=== PATIENT | female | born 1965 | race Caucasian/White ===

== ENCOUNTER → 2016-08-04 | Outpatient (CLI) | payer OTHER, MEDICARE ==
[~2016-08-04] MED LIST: /CELE20CA; /CELE20CA OR; /CELE20CA PO; ACET500C; ACET500C PO; AMIT10TA2 PO; BENA25CA4 PO; CALC12502 PO; DULO30CA PO; FLEC1.3D TD; FLECTOR PATCH TD; FLECTOR1.3 TD; LIDO1DIS2 TD; LIDO5DIS TD; LODINE OR; MULTIVIT PO; NAPR500T OR; NAPR500T81 OR; NEXI20CA OR; OXYCODONE OR; PERC5TAB8 OR; PRIL40CA OR; PROV90AE IN; SOMA250T; SOMA250T OR; SOMA250T PO; SUDA30TA OR; TIZA4CAP PO; TIZA4TAB OR; TRAM50TA2; TRAM50TA2 PO; TYLENOL; TYLENOL PM PO; TYLENOL PO; VICO5TAB OR; VICODINES TAB OR; VITAMIN B COMPLE1 OR; VITAMIN B OR; microgestin PO
--- NOTE | 2016-08-12 00:30 | ECWPNPC ---
PATIENT NAME: HECTOR ZIMMERMAN : 1965 GENDER: FEMALE VISIT DATE: 08/04/2016 DISCHARGE DATE: 08/04/16 1622 VISIT LOCKED DATE TIME: PHYSICIAN: ABBY PEÑA RESOURCE: ABBY PEÑA REASON FOR APPOINTMENT 1. WC, BACK HISTORY OF PRESENT ILLNESS HISTORY OF PRESENT ILLNESS: PAIN THE PATIENT DESCRIBES THE PAIN... 51 YEAR OLD FEMALE PATIENT WITH HISTORY OF CHRONIC BACK PAIN. PATIENT DESCRIBES THE PAIN BURNING, SHARP, AND SHOOTING WITH A PAIN SCORE OF 7/10 ON TODAY'S VISIT. PATIENT WAS INJURED IN A WORK RELATED INJURY ON 05-03-1998 WORKING FOR [employer], PATIENT WAS SHOVELING SNOW OFF THE SIDEWALK WHEN SHE INJURED HER BACK. PATIENT REPORTS THAT SHE HAS TRIED PHYSICAL THERAPY IN THE PAST AND IT ONLY MADE THE PAIN WORST. PATIENT STATES THAT SHE HAD BACK SURGERY IN 1998 AND SHE HAD A DCS PUT IN 2011. PATIENT REPORTS THAT SOMETIMES SHE HAS DIFFICULTIES GOING TO SLEEP AND STAYING ASLEEP. PATIENT REPORTS THAT SHE HAS RADIATING PAIN CONSTANTLY DOWN THE RIGHT LEG AND SOMETIMES THE LEFT LEG. PATIENT STATES HER DCS IS NOT REALLY TAKING THE PAIN AWAY LIKE IT USE TOO. PATIENT DENIES UNEXPLAINABLE WEIGHT LOSS, FEVER, CHILLS, NEW CHANGES ON HER URINARY OR BOWEL CONTROL. FALL RISK SCREENING: SCREENING :NO FALLS IN THE PAST YEAR CURRENT MEDICATIONS TAKING PSEUDOEPHEDRINE HCL 30MG 1 TAB (S) ONCE A DAY TAKING MULTIVITAMINS OTC TABLET 1 TAB(S) P.O. ONCE A DAY TAKING CALCIUM 500 + D 500-400 MG-UNIT TABLET 1 TAB(S) P.O. ONCE A DAY TAKING OMEPRAZOLE 40MG 40GM CAPSULE 1 CAP(S) P.O. ONCE A DAY TAKING VITAMIN B COMPLEX OTC TABLET 1 TAB(S) P.O. ONCE A DAY TAKING LIDODERM 5 % PATCH 3 PATCHES EXTERNALLY ONCE A DAY ON BACK TAKING FLECTOR 1.3 % PATCH 1 PATCH TO SKIN EXTERNALLY TO LOW BACK ON 12 HRS OFF 12 HRS TAKING CYMBALTA 20 MG CAPSULE DELAYED RELEASE PARTICLES 1 CAPSULE ORALLY TWICE A DAY TAKING ESTRADIOL 0.1 MG/GM CREAM 1/2 GRAM VAGINAL TWICE WEEKLY, COMPOUNDED MEDICATION IS IN PATIENT'S BEST MEDICAL INTEREST, CODE F TAKING PREMARIN 0.625 MG/GM CREAM 1/2 GRAM VAGINAL TWICE WEEKLY; COMPOUNDED MEDICATION IS IN PATIENT'S BEST MEDICAL INTEREST, CODE F TAKING GABAPENTIN 100 MG CAPSULE DIRECTED ORALLY THREE TIMES DAILY NEEDED TAKING TRAMADOL HCL 50 MG TABLET 1 TABLET ORALLY EVERY 6 HRS MDD=4 NOT-TAKING CUSTOM DO NOT USE TRAMADOL 50 MG TABLET 1 TAB(S) P.O. THREE TIMES A DAY NOT-TAKING NAPROXEN 500 MG TABLET 1 TAB(S) P.O. TWICE A DAY PAST MEDICAL HISTORY BACK SURGERY X 9 HISTORY OF KIDNEY PROBLEMS CHILD...NOT SURE OF SPECIFICS PSORIASIS ALLERGIES LATEX (FOR ALLERGY USE ONLY): RASH: ALLERGY SURGICAL HISTORY BACK SURGERY X 9 DORSAL COLOMN STIMULATOR 05/2001 LUMPECTOMY, LEFT BREAST 2009 FAMILY HISTORY NO FAMILY HISTORY DOCUMENTED. SOCIAL HISTORY GENERAL: TOBACCO USE ARE YOU A:NONSMOKER LEARNING BARRIERS / SPECIAL NEEDS ORIENTED TO PLAN OF CARE: PATIENT, PAIN MANAGEMENT PATIENT, ORIENTED TO PLAN OF CARE: PATIENT, PAIN MANAGEMENT PATIENT. NEW PATIENT PAIN DIARY TODAY'S VISITNOTES FROM 0-10, WHAT LEVEL IS YOUR PAIN TODAY?0 PAIN CLINIC PFS, CLERGY, PUBLIC HEALTH REFERRALS PFS REFERRAL NEEDED?NO CLERGY REFERRAL NEEDED?NO PUBLIC HEALTH REFERRAL NEEDED?NO WAS THE PROVIDER NOTIFIED OF ANY PERTINENT INFO?NO PFS REFERRAL NEEDED?NO CLERGY REFERRAL NEEDED?NO PUBLIC HEALTH REFERRAL NEEDED?NO WAS THE PROVIDER NOTIFIED OF ANY PERTINENT INFO?NO HOSPITALIZATION/MAJOR DIAGNOSTIC PROCEDURE CHILD, DUE TO KIDNEYS REVIEW OF SYSTEMS CONSTITUTIONAL: ANY CHANGE IN YOUR MEDICAL CONDITION? NO . CHILLS NO . FEVER NO . INFECTION: DO YOU HAVE NEW INFECTIONS? NO . DO YOU HAVE HISTORY OF MRSA? NO . MUSCULOSKELETAL: ANY NEW PATTERNS OF PAIN OR NUMBNESS? NO . GASTROENTEROLOGY: ANY NEW CHANGE IN BOWEL CONTROL? NO . GENITOURINARY: ANY NEW CHANGE IN BLADDER CONTROL? NO . IS THERE A CHANCE YOU COULD BE ? NO . HEMATOLOGY/LYMPH: DO YOU TAKE ANY BLOOD THINNERS? (FOR EXAMPLE- COUMADIN, PLAVIX, AGGRENOX, PLATEL, PRADAXA, OR XARELTO) NO . WHEN WAS YOUR LAST DOSE? DATE: TIME: . NEUROLOGY: HAVE YOU FALLEN IN THE PAST 6 MONTHS? YES . ANY NEW EXTREMITY NUMBNESS OR WEAKNESS? YES . CARDIOLOGY: DO YOU HAVE A PACEMAKER OR DEFIBRILLATOR? NO . RESPIRATORY: HAVE YOU BEEN SICK IN THE PAST WEEK? NO . FEVER NO . FLU LIKE SYMPTOMS? NO . COUGH NO . INTEGUMENTARY: DO YOU HAVE ANY RASHES OR OPEN SORES? NO . ALLERGIC/IMMUNO: ARE YOU ALLERGIC TO SHELLFISH OR IV DYE? NO . ANY NEW ALLERGIES? NO . PSYCHIATRIC: DO YOU HAVE THOUGHTS OF HURTING YOURSELF OR SOMEONE ELSE? NO . ARE YOU ABUSED, NEGLECTED, OR IN AN UNSAFE ENVIRONMENT? NO . ENDOCRINOLOGY: ARE YOU DIABETIC? NO . OTHER: DO YOU NEED ANY PRESCRIPTIONS? YES . IF YES, PLEASE LIST: ____DULOXTINE . ANY NEW PROBLEMS WITH YOUR MEDICATIONS? NO . WHEN DID YOU LAST EAT? ____ . WHEN DID YOU LAST DRINK? ____ . WHAT DID YOU LAST DRINK? ____ . NAME OF PERSON DRIVING YOU HOME? ____ . DO YOU HAVE ANY OTHER QUESTIONS OR CONCERNS NO . REVIEWED BY: PROVIDER: ABBY PEÑA MD . VITAL SIGNS WT 165 LBS, HT 65 IN, BMI 27.45 INDEX, BP 119/74 MM HG, HR 88 /MIN, RR 16 /MIN, TEMP 98 F,8 F, OXYGEN SAT % 100%, NA INITIALS SC 15:47, REVIEWED BY: VD. EXAMINATION : PATIENT IS ALERT O X 3 AND COOPERATIVE. PATIENT AMBULATES WITH A LIMP ON THE RIGHT LEG. PATIENT'S RIGHT LEG IS WEAKER AT FLEXION AND EXTENSION COMPARED TO THE LEFT LEG. PATIENT IS ABLE TO FLEX HER BACK AT 45 DEGREES AND EXTEND HER BACK TO 5 DEGREES. PATIENT HAS TENDERNESS IN THE LOW BACK AREA. PATIENT IS ABLE TO ABDUCT HER UPPER EXTREMITIES. MRI OF THE LUMBAR SPINE DONE ON 09/23/2010 SHOWS POST OPERATIVES CHANGES AT L4-L5 AND A MILD BROAD-BASED ANNULAR BULGE AT L5-S1. ASSESSMENTS LUMBAR POST-LAMINECTOMY SYNDROME - M96.1 (PRIMARY) INTERVERTEBRAL DISC DISORDERS WITH RADICULOPATHY, LUMBAR REGION - M51.16 INTERVERTEBRAL DISC DISORDERS WITH RADICULOPATHY, LUMBOSACRAL REGION - M51.17 TREATMENT LUMBAR POST-LAMINECTOMY SYNDROME REFILL TRAMADOL HCL TABLET, 50 MG, 1 TABLET, ORALLY, EVERY 6 HRS MDD=4, 30 DAY(S), 110, REFILLS 0 NOTES: WE DISCUSSED SEVERAL ISSUES WITH MS. [facility]ONG PAIN MANAGEMENT CASE. AT THIS TIME THE PATIENT WILL RECEIVE A REFILL OF TRAMADOL FOR SOMATIC PAIN, GABAPENTIN FOR NEUROPATHIC PAIN, AND CYMBALTA FOR NEUROPATHIC PAIN. PATIENT DID NOT BRING HER MEDICATION BOTTLES TO TODAY'S VISIT AND WAS ADVISED TO DO SO FOR EVERY VISIT. CHUCK HANKS FROM [employer] WAS HERE FOR THE FOLLOW UP TODAY, HE DID SOME PROGRAMMING WORK WITH THE DCS. PATIENT REPORTS OF GETTING GOOD PAIN RELIEF FROM HER DCS AFTER WORKING WITH CHUCK HANKS. PATIENT WILL FOLLOW UP WITH ME IN 2 MONTHS AND WILL FOLLOW UP WITH CHUCK NEEDED. , INSTRUCTIONS WERE GIVEN, QUESTIONS WERE ANSWERED, PATIENT REPORTS UNDERSTANDING AND AGREES WITH THE PLAN. I, ROSSY NEVILLE, DOCUMENTED THE ABOVE INFORMATION ACTING A SCRIBE FOR DR. PEÑA. I HAVE REVIEWED THE ABOVE DOCUMENT, WRITTEN BY ROSSY NEVILLE SCRIBE AND I VERIFY THAT IT IS ACCURATE. OTHERS REFILL GABAPENTIN CAPSULE, 100 MG, DIRECTED, ORALLY, TWICE DAILY FOR PAIN MDD2, 30 DAY(S), 60, REFILLS 2 REFILL CYMBALTA CAPSULE DELAYED RELEASE PARTICLES, 20 MG, 1 CAPSULE, ORALLY, TWICE A DAY, 30 DAYS, 60 CAPSULE, REFILLS 2 PROCEDURES PN WORKMANS' COMP OPINION IN YOUR OPINION, WAS THE INCIDENT THAT THE PATIENT DESCRIBED THE COMPETENT MEDICAL CAUSE OF THIS INJURY/ILLNESS? YES ARE THE PATIENT'S COMPLAINTS CONSISTENT WITH HIS/HER HISTORY OF THE INJURY/ILLNESS? YES IS THE PATIENT'S HISTORY OF THE INJURY/ILLNESS CONSISTENT WITH YOUR OBJECTIVE FINDING? YES WHAT IS THE PERCENTAGE OF TEMPORARY IMPAIRMENT? TOTAL = 100% IS THE PATIENT WORKING? NO DOCTOR ON SITE: ABBY BELTRAN MD PROCEDURE CODES FA211 ESTABILISHED PATIENT [facility] FACILITY CHARGE G8730 PAIN ASSESS POS TOOL F/U PLAN DOC G8427 DOC MEDS VERIFIED W/PT OR RE DISPOSITION & COMMUNICATION FOLLOW UP 2 MONTHS ELECTRONICALLY SIGNED BY ABBY PEÑA MD ON 08/11/2016 AT 08:54 AM EDT DISCLAIMER : THIS IS A VISIT SUMMARY EXTRACTED FROM THE [employer] CHART. IT IS NOT A COPY OF THE [employer] PROGRESS NOTE. JANE
== END ==
LOC: M PAIN 15:40
PROVIDERS: ATTEND Anesthesiology
DX: Z09 Encounter for follow-up examination after completed treatment for conditions other than malignant neoplasm (principal); G89.29 Other chronic pain; M96.1 Postlaminectomy syndrome, not elsewhere classified; M51.16 Intervertebral disc disorders with radiculopathy, lumbar region; M51.17 Intervertebral disc disorders with radiculopathy, lumbosacral region; L40.9 Psoriasis, unspecified; Z91.040 Latex allergy status; Z79.891 Long term (current) use of opiate analgesic; Z79.899 Other long term (current) drug therapy

== ENCOUNTER → 2016-10-05 | Outpatient (CLI) | payer OTHER, MEDICARE ==
--- NOTE | 2016-10-19 02:18 | ECWPNPC ---
PATIENT NAME: HECTOR ZIMMERMAN : 1965 GENDER: FEMALE VISIT DATE: 10/05/2016 DISCHARGE DATE: 10/05/16 1609 VISIT LOCKED DATE TIME: PHYSICIAN: ABBY PEÑA RESOURCE: ABBY PEÑA REASON FOR APPOINTMENT 1. W/C BACK NECK HISTORY OF PRESENT ILLNESS FALL RISK SCREENING: SCREENING :NO FALLS IN THE PAST YEAR HISTORY OF PRESENT ILLNESS: 51 YEAR OLD FEMALE PATIENT WITH HISTORY OF CHRONIC BACK PAIN. PATIENT DESCRIBES THE PAIN BURNING, SHARP, AND SHOOTING WITH A PAIN SCORE OF 8/10 ON TODAY'S VISIT. PATIENT WAS INJURED IN A WORK RELATED INJURY ON 05/03/1998 WORKING FOR [employer], PATIENT WAS SHOVELING SNOW OFF THE SIDEWALK WHEN SHE INJURED HER BACK. PATIENT REPORTS THAT SHE HAS TRIED PHYSICAL THERAPY IN THE PAST AND IT ONLY MADE THE PAIN WORST. PATIENT STATES THAT SHE HAD BACK SURGERY IN 1998 AND SHE HAD A DCS PUT IN 2011. CURRENTLY THE PATIENT IS USING TRAMADOL, FLECTOR PATCH GABAPENTIN, CYMBALTA, AND LIDODERM TO AID IN PAIN RELIEF. MRS. ZIMMERMAN STATES THAT THE MEDICATION KEEPS HER MOBILE AND FUNCTIONAL. PATIENT REPORTS THAT SHE HAS RADIATING PAIN CONSTANTLY DOWN THE RIGHT LEG AND SOMETIMES THE LEFT LEG. PATIENT STATES HER DCS IS NOT REALLY TAKING THE PAIN AWAY LIKE IT USE TOO. PATIENT DENIES UNEXPLAINABLE WEIGHT LOSS, FEVER, CHILLS, NEW CHANGES ON HER URINARY OR BOWEL CONTROL. CURRENT MEDICATIONS TAKING TRAMADOL HCL 50 MG TABLET 1 TABLET ORALLY EVERY 6 HRS MDD=4 TAKING GABAPENTIN 100 MG CAPSULE DIRECTED ORALLY TWICE DAILY FOR PAIN MDD2 TAKING CYMBALTA 20 MG CAPSULE DELAYED RELEASE PARTICLES 1 CAPSULE ORALLY TWICE A DAY TAKING PSEUDOEPHEDRINE HCL 30MG 1 TAB (S) ONCE A DAY TAKING MULTIVITAMINS OTC TABLET 1 TAB(S) P.O. ONCE A DAY TAKING CALCIUM 500 + D 500-400 MG-UNIT TABLET 1 TAB(S) P.O. ONCE A DAY TAKING OMEPRAZOLE 40MG 40GM CAPSULE 1 CAP(S) P.O. ONCE A DAY TAKING VITAMIN B COMPLEX OTC TABLET 1 TAB(S) P.O. ONCE A DAY TAKING LIDODERM 5 % PATCH 3 PATCHES EXTERNALLY ONCE A DAY ON BACK TAKING FLECTOR 1.3 % PATCH 1 PATCH TO SKIN EXTERNALLY TO LOW BACK ON 12 HRS OFF 12 HRS TAKING ESTRADIOL 0.1 MG/GM CREAM 1/2 GRAM VAGINAL TWICE WEEKLY, COMPOUNDED MEDICATION IS IN PATIENT'S BEST MEDICAL INTEREST, CODE F TAKING PREMARIN 0.625 MG/GM CREAM 1/2 GRAM VAGINAL TWICE WEEKLY; COMPOUNDED MEDICATION IS IN PATIENT'S BEST MEDICAL INTEREST, CODE F NOT-TAKING CUSTOM DO NOT USE TRAMADOL 50 MG TABLET 1 TAB(S) P.O. THREE TIMES A DAY NOT-TAKING NAPROXEN 500 MG TABLET 1 TAB(S) P.O. TWICE A DAY MEDICATION LIST REVIEWED AND RECONCILED WITH THE PATIENT PAST MEDICAL HISTORY BACK SURGERY X 9 HISTORY OF KIDNEY PROBLEMS CHILD...NOT SURE OF SPECIFICS PSORIASIS ALLERGIES LATEX (FOR ALLERGY USE ONLY): RASH: ALLERGY SURGICAL HISTORY BACK SURGERY X 9 DORSAL COLOMN STIMULATOR 05/2001 LUMPECTOMY, LEFT BREAST 2009 FAMILY HISTORY NO FAMILY HISTORY DOCUMENTED. SOCIAL HISTORY GENERAL: TOBACCO USE ARE YOU A:NONSMOKER LEARNING BARRIERS / SPECIAL NEEDS ORIENTED TO PLAN OF CARE: PATIENT, PAIN MANAGEMENT PATIENT, ORIENTED TO PLAN OF CARE: PATIENT, PAIN MANAGEMENT PATIENT. NEW PATIENT PAIN DIARY TODAY'S VISITNOTES FROM 0-10, WHAT LEVEL IS YOUR PAIN TODAY?0 PAIN CLINIC PFS, CLERGY, PUBLIC HEALTH REFERRALS PFS REFERRAL NEEDED?NO CLERGY REFERRAL NEEDED?NO PUBLIC HEALTH REFERRAL NEEDED?NO WAS THE PROVIDER NOTIFIED OF ANY PERTINENT INFO?NO PFS REFERRAL NEEDED?NO CLERGY REFERRAL NEEDED?NO PUBLIC HEALTH REFERRAL NEEDED?NO WAS THE PROVIDER NOTIFIED OF ANY PERTINENT INFO?NO HOSPITALIZATION/MAJOR DIAGNOSTIC PROCEDURE CHILD, DUE TO KIDNEYS REVIEW OF SYSTEMS CONSTITUTIONAL: ANY CHANGE IN YOUR MEDICAL CONDITION? YES . CHILLS NO . FEVER NO . INFECTION: DO YOU HAVE NEW INFECTIONS? NO . DO YOU HAVE HISTORY OF MRSA? NO . MUSCULOSKELETAL: ANY NEW PATTERNS OF PAIN OR NUMBNESS? NO . GASTROENTEROLOGY: ANY NEW CHANGE IN BOWEL CONTROL? NO . GENITOURINARY: ANY NEW CHANGE IN BLADDER CONTROL? NO . IS THERE A CHANCE YOU COULD BE ? NO . HEMATOLOGY/LYMPH: DO YOU TAKE ANY BLOOD THINNERS? (FOR EXAMPLE- COUMADIN, PLAVIX, AGGRENOX, PLATEL, PRADAXA, OR XARELTO) NO . WHEN WAS YOUR LAST DOSE? DATE: TIME: . NEUROLOGY: HAVE YOU FALLEN IN THE PAST 6 MONTHS? NO . ANY NEW EXTREMITY NUMBNESS OR WEAKNESS? NO . CARDIOLOGY: DO YOU HAVE A PACEMAKER OR DEFIBRILLATOR? NO . RESPIRATORY: HAVE YOU BEEN SICK IN THE PAST WEEK? NO . FEVER NO . FLU LIKE SYMPTOMS? NO . COUGH NO . INTEGUMENTARY: DO YOU HAVE ANY RASHES OR OPEN SORES? NO . ALLERGIC/IMMUNO: ARE YOU ALLERGIC TO SHELLFISH OR IV DYE? NO . ANY NEW ALLERGIES? NO . PSYCHIATRIC: DO YOU HAVE THOUGHTS OF HURTING YOURSELF OR SOMEONE ELSE? NO . ARE YOU ABUSED, NEGLECTED, OR IN AN UNSAFE ENVIRONMENT? NO . ENDOCRINOLOGY: ARE YOU DIABETIC? NO . OTHER: DO YOU NEED ANY PRESCRIPTIONS? YES . IF YES, PLEASE LIST: ____FLECTOR PATCHES . ANY NEW PROBLEMS WITH YOUR MEDICATIONS? NO . WHEN DID YOU LAST EAT? ____ . WHEN DID YOU LAST DRINK? ____ . WHAT DID YOU LAST DRINK? ____ . NAME OF PERSON DRIVING YOU HOME? ____ . DO YOU HAVE ANY OTHER QUESTIONS OR CONCERNS NO . REVIEWED BY: PROVIDER: ABBY PEÑA MD . VITAL SIGNS WT 169.4 LBS, HT 65 IN, BMI 28.19 INDEX, BP 150/72 MM HG, HR 83 /MIN, RR 16 /MIN, TEMP 98.8 F, OXYGEN SAT % 100%, NA INITIALS SC 15:36, REVIEWED BY: CL. EXAMINATION : PATIENT IS ALERT O X 3 AND COOPERATIVE. PATIENT AMBULATES WITH A LIMP ON THE RIGHT LEG. PATIENT'S RIGHT LEG IS WEAKER AT FLEXION AND EXTENSION COMPARED TO THE LEFT LEG. UNABLE TO STRAIGHT LEG WHILE IN THE SUPINE POSITION. PATIENT IS ABLE TO FLEX HER BACK AT 45 DEGREES AND UNABLE TO EXTEND THE BACK DUE TO PAIN. PATIENT HAS TENDERNESS IN THE LOW BACK AREA. PATIENT IS ABLE TO ABDUCT HER UPPER EXTREMITIES. MRI OF THE LUMBAR SPINE DONE ON 09/23/2010 SHOWS POST OPERATIVES CHANGES AT L4-L5 AND A MILD BROAD-BASED ANNULAR BULGE AT L5-S1. ASSESSMENTS INTERVERTEBRAL DISC DISORDERS WITH RADICULOPATHY, LUMBOSACRAL REGION - M51.17 (PRIMARY) SPONDYLOSIS WITHOUT MYELOPATHY OR RADICULOPATHY, LUMBAR REGION - M47.816 TREATMENT INTERVERTEBRAL DISC DISORDERS WITH RADICULOPATHY, LUMBOSACRAL REGION NOTES: WE DISCUSSED SEVERAL ISSUES WITH MRS. ZIMMERMAN'S PAIN MANAGEMENT CASE. AT THIS TIME THE PATIENT WILL CONTINUE WITH THE SAME MEDICATION REGIME BEFORE. PATIENT IS USING THE FLECTOR PATCH AND LIDODERM FOR SOMATIC AND NEUROPATHIC PAIN, GABAPENTIN AND CYMBALTA FOR THE NEUROPATHIC PAIN, AND TRAMADOL FOR THE SOMATIC PAIN. PATIENT DENIES ABUSE OF ANY MEDICATION, DENIES USE OF ILLEGAL SUBSTANCES AND STATES SHE IS ONLY USING THE MEDICATION FOR PAIN MANAGEMENT. URINE TOXICOLOGY REPORT DONE ON 06/06/13 SHOWS CONSISTENT RESULTS WITH THE PATIENT'S MEDICATION LIST. AFTER VIEWING THE PATIENT'S MRI AND VIEWING WHERE THE PAIN IS LOCATED I WOULD LIKE TO MOVE FORWARD WITH A LUMBAR EPIDURAL. WE DISCUSSED THE RISKS, BENENFITS, AND ALTNERATIVES OF THE INJECTION AND THE PATIENT WOULD LIKE TO PROCEED AT THIS TIME. I WOULD ALSO LIKE TO SEND THE PATIENT TO A NEUROSURGEON DUE TO THE PAIN THE PATIENT IS HAVING. INSTRUCTIONS WERE GIVEN, QUESTIONS WERE ANSWERED, PATIENT REPORTS UNDERSTANDING AND AGREES WITH THE PLAN. I, CHAN BERRY, DOCUMENTED THE ABOVE INFORMATION ACTING A SCRIBE FOR DR. PEÑA. I HAVE REVIEWED THE ABOVE DOCUMENT, WRITTEN BY CHAN HUMMEL AND I VERIFY THAT IT IS ACCURATE. OTHERS REFILL FLECTOR PATCH, 1.3 %, 1 PATCH TO SKIN, EXTERNALLY, TO LOW BACK ON 12 HRS OFF 12 HRS, 30 DAY(S), 60, REFILLS 5 PROCEDURES PN WORKMANS' COMP OPINION IN YOUR OPINION, WAS THE INCIDENT THAT THE PATIENT DESCRIBED THE COMPETENT MEDICAL CAUSE OF THIS INJURY/ILLNESS? YES ARE THE PATIENT'S COMPLAINTS CONSISTENT WITH HIS/HER HISTORY OF THE INJURY/ILLNESS? YES IS THE PATIENT'S HISTORY OF THE INJURY/ILLNESS CONSISTENT WITH YOUR OBJECTIVE FINDING? YES WHAT IS THE PERCENTAGE OF TEMPORARY IMPAIRMENT? TOTAL = 100% IS THE PATIENT WORKING? NO DOCTOR ON SITE: ABBY BELTRAN MD PROCEDURE CODES FA211 ESTABILISHED PATIENT [facility] FACILITY CHARGE G8427 DOC MEDS VERIFIED W/PT OR RE G8730 PAIN ASSESS POS TOOL F/U PLAN DOC DISPOSITION & COMMUNICATION FOLLOW UP LESI AFTER APPROVAL ELECTRONICALLY SIGNED BY ABBY PEÑA MD ON 10/18/2016 AT 09:19 PM EDT DISCLAIMER : THIS IS A VISIT SUMMARY EXTRACTED FROM THE [employer] CHART. IT IS NOT A COPY OF THE [employer] PROGRESS NOTE. JANE
== END ==
LOC: M PAIN 15:40
PROVIDERS: ATTEND Anesthesiology
DX: G89.29 Other chronic pain (principal); M51.17 Intervertebral disc disorders with radiculopathy, lumbosacral region; M47.816 Spondylosis without myelopathy or radiculopathy, lumbar region; L40.9 Psoriasis, unspecified; Z91.040 Latex allergy status; Z79.891 Long term (current) use of opiate analgesic; Z79.899 Other long term (current) drug therapy

== ENCOUNTER → 2016-10-28 | Outpatient (CLI) | payer OTHER, MEDICARE ==
--- NOTE | 2016-11-06 00:20 | ECWPNPC ---
PATIENT NAME: HECTOR ZIMMERMAN : 1965 GENDER: FEMALE VISIT DATE: 10/28/2016 DISCHARGE DATE: 10/28/16 1556 VISIT LOCKED DATE TIME: PHYSICIAN: ABBY PEÑA RESOURCE: ABBY PEÑA REASON FOR APPOINTMENT 1. W/C LOW BACK PAIN HISTORY OF PRESENT ILLNESS HISTORY OF PRESENT ILLNESS: PAIN THE PATIENT DESCRIBES THE PAIN... 51 YEAR OLD FEMALE PATIENT WITH HISTORY OF CHRONIC BACK PAIN. PATIENT DESCRIBES THE PAIN BURNING, SHARP, AND SHOOTING WITH A PAIN SCORE OF 7/10 ON TODAY'S VISIT. PATIENT WAS INJURED IN A WORK RELATED INJURY ON 05/03/1998 WORKING FOR [employer], PATIENT WAS SHOVELING SNOW OFF THE SIDEWALK WHEN SHE INJURED HER BACK. PATIENT REPORTS THAT SHE HAS TRIED PHYSICAL THERAPY IN THE PAST AND IT ONLY MADE THE PAIN WORST. PATIENT STATES THAT SHE HAD BACK SURGERY IN 1998 AND SHE HAD A DCS PUT IN 2011. CURRENTLY THE PATIENT IS USING TRAMADOL, FLECTOR PATCH GABAPENTIN, CYMBALTA, AND LIDODERM TO AID IN PAIN RELIEF. MRS. ZIMMERMAN STATES THAT THE MEDICATION KEEPS HER MOBILE AND FUNCTIONAL. PATIENT REPORTS THAT SHE HAS RADIATING PAIN CONSTANTLY DOWN THE RIGHT LEG AND SOMETIMES THE LEFT LEG. MRS. ZIMMERMAN STATES SHE HAS AN APPOINTMENT WITH A NEUROSURGEON IN THE NEXT WEEK. PATIENT DENIES UNEXPLAINABLE WEIGHT LOSS, FEVER, CHILLS, NEW CHANGES ON HER URINARY OR BOWEL CONTROL. FALL RISK SCREENING: SCREENING :NO FALLS IN THE PAST YEAR CURRENT MEDICATIONS TAKING FLECTOR 1.3 % PATCH 1 PATCH TO SKIN EXTERNALLY TO LOW BACK ON 12 HRS OFF 12 HRS TAKING TRAMADOL HCL 50 MG TABLET 1 TABLET ORALLY EVERY 6 HRS MDD=4 TAKING GABAPENTIN 100 MG CAPSULE DIRECTED ORALLY TWICE DAILY FOR PAIN MDD2 TAKING CYMBALTA 20 MG CAPSULE DELAYED RELEASE PARTICLES 1 CAPSULE ORALLY TWICE A DAY TAKING PSEUDOEPHEDRINE HCL 30MG 1 TAB (S) ONCE A DAY TAKING MULTIVITAMINS OTC TABLET 1 TAB(S) P.O. ONCE A DAY TAKING CALCIUM 500 + D 500-400 MG-UNIT TABLET 1 TAB(S) P.O. ONCE A DAY TAKING OMEPRAZOLE 40MG 40GM CAPSULE 1 CAP(S) P.O. ONCE A DAY TAKING VITAMIN B COMPLEX OTC TABLET 1 TAB(S) P.O. ONCE A DAY TAKING LIDODERM 5 % PATCH 3 PATCHES EXTERNALLY ONCE A DAY ON BACK TAKING ESTRADIOL 0.1 MG/GM CREAM 1/2 GRAM VAGINAL TWICE WEEKLY, COMPOUNDED MEDICATION IS IN PATIENT'S BEST MEDICAL INTEREST, CODE F TAKING PREMARIN 0.625 MG/GM CREAM 1/2 GRAM VAGINAL TWICE WEEKLY; COMPOUNDED MEDICATION IS IN PATIENT'S BEST MEDICAL INTEREST, CODE F NOT-TAKING CUSTOM DO NOT USE TRAMADOL 50 MG TABLET 1 TAB(S) P.O. THREE TIMES A DAY NOT-TAKING NAPROXEN 500 MG TABLET 1 TAB(S) P.O. TWICE A DAY MEDICATION LIST REVIEWED AND RECONCILED WITH THE PATIENT PAST MEDICAL HISTORY BACK SURGERY X 9 HISTORY OF KIDNEY PROBLEMS CHILD...NOT SURE OF SPECIFICS PSORIASIS ALLERGIES LATEX (FOR ALLERGY USE ONLY): RASH: ALLERGY REVIEW OF SYSTEMS REVIEWED BY: PROVIDER: . CONSTITUTIONAL: ANY CHANGE IN YOUR MEDICAL CONDITION? NO . CHILLS NO . FEVER NO . INFECTION: DO YOU HAVE NEW INFECTIONS? NO . DO YOU HAVE HISTORY OF MRSA? NO . MUSCULOSKELETAL: ANY NEW PATTERNS OF PAIN OR NUMBNESS? NO . GASTROENTEROLOGY: ANY NEW CHANGE IN BOWEL CONTROL? NO . GENITOURINARY: ANY NEW CHANGE IN BLADDER CONTROL? NO . IS THERE A CHANCE YOU COULD BE ? NO . HEMATOLOGY/LYMPH: DO YOU TAKE ANY BLOOD THINNERS? (FOR EXAMPLE- COUMADIN, PLAVIX, AGGRENOX, PLATEL, PRADAXA, OR XARELTO) NO . WHEN WAS YOUR LAST DOSE? DATE: TIME: . NEUROLOGY: HAVE YOU FALLEN IN THE PAST 6 MONTHS? NO . ANY NEW EXTREMITY NUMBNESS OR WEAKNESS? NO . CARDIOLOGY: DO YOU HAVE A PACEMAKER OR DEFIBRILLATOR? NO . RESPIRATORY: HAVE YOU BEEN SICK IN THE PAST WEEK? NO . FEVER NO . FLU LIKE SYMPTOMS? NO . COUGH NO . INTEGUMENTARY: DO YOU HAVE ANY RASHES OR OPEN SORES? NO . ALLERGIC/IMMUNO: ARE YOU ALLERGIC TO SHELLFISH OR IV DYE? NO . ANY NEW ALLERGIES? NO . PSYCHIATRIC: DO YOU HAVE THOUGHTS OF HURTING YOURSELF OR SOMEONE ELSE? NO . ARE YOU ABUSED, NEGLECTED, OR IN AN UNSAFE ENVIRONMENT? NO . ENDOCRINOLOGY: ARE YOU DIABETIC? NO . OTHER: DO YOU NEED ANY PRESCRIPTIONS? YES, TRAMADOL, LIDODERM PATCHES. FLECTOR PATCHES . IF YES, PLEASE LIST: ____ . ANY NEW PROBLEMS WITH YOUR MEDICATIONS? NO . WHEN DID YOU LAST EAT? ____ . WHEN DID YOU LAST DRINK? ____ . WHAT DID YOU LAST DRINK? ____ . NAME OF PERSON DRIVING YOU HOME? ____ . DO YOU HAVE ANY OTHER QUESTIONS OR CONCERNS YES, CAN NOT GET FLECTOR PATCHES, HASN'T HEARD FROM AUTHORIZATION FOR INJECTIONS OR REFERRAL.&NBSP;. VITAL SIGNS WT 163.0 LBS, HT 65 IN, BMI 27.12 INDEX, BP 137/78 MM HG, HR 83 /MIN, RR 16 /MIN, TEMP 98.3 F, OXYGEN SAT % 98%, NA INITIALS TL 1420, REVIEWED BY: JAMEEL. EXAMINATION : PATIENT IS ALERT O X 3 AND COOPERATIVE. PATIENT AMBULATES WITH A LIMP ON THE RIGHT LEG. PATIENT'S RIGHT LEG IS WEAKER AT FLEXION AND EXTENSION COMPARED TO THE LEFT LEG. UNABLE TO STRAIGHT LEG WHILE IN THE SUPINE POSITION. PATIENT IS ABLE TO FLEX HER BACK AT 45 DEGREES AND UNABLE TO EXTEND THE BACK DUE TO PAIN. PATIENT HAS TENDERNESS IN THE LOW BACK AREA. PATIENT IS ABLE TO ABDUCT HER UPPER EXTREMITIES. MRI OF THE LUMBAR SPINE DONE ON 09/23/2010 SHOWS POST OPERATIVES CHANGES AT L4-L5 AND A MILD BROAD-BASED ANNULAR BULGE AT L5-S1. ASSESSMENTS LUMBAR POST-LAMINECTOMY SYNDROME - M96.1 (PRIMARY) INTERVERTEBRAL DISC DISORDERS WITH RADICULOPATHY, LUMBAR REGION - M51.16 INTERVERTEBRAL DISC DISORDERS WITH RADICULOPATHY, LUMBOSACRAL REGION - M51.17 TREATMENT LUMBAR POST-LAMINECTOMY SYNDROME REFILL TRAMADOL HCL TABLET, 50 MG, 1 TABLET, ORALLY, EVERY 6 HRS MDD=4, 30 DAY(S), 110, REFILLS 0 NOTES: WE DISCUSSED SEVERAL ISSUES WITH MRS. ZIMMERMAN'S PAIN MANAGEMENT CASE. AT THIS TIME THE PATIENT WILL CONTINUE WITH THE SAME MEDICATION REGIME BEFORE. I WOULD LIKE THE PATIENT TO INCREASES THE GABAPENTIN DUE TO IS AIDING IN PAIN RELIEF. PATIENT IS USING THE FLECTOR PATCH AND LIDODERM FOR SOMATIC AND NEUROPATHIC PAIN, GABAPENTIN AND CYMBALTA FOR THE NEUROPATHIC PAIN, AND TRAMADOL FOR THE SOMATIC PAIN. PATIENT DENIES ABUSE OF ANY MEDICATION, DENIES USE OF ILLEGAL SUBSTANCES AND STATES SHE IS ONLY USING THE MEDICATION FOR PAIN MANAGEMENT. URINE TOXICOLOGY REPORT DONE ON 06/06/13 SHOWS CONSISTENT RESULTS WITH THE PATIENT'S MEDICATION LIST. PATIENT WILL PERFORM A URINE TOXICOLOGY TODAY. AT THIS TIME THE PATIENT STATES SHE IS ABLE TO MANAGE HER PAIN AND DOES NOT WANT TO MOVE FORWARD WITH INTERVENTIONS AT THIS TIME. PATIENT WILL RETURN TO THE CLINIC IN 7 WEEKS. INSTRUCTIONS WERE GIVEN, QUESTIONS WERE ANSWERED, PATIENT REPORTS UNDERSTANDING AND AGREES WITH THE PLAN. I, CHAN BERRY, DOCUMENTED THE ABOVE INFORMATION ACTING A SCRIBE FOR DR. PEÑA. I HAVE REVIEWED THE ABOVE DOCUMENT, WRITTEN BY CHAN HUMMEL AND I VERIFY THAT IT IS ACCURATE. OTHERS REFILL FLECTOR PATCH, 1.3 %, 1 PATCH TO SKIN, EXTERNALLY, TO LOW BACK ON 12 HRS OFF 12 HRS, 30 DAY(S), 30, REFILLS 2 REFILL GABAPENTIN CAPSULE, 100 MG, DIRECTED, ORALLY, THREE TIMES DAILY, 30 DAY(S), 90, REFILLS 2 REFILL CYMBALTA CAPSULE DELAYED RELEASE PARTICLES, 20 MG, 1 CAPSULE, ORALLY, ONCE A DAY, 30 DAYS, 30 CAPSULE, REFILLS 2 REFILL LIDODERM PATCH, 5 %, 3 PATCHES, EXTERNALLY, ONCE A DAY ON BACK, 30 DAY(S), 90, REFILLS 2 PROCEDURE CODES FA211 ESTABILISHED PATIENT [facility] FACILITY CHARGE [id number] DOC MEDS VERIFIED W/PT OR RE G1630 PAIN ASSESS POS TOOL F/U PLAN DOC DISPOSITION & COMMUNICATION FOLLOW UP 7 WEEKS ELECTRONICALLY SIGNED BY ABBY PEÑA MD ON 11/05/2016 AT 08:20 AM EDT DISCLAIMER : THIS IS A VISIT SUMMARY EXTRACTED FROM THE [employer]TM) by [employer] CHART. IT IS NOT A COPY OF THE [employer] PROGRESS NOTE. JANE
== END ==
LOC: M PAIN 14:00
PROVIDERS: ATTEND Anesthesiology
DX: M96.1 Postlaminectomy syndrome, not elsewhere classified (principal); M51.16 Intervertebral disc disorders with radiculopathy, lumbar region; M51.17 Intervertebral disc disorders with radiculopathy, lumbosacral region; L40.9 Psoriasis, unspecified; Z91.040 Latex allergy status; Z79.891 Long term (current) use of opiate analgesic; Z79.899 Other long term (current) drug therapy

== ENCOUNTER → 2016-12-17 | Outpatient (CLI) | payer OTHER, MEDICARE ==
--- NOTE | 2017-01-03 00:44 | ECWPNPC ---
PATIENT NAME: HECTOR ZIMMERMAN : 1965 GENDER: FEMALE VISIT DATE: 12/17/2016 DISCHARGE DATE: 12/17/16 1422 VISIT LOCKED DATE TIME: PHYSICIAN: ABBY PEÑA RESOURCE: ABBY PEÑA REASON FOR APPOINTMENT 1. W/C LOW BACK HISTORY OF PRESENT ILLNESS HISTORY OF PRESENT ILLNESS: PAIN THE PATIENT DESCRIBES THE PAIN... 51 YEAR OLD FEMALE PATIENT WITH HISTORY OF CHRONIC LOW BACK PAIN. PATIENT DESCRIBES THE PAIN ACHING, SHARP, TENDER, THROBBING, SHOOTING WITH THE PAIN COMING AND GOING AND A PAIN SCORE OF 8/10. 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 PATIENT REPORTS THAT SHE HAS TRIED PHYSICAL THERAPY IN THE PAST AND IT ONLY MADE THE PAIN WORST. PATIENT STATES THAT SHE HAD BACK SURGERY IN 1998 AND SHE HAD A DCS PUT IN 2011. CURRENTLY THE PATIENT IS USING TRAMADOL, FLECTOR PATCH GABAPENTIN, CYMBALTA, AND LIDODERM TO AID IN PAIN RELIEF. MRS. ZIMMERMAN STATES THAT THE MEDICATION KEEPS HER MOBILE AND FUNCTIONAL. PATIENT REPORTS THAT SHE HAS RADIATING PAIN CONSTANTLY DOWN THE RIGHT LEG AND SOMETIMES THE LEFT LEG. MRS. ZIMMERMAN STATES SHE HAS AN APPOINTMENT WITH A NEUROSURGEON IN THE NEXT WEEK. PATIENT DENIES UNEXPLAINABLE WEIGHT LOSS, FEVER, CHILLS, NEW CHANGES ON HER URINARY OR BOWEL CONTROL. FALL RISK SCREENING: SCREENING :NO FALLS IN THE PAST YEAR CURRENT MEDICATIONS TAKING PSEUDOEPHEDRINE HCL 30MG 1 TAB (S) ONCE A DAY TAKING MULTIVITAMINS OTC TABLET 1 TAB(S) P.O. ONCE A DAY TAKING CALCIUM 500 + D 500-400 MG-UNIT TABLET 1 TAB(S) P.O. ONCE A DAY TAKING OMEPRAZOLE 40MG 40GM CAPSULE 1 CAP(S) P.O. ONCE A DAY TAKING VITAMIN B COMPLEX OTC TABLET 1 TAB(S) P.O. ONCE A DAY TAKING ESTRADIOL 0.1 MG/GM CREAM 1/2 GRAM VAGINAL TWICE WEEKLY, COMPOUNDED MEDICATION IS IN PATIENT'S BEST MEDICAL INTEREST, CODE F TAKING PREMARIN 0.625 MG/GM CREAM 1/2 GRAM VAGINAL TWICE WEEKLY; COMPOUNDED MEDICATION IS IN PATIENT'S BEST MEDICAL INTEREST, CODE F TAKING TRAMADOL HCL 50 MG TABLET 1 TABLET ORALLY EVERY 6 HRS MDD=4 TAKING FLECTOR 1.3 % PATCH 1 PATCH TO SKIN EXTERNALLY TO LOW BACK ON 12 HRS OFF 12 HRS TAKING GABAPENTIN 100 MG CAPSULE DIRECTED ORALLY THREE TIMES DAILY TAKING CYMBALTA 20 MG CAPSULE DELAYED RELEASE PARTICLES 1 CAPSULE ORALLY ONCE A DAY TAKING LIDODERM 5 % PATCH 3 PATCHES EXTERNALLY ONCE A DAY ON BACK NOT-TAKING CUSTOM DO NOT USE TRAMADOL 50 MG TABLET 1 TAB(S) P.O. THREE TIMES A DAY NOT-TAKING NAPROXEN 500 MG TABLET 1 TAB(S) P.O. TWICE A DAY MEDICATION LIST REVIEWED AND RECONCILED WITH THE PATIENT PAST MEDICAL HISTORY BACK SURGERY X 9 HISTORY OF KIDNEY PROBLEMS CHILD...NOT SURE OF SPECIFICS PSORIASIS ALLERGIES LATEX (FOR ALLERGY USE ONLY): RASH: ALLERGY REVIEW OF SYSTEMS REVIEWED BY: PROVIDER: ABBY PEÑA MD . CONSTITUTIONAL: ANY CHANGE IN YOUR MEDICAL CONDITION? NO . CHILLS NO . FEVER NO . INFECTION: DO YOU HAVE NEW INFECTIONS? NO . DO YOU HAVE HISTORY OF MRSA? NO . MUSCULOSKELETAL: ANY NEW PATTERNS OF PAIN OR NUMBNESS? NO . GASTROENTEROLOGY: ANY NEW CHANGE IN BOWEL CONTROL? NO . GENITOURINARY: ANY NEW CHANGE IN BLADDER CONTROL? NO . IS THERE A CHANCE YOU COULD BE ? NO . HEMATOLOGY/LYMPH: DO YOU TAKE ANY BLOOD THINNERS? (FOR EXAMPLE- COUMADIN, PLAVIX, AGGRENOX, PLATEL, PRADAXA, OR XARELTO) NO . WHEN WAS YOUR LAST DOSE? DATE: TIME: . NEUROLOGY: HAVE YOU FALLEN IN THE PAST 6 MONTHS? NO . ANY NEW EXTREMITY NUMBNESS OR WEAKNESS? NO . CARDIOLOGY: DO YOU HAVE A PACEMAKER OR DEFIBRILLATOR? NO . RESPIRATORY: HAVE YOU BEEN SICK IN THE PAST WEEK? NO . FEVER NO . FLU LIKE SYMPTOMS? NO . COUGH NO . INTEGUMENTARY: DO YOU HAVE ANY RASHES OR OPEN SORES? NO . ALLERGIC/IMMUNO: ARE YOU ALLERGIC TO SHELLFISH OR IV DYE? NO . ANY NEW ALLERGIES? NO . PSYCHIATRIC: DO YOU HAVE THOUGHTS OF HURTING YOURSELF OR SOMEONE ELSE? NO . ARE YOU ABUSED, NEGLECTED, OR IN AN UNSAFE ENVIRONMENT? NO . ENDOCRINOLOGY: ARE YOU DIABETIC? NO . OTHER: DO YOU NEED ANY PRESCRIPTIONS? YES . IF YES, PLEASE LIST: ____TRAMADOL . ANY NEW PROBLEMS WITH YOUR MEDICATIONS? NO . WHEN DID YOU LAST EAT? ____ . WHEN DID YOU LAST DRINK? ____ . WHAT DID YOU LAST DRINK? ____ . NAME OF PERSON DRIVING YOU HOME? ____ . DO YOU HAVE ANY OTHER QUESTIONS OR CONCERNS NO . VITAL SIGNS WT 170 LBS, HT 65 IN, BMI 28.29 INDEX, BP 110/71 MM HG, HR 82 /MIN, RR 18 /MIN, TEMP 97.9 F, OXYGEN SAT % 97%, NA INITIALS SC 13:54. EXAMINATION : PATIENT IS ALERT O X 3 AND COOPERATIVE. PATIENT AMBULATES WITH A LIMP ON THE RIGHT LEG. PATIENT'S RIGHT LEG IS WEAKER AT FLEXION AND EXTENSION COMPARED TO THE LEFT LEG. UNABLE TO STRAIGHT LEG WHILE IN THE SUPINE POSITION. PATIENT IS ABLE TO FLEX HER BACK AT 45 DEGREES AND UNABLE TO EXTEND THE BACK DUE TO PAIN. PATIENT HAS TENDERNESS IN THE LOW BACK AREA. PATIENT IS ABLE TO ABDUCT HER UPPER EXTREMITIES. MRI OF THE LUMBAR SPINE DONE ON 09/23/2010 SHOWS POST OPERATIVES CHANGES AT L4-L5 AND A MILD BROAD-BASED ANNULAR BULGE AT L5-S1. ASSESSMENTS LUMBAR POST-LAMINECTOMY SYNDROME - M96.1 (PRIMARY) INTERVERTEBRAL DISC DISORDERS WITH RADICULOPATHY, LUMBAR REGION - M51.16 INTERVERTEBRAL DISC DISORDERS WITH RADICULOPATHY, LUMBOSACRAL REGION - M51.17 TREATMENT LUMBAR POST-LAMINECTOMY SYNDROME REFILL TRAMADOL HCL TABLET, 50 MG, 1 TABLET, ORALLY, EVERY 6 HRS MDD=4, 30 DAY(S), 110, REFILLS 0 NOTES: WE DISCUSSED SEVERAL ISSUES WITH MRS. ZIMMERMAN'S PAIN MANAGEMENT CASE. AT THIS TIME THE PATIENT WILL CONTINUE WITH THE SAME MEDICATION REGIME BEFORE. I WOULD LIKE THE PATIENT TO INCREASES THE GABAPENTIN DUE TO IS AIDING IN PAIN RELIEF. PATIENT IS USING THE FLECTOR PATCH AND LIDODERM FOR SOMATIC AND NEUROPATHIC PAIN, GABAPENTIN AND CYMBALTA FOR THE NEUROPATHIC PAIN, AND TRAMADOL FOR THE SOMATIC PAIN. PATIENT DENIES ABUSE OF ANY MEDICATION, DENIES USE OF ILLEGAL SUBSTANCES AND STATES SHE IS ONLY USING THE MEDICATION FOR PAIN MANAGEMENT. URINE TOXICOLOGY REPORT DONE ON 06/06/13 SHOWS CONSISTENT RESULTS WITH THE PATIENT'S MEDICATION LIST. PATIENT WILL PERFORM A URINE TOXICOLOGY REPORT TODAY. AFTER VIEWING THE MRI AND THE PATIENT'S RADICULAR PAIN I WOULD LIKE TO MOVE FORWARD WITH A LUMBAR EPIDURAL. WE DISCUSSED THE RISKS, BENENFITS, AND ALTNERATIVES OF THE PROCEDURE AND THE PATIENT WOULD LIKE TO PROCEED. INSTRUCTIONS WERE GIVEN, QUESTIONS WERE ANSWERED, PATIENT REPORTS UNDERSTANDING AND AGREES WITH THE PLAN. I, CHAN BERRY, DOCUMENTED THE ABOVE INFORMATION ACTING A SCRIBE FOR DR. PEÑA. I HAVE REVIEWED THE ABOVE DOCUMENT, WRITTEN BY CHAN HUMMEL AND I VERIFY THAT IT IS ACCURATE. OTHERS REFILL FLECTOR PATCH, 1.3 %, 1 PATCH TO SKIN, EXTERNALLY, TO LOW BACK ON 12 HRS OFF 12 HRS, 30 DAY(S), 30, REFILLS 2 REFILL GABAPENTIN CAPSULE, 100 MG, DIRECTED, ORALLY, THREE TIMES DAILY, 30 DAY(S), 90, REFILLS 2 REFILL CYMBALTA CAPSULE DELAYED RELEASE PARTICLES, 20 MG, 1 CAPSULE, ORALLY, ONCE A DAY, 30 DAYS, 30 CAPSULE, REFILLS 2 REFILL LIDODERM PATCH, 5 %, 3 PATCHES, EXTERNALLY, ONCE A DAY ON BACK, 30 DAY(S), 90, REFILLS 2 START ZANAFLEX CAPSULE, 2 MG, 1 CAPSULE NEEDED, ORALLY FOR SPASMS AND PAIN, BEFORE BEDTIME, 30 DAY(S), 20, REFILLS 1 PROCEDURES PN WORKMANS' COMP OPINION IN YOUR OPINION, WAS THE INCIDENT THAT THE PATIENT DESCRIBED THE COMPETENT MEDICAL CAUSE OF THIS INJURY/ILLNESS? YES ARE THE PATIENT'S COMPLAINTS CONSISTENT WITH HIS/HER HISTORY OF THE INJURY/ILLNESS? YES IS THE PATIENT'S HISTORY OF THE INJURY/ILLNESS CONSISTENT WITH YOUR OBJECTIVE FINDING? YES WHAT IS THE PERCENTAGE OF TEMPORARY IMPAIRMENT? TOTAL = 100% IS THE PATIENT WORKING? NO DOCTOR ON SITE: ABBY BELTRAN MD PREVENTIVE MEDICINE DISCUSSED PRE PROCEDURE CARE WITH PT UNDERSTANDING EXPRESSED. PROCEDURE CODES FA211 ESTABILISHED PATIENT [facility] FACILITY CHARGE G8427 DOC MEDS VERIFIED W/PT OR RE G8730 PAIN ASSESS POS TOOL F/U PLAN DOC DISPOSITION & COMMUNICATION FOLLOW UP LESI AFTER APPROVAL ELECTRONICALLY SIGNED BY ABBY PEÑA MD ON 01/02/2017 AT 12:45 PM EDT DISCLAIMER : THIS IS A VISIT SUMMARY EXTRACTED FROM THE [employer] CHART. IT IS NOT A COPY OF THE [employer] PROGRESS NOTE. MTDD
== END ==
LOC: M PAIN 13:20
PROVIDERS: ATTEND Anesthesiology
DX: M96.1 Postlaminectomy syndrome, not elsewhere classified (principal); M51.16 Intervertebral disc disorders with radiculopathy, lumbar region; M51.17 Intervertebral disc disorders with radiculopathy, lumbosacral region; L40.9 Psoriasis, unspecified; Z91.040 Latex allergy status; Z79.891 Long term (current) use of opiate analgesic; Z79.899 Other long term (current) drug therapy

== ENCOUNTER → 2017-01-25 | Outpatient (CLI) | payer OTHER, MEDICARE ==
--- NOTE | 2017-02-09 01:33 | ECWPNPC ---
PATIENT NAME: HECTOR ZIMMERMAN : 1965 GENDER: FEMALE VISIT DATE: 01/25/2017 DISCHARGE DATE: 01/25/17 1215 VISIT LOCKED DATE TIME: PHYSICIAN: SUSAN ESPINOSA RESOURCE: SUSAN ESPINOSA REASON FOR APPOINTMENT 1. POST PROCEDURE W/C HISTORY OF PRESENT ILLNESS HISTORY OF PRESENT ILLNESS: PAIN THE PATIENT DESCRIBES THE PAIN... FALL RISK SCREENING: SCREENING :NO FALLS IN THE PAST YEAR TODAY'S VISIT: NOTES: WC FOLLOWUP FOR LOW BACK PAIN. HAS BEEN HAVING MARKED INCREASE IN LOW BACK PAIN WITH SHARP SHOOTING RADIATING PAIN INTO POSTERIOR RIGHGT BUTTUCK TO LEVEL OF KNEE. DID NOT TOLERATE INCREASE IN GABAPENTIN. PAIN INCREASES WHEN WALKING ON HARD SURFACES. PAIN IS INTENSE WHEN ATTEMPTING TO SIT OR MOVING TO STAND. DCS HAS BEEN WORKING WELL AND WAS ABLE TO GET BETTER COVERAGE OVER THE RIGHT LEG. . CURRENT MEDICATIONS TAKING PSEUDOEPHEDRINE HCL 30MG 1 TAB (S) ONCE A DAY TAKING MULTIVITAMINS OTC TABLET 1 TAB(S) P.O. ONCE A DAY TAKING CALCIUM 500 + D 500-400 MG-UNIT TABLET 1 TAB(S) P.O. ONCE A DAY TAKING VITAMIN B COMPLEX OTC TABLET 1 TAB(S) P.O. ONCE A DAY TAKING TRAMADOL HCL 50 MG TABLET 1 TABLET ORALLY EVERY 6 HRS MDD=4 TAKING FLECTOR 1.3 % PATCH 1 PATCH TO SKIN EXTERNALLY TO LOW BACK ON 12 HRS OFF 12 HRS TAKING GABAPENTIN 100 MG CAPSULE DIRECTED ORALLY THREE TIMES DAILY TAKING CYMBALTA 20 MG CAPSULE DELAYED RELEASE PARTICLES 1 CAPSULE ORALLY ONCE A DAY TAKING LIDODERM 5 % PATCH 3 PATCHES EXTERNALLY ONCE A DAY ON BACK TAKING ZANAFLEX 2 MG CAPSULE 1 CAPSULE NEEDED ORALLY FOR SPASMS AND PAIN BEFORE BEDTIME NOT-TAKING OMEPRAZOLE 40MG 40GM CAPSULE 1 CAP(S) P.O. ONCE A DAY NOT-TAKING ESTRADIOL 0.1 MG/GM CREAM 1/2 GRAM VAGINAL TWICE WEEKLY, COMPOUNDED MEDICATION IS IN PATIENT'S BEST MEDICAL INTEREST, CODE F NOT-TAKING PREMARIN 0.625 MG/GM CREAM 1/2 GRAM VAGINAL TWICE WEEKLY; COMPOUNDED MEDICATION IS IN PATIENT'S BEST MEDICAL INTEREST, CODE F NOT-TAKING CUSTOM DO NOT USE TRAMADOL 50 MG TABLET 1 TAB(S) P.O. THREE TIMES A DAY NOT-TAKING NAPROXEN 500 MG TABLET 1 TAB(S) P.O. TWICE A DAY MEDICATION LIST REVIEWED AND RECONCILED WITH THE PATIENT PAST MEDICAL HISTORY BACK SURGERY X 9 HISTORY OF KIDNEY PROBLEMS CHILD...NOT SURE OF SPECIFICS PSORIASIS ALLERGIES LATEX (FOR ALLERGY USE ONLY): RASH: ALLERGY SOCIAL HISTORY GENERAL: TOBACCO USE ARE YOU A:NONSMOKER MU-ISM [id number] NONE LANGUAGE LANGUAGES SPOKEN:TELUGU LEARNING BARRIERS / SPECIAL NEEDS BARRIERS TO LEARNING?NO HEARING IMPAIRED?NO VISION IMPAIRED?YES GLASSES FOR READING COGNITIVELY IMPAIRED?NO READINESS TO LEARN?YES LEARNING PREFERENCES?NO LEARNING CAPABILITIES PRESENT?YES EMOTIONAL BARRIERS?NO SPECIAL DEVICES?NO ASSIGNMENT EDITOR NEEDED?NO NEW PATIENT PAIN DIARY TODAY'S VISITNOTES FROM 0-10, WHAT LEVEL IS YOUR PAIN TODAY?0 PAIN CLINIC PFS, CLERGY, PUBLIC HEALTH REFERRALS PFS REFERRAL NEEDED?NO CLERGY REFERRAL NEEDED?NO PUBLIC HEALTH REFERRAL NEEDED?NO WAS THE PROVIDER NOTIFIED OF ANY PERTINENT INFO?NO HAS THE PATIENT BEEN EDUCATED REGARDING HIS/HER PLAN OF CARE?YES HAS THE PATIENT BEEN EDUCATED REGARDING PAIN, THE RISK FOR PAIN, THE IMPORTANCE OF EFFECTIVE PAIN MANAGEMENT, AND THE PAIN ASSESSMENT PROCESS?YES REVIEW OF SYSTEMS REVIEWED BY: PROVIDER: SUSAN VANN . CONSTITUTIONAL: ANY CHANGE IN YOUR MEDICAL CONDITION? NO . CHILLS NO . FEVER NO . INFECTION: DO YOU HAVE NEW INFECTIONS? NO . DO YOU HAVE HISTORY OF MRSA? NO . MUSCULOSKELETAL: ANY NEW PATTERNS OF PAIN OR NUMBNESS? NO . GASTROENTEROLOGY: ANY NEW CHANGE IN BOWEL CONTROL? NO . GENITOURINARY: ANY NEW CHANGE IN BLADDER CONTROL? NO . IS THERE A CHANCE YOU COULD BE ? NO . HEMATOLOGY/LYMPH: DO YOU TAKE ANY BLOOD THINNERS? (FOR EXAMPLE- COUMADIN, PLAVIX, AGGRENOX, PLATEL, PRADAXA, OR XARELTO) NO . WHEN WAS YOUR LAST DOSE? DATE: TIME: . NEUROLOGY: HAVE YOU FALLEN IN THE PAST 6 MONTHS? YES . ANY NEW EXTREMITY NUMBNESS OR WEAKNESS? NO . CARDIOLOGY: DO YOU HAVE A PACEMAKER OR DEFIBRILLATOR? NO . RESPIRATORY: HAVE YOU BEEN SICK IN THE PAST WEEK? NO . FEVER NO . FLU LIKE SYMPTOMS? NO . COUGH NO . INTEGUMENTARY: DO YOU HAVE ANY RASHES OR OPEN SORES? NO . ALLERGIC/IMMUNO: ARE YOU ALLERGIC TO SHELLFISH OR IV DYE? NO . ANY NEW ALLERGIES? NO . PSYCHIATRIC: DO YOU HAVE THOUGHTS OF HURTING YOURSELF OR SOMEONE ELSE? NO . ARE YOU ABUSED, NEGLECTED, OR IN AN UNSAFE ENVIRONMENT? NO . ENDOCRINOLOGY: ARE YOU DIABETIC? NO . OTHER: DO YOU NEED ANY PRESCRIPTIONS? NO . IF YES, PLEASE LIST: ____ . ANY NEW PROBLEMS WITH YOUR MEDICATIONS? NO . WHEN DID YOU LAST EAT? ____ . WHEN DID YOU LAST DRINK? ____ . WHAT DID YOU LAST DRINK? ____ . NAME OF PERSON DRIVING YOU HOME? ____ . DO YOU HAVE ANY OTHER QUESTIONS OR CONCERNS NO . VITAL SIGNS WT 157 LBS, HT 65 IN, BMI 26.12 INDEX, BP 116/64 MM HG, HR 80 /MIN, RR 18 /MIN, TEMP 98.5 F, OXYGEN SAT % 100%, NA INITIALS AW 1138, REVIEWED BY: CS. EXAMINATION GENERAL EXAMINATION: PSYCHALERT , ORIENTED X 3 , APPROPRIATE MOOD AND AFFECT , TALKATIVE, FOCUSED. LUNGS:CLEAR TO AUSCULTATION BILATERALLY. HEART:HEART RATE REGULAR. MUSCULOSKELETAL:EXQUISITE TENDERNESS OVER RIGHT SIJ WITH PALPATION. LAWRENCE SIGN POSITIVE ON RIGHT. SLOW TO RISE TO STANDING POSITION. POSTURE STIFF, GAIT ANTALGIC.. ASSESSMENTS LUMBAR POST-LAMINECTOMY SYNDROME - M96.1 (PRIMARY) INTERVERTEBRAL DISC DISORDERS WITH RADICULOPATHY, LUMBAR REGION - M51.16 INTERVERTEBRAL DISC DISORDERS WITH RADICULOPATHY, LUMBOSACRAL REGION - M51.17 SACROILIITIS - M46.1 TREATMENT LUMBAR POST-LAMINECTOMY SYNDROME NOTES: WILL CHECK AUTH FOR SIJ INJECTIONCONTINUE CURRENT MEDICATIONS. IS VERY HESITANT TO TRY ANY NEW MWDS SHE DOES NOT TOLERATE THEM. DOES NOT WANT TO TAKE PILLS. NCOURAGED, WALKING AND DOING STRETCHES. PROCEDURES PN WORKMANS' COMP OPINION IN YOUR OPINION, WAS THE INCIDENT THAT THE PATIENT DESCRIBED THE COMPETENT MEDICAL CAUSE OF THIS INJURY/ILLNESS? YES ARE THE PATIENT'S COMPLAINTS CONSISTENT WITH HIS/HER HISTORY OF THE INJURY/ILLNESS? YES IS THE PATIENT'S HISTORY OF THE INJURY/ILLNESS CONSISTENT WITH YOUR OBJECTIVE FINDING? YES WHAT IS THE PERCENTAGE OF TEMPORARY IMPAIRMENT? TOTAL = 100% IS THE PATIENT WORKING? NO DOCTOR ON SITE: ABBY BELTRAN MD PROCEDURE CODES FA211 ESTABILISHED PATIENT [facility] FACILITY CHARGE DISPOSITION & COMMUNICATION FOLLOW UP 4 WEEKS (REASON: WC) ELECTRONICALLY SIGNED BY KAROLYN SHEA ON 02/08/2017 AT 07:54 PM EDT DISCLAIMER : THIS IS A VISIT SUMMARY EXTRACTED FROM THE [employer] CHART. IT IS NOT A COPY OF THE [employer] PROGRESS NOTE. JANE
== END ==
LOC: M PAIN 11:20
PROVIDERS: ATTEND Nurse Practitioner Family
DX: M96.1 Postlaminectomy syndrome, not elsewhere classified (principal); M51.16 Intervertebral disc disorders with radiculopathy, lumbar region; M51.17 Intervertebral disc disorders with radiculopathy, lumbosacral region; M46.1 Sacroiliitis, not elsewhere classified; L40.9 Psoriasis, unspecified; Z91.040 Latex allergy status; Z79.891 Long term (current) use of opiate analgesic; Z79.899 Other long term (current) drug therapy

== ENCOUNTER → 2017-04-06 | Outpatient (CLI) | payer OTHER ==
--- NOTE | 2017-04-18 00:50 | ECWPNPC ---
PATIENT NAME: HECTOR ZIMMERMAN : 1965 GENDER: FEMALE VISIT DATE: 04/06/2017 DISCHARGE DATE: 04/06/17 0958 VISIT LOCKED DATE TIME: PHYSICIAN: SUSAN ESPINOSA RESOURCE: SUSAN ESPINOSA REASON FOR APPOINTMENT 1. POST PROCEDURE HISTORY OF PRESENT ILLNESS HISTORY OF PRESENT ILLNESS: PAIN THE PATIENT DESCRIBES THE PAIN... FALL RISK SCREENING: SCREENING :NO FALLS IN THE PAST YEAR TODAY'S VISIT: NOTES: WC FOLLOW UP FOR LOW BACK PAIN. IS S/P RIGHT SIJ INJECTION 03/16/17. PAIN LEVEL WAS 6-7/10 PRIOR TO INJECTION AND MARKED REDUCTION IN LEG PAIN WITH 0-1/10 AFTER 3 DAYS. BACK PAIN REMAINS AT USUAL 5/10 AND SHE IS ABLE TO FUNCTION WITH THIS, DCS IS WORKING WELL. STILL FEELS A HEAVINESS IN RIGHT FOOT.. CURRENT MEDICATIONS TAKING PSEUDOEPHEDRINE HCL 30MG 1 TAB (S) ONCE A DAY TAKING MULTIVITAMINS OTC TABLET 1 TAB(S) P.O. ONCE A DAY TAKING VITAMIN B COMPLEX OTC TABLET 1 TAB(S) P.O. ONCE A DAY TAKING FLECTOR 1.3 % PATCH 1 PATCH TO SKIN EXTERNALLY TO LOW BACK ON 12 HRS OFF 12 HRS TAKING GABAPENTIN 100 MG CAPSULE DIRECTED ORALLY ONCE DAILY, NOTES: MAY HAVE UP TO 3 TAKING CYMBALTA 20 MG CAPSULE DELAYED RELEASE PARTICLES 1 CAPSULE ORALLY ONCE A DAY TAKING LIDODERM 5 % PATCH 3 PATCHES EXTERNALLY ONCE A DAY ON BACK TAKING TRAMADOL HCL 50 MG TABLET 1 TABLET ORALLY EVERY 6 HRS MDD=4 TAKING OMEPRAZOLE 40MG 40GM CAPSULE 1 CAP(S) P.O. ONCE A DAY TAKING ESTRADIOL 0.1 MG/GM CREAM 1/2 GRAM VAGINAL TWICE WEEKLY, COMPOUNDED MEDICATION IS IN PATIENT'S BEST MEDICAL INTEREST, CODE F UNKNOWN CALCIUM 500 + D 500-400 MG-UNIT TABLET 1 TAB(S) P.O. ONCE A DAY UNKNOWN ZANAFLEX 2 MG CAPSULE 1 CAPSULE NEEDED ORALLY FOR SPASMS AND PAIN BEFORE BEDTIME UNKNOWN PREMARIN 0.625 MG/GM CREAM 1/2 GRAM VAGINAL TWICE WEEKLY; COMPOUNDED MEDICATION IS IN PATIENT'S BEST MEDICAL INTEREST, CODE F UNKNOWN CUSTOM DO NOT USE TRAMADOL 50 MG TABLET 1 TAB(S) P.O. THREE TIMES A DAY UNKNOWN NAPROXEN 500 MG TABLET 1 TAB(S) P.O. TWICE A DAY MEDICATION LIST REVIEWED AND RECONCILED WITH THE PATIENT PAST MEDICAL HISTORY BACK SURGERY X 9 HISTORY OF KIDNEY PROBLEMS CHILD...NOT SURE OF SPECIFICS PSORIASIS ALLERGIES LATEX (FOR ALLERGY USE ONLY): RASH: ALLERGY SOCIAL HISTORY GENERAL: TOBACCO USE ARE YOU A:NONSMOKER FAITH [id number] NONE LANGUAGE LANGUAGES SPOKEN:FILIPINO LEARNING BARRIERS / SPECIAL NEEDS BARRIERS TO LEARNING?NO HEARING IMPAIRED?NO VISION IMPAIRED?YES GLASSES FOR READING COGNITIVELY IMPAIRED?NO READINESS TO LEARN?YES LEARNING PREFERENCES?NO LEARNING CAPABILITIES PRESENT?YES EMOTIONAL BARRIERS?NO SPECIAL DEVICES?NO INDUSTRIAL SERVICE TECHNICIAN NEEDED?NO NEW PATIENT PAIN DIARY TODAY'S VISIT NOTES, FROM 0-10, WHAT LEVEL IS YOUR PAIN TODAY? 0. PAIN CLINIC PFS, CLERGY, PUBLIC HEALTH REFERRALS PFS REFERRAL NEEDED?NO CLERGY REFERRAL NEEDED?NO PUBLIC HEALTH REFERRAL NEEDED?NO WAS THE PROVIDER NOTIFIED OF ANY PERTINENT INFO?NO HAS THE PATIENT BEEN EDUCATED REGARDING HIS/HER PLAN OF CARE?YES HAS THE PATIENT BEEN EDUCATED REGARDING PAIN, THE RISK FOR PAIN, THE IMPORTANCE OF EFFECTIVE PAIN MANAGEMENT, AND THE PAIN ASSESSMENT PROCESS?YES ADVANCE DIRECTIVES HEALTH CARE PROXY?YES NAME OF HCP [facility] DO YOU HAVE A COPY WITH YOU?NO REVIEW OF SYSTEMS REVIEWED BY: PROVIDER: . CONSTITUTIONAL: ANY CHANGE IN YOUR MEDICAL CONDITION? SIJ WORKED / NO PAIN TO RIGHT LEG SINCE INJECTION . CHILLS NO . FEVER NO . INFECTION: DO YOU HAVE NEW INFECTIONS? NO . DO YOU HAVE HISTORY OF MRSA? NO . MUSCULOSKELETAL: ANY NEW PATTERNS OF PAIN OR NUMBNESS? NO . GASTROENTEROLOGY: ANY NEW CHANGE IN BOWEL CONTROL? NO . GENITOURINARY: ANY NEW CHANGE IN BLADDER CONTROL? NO . IS THERE A CHANCE YOU COULD BE ? NO . HEMATOLOGY/LYMPH: DO YOU TAKE ANY BLOOD THINNERS? (FOR EXAMPLE- COUMADIN, PLAVIX, AGGRENOX, PLATEL, PRADAXA, OR XARELTO) NO . WHEN WAS YOUR LAST DOSE? DATE: TIME: . NEUROLOGY: HAVE YOU FALLEN IN THE PAST 6 MONTHS? YES, NOT LATELY . ANY NEW EXTREMITY NUMBNESS OR WEAKNESS? NO . CARDIOLOGY: DO YOU HAVE A PACEMAKER OR DEFIBRILLATOR? NO . RESPIRATORY: HAVE YOU BEEN SICK IN THE PAST WEEK? YES, GETTING OVER A COLD . FEVER NO . FLU LIKE SYMPTOMS? NO . COUGH NO . INTEGUMENTARY: DO YOU HAVE ANY RASHES OR OPEN SORES? NO . ALLERGIC/IMMUNO: ARE YOU ALLERGIC TO SHELLFISH OR IV DYE? NO . ANY NEW ALLERGIES? NO . PSYCHIATRIC: DO YOU HAVE THOUGHTS OF HURTING YOURSELF OR SOMEONE ELSE? NO . ARE YOU ABUSED, NEGLECTED, OR IN AN UNSAFE ENVIRONMENT? NO . ENDOCRINOLOGY: ARE YOU DIABETIC? NO . OTHER: DO YOU NEED ANY PRESCRIPTIONS? YES . IF YES, PLEASE LIST: TRAMADOL . ANY NEW PROBLEMS WITH YOUR MEDICATIONS? NO . WHEN DID YOU LAST EAT? ____ . WHEN DID YOU LAST DRINK? ____ . WHAT DID YOU LAST DRINK? ____ . NAME OF PERSON DRIVING YOU HOME? ____ . DO YOU HAVE ANY OTHER QUESTIONS OR CONCERNS NO . PSYCHOLOGY: SLEEP DISTURBANCES SOMEWHAT IMPROVED WITH INJECTION BUT STILL DISTRUPTED DURING PAIN . VITAL SIGNS WT 169 LBS, HT 65 IN, BMI 28.12 INDEX, BP 143/74 MM HG, HR 89 /MIN, RR 16 /MIN, TEMP 98.3 F, OXYGEN SAT % 97%, NA INITIALS AW 0919, REVIEWED BY: NL. EXAMINATION GENERAL EXAMINATION: PSYCHALERT , ORIENTED X 3 , APPROPRIATE MOOD AND AFFECT , TALKATIVE, FOCUSED. LUNGS:CLEAR TO AUSCULTATION BILATERALLY. HEART:HEART RATE REGULAR. MUSCULOSKELETAL:MILD TENDERNESS OVER RIGHT SIJ WITH PALPATION. SLOW TO RISE TO STANDING POSITION. POSTURE UPRIGHT , GAIT ANTALGIC.. ASSESSMENTS SACROILIITIS, NOT ELSEWHERE CLASSIFIED - M46.1 (PRIMARY) LUMBAR POST-LAMINECTOMY SYNDROME - M96.1 TREATMENT SACROILIITIS, NOT ELSEWHERE CLASSIFIED REFILL TRAMADOL HCL TABLET, 50 MG, 1 TABLET, ORALLY, EVERY 6 HRS MDD=4, 30 DAY(S), 110, REFILLS 0 NOTES: CONTINUE WALKING, EXERCISES AND STRETCHES. CONTINUE CURRENT MEDS. PROCEDURES PN WORKMANS' COMP OPINION IN YOUR OPINION, WAS THE INCIDENT THAT THE PATIENT DESCRIBED THE COMPETENT MEDICAL CAUSE OF THIS INJURY/ILLNESS? YES ARE THE PATIENT'S COMPLAINTS CONSISTENT WITH HIS/HER HISTORY OF THE INJURY/ILLNESS? YES IS THE PATIENT'S HISTORY OF THE INJURY/ILLNESS CONSISTENT WITH YOUR OBJECTIVE FINDING? YES WHAT IS THE PERCENTAGE OF TEMPORARY IMPAIRMENT? TOTAL = 100% IS THE PATIENT WORKING? NO DOCTOR ON SITE: ABBY BELTRAN MD PROCEDURE CODES FA211 ESTABILISHED PATIENT [facility] FACILITY CHARGE DISPOSITION & COMMUNICATION FOLLOW UP 3 MONTHS (REASON: WC BACK) ELECTRONICALLY SIGNED BY KAROLYN SHEA ON 04/16/2017 AT 01:17 PM EST DISCLAIMER : THIS IS A VISIT SUMMARY EXTRACTED FROM THE [employer] CHART. IT IS NOT A COPY OF THE [employer] PROGRESS NOTE. JANE
== END ==
LOC: M PAIN 09:15
PROVIDERS: ATTEND Nurse Practitioner Family
DX: M96.1 Postlaminectomy syndrome, not elsewhere classified (principal); M46.1 Sacroiliitis, not elsewhere classified; Z91.040 Latex allergy status; Z79.891 Long term (current) use of opiate analgesic; Z79.899 Other long term (current) drug therapy

== ENCOUNTER → 2017-06-24 | Outpatient (CLI) | payer OTHER | LOC: M PAIN 09:45 | DX: M46.1 Sacroiliitis, not elsewhere classified (principal); M96.1 Postlaminectomy syndrome, not elsewhere classified; L40.9 Psoriasis, unspecified; Z79.891 Long term (current) use of opiate analgesic; Z79.899 Other long term (current) drug therapy; Z91.040 Latex allergy status | CPT/HCPCS: G0463 ==

== ENCOUNTER → 2017-08-03 | Outpatient (CLI) | payer OTHER ==
[~2017-08-03] MED LIST changes: -/CELE20CA; -/CELE20CA OR; -/CELE20CA PO; -ACET500C; -ACET500C PO; -AMIT10TA2 PO; -BENA25CA4 PO; +BUPIVACAINE HCL 0.25% 30 ML VIAL As Ordered; -CALC12502 PO; -DULO30CA PO; -FLEC1.3D TD; -FLECTOR PATCH TD; -FLECTOR1.3 TD; +ISOVUE-M 300 61% 15ML VIAL (Q9967) As Ordered; -LIDO1DIS2 TD; -LIDO5DIS TD; +LIDOCAINE 1% SDV INJ 30 ML VIAL As Ordered; -LODINE OR; -MULTIVIT PO; -NAPR500T OR; -NAPR500T81 OR; -NEXI20CA OR; -OXYCODONE OR; -PERC5TAB8 OR; -PRIL40CA OR; -PROV90AE IN; -SOMA250T; -SOMA250T OR; -SOMA250T PO; -SUDA30TA OR; -TIZA4CAP PO; -TIZA4TAB OR; -TRAM50TA2; -TRAM50TA2 PO; +TRIAMCINOLONE ACETONIDE SUSP 40 MG/ML VIAL (J3301) As Ordered; -TYLENOL; -TYLENOL PM PO; -TYLENOL PO; -VICO5TAB OR; -VICODINES TAB OR; -VITAMIN B COMPLE1 OR; -VITAMIN B OR; +diazePAM 5 MG TAB As Ordered; -microgestin PO; +oxyCODONE 5MG TAB As Ordered
== END ==
LOC: M PAIN 08:30
DX: G89.29 Other chronic pain (principal); M46.1 Sacroiliitis, not elsewhere classified; Z79.891 Long term (current) use of opiate analgesic; Z79.899 Other long term (current) drug therapy; Z91.040 Latex allergy status; Z96.9 Presence of functional implant, unspecified
CPT/HCPCS: J3301

== ENCOUNTER → 2017-09-13 | Outpatient (CLI) | payer OTHER | LOC: M PAIN 09:15 | DX: G89.29 Other chronic pain (principal); M46.1 Sacroiliitis, not elsewhere classified; M96.1 Postlaminectomy syndrome, not elsewhere classified; L40.9 Psoriasis, unspecified; Z79.891 Long term (current) use of opiate analgesic; Z79.899 Other long term (current) drug therapy; Z91.040 Latex allergy status | CPT/HCPCS: G0463 ==

== ENCOUNTER → 2017-12-14 | Outpatient (CLI) | payer OTHER | LOC: M PAIN 08:30 | DX: M46.1 Sacroiliitis, not elsewhere classified (principal); M96.1 Postlaminectomy syndrome, not elsewhere classified; L40.9 Psoriasis, unspecified; Z79.891 Long term (current) use of opiate analgesic; Z79.899 Other long term (current) drug therapy; Z91.040 Latex allergy status | CPT/HCPCS: G0463 ==

== ENCOUNTER → 2018-01-18 | Outpatient (CLI) | payer MEDICARE, OTHER ==
[2018-01-18 07:23] LABS: BASO % 0.7 % (0.0-1.0); EOS # 0.1 10^3/uL (0.0-0.50); EOS % 2.3 % (0.0-3.0); HEMATOCRIT 41.5 % (36.0-47.0); IMMATURE GRANULOCYTE % 0.5 % (0-3.0); LYMPH # 1.8 10^3/uL (1.5-4.5); LYMPH % 42.4 % (24.0-44.0); MEAN CORPUSCULAR HEMOGLOBIN 31.1 pg (27.0-33.0); MEAN CORPUSCULAR HGB CONC 33.7 g/dl (32.0-36.5); MEAN CORPUSCULAR VOLUME 92.2 fl (80.0-96.0); MONO # 0.4 10^3/uL (0.0-0.8); MONO % 9.8 % (0.0-5.0); NEUTROPHILS # 1.9 10^3/uL (1.8-7.7); NEUTROPHILS % 44.3 % (36.0-66.0); PLATELET COUNT, AUTOMATED 159 10^3/uL (150-450); RED CELL DISTRIBUTION WIDTH 13.2 % (11.5-14.5); WHITE BLOOD COUNT 4.3 10^3/uL (4.0-10.0)
[2018-01-18 07:55] LABS: ALBUMIN/GLOBULIN RATIO 1.38 (1.00-1.93); ALKALINE PHOSPHATASE 50 U/L (45-117); ALT/SGPT 23 U/L (12-78); ANION GAP 9 MEQ/L (8-16); AST/SGOT 14 U/L (7-37); BILIRUBIN,TOTAL 0.4 MG/DL (0.2-1.0); BLOOD UREA NITROGEN 9 MG/DL (7-18); CARBON DIOXIDE LEVEL 28 MEQ/L (21-32); CHLORIDE LEVEL 105 MEQ/L (98-107); CHOLESTEROL LEVEL 178 MG/DL (<200); CHOLESTEROL RISK RATIO 2.197 (<5); CREATININE FOR GFR 0.81 MG/DL (0.55-1.30); GLOMERULAR FILTRATION RATE > 60.0 (>51); GLUCOSE, FASTING 86 MG/DL (70-100); HDL CHOLESTEROL 81 MG/DL (>40); LDL CHOLESTEROL 80.2 MG/DL (<100); NON-HDL-C 97 MG/DL; POTASSIUM SERUM 3.8 MEQ/L (3.5-5.1); SODIUM LEVEL 142 MEQ/L (136-145); THYROID STIMULATING HORMONE 0.713 uIU/ML (0.358-3.740); TOTAL PROTEIN 6.9 GM/DL (6.4-8.2); TRIGLYCERIDES LEVEL 84 MG/DL (<150)
== END ==
LOC: M LAB 06:40
DX: Z00.00 Encounter for general adult medical examination without abnormal findings (principal); Z79.899 Other long term (current) drug therapy
CPT/HCPCS: 84443

== ENCOUNTER → 2018-03-16 | Outpatient (CLI) | payer OTHER | LOC: M PAIN 08:30 | DX: M46.1 Sacroiliitis, not elsewhere classified (principal); M51.16 Intervertebral disc disorders with radiculopathy, lumbar region; M51.17 Intervertebral disc disorders with radiculopathy, lumbosacral region; M47.816 Spondylosis without myelopathy or radiculopathy, lumbar region; M96.1 Postlaminectomy syndrome, not elsewhere classified; L40.9 Psoriasis, unspecified; Z79.899 Other long term (current) drug therapy; Z91.040 Latex allergy status | CPT/HCPCS: G0463 ==

== ENCOUNTER → 2018-07-31 | Outpatient (CLI) | payer OTHER ==
[~2018-07-31] MED LIST changes: +/CELE20CA; +/CELE20CA OR; +/CELE20CA PO; +ACET500C; +ACET500C PO; +AMIT10TA2 PO; +BENA25CA4 PO; -BUPIVACAINE HCL 0.25% 30 ML VIAL As Ordered; +CALC12502 PO; +DULO30CA PO; +FLEC1.3D TD; +FLECTOR PATCH TD; +FLECTOR1.3 TD; -ISOVUE-M 300 61% 15ML VIAL (Q9967) As Ordered; +LIDO1DIS2 TD; +LIDO5DIS TD; -LIDOCAINE 1% SDV INJ 30 ML VIAL As Ordered; +LODINE OR; +MULTIVIT PO; +NAPR500T OR; +NAPR500T81 OR; +NEXI20CA OR; +OXYCODONE OR; +PERC5TAB8 OR; +PRIL40CA OR; +PROV90AE IN; +SOMA250T; +SOMA250T OR; +SOMA250T PO; +SUDA30TA OR; +TIZA4CAP PO; +TIZA4TAB OR; +TRAM50TA2; +TRAM50TA2 PO; -TRIAMCINOLONE ACETONIDE SUSP 40 MG/ML VIAL (J3301) As Ordered; +TYLENOL; +TYLENOL PM PO; +TYLENOL PO; +VICO5TAB OR; +VICODINES TAB OR; +VITAMIN B COMPLE1 OR; +VITAMIN B OR; -diazePAM 5 MG TAB As Ordered; +microgestin PO; -oxyCODONE 5MG TAB As Ordered
--- NOTE | 2018-08-14 00:46 | ECWPNPC ---
PATIENT NAME: HECTOR ZIMMERMAN : 1965 GENDER: FEMALE VISIT DATE: 07/31/2018 DISCHARGE DATE: 07/31/18 1003 VISIT LOCKED DATE TIME: PHYSICIAN: ABBY PEÑA MD RESOURCE: ABBY PEÑA MD REASON FOR APPOINTMENT 1. W/C BACK HISTORY OF PRESENT ILLNESS HISTORY OF PRESENT ILLNESS: PAIN THE PATIENT DESCRIBES THE PAIN... 53 YEAR OLD FEMALE PATIENT WITH A HISTORY OF CHRONIC LOW BACK PAIN. THE PATIENT DESCRIBES THE PAIN ACHING, BURNING, SHOOTING, AND CONTINUOUS WITH A PAIN SCORE OF 6-8/10 DEPENDING ON PHYSICAL ACTIVITY. 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 THE PATIENT SAYS THAT HER PAIN IS LOCATED MAINLY ON THE RIGHT SIDE OF HER LOW BACK. THE PATIENT SAYS THAT HER PAIN HAS INCREASED OVER THE LAST FEW MONTHS AND SHE HAS HAD SOME DIFFICULTY WALKING. THE PATIENT HAS HAD SACROILIAC JOINT INJECTIONS IN THE PAST AND SAYS THEY HAVE HELPED. THE PATIENT HAS TRIED PHYSICAL THERAPY IN THE PAST, BUT SAYS IT HAS NOT HELPED. THE PATIENT RECEIVED A DCS IMPLANT IN 2011 AND SAYS THAT IT HELPS CONTROL SOME OF HER PAIN. THE PATIENT IS CURRENTLY USING TRAMADOL, FLECTOR PATCH, GABAPENTIN, CYMBALTA, AND LIDODERM PATCH TO AID IN PAIN RELIEF. PATIENT DENIES UNEXPLAINABLE WEIGHT LOSS, FEVER, CHILLS, NEW CHANGES ON HER URINARY OR BOWEL CONTROL. FALL RISK SCREENING: SCREENING : NO FALLS IN THE PAST YEAR. CURRENT MEDICATIONS TAKING MULTIVITAMINS OTC TABLET 1 TAB(S) P.O. ONCE A DAY TAKING VITAMIN B COMPLEX OTC TABLET 1 TAB(S) P.O. ONCE A DAY TAKING LIDODERM 5 % PATCH 3 PATCHES EXTERNALLY ONCE A DAY ON BACK TAKING BENADRYL 25 MG CAPSULE 1 CAPSULE NEEDED ORALLY EVERY 8 HRS TAKING TRAMADOL HCL 50 MG TABLET 1 TABLET ORALLY EVERY 6 HRS MDD=4 TAKING GABAPENTIN 100 MG CAPSULE DIRECTED ORALLY TWICE DAILY TAKING FLECTOR 1.3 % PATCH 1 PATCH TO SKIN EXTERNALLY TO LOW BACK ON 12 HRS OFF 12 HRS TAKING CYMBALTA 20 MG CAPSULE DELAYED RELEASE PARTICLES 1 CAPSULE ORALLY ONCE A DAY MEDICATION LIST REVIEWED AND RECONCILED WITH THE PATIENT PAST MEDICAL HISTORY BACK SURGERY X 9 HISTORY OF KIDNEY PROBLEMS CHILD...NOT SURE OF SPECIFICS PSORIASIS ALLERGIES LATEX (FOR ALLERGY USE ONLY): RASH - ALLERGY SURGICAL HISTORY BACK SURGERY X 9 DORSAL COLOMN STIMULATOR 05/2001 LUMPECTOMY, LEFT BREAST 2009 FAMILY HISTORY FATHER: ALIVE, DIAGNOSED WITH HYPERTENSION, HEART DISEASE MOTHER: 71 YRS, CANCER 1 BROTHER(S) , 3 SISTER(S) - HEALTHY. 3 SON(S) , 1 DAUGHTER(S) - HEALTHY. MOM-LUNG CABROTHER-CHRON'S DISEASE AND ANKLYOSIS SPONDOLITIS. SOCIAL HISTORY GENERAL: TOBACCO USE ARE YOU A:NONSMOKER MANDAEN [id number] NONE LANGUAGE LANGUAGES SPOKEN:CAMEROONIAN LEARNING BARRIERS / SPECIAL NEEDS BARRIERS TO LEARNING?NO HEARING IMPAIRED?NO VISION IMPAIRED?YES GLASSES FOR READING COGNITIVELY IMPAIRED?NO READINESS TO LEARN?YES LEARNING PREFERENCES?NO LEARNING CAPABILITIES PRESENT?YES EMOTIONAL BARRIERS?NO SPECIAL DEVICES?NO MILLINERY BLOCKER NEEDED?NO NEW PATIENT PAIN DIARY TODAY'S VISIT NOTES, FROM 0-10, WHAT LEVEL IS YOUR PAIN TODAY? 0. PAIN CLINIC PFS, CLERGY, PUBLIC HEALTH REFERRALS PFS REFERRAL NEEDED?NO CLERGY REFERRAL NEEDED?NO PUBLIC HEALTH REFERRAL NEEDED?NO WAS THE PROVIDER NOTIFIED OF ANY PERTINENT INFO?NO HAS THE PATIENT BEEN EDUCATED REGARDING HIS/HER PLAN OF CARE?YES HAS THE PATIENT BEEN EDUCATED REGARDING PAIN, THE RISK FOR PAIN, THE IMPORTANCE OF EFFECTIVE PAIN MANAGEMENT, AND THE PAIN ASSESSMENT PROCESS?YES ADVANCE DIRECTIVE ADVANCE DIRECTIVE DISCUSSED WITH PATIENT:YES DECLINED HOSPITALIZATION/MAJOR DIAGNOSTIC PROCEDURE CHILD, DUE TO KIDNEYS REVIEW OF SYSTEMS REVIEWED BY: PROVIDER: ABBY PEÑA MD . CONSTITUTIONAL: ANY CHANGE IN YOUR MEDICAL CONDITION? NO . CHILLS NO . FEVER NO . INFECTION: DO YOU HAVE NEW INFECTIONS? NO . DO YOU HAVE HISTORY OF MRSA? NO . MUSCULOSKELETAL: ANY NEW PATTERNS OF PAIN OR NUMBNESS? NO . GASTROENTEROLOGY: ANY NEW CHANGE IN BOWEL CONTROL? NO . GENITOURINARY: ANY NEW CHANGE IN BLADDER CONTROL? NO . IS THERE A CHANCE YOU COULD BE ? NO . HEMATOLOGY/LYMPH: DO YOU TAKE ANY BLOOD THINNERS? (FOR EXAMPLE- COUMADIN, PLAVIX, AGGRENOX, PLATEL, PRADAXA, OR XARELTO) NO . WHEN WAS YOUR LAST DOSE? DATE: TIME: . NEUROLOGY: HAVE YOU FALLEN IN THE PAST 12 MONTHS? YES, SLIPPED ON THE ICE, PT DENIES INJURIES . ANY NEW EXTREMITY NUMBNESS OR WEAKNESS? NO . CARDIOLOGY: DO YOU HAVE A PACEMAKER OR DEFIBRILLATOR? NO . RESPIRATORY: HAVE YOU BEEN SICK IN THE PAST WEEK? NO . FEVER NO . FLU LIKE SYMPTOMS? NO . COUGH NO . INTEGUMENTARY: DO YOU HAVE ANY RASHES OR OPEN SORES? NO . ALLERGIC/IMMUNO: ARE YOU ALLERGIC TO IV DYE? NO . ANY NEW ALLERGIES? NO . PSYCHIATRIC: DO YOU HAVE THOUGHTS OF HURTING YOURSELF OR SOMEONE ELSE? NO . ARE YOU ABUSED, NEGLECTED, OR IN AN UNSAFE ENVIRONMENT? NO . ENDOCRINOLOGY: ARE YOU DIABETIC? NO . OTHER: DO YOU NEED ANY PRESCRIPTIONS? NO . IF YES, PLEASE LIST: ____ . ANY NEW PROBLEMS WITH YOUR MEDICATIONS? NO . WHEN DID YOU LAST EAT? ____ . WHEN DID YOU LAST DRINK? ____ . WHAT DID YOU LAST DRINK? ____ . NAME OF PERSON DRIVING YOU HOME? ____ . DO YOU HAVE ANY OTHER QUESTIONS OR CONCERNS NO . VITAL SIGNS WT 172 LBS, HT 65 IN, BMI 28.62 INDEX, BP 130/74 MM HG, HR 94 /MIN, RR 16 /MIN, TEMP 96.1 F, OXYGEN SAT % 98%, NA INITIALS SC 09:19, REVIEWED BY: EM. EXAMINATION GENERAL EXAMINATION: PATIENT IS ALERT O X 3 AND COOPERATIVE. TENDERNESS OVER THE RIGHT SACROILIAC JOINT. FABERE TEST IS POSITIVE FOR RIGHT SACROILIAC JOINT DYSFUNCTION. ASSESSMENTS SACROILIITIS, NOT ELSEWHERE CLASSIFIED - M46.1 (PRIMARY) TREATMENT SACROILIITIS, NOT ELSEWHERE CLASSIFIED CLINICAL NOTES: WE DISCUSSED SEVERAL ISSUES WITH MRS. ZIMMERMAN'S PAIN MANAGEMENT CASE. DUE TO THE SACROILIITIS, I WOULD LIKE TO MOVE FORWARD WITH A RIGHT SACROILIAC JOINT BLOCK AT THIS TIME. WE DISCUSSED THE BENEFITS, RISKS, AND ALTERNATIVES OF THE INJECTION AND THE PATIENT WOULD LIKE TO PROCEED. URINE TOXICOLOGY DONE ON 12/17/2016 SHOWS CONCURRENT RESULTS AND I WILL REPEAT THE URINE TOXICOLOGY TODAY. THE PATIENT WILL FOLLOW UP IN 2 MONTHS. INSTRUCTIONS WERE GIVEN, QUESTIONS WERE ANSWERED, PATIENT REPORTS UNDERSTANDING AND AGREES WITH THE PLAN. I, VAE ADAME, DOCUMENTED THE ABOVE INFORMATION ACTING A SCRIBE FOR DR. PEÑA. I HAVE REVIEWED THE ABOVE DOCUMENT, WRITTEN BY AVE HUMMEL AND I VERIFY THAT IT IS ACCURATE. . PROCEDURES PN WORKMANS' COMP OPINION IN YOUR OPINION, WAS THE INCIDENT THAT THE PATIENT DESCRIBED THE COMPETENT MEDICAL CAUSE OF THIS INJURY/ILLNESS? YES ARE THE PATIENT'S COMPLAINTS CONSISTENT WITH HIS/HER HISTORY OF THE INJURY/ILLNESS? YES IS THE PATIENT'S HISTORY OF THE INJURY/ILLNESS CONSISTENT WITH YOUR OBJECTIVE FINDING? YES WHAT IS THE PERCENTAGE OF TEMPORARY IMPAIRMENT? MODERATE TO MARKED = 66.7% IS THE PATIENT WORKING? NO DOCTOR ON SITE: ABBY BELTRAN MD PROCEDURE CODES FA211 ESTABILISHED PATIENT THE [facility] FACILITY CHARGE G8427 CURRENT MEDS W/DOSAGES DOCUMENTED G8730 PAIN ASSESS POS TOOL F/U PLAN DOC DISPOSITION & COMMUNICATION FOLLOW UP 2 MONTHS (REASON: W/C LOW BACK) ELECTRONICALLY SIGNED BY ABBY PEÑA MD, MD ON 08/13/2018 AT 06:50 PM EDT DISCLAIMER : THIS IS A VISIT SUMMARY EXTRACTED FROM THE [employer] CHART. IT IS NOT A COPY OF THE [employer] PROGRESS NOTE. JANE
== END ==
LOC: M PAIN 09:45
PROVIDERS: ATTEND Anesthesiology
DX: M46.1 Sacroiliitis, not elsewhere classified (principal); G89.29 Other chronic pain; L40.9 Psoriasis, unspecified; Z79.899 Other long term (current) drug therapy; Z91.040 Latex allergy status

== ENCOUNTER → 2018-09-14 | Outpatient (CLI) | payer OTHER ==
[~2018-09-14] MED LIST changes: -/CELE20CA; -/CELE20CA OR; -/CELE20CA PO; +BUPIVACAINE HCL 0.25% 30 ML VIAL As Ordered ONE; +CELE1CAP4; +CELE1CAP4 OR; +CELE1CAP4 PO; -DULO30CA PO; +DULO30CA9 PO; +ISOVUE-M 300 61% 15ML VIAL (Q9967) As Ordered ONE; +LIDOCAINE 1% SDV INJ 30 ML VIAL As Ordered ONE; +TRIAMCINOLONE ACETONIDE SUSP 40 MG/ML VIAL (J3301) As Ordered ONE; +diazePAM 5 MG TAB As Ordered ONE; +oxyCODONE 5MG TAB As Ordered ONE
--- NOTE | 2018-09-15 18:48 | REP ---
C-ARM VIEWS RIGHT SACROILIAC JOINT: CLINICAL HISTORY: Pain. Three C-ARM views right sacroiliac joint region were performed during injection by Dr. Dorado. Needle was seen at the right SI joint inferiorly. 26 seconds of fluoroscopy time was utilized. Electronically Signed by Matt Traore MD 09/16/2018 03:06 P
--- NOTE | 2018-10-02 00:11 | ECWPNPC ---
PATIENT NAME: HECTOR ZIMMERMAN : 1965 GENDER: FEMALE VISIT DATE: 09/14/2018 DISCHARGE DATE: 09/14/18 1011 VISIT LOCKED DATE TIME: PHYSICIAN: ABBY PEÑA MD RESOURCE: ABBY PEÑA MD REASON FOR APPOINTMENT 1. RIGHT SIJ-WC HISTORY OF PRESENT ILLNESS HISTORY OF PRESENT ILLNESS: PAIN THE PATIENT DESCRIBES THE PAIN... FALL RISK SCREENING: SCREENING :NO FALLS REPORTED IN THE LAST YEAR CURRENT MEDICATIONS TAKING MULTIVITAMINS OTC TABLET 1 TAB(S) P.O. ONCE A DAY, NOTES: 09/13 2099 TAKING VITAMIN B COMPLEX OTC TABLET 1 TAB(S) P.O. ONCE A DAY, NOTES: 09/14 1599 TAKING LIDODERM 5 % PATCH 3 PATCHES EXTERNALLY ONCE A DAY ON BACK, NOTES: 09/13 0600 TAKING BENADRYL 25 MG CAPSULE 1 CAPSULE NEEDED ORALLY BEFORE BEDTIME, NOTES: 09/13 2099 TAKING TRAMADOL HCL 50 MG TABLET 1 TABLET ORALLY EVERY 6 HRS MDD=4, NOTES: TAKES 2 TABS BID 09/13 2099 TAKING GABAPENTIN 100 MG CAPSULE DIRECTED ORALLY TWICE DAILY, NOTES: TAKES 2 AT HS 1 2099 TAKING FLECTOR 1.3 % PATCH 1 PATCH TO SKIN EXTERNALLY TO LOW BACK ON 12 HRS OFF 12 HRS, NOTES: 09/13 1800 TAKING CYMBALTA 20 MG CAPSULE DELAYED RELEASE PARTICLES 1 CAPSULE ORALLY ONCE A DAY, NOTES: 09/13 2099 MEDICATION LIST REVIEWED AND RECONCILED WITH THE PATIENT PAST MEDICAL HISTORY BACK SURGERY X 9 HISTORY OF KIDNEY PROBLEMS CHILD...NOT SURE OF SPECIFICS PSORIASIS BACK PAIN ALLERGIES LATEX (FOR ALLERGY USE ONLY): RASH - ALLERGY SEASONAL: ITCHY EYES, RUNNY NOSE - ALLERGY ORANGES: RASH. LIPS SWELL - ALLERGY SURGICAL HISTORY BACK SURGERY X 9 DORSAL COLOMN STIMULATOR 05/2001 LUMPECTOMY, LEFT BREAST 2008 FAMILY HISTORY FATHER: ALIVE, DIAGNOSED WITH HYPERTENSION, HEART DISEASE MOTHER: 71 YRS, CANCER 1 BROTHER(S) , 3 SISTER(S) - HEALTHY. 3 SON(S) , 1 DAUGHTER(S) - HEALTHY. MOM-LUNG CA\NBROTHER-CHRON\'S DISEASE AND ANKLYOSIS SPONDOLITIS. SOCIAL HISTORY GENERAL: TOBACCO USE ARE YOU A:NONSMOKER PAIN CLINIC PFS, CLERGY, PUBLIC HEALTH REFERRALS PFS REFERRAL NEEDED?NO CLERGY REFERRAL NEEDED?NO PUBLIC HEALTH REFERRAL NEEDED?NO WAS THE PROVIDER NOTIFIED OF ANY PERTINENT INFO? N/A HAS THE PATIENT BEEN EDUCATED REGARDING HIS/HER PLAN OF CARE?YES HAS THE PATIENT BEEN EDUCATED REGARDING PAIN, THE RISK FOR PAIN, THE IMPORTANCE OF EFFECTIVE PAIN MANAGEMENT, AND THE PAIN ASSESSMENT PROCESS?YES LATEX QUESTIONNAIRE LATEX ALLERGY : HAVE YOU EVER DEVELOPED ANY TYPE OF REACTION AFTER HANDLING LATEX PRODUCTS SUCH RUBBER GLOVES, CONDOMS, DIAPHRAGMS, BALLOONS, SOCKS, OR UNDERWEAR?YES - PLEASE INDICATE :RUBBER GLOVES, OTHER (DOCUMENT IN NOTES) BANDAIDS LATEX ALLERGY : HAVE YOU EVER DEVELOPED ANY TYPE OF REACTION DURING OR AFTER DENTAL APPOINTMENT, VAGINAL/RECTAL EXAMINATION, SURGICAL PROCEDURE, OR ANY OTHER EXPOSURE?NO LATEX RISK : HAVE YOU EVER HAD ANY DIFFICULTY BREATHING OR HIVES AFTER EATING OR HANDLING ANY FRUITS, OR VEGETABLES; SUCH KIWI, BANANAS, STONE FRUITS, OR CHESTNUTSNO LATEX RISK : DO YOU HAVE A PREVIOUS PERSONAL HISTORY OF MORE THAN NINE SURGERIES, SPINA BIFIDA, OR REPEATED CATHERTIZATIONS? 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 [employer] [id number] NONE LANGUAGE LANGUAGES SPOKEN:[place] NEW PATIENT PAIN DIARY FROM 0-10, WHAT LEVEL IS YOUR PAIN TODAY?6 ALCOHOL SCREENING DID YOU HAVE A DRINK CONTAINING ALCOHOL IN THE PAST YEAR?NO POINTS0 INTERPRETATIONNEGATIVE RECREATIONAL DRUG USE DRUG USE?NO LEARNING BARRIERS / SPECIAL NEEDS BARRIERS TO LEARNING?NO HEARING IMPAIRED?NO VISION IMPAIRED?YES GLASSES FOR READING :CORRECTIVE LENSES COGNITIVELY IMPAIRED?NO READINESS TO LEARN?YES LEARNING PREFERENCES?NO LEARNING CAPABILITIES PRESENT?YES EMOTIONAL BARRIERS?NO SPECIAL DEVICES?NO ASPHALT DISTRIBUTOR TENDER NEEDED?NO HOSPITALIZATION/MAJOR DIAGNOSTIC PROCEDURE CHILD, DUE TO KIDNEYS SURGERIES REVIEW OF SYSTEMS REVIEWED BY: PROVIDER: . CONSTITUTIONAL: ANY CHANGE IN YOUR MEDICAL CONDITION? NO . CHILLS NO . FEVER NO . INFECTION: DO YOU HAVE NEW INFECTIONS? NO . DO YOU HAVE HISTORY OF MRSA? NO . MUSCULOSKELETAL: ANY NEW PATTERNS OF PAIN OR NUMBNESS? NO . GASTROENTEROLOGY: ANY NEW CHANGE IN BOWEL CONTROL? NO . GENITOURINARY: ANY NEW CHANGE IN BLADDER CONTROL? NO . IS THERE A CHANCE YOU COULD BE ? NO . HEMATOLOGY/LYMPH: DO YOU TAKE ANY BLOOD THINNERS? (FOR EXAMPLE- COUMADIN, PLAVIX, AGGRENOX, PLATEL, PRADAXA, OR XARELTO) NO . WHEN WAS YOUR LAST DOSE? DATE: TIME: . NEUROLOGY: HAVE YOU FALLEN IN THE PAST 12 MONTHS? YES, ONCE, LEFT LEG GAVE OUT, NO INJURY BUT INCREASE IN BACK PAIN AFTER. NOT EVALUATED AFTER. . ANY NEW EXTREMITY NUMBNESS OR WEAKNESS? NO . CARDIOLOGY: DO YOU HAVE A PACEMAKER OR DEFIBRILLATOR? NO . RESPIRATORY: HAVE YOU BEEN SICK IN THE PAST WEEK? NO . FEVER NO . FLU LIKE SYMPTOMS? NO . COUGH NO . INTEGUMENTARY: DO YOU HAVE ANY RASHES OR OPEN SORES? NO . ALLERGIC/IMMUNO: ARE YOU ALLERGIC TO IV DYE? NO . ANY NEW ALLERGIES? NO . PSYCHIATRIC: DO YOU HAVE THOUGHTS OF HURTING YOURSELF OR SOMEONE ELSE? NO . ARE YOU ABUSED, NEGLECTED, OR IN AN UNSAFE ENVIRONMENT? NO . ENDOCRINOLOGY: ARE YOU DIABETIC? NO . OTHER: DO YOU NEED ANY PRESCRIPTIONS? NO . IF YES, PLEASE LIST: ____ . ANY NEW PROBLEMS WITH YOUR MEDICATIONS? NO . WHEN DID YOU LAST EAT? 09/14 1999 . WHEN DID YOU LAST DRINK? 09/14 729 . WHAT DID YOU LAST DRINK? WATER . NAME OF PERSON DRIVING YOU HOME? ZANA- . DO YOU HAVE ANY OTHER QUESTIONS OR CONCERNS NO PT HAS NOT HAD ANY VACCINES IN THE PAST 30 DAYS . VITAL SIGNS WT 172.8 LBS, HT 65 IN, BMI 28.75 INDEX, BP 143/77 MM HG, HR 84 /MIN, RR 18 /MIN, TEMP 97.6 F, OXYGEN SAT % 100%, SAFE IN ENV? (Y/N) Y, NA INITIALS NV 09:08, REVIEWED BY: AD. ASSESSMENTS SACROILIITIS, NOT ELSEWHERE CLASSIFIED - M46.1 (PRIMARY) TREATMENT SACROILIITIS, NOT ELSEWHERE CLASSIFIED [facility] FLUORO GUIDANCE (PAIN)[id number] PROCEDURES PN WORKMANS' COMP OPINION IN YOUR OPINION, WAS THE INCIDENT THAT THE PATIENT DESCRIBED THE COMPETENT MEDICAL CAUSE OF THIS INJURY/ILLNESS? YES ARE THE PATIENT'S COMPLAINTS CONSISTENT WITH HIS/HER HISTORY OF THE INJURY/ILLNESS? YES IS THE PATIENT'S HISTORY OF THE INJURY/ILLNESS CONSISTENT WITH YOUR OBJECTIVE FINDING? YES WHAT IS THE PERCENTAGE OF TEMPORARY IMPAIRMENT? MODERATE TO MARKED = 66.7% IS THE PATIENT WORKING? NO DOCTOR ON SITE: ABBY BELTRAN MD PN SI PRE PROCEDURE DIAGNOSIS SACROILIITIS, SACROILIAC JOINT DYSFUNCTION POST PROCEDURE DIAGNOSIS SACROILIITIS, SACROILIAC JOINT DYSFUNCTION PROCEDURE RIGHT SACROILIAC JOINT BLOCK SURGEON DR. ABBY PEÑA SUPERVISOR SANDBLASTER NONE ANESTHESIA LOCAL PRE PROCEDURE NOTE PATIENT WITH HISTORY OF CHRONIC LOW BACK PAIN. I EVALUATED THE PATIENT AND REVIEWED THE CHART. I WENT OVER THE RISKS, ALTERNATIVES, AND BENEFITS ASSOCIATED WITH THIS PROCEDURE. THE PATIENT WOULD LIKE TO PROCEED AND GAVE CONSENT TO PERFORM THE PROCEDURE. THE PATIENT DENIES UNEXPLAINABLE WEIGHT LOSS, FEVER, CHILLS, OR NEW CHANGES IN URINARY OR BOWEL CONTROL DESCRIPTION OF PROCEDURE THE PATIENT WAS BROUGHT TO THE PROCEDURE ROOM AND PLACED IN THE PRONE POSITION. THE LUMBOSACRAL AREA WAS CLEANED WITH CHLORAPREP SOLUTION AND DRAPED ASEPTICALLY. THE PROCEDURE WAS DONE UNDER STERILE CONDITIONS. I CHECKED LATERALITY AND THE LEVEL WHERE THE PROCEDURE WAS GOING TO BE PERFORMED WITH THE PATIENT AND THE SUPPORTING STAFF AT THE MOMENT OF THE TIME OUT IN THE PROCEDURE ROOM. UNDER FLUOROSCOPIC GUIDANCE, TARGET POINT WAS SELECTED AT THE LOWER BORDER OF THE RIGHT SACROILIAC JOINT. TARGET POINT WAS SELECTED AFTER MEDIAL ROTATION AND TILT OF THE MAGNIFIER OF THE C-ARM. LIDOCAINE WAS USED TO NUMB THE SKIN AND SUBCUTANEOUS TISSUE BELOW IT. A SPINAL NEEDLE, 22-GAUGE, WAS ADVANCED UNDER FLUOROSCOPIC GUIDANCE AND FOLLOWING PATIENT FEEDBACK UNTIL THE TARGET AREA WAS TOUCHED. THE POSITION OF THE NEEDLE WAS VERIFIED WITH AP AND LATERAL VIEWS. AFTER PROPER POSITION OF THE NEEDLE WAS ACHIEVED, ISOVUE M DYE 30%, 0.25 ML, WAS INJECTED SHOWING SPREAD OF THE DYE. THEN, A SOLUTION OF 20 MG OF KENALOG WAS INJECTED IN RIGHT JOINT WITH 3 ML OF BUPIVACAINE 0.125%. THERE WAS NO EVIDENCE OF BLOOD, PARESTHESIA OR CEREBROSPINAL FLUID DURING THE PROCEDURE. THE PATIENT WAS SENT TO THE RECOVERY ROOM. THE PATIENT WAS MOVING THE EXTREMITIES AND DOING WELL. THERE WAS NO COMPLICATION DURING THE PROCEDURE. FLUOROSCOPY TIME WAS 26 SECONDS POST PROCEDURE NOTE THE PATIENT WILL BE SEEN IN A FOLLOW UP IN THE NEXT FEW WEEKS. INSTRUCTIONS WERE GIVEN, QUESTIONS WERE ANSWERED, AND THE PATIENT EXPRESSED UNDERSTANDING AND AGREED WITH THE PLAN. I, GALEN WILLOUGHBY, DOCUMENTED THE ABOVE INFORMATION ACTING A SCRIBE FOR DR. PEÑA. I HAVE REVIEWED THE ABOVE DOCUMENT, WRITTEN BY GALEN HEMRIC SCRIBE AND I VERIFY THAT IT IS ACCURATE. PROCEDURE CODES 94886 INJECT SACROILIAC JOINT, MODIFIERS: RT [id number] RADXPS IN END [id number] PXD DISPOSITION & COMMUNICATION FOLLOW UP 3 WEEKS ELECTRONICALLY SIGNED BY ABBY PEÑA MD, MD ON 10/01/2018 AT 07:47 PM EDT DISCLAIMER : THIS IS A VISIT SUMMARY EXTRACTED FROM THE [employer] CHART. IT IS NOT A COPY OF THE [employer] PROGRESS NOTE. MTDD
== END ==
LOC: M PAIN 08:30
PROVIDERS: ATTEND Anesthesiology
DX: G89.29 Other chronic pain (principal); M46.1 Sacroiliitis, not elsewhere classified; M53.88 Other specified dorsopathies, sacral and sacrococcygeal region; L40.9 Psoriasis, unspecified; Z79.899 Other long term (current) drug therapy; Z91.018 Allergy to other foods; Z91.040 Latex allergy status; Z87.448 Personal history of other diseases of urinary system
CPT/HCPCS: G0260; J3301; Q9967

== ENCOUNTER → 2018-10-10 | Outpatient (CLI) | payer OTHER ==
[~2018-10-10] MED LIST changes: -BUPIVACAINE HCL 0.25% 30 ML VIAL As Ordered ONE; -ISOVUE-M 300 61% 15ML VIAL (Q9967) As Ordered ONE; -LIDOCAINE 1% SDV INJ 30 ML VIAL As Ordered ONE; -TRIAMCINOLONE ACETONIDE SUSP 40 MG/ML VIAL (J3301) As Ordered ONE; -diazePAM 5 MG TAB As Ordered ONE; -oxyCODONE 5MG TAB As Ordered ONE
--- NOTE | 2018-10-21 23:30 | ECWPNPC ---
PATIENT NAME: HECTOR ZIMMERMAN : 1965 GENDER: FEMALE VISIT DATE: 10/10/2018 DISCHARGE DATE: 10/10/18 1044 VISIT LOCKED DATE TIME: PHYSICIAN: ABBY PEÑA MD RESOURCE: ABBY PEÑA MD REASON FOR APPOINTMENT 1. W/C BACK HISTORY OF PRESENT ILLNESS HISTORY OF PRESENT ILLNESS: PAIN THE PATIENT DESCRIBES THE PAIN... 53 YEAR OLD FEMALE PATIENT WITH A HISTORY OF CHRONIC LOW BACK PAIN. THE PATIENT DESCRIBES THE PAIN ACHING, BURNING, AND CONTINUOUS WITH A PAIN SCORE OF 5-8/10 DEPENDING ON PHYSICAL ACTIVITY. 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 THE PATIENT WAS HERE FOR A SACROILIAC JOINT BLOCK ON 09/14/2018 AND REPORTS HAVING SIGNIFICANT PAIN RELIEF WITH INCREASED MOBILITY AND FUNCTIONALITY. THE PATIENT SAYS THAT SHE HAS BEEN ABLE TO BE MORE ACTIVE AND PERFORM DAILY ACTIVITIES EASIER SINCE THE INJECTION. THE PATIENT ALSO HAS A DCS IMPLANT AND SAYS THAT IT IS HELPING A LOT AND SHE IS VERY HAPPY WITH IT. THE PATIENT IS CURRENTLY USING GABAPENTIN, TRAMADOL, AND CYMBALTA TO AID IN PAIN RELIEF. PATIENT DENIES UNEXPLAINABLE WEIGHT LOSS, FEVER, CHILLS, NEW CHANGES ON HER URINARY OR BOWEL CONTROL. FALL RISK SCREENING: SCREENING :NO FALLS REPORTED IN THE LAST YEAR CURRENT MEDICATIONS TAKING MULTIVITAMINS OTC TABLET 1 TAB(S) P.O. ONCE A DAY TAKING VITAMIN B COMPLEX OTC TABLET 1 TAB(S) P.O. ONCE A DAY TAKING LIDODERM 5 % PATCH 3 PATCHES EXTERNALLY ONCE A DAY ON BACK TAKING BENADRYL 25 MG CAPSULE 1 CAPSULE NEEDED ORALLY BEFORE BEDTIME TAKING TRAMADOL HCL 50 MG TABLET 1 TABLET ORALLY EVERY 6 HRS MDD=4 TAKING GABAPENTIN 100 MG CAPSULE DIRECTED ORALLY TWICE DAILY TAKING FLECTOR 1.3 % PATCH 1 PATCH TO SKIN EXTERNALLY TO LOW BACK ON 12 HRS OFF 12 HRS TAKING CYMBALTA 20 MG CAPSULE DELAYED RELEASE PARTICLES 1 CAPSULE ORALLY ONCE A DAY, NOTES: 09/13 2099 MEDICATION LIST REVIEWED AND RECONCILED WITH THE PATIENT PAST MEDICAL HISTORY BACK SURGERY X 9 HISTORY OF KIDNEY PROBLEMS CHILD...NOT SURE OF SPECIFICS PSORIASIS BACK PAIN ALLERGIES LATEX (FOR ALLERGY USE ONLY): RASH - ALLERGY SEASONAL: ITCHY EYES, RUNNY NOSE - ALLERGY ORANGES: RASH. LIPS SWELL - ALLERGY SURGICAL HISTORY BACK SURGERY X 9 DORSAL COLOMN STIMULATOR 05/2001 LUMPECTOMY, LEFT BREAST 2009 FAMILY HISTORY FATHER: ALIVE, DIAGNOSED WITH HYPERTENSION, HEART DISEASE MOTHER: 71 YRS, CANCER 1 BROTHER(S) , 3 SISTER(S) - HEALTHY. 3 SON(S) , 1 DAUGHTER(S) - HEALTHY. MOM-LUNG CA\NBROTHER-CHRON\'S DISEASE AND ANKLYOSIS SPONDOLITIS. SOCIAL HISTORY GENERAL: TOBACCO USE ARE YOU A:NONSMOKER PAIN CLINIC PFS, CLERGY, PUBLIC HEALTH REFERRALS PFS REFERRAL NEEDED?NO CLERGY REFERRAL NEEDED?NO PUBLIC HEALTH REFERRAL NEEDED?NO WAS THE PROVIDER NOTIFIED OF ANY PERTINENT INFO? N/A HAS THE PATIENT BEEN EDUCATED REGARDING HIS/HER PLAN OF CARE?YES HAS THE PATIENT BEEN EDUCATED REGARDING PAIN, THE RISK FOR PAIN, THE IMPORTANCE OF EFFECTIVE PAIN MANAGEMENT, AND THE PAIN ASSESSMENT PROCESS?YES LATEX QUESTIONNAIRE LATEX ALLERGY : HAVE YOU EVER DEVELOPED ANY TYPE OF REACTION AFTER HANDLING LATEX PRODUCTS SUCH RUBBER GLOVES, CONDOMS, DIAPHRAGMS, BALLOONS, SOCKS, OR UNDERWEAR?YES - PLEASE INDICATE :RUBBER GLOVES, OTHER (DOCUMENT IN NOTES) BANDAIDS LATEX ALLERGY : HAVE YOU EVER DEVELOPED ANY TYPE OF REACTION DURING OR AFTER DENTAL APPOINTMENT, VAGINAL/RECTAL EXAMINATION, SURGICAL PROCEDURE, OR ANY OTHER EXPOSURE?NO LATEX RISK : HAVE YOU EVER HAD ANY DIFFICULTY BREATHING OR HIVES AFTER EATING OR HANDLING ANY FRUITS, OR VEGETABLES; SUCH KIWI, BANANAS, STONE FRUITS, OR CHESTNUTSNO LATEX RISK : DO YOU HAVE A PREVIOUS PERSONAL HISTORY OF MORE THAN NINE SURGERIES, SPINA BIFIDA, OR REPEATED CATHERTIZATIONS? YES - PLEASE INDICATE : > 9 SURGERIES LATEX RISK : ARE YOU FREQUENTLY EXPOSED TO LATEX PRODUCTS IN YOUR OCCUPATION?NO DATE ASKED : 09/14/2018 ADVANCE DIRECTIVE ADVANCE DIRECTIVE DISCUSSED WITH PATIENT:YES 09/14/18 HCP- ZANA ZIMMERMAN [phone] EDUCATION LEVEL OF EDUCATION:FINISHED HIGH SCHO[id number] NONE LANGUAGE LANGUAGES SPOKEN:E[place] NEW PATIENT PAIN DIARY FROM 0-10, WHAT LEVEL IS YOUR PAIN TODAY?6 ALCOHOL SCREENING DID YOU HAVE A DRINK CONTAINING ALCOHOL IN THE PAST YEAR?NO POINTS0 INTERPRETATIONNEGATIVE RECREATIONAL DRUG USE DRUG USE?NO LEARNING BARRIERS / SPECIAL NEEDS BARRIERS TO LEARNING?NO HEARING IMPAIRED?NO VISION IMPAIRED?YES GLASSES FOR READING :CORRECTIVE LENSES COGNITIVELY IMPAIRED?NO READINESS TO LEARN?YES LEARNING PREFERENCES?NO LEARNING CAPABILITIES PRESENT?YES EMOTIONAL BARRIERS?NO SPECIAL DEVICES?NO INVISIBLE BRACES ORTHODONTIST NEEDED?NO HOSPITALIZATION/MAJOR DIAGNOSTIC PROCEDURE CHILD, DUE TO KIDNEYS SURGERIES REVIEW OF SYSTEMS REVIEWED BY: PROVIDER: ABBY PEÑA MD . CONSTITUTIONAL: ANY CHANGE IN YOUR MEDICAL CONDITION? NO . CHILLS NO . FEVER NO . INFECTION: DO YOU HAVE NEW INFECTIONS? NO . DO YOU HAVE HISTORY OF MRSA? NO . MUSCULOSKELETAL: ANY NEW PATTERNS OF PAIN OR NUMBNESS? YES THE CHANGE IS FOR BETTER SINCE INJECTION . GASTROENTEROLOGY: ANY NEW CHANGE IN BOWEL CONTROL? NO . GENITOURINARY: ANY NEW CHANGE IN BLADDER CONTROL? NO . IS THERE A CHANCE YOU COULD BE ? NO . HEMATOLOGY/LYMPH: DO YOU TAKE ANY BLOOD THINNERS? (FOR EXAMPLE- COUMADIN, PLAVIX, AGGRENOX, PLATEL, PRADAXA, OR XARELTO) NO . WHEN WAS YOUR LAST DOSE? DATE: TIME: . NEUROLOGY: HAVE YOU FALLEN IN THE PAST 12 MONTHS? NO . ANY NEW EXTREMITY NUMBNESS OR WEAKNESS? NO . CARDIOLOGY: DO YOU HAVE A PACEMAKER OR DEFIBRILLATOR? NO PT DOES HAVE A DORSAL COLUMN STIMULATOR . RESPIRATORY: HAVE YOU BEEN SICK IN THE PAST WEEK? NO . FEVER NO . FLU LIKE SYMPTOMS? NO . COUGH NO . INTEGUMENTARY: DO YOU HAVE ANY RASHES OR OPEN SORES? NO . ALLERGIC/IMMUNO: ARE YOU ALLERGIC TO IV DYE? NO . ANY NEW ALLERGIES? NO . PSYCHIATRIC: DO YOU HAVE THOUGHTS OF HURTING YOURSELF OR SOMEONE ELSE? NO . ARE YOU ABUSED, NEGLECTED, OR IN AN UNSAFE ENVIRONMENT? NO . ENDOCRINOLOGY: ARE YOU DIABETIC? NO . OTHER: DO YOU NEED ANY PRESCRIPTIONS? NO . IF YES, PLEASE LIST: ____ . ANY NEW PROBLEMS WITH YOUR MEDICATIONS? NO . WHEN DID YOU LAST EAT? ____ . WHEN DID YOU LAST DRINK? ____ . WHAT DID YOU LAST DRINK? ____ . NAME OF PERSON DRIVING YOU HOME? ____ . DO YOU HAVE ANY OTHER QUESTIONS OR CONCERNS NO . VITAL SIGNS WT 174.8 LBS, HT 65 IN, BMI 29.09 INDEX, BP 149/82 MM HG, HR 78 /MIN, RR 18 /MIN, TEMP 96.9 F, OXYGEN SAT % 99, SAFE IN ENV? (Y/N) YES, NA INITIALS MP [id number], REVIEWED BY: KG. EXAMINATION GENERAL EXAMINATION: PATIENT IS ALERT O X 3 AND COOPERATIVE. ASSESSMENTS INTERVERTEBRAL DISC DISORDER WITH RADICULOPATHY OF LUMBAR REGION - M51.16 (PRIMARY) SACROILIITIS, NOT ELSEWHERE CLASSIFIED - M46.1 TREATMENT INTERVERTEBRAL DISC DISORDER WITH RADICULOPATHY OF LUMBAR REGION CLINICAL NOTES: WE DISCUSSED SEVERAL ISSUES WITH MRS. ZIMMERMAN'S PAIN MANAGEMENT CASE. THE PATIENT WILL CONTINUE USING THE TRAMADOL FOR SOMATIC PAIN, CYMBALTA FOR MUSCULOSKELETAL PAIN, AND GABAPENTIN FOR NEUROPATHIC PAIN. THE PATIENT SAYS SHE IS TRYING TO REDUCE THE USE OF HER TRAMADOL SO I WILL INCREASE HER CYMBALTA TO 30MG AND THE GABAPENTIN TO 300MG AT NIGHT. ISTOP _#[id number] WAS REVIEWED. I WILL PERFORM A PILL COUNTING TODAY. THE URINE TOXICOLOGY FROM THE PREVIOUS VISIT WAS NOT PROCESSED, SO I WILL REPEAT IT TODAY. THE PATIENT WILL FOLLOW UP IN 3 MONTHS. INSTRUCTIONS WERE GIVEN, QUESTIONS WERE ANSWERED, PATIENT REPORTS UNDERSTANDING AND AGREES WITH THE PLAN. I, AVE ADAME, DOCUMENTED THE ABOVE INFORMATION ACTING A SCRIBE FOR DR. PEÑA. I HAVE REVIEWED THE ABOVE DOCUMENT, WRITTEN BY AVE HUMMEL AND I VERIFY THAT IT IS ACCURATE. . SACROILIITIS, NOT ELSEWHERE CLASSIFIED REFILL GABAPENTIN CAPSULE, 100 MG, 1 CAP, ORALLY FOR PAIN, THREE TIMES DAILY, 30 DAYS, 90, REFILLS 1 REFILL CYMBALTA CAPSULE DELAYED RELEASE PARTICLES, 30 MG, 1 CAPSULE, ORALLY FOR PAIN, ONCE A DAY, 30 DAYS, 30 CAPSULE, REFILLS 2, NOTES: 09/13 2100 PROCEDURES PN WORKMANS' COMP OPINION IN YOUR OPINION, WAS THE INCIDENT THAT THE PATIENT DESCRIBED THE COMPETENT MEDICAL CAUSE OF THIS INJURY/ILLNESS? YES ARE THE PATIENT'S COMPLAINTS CONSISTENT WITH HIS/HER HISTORY OF THE INJURY/ILLNESS? YES IS THE PATIENT'S HISTORY OF THE INJURY/ILLNESS CONSISTENT WITH YOUR OBJECTIVE FINDING? YES WHAT IS THE PERCENTAGE OF TEMPORARY IMPAIRMENT? MODERATE TO MARKED = 66.7% IS THE PATIENT WORKING? NO DOCTOR ON SITE: ABBY BELTRAN MD PROCEDURE CODES FA211 ESTABILISHED PATIENT [facility] FACILITY CHARGE G8427 CURRENT MEDS W/DOSAGES DOCUMENTED G8730 PAIN ASSESS POS TOOL F/U PLAN DOC DISPOSITION & COMMUNICATION FOLLOW UP 3 MONTHS (REASON: W/C LOW BACK) ELECTRONICALLY SIGNED BY ABBY PEÑA MD, MD ON 10/21/2018 AT 05:51 PM EDT DISCLAIMER : THIS IS A VISIT SUMMARY EXTRACTED FROM THE [employer] CHART. IT IS NOT A COPY OF THE [employer] PROGRESS NOTE. JANE
== END ==
LOC: M PAIN 09:00
PROVIDERS: ATTEND Anesthesiology
DX: M51.16 Intervertebral disc disorders with radiculopathy, lumbar region (principal); M46.1 Sacroiliitis, not elsewhere classified; G89.29 Other chronic pain; Z96.9 Presence of functional implant, unspecified; Z91.018 Allergy to other foods; Z91.040 Latex allergy status; Z79.891 Long term (current) use of opiate analgesic; Z79.899 Other long term (current) drug therapy

== ENCOUNTER → 2019-01-12 | Outpatient (CLI) | payer OTHER | LOC: M PAIN 08:30 | PROVIDERS: ATTEND Anesthesiology | DX: M46.1 Sacroiliitis, not elsewhere classified (principal); M54.40 Lumbago with sciatica, unspecified side; G89.29 Other chronic pain; M53.3 Sacrococcygeal disorders, not elsewhere classified; Z91.018 Allergy to other foods; Z91.040 Latex allergy status; Z79.899 Other long term (current) drug therapy ==

== ENCOUNTER → 2019-02-14 | Outpatient (CLI) | payer OTHER ==
--- NOTE | 2019-02-16 00:25 | ECWPNPC ---
PATIENT NAME: HECTRO ZIMMERMAN : 1965 GENDER: FEMALE VISIT DATE: 02/14/2019 DISCHARGE DATE: 02/14/19 1007 VISIT LOCKED DATE TIME: PHYSICIAN: TEMI GLORIA RESOURCE: TEMI GLORIA REASON FOR APPOINTMENT 1. W/C BACK HISTORY OF PRESENT ILLNESS HISTORY OF PRESENT ILLNESS: PAIN THE PATIENT DESCRIBES THE PAIN... 53-YEAR-OLD FEMALE IN FOR CHRONIC PAIN FOLLOW-UP. AT LAST CLINIC VISIT HER GABAPENTIN WAS INCREASED AND HER CYMBALTA WAS INCREASED WELL. SHE STATES SHE WAS UNABLE TO TOLERATE THE HIGHER DOSAGE OF THE GABAPENTIN IT MADE HER FATIGUED. SHE FURTHER STATES THAT SHE JUST STARTED THE INCREASED DOSE OF CYMBALTA YESTERDAY. SHE RATES HER PAIN CURRENTLY AT A 6 OUT OF 10 AND DESCRIBES IT ACHING, BURNING, SHOOTING, AND TENDER. SHE FEELS THE DECREASED DOSE OF GABAPENTIN IS WORKING ESPECIALLY AT NIGHT. SHE FURTHER DENIES MED SIDE EFFECTS THIS TIME. FALL RISK SCREENING: SCREENING :NO FALLS REPORTED IN THE LAST YEAR CURRENT MEDICATIONS TAKING IBUPROFEN 800 MG TABLET 1 TABLET WITH FOOD OR MILK NEEDED ORALLY NEEDED EVERY 8 HOURS NEEDED MDD3 TAKING CYMBALTA 60 MG CAPSULE DELAYED RELEASE PARTICLES 1 CAPSULE ORALLY ONCE A DAY TAKING GABAPENTIN 300 MG CAPSULE 1 CAP ORALLY BEFORE BEDTIME TAKING LIDODERM 5 % PATCH 3 PATCHES EXTERNALLY ONCE A DAY ON BACK TAKING MULTIVITAMINS OTC TABLET 1 TAB(S) P.O. ONCE A DAY TAKING BENADRYL 25 MG CAPSULE 1 CAPSULE NEEDED ORALLY BEFORE BEDTIME TAKING FLECTOR 1.3 % PATCH 1 PATCH TO SKIN EXTERNALLY TO LOW BACK ON 12 HRS OFF 12 HRS NOT-TAKING VITAMIN B COMPLEX OTC TABLET 1 TAB(S) P.O. ONCE A DAY MEDICATION LIST REVIEWED AND RECONCILED WITH THE PATIENT PAST MEDICAL HISTORY BACK SURGERY X 9 HISTORY OF KIDNEY PROBLEMS CHILD...NOT SURE OF SPECIFICS PSORIASIS BACK PAIN ALLERGIES LATEX (FOR ALLERGY USE ONLY): RASH - ALLERGY SEASONAL: ITCHY EYES, RUNNY NOSE - ALLERGY ORANGES: RASH. LIPS SWELL - ALLERGY SURGICAL HISTORY BACK SURGERY X 9 DORSAL COLOMN STIMULATOR 05/2001 LUMPECTOMY, LEFT BREAST 2008 FAMILY HISTORY FATHER: ALIVE, DIAGNOSED WITH HYPERTENSION, UNSPECIFIED HEART DISEASE MOTHER: 71 YRS, OTHER MALIGNANT NEOPLASM OF UNSPECIFIED SITE 1 BROTHER(S) , 3 SISTER(S) - HEALTHY. 3 SON(S) , 1 DAUGHTER(S) - HEALTHY. MOM-LUNG CA\NBROTHER-CHRON\'S DISEASE AND ANKLYOSIS SPONDOLITIS. SOCIAL HISTORY GENERAL: TOBACCO USE ARE YOU A:NONSMOKER PAIN CLINIC PFS, CLERGY, PUBLIC HEALTH REFERRALS PFS REFERRAL NEEDED?NO CLERGY REFERRAL NEEDED?NO PUBLIC HEALTH REFERRAL NEEDED?NO WAS THE PROVIDER NOTIFIED OF ANY PERTINENT INFO? N/A HAS THE PATIENT BEEN EDUCATED REGARDING HIS/HER PLAN OF CARE?YES HAS THE PATIENT BEEN EDUCATED REGARDING PAIN, THE RISK FOR PAIN, THE IMPORTANCE OF EFFECTIVE PAIN MANAGEMENT, AND THE PAIN ASSESSMENT PROCESS?YES LATEX QUESTIONNAIRE LATEX ALLERGY : HAVE YOU EVER DEVELOPED ANY TYPE OF REACTION AFTER HANDLING LATEX PRODUCTS SUCH RUBBER GLOVES, CONDOMS, DIAPHRAGMS, BALLOONS, SOCKS, OR UNDERWEAR?YES - PLEASE INDICATE :RUBBER GLOVES, OTHER (DOCUMENT IN NOTES) BANDAIDS LATEX ALLERGY : HAVE YOU EVER DEVELOPED ANY TYPE OF REACTION DURING OR AFTER DENTAL APPOINTMENT, VAGINAL/RECTAL EXAMINATION, SURGICAL PROCEDURE, OR ANY OTHER EXPOSURE?NO LATEX RISK : HAVE YOU EVER HAD ANY DIFFICULTY BREATHING OR HIVES AFTER EATING OR HANDLING ANY FRUITS, OR VEGETABLES; SUCH KIWI, BANANAS, STONE FRUITS, OR CHESTNUTSNO LATEX RISK : DO YOU HAVE A PREVIOUS PERSONAL HISTORY OF MORE THAN NINE SURGERIES, SPINA BIFIDA, OR REPEATED CATHERIZATIONS? YES - PLEASE INDICATE : > 9 SURGERIES LATEX RISK : ARE YOU FREQUENTLY EXPOSED TO LATEX PRODUCTS IN YOUR OCCUPATION?NO DATE ASKED : 02/14/2019 ADVANCE DIRECTIVE ADVANCE DIRECTIVE DISCUSSED WITH PATIENT:YES HCP- ZANA ZIMMERMAN [phone] EDUCATION LEVEL OF EDUCATION:FINISHED HIGH SCHOOL [employer]OMINATIONAL [id number] NONE LANGUAGE LANGUAGES SPOKEN:KHMER DOMESTIC VIOLENCE DO YOU FEEL SAFE IN YOUR ENVIRONMENT?YES ALCOHOL SCREENING DID YOU HAVE A DRINK CONTAINING ALCOHOL IN THE PAST YEAR?NO POINTS0 INTERPRETATIONNEGATIVE RECREATIONAL DRUG USE DRUG USE?NO LEARNING BARRIERS / SPECIAL NEEDS BARRIERS TO LEARNING?NO HEARING IMPAIRED?NO VISION IMPAIRED?YES GLASSES FOR READING COGNITIVELY IMPAIRED?NO :CORRECTIVE LENSES READINESS TO LEARN?YES LEARNING PREFERENCES?NO LEARNING CAPABILITIES PRESENT?YES EMOTIONAL BARRIERS?NO SPECIAL DEVICES?NO ACTIVITIES DIRECTOR SCOUTING NEEDED?NO 02/14/19 0943 REVIEWED WITH PT. AD. HOSPITALIZATION/MAJOR DIAGNOSTIC PROCEDURE CHILD, DUE TO KIDNEYS SURGERIES REVIEW OF SYSTEMS REVIEWED BY: PROVIDER: TIMBO PARR . CONSTITUTIONAL: ANY CHANGE IN YOUR MEDICAL CONDITION? NO . CHILLS NO . FEVER NO . INFECTION: DO YOU HAVE NEW INFECTIONS? NO . DO YOU HAVE HISTORY OF MRSA? NO . MUSCULOSKELETAL: ANY NEW PATTERNS OF PAIN OR NUMBNESS? NO . GASTROENTEROLOGY: ANY NEW CHANGE IN BOWEL CONTROL? NO . GENITOURINARY: ANY NEW CHANGE IN BLADDER CONTROL? NO . IS THERE A CHANCE YOU COULD BE ? NO . HEMATOLOGY/LYMPH: DO YOU TAKE ANY BLOOD THINNERS? (FOR EXAMPLE- COUMADIN, PLAVIX, AGGRENOX, PLATEL, PRADAXA, OR XARELTO) NO . WHEN WAS YOUR LAST DOSE? DATE: TIME: . NEUROLOGY: HAVE YOU FALLEN IN THE PAST 12 MONTHS? YES, X 1 RIGHT LEG GAVE OUT ON HER, TWISTED HER BACK . ANY NEW EXTREMITY NUMBNESS OR WEAKNESS? NO . CARDIOLOGY: DO YOU HAVE A PACEMAKER OR DEFIBRILLATOR? NO, DCS . RESPIRATORY: HAVE YOU BEEN SICK IN THE PAST WEEK? NO . FEVER NO . FLU LIKE SYMPTOMS? NO . COUGH NO . INTEGUMENTARY: DO YOU HAVE ANY RASHES OR OPEN SORES? NO . ALLERGIC/IMMUNO: ARE YOU ALLERGIC TO IV DYE? NO . ANY NEW ALLERGIES? NO . PSYCHIATRIC: DO YOU HAVE THOUGHTS OF HURTING YOURSELF OR SOMEONE ELSE? NO . ARE YOU ABUSED, NEGLECTED, OR IN AN UNSAFE ENVIRONMENT? NO . ENDOCRINOLOGY: ARE YOU DIABETIC? NO . OTHER: DO YOU NEED ANY PRESCRIPTIONS? NO . IF YES, PLEASE LIST: ____ . ANY NEW PROBLEMS WITH YOUR MEDICATIONS? NO . WHEN DID YOU LAST EAT? ____ . WHEN DID YOU LAST DRINK? ____ . WHAT DID YOU LAST DRINK? ____ . NAME OF PERSON DRIVING YOU HOME? ____ . DO YOU HAVE ANY OTHER QUESTIONS OR CONCERNS NO GABAPENTIN 400MGS WAS TOO MUCH- IT HER FEEL EXHAUSTED. SHE IS TAKING 300 MGS Q HS. JUST STARTED TAKING THE HIGHER DOSE OF CYMBALTA MON SO NOT SURE HOW EFFECTIVE THE INCREASE IS YET. . VITAL SIGNS WT 173 LBS, HT 65 IN, BMI 28.79 INDEX, BP 126/66 MM HG, HR 88 /MIN, RR 18 /MIN, TEMP 98.7 F, OXYGEN SAT % 99, SAFE IN ENV? (Y/N) Y, REVIEWED BY: ANDRE [id number]. EXAMINATION GENERAL EXAMINATION: GENERALNO ACUTE DISTRESS, WELL NOURISHED AND HYDRATED. PSYCHAPPROPRIATE MOOD AND AFFECT . LUNGS:CLEAR TO AUSCULTATION BILATERALLY, NO WHEEZES, RHONCHI, RALES. HEART:NO MURMURS, REGULAR RATE AND RHYTHM. ASSESSMENTS LUMBAR POST-LAMINECTOMY SYNDROME - M96.1 (PRIMARY) INTERVERTEBRAL DISC DISORDERS WITH RADICULOPATHY, LUMBAR REGION - M51.16 TREATMENT LUMBAR POST-LAMINECTOMY SYNDROME CLINICAL NOTES: 53-YEAR-OLD FEMALE IN FOR CHRONIC PAIN FOLLOW-UP. GIVEN PRESENTING SYMPTOMS AND RESULTS PHYSICAL EXAMINATION RECOMMENDED CONTINUATION OF CURRENT MEDICATION REGIMEN WITH FOLLOW-UP IN 1 MONTH TO DETERMINE EFFICACY OF TREATMENT. PATIENT HAS EXPRESSED UNDERSTANDING OF AND WAS IN AGREEMENT WITH TREATMENT PLAN. GIVEN TIME TO ASK QUESTIONS AND EXPRESS CONCERNS. PROCEDURES PN WORKMANS' COMP OPINION IN YOUR OPINION, WAS THE INCIDENT THAT THE PATIENT DESCRIBED THE COMPETENT MEDICAL CAUSE OF THIS INJURY/ILLNESS? YES ARE THE PATIENT'S COMPLAINTS CONSISTENT WITH HIS/HER HISTORY OF THE INJURY/ILLNESS? YES IS THE PATIENT'S HISTORY OF THE INJURY/ILLNESS CONSISTENT WITH YOUR OBJECTIVE FINDING? YES WHAT IS THE PERCENTAGE OF TEMPORARY IMPAIRMENT? MODERATE TO MARKED = 66.7% IS THE PATIENT WORKING? NO DOCTOR ON SITE: ABBY BELTRAN MD PROCEDURE CODES FA211 ESTABILISHED PATIENT [facility] CHARGE DISPOSITION & COMMUNICATION FOLLOW UP 4 WEEKS (REASON: MEDICATION ) ELECTRONICALLY SIGNED BY EDWAR PITTMAN ON 02/15/2019 AT 08:59 AM EDT DISCLAIMER : THIS IS A VISIT SUMMARY EXTRACTED FROM THE [employer] CHART. IT IS NOT A COPY OF THE [employer] PROGRESS NOTE. [id number]
== END ==
LOC: M PAIN 09:15
PROVIDERS: ATTEND Family Medicine
DX: M96.1 Postlaminectomy syndrome, not elsewhere classified (principal); M51.16 Intervertebral disc disorders with radiculopathy, lumbar region; Z91.018 Allergy to other foods; Z91.040 Latex allergy status; Z79.899 Other long term (current) drug therapy

== ENCOUNTER → 2019-03-09 | Outpatient (CLI) | payer OTHER ==
--- NOTE | 2019-03-13 01:46 | ECWPNPC ---
PATIENT NAME: HECTOR ZIMMERMAN : 1965 GENDER: FEMALE VISIT DATE: 03/09/2019 DISCHARGE DATE: 03/09/19 1008 VISIT LOCKED DATE TIME: PHYSICIAN: TEMI GLORIA RESOURCE: TEMI GLORIA REASON FOR APPOINTMENT 1. W/C BACK HISTORY OF PRESENT ILLNESS HISTORY OF PRESENT ILLNESS: PAIN THE PATIENT DESCRIBES THE PAIN... THE PATIENT DESCRIBES THE PAIN... THE PATIENT DESCRIBES THE PAIN... 53-YEAR-OLD FEMALE IN FOR CHRONIC PAIN FOLLOW-UP. SHE RATES HER PAIN CURRENTLY AT A 7 OUT OF 10 AND DESCRIBES IT ACHING, BURNING, SHARP, AND TENDER. TODAY IN CLINIC SHE ADMITS THE INCREASED DOSE OF CYMBALTA LEAVES HER FEELING GROGGY IN THE MORNING SHE FURTHER STATES THE GABAPENTIN HAS CAUSED WEIGHT GAIN. SHE HAS A HISTORY OF CHRONIC LOW BACK PAIN. 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 THE PATIENT STATES HER PAIN BEGINS IN HER LOW BACK AND RADIATES DOWN MAINLY HER RIGHT LEG. THE PATIENT SAYS THE PAIN INCREASES WITH ACTIVITIES. FALL RISK SCREENING: SCREENING :NO FALLS REPORTED IN THE LAST YEAR CURRENT MEDICATIONS TAKING IBUPROFEN 800 MG TABLET 1 TABLET WITH FOOD OR MILK NEEDED ORALLY NEEDED EVERY 8 HOURS NEEDED MDD3 TAKING CYMBALTA 60 MG CAPSULE DELAYED RELEASE PARTICLES 1 CAPSULE ORALLY ONCE A DAY TAKING GABAPENTIN 300 MG CAPSULE 1 CAP ORALLY BEFORE BEDTIME TAKING LIDODERM 5 % PATCH 3 PATCHES EXTERNALLY ONCE A DAY ON BACK TAKING MULTIVITAMINS OTC TABLET 1 TAB(S) P.O. ONCE A DAY TAKING BENADRYL 25 MG CAPSULE 1 CAPSULE NEEDED ORALLY BEFORE BEDTIME TAKING FLECTOR 1.3 % PATCH 1 PATCH TO SKIN EXTERNALLY TO LOW BACK ON 12 HRS OFF 12 HRS NOT-TAKING VITAMIN B COMPLEX OTC TABLET 1 TAB(S) P.O. ONCE A DAY MEDICATION LIST REVIEWED AND RECONCILED WITH THE PATIENT PAST MEDICAL HISTORY BACK SURGERY X 9 HISTORY OF KIDNEY PROBLEMS CHILD...NOT SURE OF SPECIFICS PSORIASIS BACK PAIN ALLERGIES LATEX (FOR ALLERGY USE ONLY): RASH - ALLERGY SEASONAL: ITCHY EYES, RUNNY NOSE - ALLERGY ORANGES: RASH. LIPS SWELL - ALLERGY SURGICAL HISTORY BACK SURGERY X 9 DORSAL COLOMN STIMULATOR 05/2001 LUMPECTOMY, LEFT BREAST 2009 FAMILY HISTORY FATHER: ALIVE, DIAGNOSED WITH HYPERTENSION, UNSPECIFIED HEART DISEASE MOTHER: 71 YRS, OTHER MALIGNANT NEOPLASM OF UNSPECIFIED SITE 1 BROTHER(S) , 3 SISTER(S) - HEALTHY. 3 SON(S) , 1 DAUGHTER(S) - HEALTHY. MOM-LUNG CA\NBROTHER-CHRON\'S DISEASE AND ANKLYOSIS SPONDOLITIS. SOCIAL HISTORY GENERAL: TOBACCO USE ARE YOU A:NONSMOKER PAIN CLINIC PFS, CLERGY, PUBLIC HEALTH REFERRALS PFS REFERRAL NEEDED?NO CLERGY REFERRAL NEEDED?NO PUBLIC HEALTH REFERRAL NEEDED?NO WAS THE PROVIDER NOTIFIED OF ANY PERTINENT INFO? N/A HAS THE PATIENT BEEN EDUCATED REGARDING HIS/HER PLAN OF CARE?YES HAS THE PATIENT BEEN EDUCATED REGARDING PAIN, THE RISK FOR PAIN, THE IMPORTANCE OF EFFECTIVE PAIN MANAGEMENT, AND THE PAIN ASSESSMENT PROCESS?YES LATEX QUESTIONNAIRE LATEX ALLERGY : HAVE YOU EVER DEVELOPED ANY TYPE OF REACTION AFTER HANDLING LATEX PRODUCTS SUCH RUBBER GLOVES, CONDOMS, DIAPHRAGMS, BALLOONS, SOCKS, OR UNDERWEAR?YES LATEX ALLERGY : HAVE YOU EVER DEVELOPED ANY TYPE OF REACTION DURING OR AFTER DENTAL APPOINTMENT, VAGINAL/RECTAL EXAMINATION, SURGICAL PROCEDURE, OR ANY OTHER EXPOSURE?NO - PLEASE INDICATE :RUBBER GLOVES, OTHER (DOCUMENT IN NOTES) BANDAIDS DATE ASKED : 02/14/2019 LATEX RISK : HAVE YOU EVER HAD ANY DIFFICULTY BREATHING OR HIVES AFTER EATING OR HANDLING ANY FRUITS, OR VEGETABLES; SUCH KIWI, BANANAS, STONE FRUITS, OR CHESTNUTSNO LATEX RISK : DO YOU HAVE A PREVIOUS PERSONAL HISTORY OF MORE THAN NINE SURGERIES, SPINA BIFIDA, OR REPEATED CATHERIZATIONS? YES - PLEASE INDICATE : > 9 SURGERIES LATEX RISK : ARE YOU FREQUENTLY EXPOSED TO LATEX PRODUCTS IN YOUR OCCUPATION?NO ADVANCE DIRECTIVE ADVANCE DIRECTIVE DISCUSSED WITH PATIENT:YES HCP- ZANA ZIMMERMAN [phone] EDUCATION LEVEL OF EDUCATION:FINISHED HIGH SCHOOL [employer] [id number] NONE LANGUAGE LANGUAGES SPOKEN:CITIZEN OF THE [place] DOMESTIC VIOLENCE DO YOU FEEL SAFE IN YOUR ENVIRONMENT?YES ALCOHOL SCREENING DID YOU HAVE A DRINK CONTAINING ALCOHOL IN THE PAST YEAR?NO POINTS0 INTERPRETATIONNEGATIVE RECREATIONAL DRUG USE DRUG USE?NO LEARNING BARRIERS / SPECIAL NEEDS BARRIERS TO LEARNING?NO HEARING IMPAIRED?NO VISION IMPAIRED?YES GLASSES FOR READING COGNITIVELY IMPAIRED?NO :CORRECTIVE LENSES READINESS TO LEARN?YES LEARNING PREFERENCES?NO LEARNING CAPABILITIES PRESENT?YES EMOTIONAL BARRIERS?NO SPECIAL DEVICES?NO TREASURY AGENT NEEDED?NO 02/14/19 0937 REVIEWED WITH PT. AD. HOSPITALIZATION/MAJOR DIAGNOSTIC PROCEDURE CHILD, DUE TO KIDNEYS SURGERIES REVIEW OF SYSTEMS REVIEWED BY: PROVIDER: TIMBO PARR . CONSTITUTIONAL: ANY CHANGE IN YOUR MEDICAL CONDITION? NO . CHILLS NO . FEVER NO . INFECTION: DO YOU HAVE NEW INFECTIONS? NO . DO YOU HAVE HISTORY OF MRSA? NO . MUSCULOSKELETAL: ANY NEW PATTERNS OF PAIN OR NUMBNESS? NO . GASTROENTEROLOGY: ANY NEW CHANGE IN BOWEL CONTROL? NO . GENITOURINARY: ANY NEW CHANGE IN BLADDER CONTROL? NO . IS THERE A CHANCE YOU COULD BE ? NO . HEMATOLOGY/LYMPH: DO YOU TAKE ANY BLOOD THINNERS? (FOR EXAMPLE- COUMADIN, PLAVIX, AGGRENOX, PLATEL, PRADAXA, OR XARELTO) NO . WHEN WAS YOUR LAST DOSE? DATE: TIME: . NEUROLOGY: HAVE YOU FALLEN IN THE PAST 12 MONTHS? YES, PRIOR TO LAST VISIT . ANY NEW EXTREMITY NUMBNESS OR WEAKNESS? NO . CARDIOLOGY: DO YOU HAVE A PACEMAKER OR DEFIBRILLATOR? YES . RESPIRATORY: HAVE YOU BEEN SICK IN THE PAST WEEK? NO . FEVER NO . FLU LIKE SYMPTOMS? NO . COUGH NO . INTEGUMENTARY: DO YOU HAVE ANY RASHES OR OPEN SORES? NO . ALLERGIC/IMMUNO: ARE YOU ALLERGIC TO IV DYE? NO . ANY NEW ALLERGIES? NO . PSYCHIATRIC: DO YOU HAVE THOUGHTS OF HURTING YOURSELF OR SOMEONE ELSE? NO . ARE YOU ABUSED, NEGLECTED, OR IN AN UNSAFE ENVIRONMENT? NO . ENDOCRINOLOGY: ARE YOU DIABETIC? NO . OTHER: DO YOU NEED ANY PRESCRIPTIONS? NO . IF YES, PLEASE LIST: ____ . ANY NEW PROBLEMS WITH YOUR MEDICATIONS? NO . WHEN DID YOU LAST EAT? ____ . WHEN DID YOU LAST DRINK? ____ . WHAT DID YOU LAST DRINK? ____ . NAME OF PERSON DRIVING YOU HOME? ____ . DO YOU HAVE ANY OTHER QUESTIONS OR CONCERNS NO . VITAL SIGNS WT 179.6 LBS, HT 65 IN, BMI 29.88 INDEX, BP 123/84 MM HG, HR 92 /MIN, RR 18 /MIN, TEMP 97.9 F, OXYGEN SAT % 100%, NA INITIALS SC 09:20, REVIEWED BY: EM. EXAMINATION GENERAL EXAMINATION: GENERALNO ACUTE DISTRESS, WELL NOURISHED AND HYDRATED. PSYCHAPPROPRIATE MOOD AND AFFECT . LUNGS:CLEAR TO AUSCULTATION BILATERALLY, NO WHEEZES, RHONCHI, RALES. HEART:NO MURMURS, REGULAR RATE AND RHYTHM. ASSESSMENTS LUMBAR POST-LAMINECTOMY SYNDROME - M96.1 (PRIMARY) INTERVERTEBRAL DISC DISORDERS WITH RADICULOPATHY, LUMBOSACRAL REGION - M51.17 TREATMENT LUMBAR POST-LAMINECTOMY SYNDROME DECREASE CYMBALTA CAPSULE DELAYED RELEASE PARTICLES, 30 MG, 1 CAPSULE, ORALLY, ONCE A DAY, 30 DAYS, 30 CAPSULE STOP GABAPENTIN CAPSULE, 300 MG, 1 CAP, ORALLY, BEFORE BEDTIME START LYRICA CAPSULE, 50 MG, 1 CAPSULE, ORALLY, AT BEDTIME, 30 DAYS, 30 CLINICAL NOTES: 53-YEAR-OLD FEMALE IN FOR WORKER'S COMP. CHRONIC PAIN FOLLOW-UP. SHE ADMITS TO INCREASED WEIGHT SINCE STARTING THE GABAPENTIN. SHE FURTHER STATES THE GABAPENTIN CAUSES HEARTBURN. GIVEN PRESENTING SYMPTOMS AND RESULTS OF PHYSICAL EXAMINATION RECOMMENDED STOPPING GABAPENTIN AND STARTING LYRICA 50 MG AT NIGHT FOR BED. FURTHER RECOMMENDED DECREASING CYMBALTA TO 30 MG DAILY. WE WILL FOLLOW-UP IN ONE MONTH TO DETERMINE EFFICACY OF TREATMENT. PATIENT HAS EXPRESSED UNDERSTANDING OF AND WAS IN AGREEMENT WITH TREATMENT PLAN. GIVEN TIME TO ASK QUESTIONS AND EXPRESS CONCERNS., ISTOP REGISTRY REVIEWED AND DEMONSTRATES COMPLLIANCE. (REF # [id number] ) BRINGS IN MEDICATIONS WHICH IS APPROPRIATE FOR WHAT WAS DISPENSED. RECENT URINE TOXICOLOGY REVIEWED. NO UNAUTHORIZED MEDICATIONS. NO ILLICIT SUBSTANCES AND PRESCRIBED MEDICATIONS WERE PRESENT. OTHERS NOTES: GABAPENTIN MATERIAL WAS PRINTED,DULOXETINE MATERIAL WAS PRINTED,PREGABALIN MATERIAL WAS PRINTED. PROCEDURES PN WORKMANS' COMP OPINION IN YOUR OPINION, WAS THE INCIDENT THAT THE PATIENT DESCRIBED THE COMPETENT MEDICAL CAUSE OF THIS INJURY/ILLNESS? YES ARE THE PATIENT'S COMPLAINTS CONSISTENT WITH HIS/HER HISTORY OF THE INJURY/ILLNESS? YES IS THE PATIENT'S HISTORY OF THE INJURY/ILLNESS CONSISTENT WITH YOUR OBJECTIVE FINDING? YES WHAT IS THE PERCENTAGE OF TEMPORARY IMPAIRMENT? MODERATE TO MARKED = 66.7% IS THE PATIENT WORKING? NO DOCTOR ON SITE: ABBY BELTRAN MD PROCEDURE CODES FA211 ESTABILISHED PATIENT [facility] FACILITY CHARGE DISPOSITION & COMMUNICATION FOLLOW UP 4 WEEKS (REASON: CHRONIC PAIN WORKMANS COMP) ELECTRONICALLY SIGNED BY EDWAR PITTMAN ON 03/12/2019 AT 08:34 AM EDT DISCLAIMER : THIS IS A VISIT SUMMARY EXTRACTED FROM THE [employer] CHART. IT IS NOT A COPY OF THE [facility]ESS [facility]. MTDD
== END ==
LOC: M PAIN 09:15
PROVIDERS: ATTEND Family Medicine
DX: M96.1 Postlaminectomy syndrome, not elsewhere classified (principal); M51.17 Intervertebral disc disorders with radiculopathy, lumbosacral region; Z91.018 Allergy to other foods; Z91.040 Latex allergy status; Z96.89 Presence of other specified functional implants; Z79.899 Other long term (current) drug therapy

== ENCOUNTER → 2019-05-24 | Outpatient (CLI) | payer OTHER ==
--- NOTE | 2019-05-26 04:02 | ECWPNPC ---
PATIENT NAME: HECTOR ZIMMERMAN : 1965 GENDER: FEMALE VISIT DATE: 05/24/2019 DISCHARGE DATE: 05/24/19 0956 VISIT LOCKED DATE TIME: PHYSICIAN: TEMI GLORIA RESOURCE: TEMI GLORIA REASON FOR APPOINTMENT 1. W/C BACK HISTORY OF PRESENT ILLNESS HISTORY OF PRESENT ILLNESS: PAIN THE PATIENT DESCRIBES THE PAIN... 54-YEAR-OLD FEMALE WITH A HISTORY OF CHRONIC LOW BACK PAIN. 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 THE PATIENT STATES HER PAIN BEGINS IN HER LOW BACK AND RADIATES DOWN MAINLY HER RIGHT LEG. THE PATIENT SAYS THE PAIN INCREASES WITH ACTIVITIES. PATIENT WAS STARTED ON LYRICA AT LAST CLINIC VISIT AND ADMITS TODAY THAT THE LYRICA HAS BEEN HELPFUL IN MANAGING HER PAIN SYMPTOMS. SHE DOES ADMIT THAT RECENTLY SHE RAN OUT OF HER MEDICATION AND ATTRIBUTES THAT TO HER ELEVATED PAIN LEVEL TODAY. SHE RATES HER PAIN CURRENTLY AT AN 8 OUT OF 10 AND DESCRIBES IT ACHING, BURNING, SHOOTING, AND TENDER. FALL RISK SCREENING: SCREENING :NO FALLS REPORTED IN THE LAST YEAR CURRENT MEDICATIONS TAKING IBUPROFEN 800 MG TABLET 1 TABLET WITH FOOD OR MILK NEEDED ORALLY NEEDED EVERY 8 HOURS NEEDED MDD3 TAKING LIDODERM 5 % PATCH 3 PATCHES EXTERNALLY ONCE A DAY ON BACK TAKING MULTIVITAMINS OTC TABLET 1 TAB(S) P.O. ONCE A DAY TAKING BENADRYL 25 MG CAPSULE 1 CAPSULE NEEDED ORALLY BEFORE BEDTIME TAKING FLECTOR 1.3 % PATCH 1 PATCH TO SKIN EXTERNALLY TO LOW BACK ON 12 HRS OFF 12 HRS TAKING LYRICA 50 MG CAPSULE 1 CAPSULE ORALLY AT BEDTIME TAKING CYMBALTA 30 MG CAPSULE DELAYED RELEASE PARTICLES 1 CAPSULE ORALLY ONCE A DAY TAKING CLARITIN 10 MG TABLET 1 TABLET ORALLY ONCE A DAY NOT-TAKING VITAMIN B COMPLEX OTC TABLET 1 TAB(S) P.O. ONCE A DAY MEDICATION LIST REVIEWED AND RECONCILED WITH THE PATIENT PAST MEDICAL HISTORY BACK SURGERY X 9 HISTORY OF KIDNEY PROBLEMS CHILD...NOT SURE OF SPECIFICS PSORIASIS BACK PAIN ALLERGIES LATEX (FOR ALLERGY USE ONLY): RASH - ALLERGY SEASONAL: ITCHY EYES, RUNNY NOSE - ALLERGY ORANGES: RASH. LIPS SWELL - ALLERGY SURGICAL HISTORY BACK SURGERY X 9 DORSAL COLOMN STIMULATOR 05/2001 LUMPECTOMY, LEFT BREAST 2009 FAMILY HISTORY FATHER: ALIVE, DIAGNOSED WITH UNSPECIFIED HEART DISEASE, HYPERTENSION MOTHER: 71 YRS, OTHER MALIGNANT NEOPLASM OF UNSPECIFIED SITE 1 BROTHER(S) , 3 SISTER(S) - HEALTHY. 3 SON(S) , 1 DAUGHTER(S) - HEALTHY. MOM-LUNG CA\NBROTHER-CHRON\'S DISEASE AND ANKLYOSIS SPONDOLITIS. SOCIAL HISTORY GENERAL: TOBACCO USE ARE YOU A:NONSMOKER PAIN CLINIC PFS, CLERGY, PUBLIC HEALTH REFERRALS PFS REFERRAL NEEDED?NO CLERGY REFERRAL NEEDED?NO PUBLIC HEALTH REFERRAL NEEDED?NO WAS THE PROVIDER NOTIFIED OF ANY PERTINENT INFO? N/A HAS THE PATIENT BEEN EDUCATED REGARDING HIS/HER PLAN OF CARE?YES HAS THE PATIENT BEEN EDUCATED REGARDING PAIN, THE RISK FOR PAIN, THE IMPORTANCE OF EFFECTIVE PAIN MANAGEMENT, AND THE PAIN ASSESSMENT PROCESS?YES LATEX QUESTIONNAIRE LATEX ALLERGY : HAVE YOU EVER DEVELOPED ANY TYPE OF REACTION AFTER HANDLING LATEX PRODUCTS SUCH RUBBER GLOVES, CONDOMS, DIAPHRAGMS, BALLOONS, SOCKS, OR UNDERWEAR?YES LATEX ALLERGY : HAVE YOU EVER DEVELOPED ANY TYPE OF REACTION DURING OR AFTER DENTAL APPOINTMENT, VAGINAL/RECTAL EXAMINATION, SURGICAL PROCEDURE, OR ANY OTHER EXPOSURE?NO - PLEASE INDICATE :RUBBER GLOVES, OTHER (DOCUMENT IN NOTES) BANDAIDS DATE ASKED : 02/14/2019 LATEX RISK : HAVE YOU EVER HAD ANY DIFFICULTY BREATHING OR HIVES AFTER EATING OR HANDLING ANY FRUITS, OR VEGETABLES; SUCH KIWI, BANANAS, STONE FRUITS, OR CHESTNUTSNO LATEX RISK : DO YOU HAVE A PREVIOUS PERSONAL HISTORY OF MORE THAN NINE SURGERIES, SPINA BIFIDA, OR REPEATED CATHERIZATIONS? YES - PLEASE INDICATE : > 9 SURGERIES LATEX RISK : ARE YOU FREQUENTLY EXPOSED TO LATEX PRODUCTS IN YOUR OCCUPATION?NO ADVANCE DIRECTIVE ADVANCE DIRECTIVE DISCUSSED WITH PATIENT:YES HCP- ZANA ZIMMERMAN [phone] EDUCATION LEVEL OF EDUCATION:FINISHED HIGH [id number] NONE LANGUAGE LANGUAGES SPOKEN:KITTITIAN DOMESTIC VIOLENCE DO YOU FEEL SAFE IN YOUR ENVIRONMENT?YES ALCOHOL SCREENING DID YOU HAVE A DRINK CONTAINING ALCOHOL IN THE PAST YEAR?NO POINTS0 INTERPRETATIONNEGATIVE RECREATIONAL DRUG USE DRUG USE?NO LEARNING BARRIERS / SPECIAL NEEDS BARRIERS TO LEARNING?NO HEARING IMPAIRED?NO VISION IMPAIRED?YES GLASSES FOR READING COGNITIVELY IMPAIRED?NO :CORRECTIVE LENSES READINESS TO LEARN?YES LEARNING PREFERENCES?NO LEARNING CAPABILITIES PRESENT?YES EMOTIONAL BARRIERS?NO SPECIAL DEVICES?NO MASTER COASTWISE YACHT NEEDED?NO 02/14/19 6526 REVIEWED WITH PT. AD. HOSPITALIZATION/MAJOR DIAGNOSTIC PROCEDURE CHILD, DUE TO KIDNEYS SURGERIES REVIEW OF SYSTEMS REVIEWED BY: PROVIDER: TIMBO PARR . CONSTITUTIONAL: ANY CHANGE IN YOUR MEDICAL CONDITION? NO . CHILLS NO . FEVER NO . INFECTION: DO YOU HAVE NEW INFECTIONS? NO . DO YOU HAVE HISTORY OF MRSA? NO . MUSCULOSKELETAL: ANY NEW PATTERNS OF PAIN OR NUMBNESS? NO . GASTROENTEROLOGY: ANY NEW CHANGE IN BOWEL CONTROL? NO . GENITOURINARY: ANY NEW CHANGE IN BLADDER CONTROL? NO . IS THERE A CHANCE YOU COULD BE ? NO . HEMATOLOGY/LYMPH: DO YOU TAKE ANY BLOOD THINNERS? (FOR EXAMPLE- COUMADIN, PLAVIX, AGGRENOX, PLATEL, PRADAXA, OR XARELTO) NO . WHEN WAS YOUR LAST DOSE? DATE: TIME: . NEUROLOGY: HAVE YOU FALLEN IN THE PAST 12 MONTHS? YES, PRIOR TO LAST VISIT . ANY NEW EXTREMITY NUMBNESS OR WEAKNESS? NO . CARDIOLOGY: DO YOU HAVE A PACEMAKER OR DEFIBRILLATOR? NO . RESPIRATORY: HAVE YOU BEEN SICK IN THE PAST WEEK? YES, URI RESOLVING . FEVER NO . FLU LIKE SYMPTOMS? NO . COUGH NO . INTEGUMENTARY: DO YOU HAVE ANY RASHES OR OPEN SORES? NO . ALLERGIC/IMMUNO: ARE YOU ALLERGIC TO IV DYE? NO . ANY NEW ALLERGIES? NO . PSYCHIATRIC: DO YOU HAVE THOUGHTS OF HURTING YOURSELF OR SOMEONE ELSE? NO . ARE YOU ABUSED, NEGLECTED, OR IN AN UNSAFE ENVIRONMENT? NO . ENDOCRINOLOGY: ARE YOU DIABETIC? NO . OTHER: DO YOU NEED ANY PRESCRIPTIONS? EBEN BAGLEY . IF YES, PLEASE LIST: ____ . ANY NEW PROBLEMS WITH YOUR MEDICATIONS? NO . WHEN DID YOU LAST EAT? ____ . WHEN DID YOU LAST DRINK? ____ . WHAT DID YOU LAST DRINK? ____ . NAME OF PERSON DRIVING YOU HOME? ____ . DO YOU HAVE ANY OTHER QUESTIONS OR CONCERNS NO . VITAL SIGNS WT 184.4 LBS, HT 65 IN, BMI 30.68 INDEX, BP 142/72 MM HG, HR 87 /MIN, RR 18 /MIN, TEMP 96.4 F, OXYGEN SAT % 98%, NA INITIALS AW 0920, REVIEWED BY: EM, WOUND POST TEMP . EXAMINATION GENERAL EXAMINATION: GENERALNO ACUTE DISTRESS, WELL NOURISHED AND HYDRATED. PSYCHAPPROPRIATE MOOD AND AFFECT . LUNGS:CLEAR TO AUSCULTATION BILATERALLY, NO WHEEZES, RHONCHI, RALES. HEART:NO MURMURS, REGULAR RATE AND RHYTHM. ASSESSMENTS INTERVERTEBRAL DISC DISORDERS WITH RADICULOPATHY, LUMBAR REGION - M51.16 (PRIMARY) TREATMENT INTERVERTEBRAL DISC DISORDERS WITH RADICULOPATHY, LUMBAR REGION REFILL CYMBALTA CAPSULE DELAYED RELEASE PARTICLES, 30 MG, 1 CAPSULE, ORALLY, ONCE A DAY, 90 DAYS, 90 CAPSULE CLINICAL NOTES: 54-YEAR-OLD FEMALE IN FOR WORKER'S COMP. CHRONIC PAIN FOLLOW-UP. GIVEN PRESENTING SYMPTOMS AND RESULTS OF PHYSICAL EXAMINATION RECOMMENDED CONTINUATION OF CURRENT MEDICATION REGIMEN WITH FOLLOW-UP IN 3 MONTHS. PATIENT HAS EXPRESSED UNDERSTANDING OF AND WAS IN AGREEMENT WITH TREATMENT PLAN. GIVEN TIME TO ASK QUESTIONS AND EXPRESS CONCERNS., ISTOP REGISTRY REVIEWED AND DEMONSTRATES COMPLLIANCE. (REF # [id number] ) BRINGS IN MEDICATIONS WHICH IS APPROPRIATE FOR WHAT WAS DISPENSED. RECENT URINE TOXICOLOGY REVIEWED. NO UNAUTHORIZED MEDICATIONS. NO ILLICIT SUBSTANCES AND PRESCRIBED MEDICATIONS WERE PRESENT. PROCEDURES PN WORKMANS' COMP OPINION IN YOUR OPINION, WAS THE INCIDENT THAT THE PATIENT DESCRIBED THE COMPETENT MEDICAL CAUSE OF THIS INJURY/ILLNESS? YES ARE THE PATIENT'S COMPLAINTS CONSISTENT WITH HIS/HER HISTORY OF THE INJURY/ILLNESS? YES IS THE PATIENT'S HISTORY OF THE INJURY/ILLNESS CONSISTENT WITH YOUR OBJECTIVE FINDING? YES WHAT IS THE PERCENTAGE OF TEMPORARY IMPAIRMENT? MODERATE TO MARKED = 66.7% IS THE PATIENT WORKING? NO DOCTOR ON SITE: ABBY BELTRAN MD PROCEDURE CODES FA211 ESTABILISHED PATIENT [facility] FACILITY CHARGE DISPOSITION & COMMUNICATION FOLLOW UP 3 MONTHS (REASON: WORKER'S COMP. LOW BACK PAIN) ELECTRONICALLY SIGNED BY EDWAR PITTMAN ON 05/25/2019 AT 01:54 PM EST DISCLAIMER : THIS IS A VISIT SUMMARY EXTRACTED FROM THE [employer] CHART. IT IS NOT A COPY OF THE [employer] PROGRESS NOTE. JANE
== END ==
LOC: M PAIN 09:15
PROVIDERS: ATTEND Family Medicine
DX: M51.16 Intervertebral disc disorders with radiculopathy, lumbar region (principal)

== ENCOUNTER → 2019-06-19 | Outpatient (CLI) | payer MEDICARE ==
[2019-06-19 07:48] LABS: HEMATOCRIT 41.7 % (36.0-47.0); HEMOGLOBIN 13.9 g/dl (12.0-15.5); MEAN CORPUSCULAR HEMOGLOBIN 30.5 pg (27.0-33.0); MEAN CORPUSCULAR HGB CONC 33.3 g/dl (32.0-36.5); MEAN CORPUSCULAR VOLUME 91.6 fl (80.0-96.0); PLATELET COUNT, AUTOMATED 153 10^3/uL (150-450); RED BLOOD COUNT 4.55 10^6/uL (4.00-5.40); WHITE BLOOD COUNT 4.5 10^3/uL (4.0-10.0)
[2019-06-19 08:12] LABS: ALT/SGPT 17 U/L (12-78); BILIRUBIN,TOTAL 0.6 MG/DL (0.2-1.0); BLOOD UREA NITROGEN 14 MG/DL (7-18); CALCIUM LEVEL 8.9 MG/DL (8.5-10.1); CARBON DIOXIDE LEVEL 30 MEQ/L (21-32); CHLORIDE LEVEL 107 MEQ/L (98-107); CHOLESTEROL LEVEL 187 MG/DL (<200); CHOLESTEROL RISK RATIO 2.493 (<5); CREATININE FOR GFR 0.86 MG/DL (0.55-1.30); GLOMERULAR FILTRATION RATE > 60.0 (>51); GLUCOSE, FASTING 84 MG/DL (70-100); HDL CHOLESTEROL 75 MG/DL (>40); LDL CHOLESTEROL 97 MG/DL (<100); NON-HDL-C 112 MG/DL; POTASSIUM SERUM 4.2 MEQ/L (3.5-5.1); SODIUM LEVEL 141 MEQ/L (136-145); TOTAL PROTEIN 6.9 GM/DL (6.4-8.2); TRIGLYCERIDES LEVEL 77 MG/DL (<150)
== END ==
LOC: M LAB 07:06
PROVIDERS: ATTEND Family Medicine
DX: Z00.00 Encounter for general adult medical examination without abnormal findings (principal); Z79.899 Other long term (current) drug therapy

== ENCOUNTER → 2019-09-24 | Outpatient (CLI) | payer OTHER ==
--- NOTE | 2019-09-26 03:31 | ECWPNPC ---
PATIENT NAME: HECTOR ZIMMERMAN : 1965 GENDER: FEMALE VISIT DATE: 09/24/2019 DISCHARGE DATE: 09/24/19 1028 VISIT LOCKED DATE TIME: PHYSICIAN: TEMI GLORIA RESOURCE: TEMI GLORIA REASON FOR APPOINTMENT 1. W/C BACK-PHYSICAL VISIT.- WANTS PROCEDURE ORDERED - PAT COMPLETED HISTORY OF PRESENT ILLNESS HISTORY OF PRESENT ILLNESS: PAIN THE PATIENT DESCRIBES THE PAINDURING THE LAST MONTH SEVERITY - PAIN SCORE OF8/10 LOCATIONSLOWER BACK, WITH RADIATION TO RIGHT LEG QUALITYACHING , SHARP, THROBBING, SHOOTING DURATIONCONTINUOUS, CONSTANT, ALL DAY, MAINLY DURING THE NIGHT, AWAKENS FROM SLEEEP PAIN IS DECREASED BY: IBUPROFEN AND CHANGE POSITIONS 54-YEAR-OLD FEMALE IN FOR WORKER'S COMP. CHRONIC PAIN FOLLOW-UP. PATIENT HAS BEEN ON LYRICA AND ADMITS THAT THIS IS HELPFUL HOWEVER SHE DOES ADMIT TO INCREASED PAIN SYMPTOMS AT NIGHT. SHE RATES HER PAIN CURRENTLY AT AN 8 OUT OF 10 AND DESCRIBES IT ACHING, SHARP, SHOOTING THROBBING, AND SHOOTING. THE PATIENT HAD A RIGHT SIJ PERFORMED ON 08/03/2017 WITH GREATER THAN 80% PAIN RELIEF AND SHE WOULD LIKE TO DISCUSS A REPEAT PROCEDURE TODAY. 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 THE PATIENT STATES HER PAIN BEGINS IN HER LOW BACK AND RADIATES DOWN MAINLY HER RIGHT LEG. THE PATIENT SAYS THE PAIN INCREASES WITH ACTIVITIES. FALL RISK SCREENING: SCREENING :ONE FALL WITHOUT INJURY IN THE PAST YEAR CURRENT MEDICATIONS TAKING MULTIVITAMINS OTC TABLET 1 TAB(S) P.O. ONCE A DAY TAKING BENADRYL 25 MG CAPSULE 1 CAPSULE NEEDED ORALLY BEFORE BEDTIME TAKING CLARITIN 10 MG TABLET 1 TABLET ORALLY ONCE A DAY TAKING IBUPROFEN 800 MG TABLET 1 TABLET WITH FOOD OR MILK NEEDED ORALLY NEEDED EVERY 8 HOURS NEEDED MDD3 TAKING LIDODERM 5 % PATCH 3 PATCHES EXTERNALLY ONCE A DAY ON BACK TAKING FLECTOR 1.3 % PATCH 1 PATCH TO SKIN EXTERNALLY TO LOW BACK ON 12 HRS OFF 12 HRS TAKING CYMBALTA 30 MG CAPSULE DELAYED RELEASE PARTICLES 1 CAPSULE ORALLY ONCE A DAY TAKING LYRICA 50 MG CAPSULE 1 CAPSULE ORALLY AT BEDTIME NOT-TAKING VITAMIN B COMPLEX OTC TABLET 1 TAB(S) P.O. ONCE A DAY PAST MEDICAL HISTORY BACK SURGERY X 9 HISTORY OF KIDNEY PROBLEMS CHILD...NOT SURE OF SPECIFICS PSORIASIS BACK PAIN ALLERGIES LATEX (FOR ALLERGY USE ONLY): RASH - ALLERGY SEASONAL: ITCHY EYES, RUNNY NOSE - ALLERGY ORANGES: RASH. LIPS SWELL - ALLERGY SURGICAL HISTORY BACK SURGERY X 9 DORSAL COLOMN STIMULATOR 05/2001 LUMPECTOMY, LEFT BREAST 2009 FAMILY HISTORY FATHER: ALIVE, DIAGNOSED WITH HYPERTENSION, UNSPECIFIED HEART DISEASE MOTHER: 71 YRS, OTHER MALIGNANT NEOPLASM OF UNSPECIFIED SITE 1 BROTHER(S) , 3 SISTER(S) - HEALTHY. 3 SON(S) , 1 DAUGHTER(S) - HEALTHY. MOM-LUNG CA\NBROTHER-CHRON\'S DISEASE AND ANKLYOSIS SPONDOLITIS. SOCIAL HISTORY GENERAL: TOBACCO USE ARE YOU A:NONSMOKER LATEX QUESTIONNAIRE LATEX ALLERGY : HAVE YOU EVER DEVELOPED ANY TYPE OF REACTION AFTER HANDLING LATEX PRODUCTS SUCH RUBBER GLOVES, CONDOMS, DIAPHRAGMS, BALLOONS, SOCKS, OR UNDERWEAR?YES LATEX ALLERGY : HAVE YOU EVER DEVELOPED ANY TYPE OF REACTION DURING OR AFTER DENTAL APPOINTMENT, VAGINAL/RECTAL EXAMINATION, SURGICAL PROCEDURE, OR ANY OTHER EXPOSURE?NO - PLEASE INDICATE :RUBBER GLOVES, OTHER (DOCUMENT IN NOTES) BANDAIDS DATE ASKED : 02/14/2019 LATEX RISK : HAVE YOU EVER HAD ANY DIFFICULTY BREATHING OR HIVES AFTER EATING OR HANDLING ANY FRUITS, OR VEGETABLES; SUCH KIWI, BANANAS, STONE FRUITS, OR CHESTNUTSNO LATEX RISK : DO YOU HAVE A PREVIOUS PERSONAL HISTORY OF MORE THAN NINE SURGERIES, SPINA BIFIDA, OR REPEATED CATHERIZATIONS? YES - PLEASE INDICATE : > 9 SURGERIES LATEX RISK : ARE YOU FREQUENTLY EXPOSED TO LATEX PRODUCTS IN YOUR OCCUPATION?NO ALCOHOL SCREENING DID YOU HAVE A DRINK CONTAINING ALCOHOL IN THE PAST YEAR?NO POINTS0 INTERPRETATIONNEGATIVE RECREATIONAL DRUG USE DRUG USE?NO RASTAFARIAN [id number] NONE LANGUAGE LANGUAGES SPOKEN:GUYANESE EDUCATION LEVEL OF EDUCATION:FINISHED HIGH SCHOOL LEARNING BARRIERS / SPECIAL NEEDS BARRIERS TO LEARNING?NO HEARING IMPAIRED?NO VISION IMPAIRED?YES GLASSES FOR READING COGNITIVELY IMPAIRED?NO :CORRECTIVE LENSES READINESS TO LEARN?YES LEARNING PREFERENCES?NO LEARNING CAPABILITIES PRESENT?YES EMOTIONAL BARRIERS?NO SPECIAL DEVICES?NO HOUSE SHORER NEEDED?NO DOMESTIC VIOLENCE DO YOU FEEL SAFE IN YOUR ENVIRONMENT?YES NEW PATIENT PAIN DIARY TODAY'S VISIT 5/8/20 PATIENT DESCRIBES PAIN :ACHING, BURNING, HAVE IT ALL THE TIME FROM 0-10, WHAT LEVEL IS YOUR PAIN TODAY?7 PRECIPITATING FACTORS ANYTHING ALLEVIATING FACTORS ANYTHING IMPACT ON FUNCTION NO PAIN CLINIC PFS, CLERGY, PUBLIC HEALTH REFERRALS PFS REFERRAL NEEDED?NO CLERGY REFERRAL NEEDED?NO PUBLIC HEALTH REFERRAL NEEDED?NO WAS THE PROVIDER NOTIFIED OF ANY PERTINENT INFO? N/A HAS THE PATIENT BEEN EDUCATED REGARDING HIS/HER PLAN OF CARE?YES HAS THE PATIENT BEEN EDUCATED REGARDING PAIN, THE RISK FOR PAIN, THE IMPORTANCE OF EFFECTIVE PAIN MANAGEMENT, AND THE PAIN ASSESSMENT PROCESS?YES ADVANCE DIRECTIVE ADVANCE DIRECTIVE DISCUSSED WITH PATIENT:YES HCP- ZANA ZIMMERMAN [phone] 02/14/19 0901 REVIEWED WITH PT. AD. HOSPITALIZATION/MAJOR DIAGNOSTIC PROCEDURE CHILD, DUE TO KIDNEYS SURGERIES REVIEW OF SYSTEMS REVIEWED BY: PROVIDER: TIMBO GLORIA DINKEY MECHANIC-C . CONSTITUTIONAL: ANY CHANGE IN YOUR MEDICAL CONDITION? NO . CHILLS NO . FEVER NO . INFECTION: DO YOU HAVE NEW INFECTIONS? NO . DO YOU HAVE HISTORY OF MRSA? NO . MUSCULOSKELETAL: ANY NEW PATTERNS OF PAIN OR NUMBNESS? NO . GASTROENTEROLOGY: ANY NEW CHANGE IN BOWEL CONTROL? NO . GENITOURINARY: ANY NEW CHANGE IN BLADDER CONTROL? NO . IS THERE A CHANCE YOU COULD BE ? NO . HEMATOLOGY/LYMPH: DO YOU TAKE ANY BLOOD THINNERS? (FOR EXAMPLE- COUMADIN, PLAVIX, AGGRENOX, PLATEL, PRADAXA, OR XARELTO) NO . WHEN WAS YOUR LAST DOSE? DATE: TIME: . NEUROLOGY: HAVE YOU FALLEN IN THE PAST 12 MONTHS? YES, FELL LAST MONTH FROM RIGHT LEG WEAKNESS, PT DENIES INJURIES . ANY NEW EXTREMITY NUMBNESS OR WEAKNESS? NO . CARDIOLOGY: DO YOU HAVE A PACEMAKER OR DEFIBRILLATOR? NO . RESPIRATORY: HAVE YOU BEEN SICK IN THE PAST WEEK? NO . FEVER NO . FLU LIKE SYMPTOMS? NO . COUGH NO . INTEGUMENTARY: DO YOU HAVE ANY RASHES OR OPEN SORES? NO . ALLERGIC/IMMUNO: ARE YOU ALLERGIC TO IV DYE? NO . ANY NEW ALLERGIES? NO . PSYCHIATRIC: DO YOU HAVE THOUGHTS OF HURTING YOURSELF OR SOMEONE ELSE? NO . ARE YOU ABUSED, NEGLECTED, OR IN AN UNSAFE ENVIRONMENT? NO . ENDOCRINOLOGY: ARE YOU DIABETIC? NO . OTHER: DO YOU NEED ANY PRESCRIPTIONS? YES, LYRICA, CYMBALTA . IF YES, PLEASE LIST: ____ . ANY NEW PROBLEMS WITH YOUR MEDICATIONS? NO . WHEN DID YOU LAST EAT? ____ . WHEN DID YOU LAST DRINK? ____ . WHAT DID YOU LAST DRINK? ____ . NAME OF PERSON DRIVING YOU HOME? ____ . DO YOU HAVE ANY OTHER QUESTIONS OR CONCERNS NO . VITAL SIGNS WT 185.6 LBS, HT 65 IN, BMI 30.88 INDEX, BP 153/71 MM HG, HR 97 /MIN, RR 18 /MIN, TEMP 97.0 F, OXYGEN SAT % 100%, NA INITIALS AW 0957, REVIEWED BY: LINDA MARIEE LPN. EXAMINATION GENERAL EXAMINATION: GENERALNO ACUTE DISTRESS, WELL NOURISHED AND HYDRATED. PSYCHAPPROPRIATE MOOD AND AFFECT . LUNGS:CLEAR TO AUSCULTATION BILATERALLY, NO WHEEZES, RHONCHI, RALES. HEART:NO MURMURS, REGULAR RATE AND RHYTHM. BACK:POINT TENDER OVER RIGHT SIJ . ASSESSMENTS SACROILIITIS, NOT ELSEWHERE CLASSIFIED - M46.1 (PRIMARY) TREATMENT SACROILIITIS, NOT ELSEWHERE CLASSIFIED INCREASE LYRICA CAPSULE, 100 MG, 1 CAPSULE, ORALLY, AT BEDTIME, 30 DAYS, 30 REFILL CYMBALTA CAPSULE DELAYED RELEASE PARTICLES, 30 MG, 1 CAPSULE, ORALLY, ONCE A DAY, 30 DAYS, 30 NOTES: RIGHT SIJ EDUCATION PROVIDED REGARDING PROCEDURE. CLINICAL NOTES: 54-YEAR-OLD FEMALE IN FOR CHRONIC PAIN FOLLOW-UP. GIVEN PRESENTING SYMPTOMS AND RESULTS OF PHYSICAL EXAMINATION RECOMMENDED RIGHT SIJ WITH POSTPROCEDURAL FOLLOW-UP. FURTHER RECOMMENDED INCREASING LYRICA TO 100 MG AT NIGHT. PATIENT HAS EXPRESSED UNDERSTANDING OF AND WAS IN AGREEMENT WITH TREATMENT PLAN. GIVEN TIME TO ASK QUESTIONS AND EXPRESS CONCERNS. , ISTOP REGISTRY REVIEWED AND DEMONSTRATES COMPLLIANCE. (REF # [id number] ) BRINGS IN MEDICATIONS WHICH IS APPROPRIATE FOR WHAT WAS DISPENSED. RECENT URINE TOXICOLOGY REVIEWED. NO UNAUTHORIZED MEDICATIONS. NO ILLICIT SUBSTANCES AND PRESCRIBED MEDICATIONS WERE PRESENT. OTHERS CLINICAL NOTES: PRE SCREENING CALL DONE 09/21/19 EM . PROCEDURES PN WORKMANS' COMP OPINION IN YOUR OPINION, WAS THE INCIDENT THAT THE PATIENT DESCRIBED THE COMPETENT MEDICAL CAUSE OF THIS INJURY/ILLNESS? YES ARE THE PATIENT'S COMPLAINTS CONSISTENT WITH HIS/HER HISTORY OF THE INJURY/ILLNESS? YES IS THE PATIENT'S HISTORY OF THE INJURY/ILLNESS CONSISTENT WITH YOUR OBJECTIVE FINDING? YES WHAT IS THE PERCENTAGE OF TEMPORARY IMPAIRMENT? MODERATE TO MARKED = 66.7% IS THE PATIENT WORKING? NO DOCTOR ON SITE: ABBY BELTRAN MD PROCEDURE CODES FA211 ESTABILISHED PATIENT [facility] CHARGE DISPOSITION & COMMUNICATION FOLLOW UP POSTPROCEDURE (REASON: RIGHT SIJ) ELECTRONICALLY SIGNED BY EDWAR PITTMAN ON 09/25/2019 AT 08:24 AM EDT DISCLAIMER : THIS IS A VISIT SUMMARY EXTRACTED FROM THE [employer] CHART. IT IS NOT A COPY OF THE [employer] PROGRESS NOTE. JANE
== END ==
LOC: M PAIN 10:00
PROVIDERS: ATTEND Family Medicine
DX: M46.1 Sacroiliitis, not elsewhere classified (principal); G89.29 Other chronic pain; Z91.018 Allergy to other foods; Z91.040 Latex allergy status; Z79.899 Other long term (current) drug therapy

== ENCOUNTER → 2019-10-09 | Outpatient (CLI) | payer OTHER | LOC: M LABSMTC 11:12 | PROVIDERS: ATTEND Anesthesiology | DX: Z01.818 Encounter for other preprocedural examination (principal); Z11.59 Encounter for screening for other viral diseases | CPT/HCPCS: C9803; U0003 ==

== ENCOUNTER → 2019-10-12 | Outpatient (CLI) | payer OTHER ==
[~2019-10-12] MED LIST changes: +BUPIVACAINE HCL 0.25% 30ML VIAL As Ordered ONE; +ISOVUE-M 300 61% 15ML VIAL As Ordered ONE; +LIDOCAINE 1% SDV 30ML VIAL As Ordered ONE; +dexameTHASONE 10MG/1ML VIAL PRES.FREE (J1100 PER 1MG) As Ordered ONE; +diazePAM 5 MG TAB As Ordered ONE; +oxyCODONE 5MG TAB As Ordered ONE
--- NOTE | 2019-10-12 13:43 | REP ---
C-ARM VIEWS RIGHT SACROILIAC JOINT: CLINICAL HISTORY: Pain. Three C-arm views right sacroiliac joint performed during injection by Dr. Dorado. Needle overlies the right sacroiliac joint. 14 seconds of fluoroscopy time utilized. Electronically Signed by Matt Traore MD 10/12/2019 03:55 P
--- NOTE | 2019-10-16 01:51 | ECWPNPC ---
PATIENT NAME: HECTOR ZIMMERMAN : 1965 GENDER: FEMALE VISIT DATE: 10/12/2019 DISCHARGE DATE: 10/12/19 1221 VISIT LOCKED DATE TIME: PHYSICIAN: ABBY PEÑA MD RESOURCE: ABBY PEÑA MD REASON FOR APPOINTMENT 1. W/C RIGHT SIJ HISTORY OF PRESENT ILLNESS GENERAL: -. FALL RISK SCREENING: SCREENING :TWO OR MORE FALLS WITHOUT INJURY IN THE PAST YEAR PAIN SCREENING: PATIENT HAS A COMPLAINT OF ACUTE OR CHRONIC PAIN :YES LOCATION OF PAIN:LOW BACK, RIGHT HIP, LEG(S) INTENSITY OF PAIN (SCALE OF 1 TO 10):7 WHAT DOES YOUR PAIN FEEL LIKE:BURNING, CONTINOUS, STABBING, THROBBING PAIN IS INCREASED BY:ACTIVITIES, PROLONGED STANDING PAIN IS DECREASED BY:USE OF PAIN MEDICATIONS INJECTIONS IMPROVE PAIN, PAIN MEDICATIONS TAKE THE EDGE OFR NURSING NOTE: -. PAIN CENTER INTAKE QUESTIONS: DO YOU HAVE A HISTORY OF MRSA? :NO DO YOU TAKE A BLOOD THINNERS? :NO DO YOU HAVE ANY BLEEDING DISORDERS? :NO ANY NEW NUMBNESS OR WEAKNESS IN YOUR LEGS OR ARMS? :NO ANY PACEMAKER,DEFIBRILLATOR, OR DORSAL COLUMN STIMULATOR? :YES DORSAL COLUMN STIMULATOR DO YOU HAVE ANY RASHES OR OPEN SORES? :NO ARE YOU ALLERGIC TO IV DYE? :NO ARE YOU DIABETIC? :NO ANY NEW PROBLEMS WITH YOUR MEDICATIONS? :NO HAVE YOU RECEIVED A VACCINE IN THE PAST 30 DAYS? :NO DO YOU PLAN TO RECEIVE A VACCINE IN THE NEXT 21 DAYS? :NO ANY HISTORY OF SEIZURES? :NO ANY HISTORY OF CARDIAC ISSUES OR EVENTS? :NO DO YOU HAVE SLEEP APNEA? :NO ANY RECENT HEAD INJURY? :NO DO YOU HAVE ANY NEW INFECTIONS? :NO WHEN DID YOU LAST EAT? : -10/11/192099 WHEN DID YOU LAST DRINK? : -10/12/19 09 WHAT DID YOU LAST DRINK? : -WATER NAME OF PERSON DRIVING YOU HOME? : - DO YOU HAVE ANY OTHER QUESTIONS OR CONCERNS? : - CURRENT MEDICATIONS TAKING MULTIVITAMINS OTC TABLET 1 TAB(S) P.O. ONCE A DAY, NOTES: 10/10 2099 TAKING BENADRYL 25 MG CAPSULE 1 CAPSULE NEEDED ORALLY BEFORE BEDTIME, NOTES: 10/10 TAKING CLARITIN 10 MG TABLET 1 TABLET ORALLY ONCE A DAY, NOTES: 10/10 2099 TAKING IBUPROFEN 800 MG TABLET 1 TABLET WITH FOOD OR MILK NEEDED ORALLY NEEDED EVERY 8 HOURS NEEDED MDD3, NOTES: 10/10 1900 TAKING LIDODERM 5 % PATCH 3 PATCHES EXTERNALLY ONCE A DAY ON BACK, NOTES: 10/10 TAKING FLECTOR 1.3 % PATCH 1 PATCH TO SKIN EXTERNALLY TO LOW BACK ON 12 HRS OFF 12 HRS, NOTES: 10/10 PM TAKING LYRICA 100 MG CAPSULE 1 CAPSULE ORALLY AT BEDTIME, NOTES: 10/10 2099 TAKING CYMBALTA 30 MG CAPSULE DELAYED RELEASE PARTICLES 1 CAPSULE ORALLY ONCE A DAY, NOTES: 10/10 2099 NOT-TAKING VITAMIN B COMPLEX OTC TABLET 1 TAB(S) P.O. ONCE A DAY MEDICATION LIST REVIEWED AND RECONCILED WITH THE PATIENT PAST MEDICAL HISTORY BACK SURGERY X 9 HISTORY OF KIDNEY PROBLEMS CHILD...NOT SURE OF SPECIFICS PSORIASIS BACK PAIN ALLERGIES LATEX (FOR ALLERGY USE ONLY): RASH - ALLERGY SEASONAL: ITCHY EYES, RUNNY NOSE - ALLERGY ORANGES: RASH. LIPS SWELL - ALLERGY SURGICAL HISTORY BACK SURGERY X 9 DORSAL COLOMN STIMULATOR 05/2001 LUMPECTOMY, LEFT BREAST 2008 FAMILY HISTORY FATHER: ALIVE, DIAGNOSED WITH HYPERTENSION, UNSPECIFIED HEART DISEASE MOTHER: 71 YRS, OTHER MALIGNANT NEOPLASM OF UNSPECIFIED SITE 1 BROTHER(S) , 3 SISTER(S) - HEALTHY. 3 SON(S) , 1 DAUGHTER(S) - HEALTHY. MOM-LUNG CA\\NBROTHER-CHRON\\'S DISEASE AND ANKLYOSIS SPONDOLITIS. SOCIAL HISTORY GENERAL: TOBACCO USE ARE YOU A:NONSMOKER LATEX QUESTIONNAIRE LATEX ALLERGY : HAVE YOU EVER DEVELOPED ANY TYPE OF REACTION AFTER HANDLING LATEX PRODUCTS SUCH RUBBER GLOVES, CONDOMS, DIAPHRAGMS, BALLOONS, SOCKS, OR UNDERWEAR?YES LATEX ALLERGY : HAVE YOU EVER DEVELOPED ANY TYPE OF REACTION DURING OR AFTER DENTAL APPOINTMENT, VAGINAL/RECTAL EXAMINATION, SURGICAL PROCEDURE, OR ANY OTHER EXPOSURE?NO - PLEASE INDICATE :RUBBER GLOVES, OTHER (DOCUMENT IN NOTES) BANDAIDS DATE ASKED : 02/14/2019 LATEX RISK : HAVE YOU EVER HAD ANY DIFFICULTY BREATHING OR HIVES AFTER EATING OR HANDLING ANY FRUITS, OR VEGETABLES; SUCH KIWI, BANANAS, STONE FRUITS, OR CHESTNUTSNO LATEX RISK : DO YOU HAVE A PREVIOUS PERSONAL HISTORY OF MORE THAN NINE SURGERIES, SPINA BIFIDA, OR REPEATED CATHERIZATIONS? YES - PLEASE INDICATE : > 9 SURGERIES LATEX RISK : ARE YOU FREQUENTLY EXPOSED TO LATEX PRODUCTS IN YOUR OCCUPATION?NO ALCOHOL SCREENING DID YOU HAVE A DRINK CONTAINING ALCOHOL IN THE PAST YEAR?NO POINTS0 INTERPRETATIONNEGATIVE RECREATIONAL DRUG USE DRUG USE?NO JUDAISM [id number] NONE LANGUAGE LANGUAGES SPOKEN:MALTESE EDUCATION LEVEL OF EDUCATION:FINISHED HIGH SCHOOL LEARNING BARRIERS / SPECIAL NEEDS CHANGE FROM LAST VISIT? 10/12/19 BARRIERS TO LEARNING?NO HEARING IMPAIRED?NO VISION IMPAIRED?YES GLASSES FOR READING :CORRECTIVE LENSES COGNITIVELY IMPAIRED?NO READINESS TO LEARN?YES LEARNING PREFERENCES?NO LEARNING CAPABILITIES PRESENT?YES EMOTIONAL BARRIERS?NO SPECIAL DEVICES?NO PIT FURNACE OPERATOR NEEDED?NO DOMESTIC VIOLENCE DO YOU FEEL SAFE IN YOUR ENVIRONMENT?YES NEW PATIENT PAIN DIARY TODAY'S VISIT 09/21/19, PATIENT DESCRIBES PAIN : ACHING, BURNING, HAVE IT ALL THE TIME, FROM 0-10, WHAT LEVEL IS YOUR PAIN TODAY? 7, PRECIPITATING FACTORS ANYTHING, ALLEVIATING FACTORS ANYTHING, IMPACT ON FUNCTION NO. PAIN CLINIC PFS, CLERGY, PUBLIC HEALTH REFERRALS PFS REFERRAL NEEDED?NO CLERGY REFERRAL NEEDED?NO PUBLIC HEALTH REFERRAL NEEDED?NO WAS THE PROVIDER NOTIFIED OF ANY PERTINENT INFO? N/A HAS THE PATIENT BEEN EDUCATED REGARDING HIS/HER PLAN OF CARE?YES HAS THE PATIENT BEEN EDUCATED REGARDING PAIN, THE RISK FOR PAIN, THE IMPORTANCE OF EFFECTIVE PAIN MANAGEMENT, AND THE PAIN ASSESSMENT PROCESS?YES ADVANCE DIRECTIVE ADVANCE DIRECTIVE DISCUSSED WITH PATIENT:YES HCP- ZANA ZIMMERMAN [phone] HOSPITALIZATION/MAJOR DIAGNOSTIC PROCEDURE CHILD, DUE TO KIDNEYS SURGERIES VITAL SIGNS WT 183.0 LBS, HT 65 IN, BMI 30.45 INDEX, BP 136/73 MM HG, HR 84 /MIN, RR 16 /MIN, TEMP 98.7 F, OXYGEN SAT % 98%, SAFE IN ENV? (Y/N) YES, NA INITIALS TL 1042, REVIEWED BY: LAURA. EXAMINATION GENERAL EXAMINATION: THE PATIENT IS ALERT, ORIENTED TIMES THREE AND COOPERATIVE. HEART SHOWS REGULAR RHYTHM, NO MURMURS AND NO GALLOPS. LUNGS ARE CLEAR TO AUSCULTATION. ASSESSMENTS SACROILIITIS, NOT ELSEWHERE CLASSIFIED - M46.1 (PRIMARY) SACROILIAC JOINT DYSFUNCTION - M53.3 TREATMENT SACROILIITIS, NOT ELSEWHERE CLASSIFIED [facility] FLUORO GUIDANCE (PAIN)[id number] PROCEDURES PAIN NURSING RECORD PRE-PROCEDURE IV SITE N/A PROCEDURE IN ROOM 1130, PHYSICIAN IN ROOM 1139, START 1142, FINISH 1150, PHYSICIAN OUT OF ROOM 1155, OUT OF ROOM 1210, STEROID DEXAMETHASONE, O2 RA, ECG NORMAL SINUS, PATIENT SHIELDED YES, SAFETY STRAP YES, PREP BY:, YOAV SIEGEL RN, IV INFUSED N/A, DRESSING TEGADERM, BY: DR. PEÑA RESP: 1148 PT C/O FEELING "HOT AND SWEATY", BLOOD PRESSURE IS 89/46, HEART RATE NORMAL SINUS AT RATE 63. DIAPHORETIC. DR. PEÑA NOTIFIED. PT PUT IN TRENDELENBURG. 1151 BLOOD PRESSURE IS 86/53, HEART RATE 62. PT REPORTS SHE "FEELS OK" BUT REMAINS DIAPHORETIC. 1153 BLOOD PRESSURE IS 107/73, HEART RATE IS 78. PT REPORTS SHE "FEELS BETTER" !200 VITALS STABLE, PT REPORTS SHE FEELS FINE. DR. PEÑA NOTIFIED. PT BACK TO RECOVERY AREA VIA STRETCHER. 1210 BLOOD PRESSURE 135/86. PT REPORTS SHE FEELS FINE, PAIN IS A 5. OK TO DISCHARGE PER DR. PEÑA. DISCHARGE: 1. ALERT, ORIENTED : 1.REGULAR, NO DYSPNEA : 1.PINK : 1. WARM,DRY : 1. PRONE : 1135 117/81 81-16 97% 1145 120/76 92-16 97% 1149 89/46 63-16 98% 1151 86/53 62-16 96% 1153 107/73 78-16 96% 1200 115/74 73-16 96% 1215 135/86 78-16 100% : POST PAIN 5, DRESSING SITE DRY AND INTACT, IV N/A, GAIT STEADY, TEACHING COMPLETED, PATIENT ACKNOWLEDGES UNDERSTANDING YES, PATIENT DISCHARGED AT 1220 PN WORKMANS' COMP OPINION IN YOUR OPINION, WAS THE INCIDENT THAT THE PATIENT DESCRIBED THE COMPETENT MEDICAL CAUSE OF THIS INJURY/ILLNESS? YES ARE THE PATIENT'S COMPLAINTS CONSISTENT WITH HIS/HER HISTORY OF THE INJURY/ILLNESS? YES IS THE PATIENT'S HISTORY OF THE INJURY/ILLNESS CONSISTENT WITH YOUR OBJECTIVE FINDING? YES WHAT IS THE PERCENTAGE OF TEMPORARY IMPAIRMENT? MODERATE TO MARKED = 66.7% . IS THE PATIENT WORKING? NO . DOCTOR ON SITE: ABBY BELTRAN MD PN SI PRE PROCEDURE DIAGNOSIS SACROILIITIS, SACROILIAC JOINT DYSFUNCTION POST PROCEDURE DIAGNOSIS SACROILIITIS, SACROILIAC JOINT DYSFUNCTION PROCEDURE RIGHT SACROILIAC JOINT BLOCK SURGEON DR. ABBY PEÑA WASTE MINIMIZATION TECHNICIAN NONE ANESTHESIA LOCAL PRE PROCEDURE NOTE THE PATIENT WITH HISTORY OF CHRONIC LOW BACK PAIN. I EVALUATED THE PATIENT AND REVIEWED THE CHART. I WENT OVER THE RISKS, ALTERNATIVES, AND BENEFITS ASSOCIATED WITH THIS PROCEDURE. I DISCUSSED THAT THE USE OF STEROIDS MAY CONTRIBUTE TO IMMUNOSUPPRESSION OF THE PATIENT'S BODY AGAINST INFECTIONS SUCH THE KEITH VIRUS, COVID-19. THE PATIENT IS AWARE OF THE POTENTIAL COMPLICATIONS ASSOCIATED WITH AN INFECTION OF THIS VIRUS INCLUDING . THE PATIENT WOULD LIKE TO PROCEED AND GAVE CONSENT TO PERFORM THE PROCEDURE. THE PATIENT DENIES UNEXPLAINABLE WEIGHT LOSS, FEVER, CHILLS, OR NEW CHANGES IN URINARY OR BOWEL CONTROL. THE PATIENT IS COVID-19 NEGATIVE DESCRIPTION OF PROCEDURE THE PATIENT WAS BROUGHT TO THE PROCEDURE ROOM AND PLACED IN THE PRONE POSITION. THE LUMBOSACRAL AREA WAS CLEANED WITH CHLORAPREP SOLUTION AND DRAPED ASEPTICALLY. THE PROCEDURE WAS DONE UNDER STERILE CONDITIONS. I CHECKED LATERALITY AND THE LEVEL WHERE THE PROCEDURE WAS GOING TO BE PERFORMED WITH THE PATIENT AND THE SUPPORTING STAFF AT THE MOMENT OF THE TIME OUT IN THE PROCEDURE ROOM. UNDER FLUOROSCOPIC GUIDANCE, TARGET POINT WAS SELECTED AT THE LOWER BORDER OF THE RIGHT SACROILIAC JOINT. TARGET POINT WAS SELECTED AFTER MEDIAL ROTATION AND TILT OF THE MAGNIFIER OF THE C-ARM. LIDOCAINE WAS USED TO NUMB THE SKIN AND SUBCUTANEOUS TISSUE BELOW IT. A SPINAL NEEDLE, 22-GAUGE, WAS ADVANCED UNDER FLUOROSCOPIC GUIDANCE AND FOLLOWING PATIENT FEEDBACK UNTIL THE TARGET AREA WAS TOUCHED. THE POSITION OF THE NEEDLE WAS VERIFIED WITH AP AND LATERAL VIEWS. AFTER PROPER POSITION OF THE NEEDLE WAS ACHIEVED, ISOVUE M DYE 30%, 0.25 ML, WAS INJECTED SHOWING SPREAD OF THE DYE. THEN, A SOLUTION OF 10 MG OF DEXAMETHASONE WAS INJECTED IN THE RIGHT JOINT WITH 3 ML OF BUPIVACAINE 0.125%. THERE WAS NO EVIDENCE OF BLOOD, PARESTHESIA OR CEREBROSPINAL FLUID DURING THE PROCEDURE. THE PATIENT WAS SENT TO THE RECOVERY ROOM. THE PATIENT WAS MOVING THE EXTREMITIES AND DOING WELL. THERE WAS NO COMPLICATION DURING THE PROCEDURE. THE PATIENT HAD A DROP IN HER BLOOD PRESSURE SO WE PUT HER IN TRENDELENBURG AND THE BLOOD PRESSURE CAME BACK. FLUOROSCOPY TIME WAS 14 SECONDS POST PROCEDURE NOTE THE PROCEDURE DONE WAS DISCUSSED WITH THE PATIENT. THE PATIENT WILL BE SEEN IN A FOLLOW UP IN THE NEXT FEW WEEKS. I AM LOOKING FOR LONG LASTING PAIN RELIEF FOR THE PATIENT WITH THIS INTERVENTION. INSTRUCTIONS WERE GIVEN, QUESTIONS WERE ANSWERED, AND THE PATIENT EXPRESSED UNDERSTANDING AND AGREES WITH THE PLAN. THE PATIENT IS AWARE TO STAY HOME FOR THE NEXT WEEK, IF POSSIBLE, DUE TO COVID-19. I, TORI MAYS, DOCUMENTED THE ABOVE INFORMATION ACTING A SCRIBE FOR DR. PEÑA. I HAVE REVIEWED THE ABOVE DOCUMENT, WRITTEN BY TORI MAYS, ROUTE RETURNER, AND I VERIFY THAT IT IS ACCURATE PROCEDURE CODES 99954 INJECT SACROILIAC JOINT, MODIFIERS: RT DISPOSITION & COMMUNICATION FOLLOW UP F/UP WITH MELTING OPERATOR (REASON: POST RIGHT SIJ ) ELECTRONICALLY SIGNED BY ABBY PEÑA MD, MD ON 10/15/2019 AT 10:14 AM EDT DISCLAIMER : THIS IS A VISIT SUMMARY EXTRACTED FROM THE [employer] CHART. IT IS NOT A COPY OF THE [employer] PROGRESS NOTE. MTDD
== END ==
LOC: M PAIN 10:45
PROVIDERS: ATTEND Anesthesiology
DX: M46.1 Sacroiliitis, not elsewhere classified (principal); M53.3 Sacrococcygeal disorders, not elsewhere classified
CPT/HCPCS: G0260; J1100; Q9967

== ENCOUNTER → 2019-11-23 | Outpatient (CLI) | payer OTHER ==
[~2019-11-23] MED LIST changes: -BUPIVACAINE HCL 0.25% 30ML VIAL As Ordered ONE; -ISOVUE-M 300 61% 15ML VIAL As Ordered ONE; -LIDOCAINE 1% SDV 30ML VIAL As Ordered ONE; -dexameTHASONE 10MG/1ML VIAL PRES.FREE (J1100 PER 1MG) As Ordered ONE; -diazePAM 5 MG TAB As Ordered ONE; -oxyCODONE 5MG TAB As Ordered ONE
--- NOTE | 2019-11-27 05:12 | ECWPNPC ---
PATIENT NAME: HECTOR ZIMMERMAN : 1965 GENDER: FEMALE VISIT DATE: 11/23/2019 DISCHARGE DATE: 11/23/19 0904 VISIT LOCKED DATE TIME: PHYSICIAN: TEMI GLORIA RESOURCE: TEMI GLORIA REASON FOR APPOINTMENT 1. POST SIJ [phone] HISTORY OF PRESENT ILLNESS GENERAL: -54-YEAR-OLD FEMALE IN FOR POST SIJ FOLLOW-UP. SHE RATES HER PAIN CURRENTLY AT A 4 OUT OF 10. SHE FEELS THE PROCEDURE WAS SUCCESSFUL RATING HER PAIN PREPROCEDURE AT A 7 OUT OF 10 AND POSTPROCEDURE AT A 2 OUT OF 10. SHE FURTHER STATES SHE FEELS THE PROCEDURE CONTINUES TO HELP HER TODAY. AT LAST CLINIC VISIT PATIENT'S LYRICA WAS INCREASED AND PATIENT WOULD LIKE TO DISCUSS A POTENTIAL INCREASE TODAY. FALL RISK SCREENING: SCREENING :NO FALLS REPORTED IN THE LAST YEAR PAIN SCREENING: PATIENT HAS A COMPLAINT OF ACUTE OR CHRONIC PAIN :YES LOCATION OF PAIN: LOW BACK, RIGHT LEG INTENSITY OF PAIN (SCALE OF 1 TO 10): 6,4 WHAT DOES YOUR PAIN FEEL LIKE:ACHING, BURNING, CONTINOUS, SHARP, THROBBING DURATION:CONTINOUS PAIN IS INCREASED BY:ACTIVITIES NURSING NOTE: -. PAIN CENTER INTAKE QUESTIONS: DO YOU HAVE A HISTORY OF MRSA? :NO DO YOU TAKE A BLOOD THINNERS? :NO DO YOU HAVE ANY BLEEDING DISORDERS? :NO ANY NEW NUMBNESS OR WEAKNESS IN YOUR LEGS OR ARMS? :NO ANY PACEMAKER,DEFIBRILLATOR, OR DORSAL COLUMN STIMULATOR? :NO DO YOU HAVE ANY RASHES OR OPEN SORES? :NO ARE YOU ALLERGIC TO IV DYE? :NO ARE YOU DIABETIC? :NO ANY NEW PROBLEMS WITH YOUR MEDICATIONS? :NO HAVE YOU RECEIVED A VACCINE IN THE PAST 30 DAYS? :NO DO YOU PLAN TO RECEIVE A VACCINE IN THE NEXT 21 DAYS? :NO DO YOU NEED ANY PRESCRIPTION? :YES LYRICA DO YOU TAKE ANY IMMUNOSUPPRESSIVE MEDICATIONS? :NO IS THERE A CHANCE YOU COULD BE ? :NO ARE YOU BREAST FEEDING? :NO CURRENT MEDICATIONS TAKING MULTIVITAMINS OTC TABLET 1 TAB(S) P.O. ONCE A DAY, NOTES: 10/10 2099 TAKING BENADRYL 25 MG CAPSULE 1 CAPSULE NEEDED ORALLY BEFORE BEDTIME, NOTES: 10/10 TAKING CLARITIN 10 MG TABLET 1 TABLET ORALLY ONCE A DAY, NOTES: 10/10 2099 TAKING IBUPROFEN 800 MG TABLET 1 TABLET WITH FOOD OR MILK NEEDED ORALLY NEEDED EVERY 8 HOURS NEEDED MDD3, NOTES: 10/10 1900 TAKING LIDODERM 5 % PATCH 3 PATCHES EXTERNALLY ONCE A DAY ON BACK, NOTES: 10/10 TAKING FLECTOR 1.3 % PATCH 1 PATCH TO SKIN EXTERNALLY TO LOW BACK ON 12 HRS OFF 12 HRS, NOTES: 10/10 PM TAKING LYRICA 100 MG CAPSULE 1 CAPSULE ORALLY AT BEDTIME, NOTES: 10/10 2099 TAKING CYMBALTA 30 MG CAPSULE DELAYED RELEASE PARTICLES 1 CAPSULE ORALLY ONCE A DAY, NOTES: 10/10 2099 NOT-TAKING VITAMIN B COMPLEX OTC TABLET 1 TAB(S) P.O. ONCE A DAY MEDICATION LIST REVIEWED AND RECONCILED WITH THE PATIENT PAST MEDICAL HISTORY BACK SURGERY X 9 HISTORY OF KIDNEY PROBLEMS CHILD...NOT SURE OF SPECIFICS PSORIASIS BACK PAIN ALLERGIES LATEX (FOR ALLERGY USE ONLY): RASH - ALLERGY SEASONAL: ITCHY EYES, RUNNY NOSE - ALLERGY ORANGES: RASH. LIPS SWELL - ALLERGY SURGICAL HISTORY BACK SURGERY X 9 DORSAL COLOMN STIMULATOR 05/2001 LUMPECTOMY, LEFT BREAST 2009 FAMILY HISTORY FATHER: ALIVE, DIAGNOSED WITH HYPERTENSION, UNSPECIFIED HEART DISEASE MOTHER: 71 YRS, OTHER MALIGNANT NEOPLASM OF UNSPECIFIED SITE 1 BROTHER(S) , 3 SISTER(S) - HEALTHY. 3 SON(S) , 1 DAUGHTER(S) - HEALTHY. MOM-LUNG CA\NBROTHER-CHRON\'S DISEASE AND ANKLYOSIS SPONDOLITIS. SOCIAL HISTORY GENERAL: TOBACCO USE ARE YOU A:NONSMOKER LATEX QUESTIONNAIRE LATEX ALLERGY : HAVE YOU EVER DEVELOPED ANY TYPE OF REACTION AFTER HANDLING LATEX PRODUCTS SUCH RUBBER GLOVES, CONDOMS, DIAPHRAGMS, BALLOONS, SOCKS, OR UNDERWEAR?YES - PLEASE INDICATE :RUBBER GLOVES, OTHER (DOCUMENT IN NOTES) LATEX ALLERGY : HAVE YOU EVER DEVELOPED ANY TYPE OF REACTION DURING OR AFTER DENTAL APPOINTMENT, VAGINAL/RECTAL EXAMINATION, SURGICAL PROCEDURE, OR ANY OTHER EXPOSURE?NO LATEX RISK : HAVE YOU EVER HAD ANY DIFFICULTY BREATHING OR HIVES AFTER EATING OR HANDLING ANY FRUITS, OR VEGETABLES; SUCH KIWI, BANANAS, STONE FRUITS, OR CHESTNUTSNO LATEX RISK : DO YOU HAVE A PREVIOUS PERSONAL HISTORY OF MORE THAN NINE SURGERIES, SPINA BIFIDA, OR REPEATED CATHERIZATIONS? YES - PLEASE INDICATE : > 9 SURGERIES LATEX RISK : ARE YOU FREQUENTLY EXPOSED TO LATEX PRODUCTS IN YOUR OCCUPATION?NO DATE ASKED : 11/23/2019 ALCOHOL SCREENING DID YOU HAVE A DRINK CONTAINING ALCOHOL IN THE PAST YEAR?NO POINTS0 INTERPRETATIONNEGATIVE RECREATIONAL DRUG USE DRUG USE?NO TENRIISM [id number] NONE LANGUAGE LANGUAGES SPOKEN:CZECH EDUCATION LEVEL OF EDUCATION:FINISHED HIGH SCHOOL LEARNING BARRIERS / SPECIAL NEEDS BARRIERS TO LEARNING?NO HEARING IMPAIRED?NO VISION IMPAIRED?YES GLASSES FOR READING :CORRECTIVE LENSES COGNITIVELY IMPAIRED?NO READINESS TO LEARN?YES LEARNING PREFERENCES?NO LEARNING CAPABILITIES PRESENT?YES EMOTIONAL BARRIERS?NO SPECIAL DEVICES?NO LAPEL BASTER NEEDED?NO DOMESTIC VIOLENCE DO YOU FEEL SAFE IN YOUR ENVIRONMENT?YES NEW PATIENT PAIN DIARY TODAY'S VISIT 09/21/19, PATIENT DESCRIBES PAIN : ACHING, BURNING, HAVE IT ALL THE TIME, FROM 0-10, WHAT LEVEL IS YOUR PAIN TODAY? 7, PRECIPITATING FACTORS ANYTHING, ALLEVIATING FACTORS ANYTHING, IMPACT ON FUNCTION NO. PAIN CLINIC PFS, CLERGY, PUBLIC HEALTH REFERRALS PFS REFERRAL NEEDED?NO CLERGY REFERRAL NEEDED?NO PUBLIC HEALTH REFERRAL NEEDED?NO WAS THE PROVIDER NOTIFIED OF ANY PERTINENT INFO? N/A HAS THE PATIENT BEEN EDUCATED REGARDING HIS/HER PLAN OF CARE?YES HAS THE PATIENT BEEN EDUCATED REGARDING PAIN, THE RISK FOR PAIN, THE IMPORTANCE OF EFFECTIVE PAIN MANAGEMENT, AND THE PAIN ASSESSMENT PROCESS?YES ADVANCE DIRECTIVE ADVANCE DIRECTIVE DISCUSSED WITH PATIENT:YES HCP- ZANA ZIMMERMAN [phone] HOSPITALIZATION/MAJOR DIAGNOSTIC PROCEDURE CHILD, DUE TO KIDNEYS SURGERIES REVIEW OF SYSTEMS CONSTITUTIONAL: ANY RECENT FEVER NO . CHILLS NO . WEIGHT CHANGE OF UNKNOWN REASONS NO . GASTROENTEROLOGY: NEW UNEXPLAINABLE CHANGES IN BOWEL CONTROL NO . CONSTIPATION NO . GENITOURINARY: ANY NEW CHANGE IN BLADDER CONTROL? NO . NEUROLOGY: NEW ONSET DIZZINESS OR NEUROLOGICAL CHANGES NOT MENTIONED NO . NEW NUMBNESS OR PAIN PATTERNS NOT MENTIONED AND PERTINENT TO TODAY'S VISIT NO . CARDIOLOGY: NEW CHEST PRESSURE NO . NEW CHEST PAIN NO . RESPIRATORY: UNEXPLAINABLE COUGH NO . NEW SHORTNESS OF BREATH NO . VITAL SIGNS WT 183 LBS, HT 65 IN, BMI 30.45 INDEX, BP 127/86 MM HG, HR 91 /MIN, RR 17 /MIN, TEMP 98.1 F, OXYGEN SAT % 98, SAFE IN ENV? (Y/N) JUSTYN. SHAQUILLE MANNING LPN II @ 0840. EXAMINATION GENERAL EXAMINATION: GENERALNO ACUTE DISTRESS, WELL NOURISHED AND HYDRATED. PSYCHAPPROPRIATE MOOD AND AFFECT . LUNGS:CLEAR TO AUSCULTATION BILATERALLY, NO WHEEZES, RHONCHI, RALES. HEART:NO MURMURS, REGULAR RATE AND RHYTHM. ASSESSMENTS SACROILIITIS, NOT ELSEWHERE CLASSIFIED - M46.1 (PRIMARY) TREATMENT SACROILIITIS, NOT ELSEWHERE CLASSIFIED INCREASE LYRICA CAPSULE, 150 MG, 1 CAPSULE, ORALLY, AT BEDTIME, 30 DAYS, 30, NOTES: 10/10 2099 CLINICAL NOTES: 54 YEAR OLD FEMALE IN FOR POST SIJ FOLLOW-UP. GIVEN PRESENTING SYMPTOMS RECOMMEND INCREASING LYRICA TO 150 MG DAILY WITH FOLLOW-UP IN 2 MONTHS. PATIENT HAS EXPRESSED UNDERSTANDING OF AND WAS IN AGREEMENT WITH TREATMENT PLAN. GIVEN TIME TO ASK QUESTIONS AND EXPRESS CONCERNS. , ISTOP REGISTRY REVIEWED AND DEMONSTRATES COMPLLIANCE. (REF # [id number] ). PROCEDURE CODES FA211 ESTABILISHED PATIENT [facility] CHARGE DISPOSITION & COMMUNICATION FOLLOW UP 2 MONTHS (REASON: SACROILIITIS) ELECTRONICALLY SIGNED BY EDWAR PITTMAN ON 11/26/2019 AT 07:53 AM EDT DISCLAIMER : THIS IS A VISIT SUMMARY EXTRACTED FROM THE [employer] CHART. IT IS NOT A COPY OF THE [facility] PROGRESS NOTE. LAKSHMID
== END ==
LOC: M PAIN 08:45
PROVIDERS: ATTEND Family Medicine
DX: M46.1 Sacroiliitis, not elsewhere classified (principal)

== ENCOUNTER → 2020-01-30 | Outpatient (CLI) | payer OTHER | LOC: M PAIN 09:30 | PROVIDERS: ATTEND Family Medicine | DX: M46.1 Sacroiliitis, not elsewhere classified (principal) ==

== ENCOUNTER → 2020-03-03 | Outpatient (CLI) | payer OTHER ==
--- NOTE | 2020-03-04 15:59 | ECWPNPC ---
PATIENT NAME: HECTOR ZIMMERMAN : 1965 GENDER: FEMALE VISIT DATE: 03/03/2020 DISCHARGE DATE: 03/03/20 1002 VISIT LOCKED DATE TIME: PHYSICIAN: TEMI GLORIA RESOURCE: TEMI GLORIA REASON FOR APPOINTMENT 1. LOW BACK HISTORY OF PRESENT ILLNESS GENERAL: - 54-YEAR-OLD FEMALE IN FOR CHRONIC PAIN FOLLOW-UP. SHE RATES HER PAIN CURRENTLY AT A 7 OUT OF 10 AND DESCRIBES IT ACHING, BURNING, SHARP, STABBING, TENDER, THROBBING, SORE, AND SHOOTING. PATIENT HAS HAD RIGHT SACROILIAC JOINT INJECTIONS IN THE PAST WITH GOOD RELIEF AND WE WILL DISCUSS REPEAT PROCEDURES TODAY. FALL RISK SCREENING: SCREENING :TWO OR MORE FALLS WITH INJURY IN THE PAST YEAR PATIENT FELL ONE MONTH AGO AND HURT HER RIGHT ELBOW. PATIENT SAUGHT MEDICAL TREATMENT. HAD XRAY DONE ONE WEEK AGO. PAITNET STATES NOTHING IS CURRENTLY BROKEN. PAIN SCREENING: PATIENT HAS A COMPLAINT OF ACUTE OR CHRONIC PAIN :YES LOCATION OF PAIN:LOW BACK INTENSITY OF PAIN (SCALE OF 1 TO 10):7 WHAT DOES YOUR PAIN FEEL LIKE:ACHING, BURNING, SHARP, STABBING, TENDER, THROBBING, SORE, SHOOTING DURATION:CONSTANT, AWAKENS FROM SLEEP PAIN IS INCREASED BY:OTHERS PATIENT STATES NOTHING MAKES IT WORSE OR BETTER. CONSTANT PAIN IS ALWAYS PRESENT NO MATTER WHAT THE PATIENT IS DOING. NURSING NOTE: -. PAIN CENTER INTAKE QUESTIONS: DO YOU HAVE A HISTORY OF MRSA? :NO DO YOU TAKE A BLOOD THINNERS? :NO DO YOU HAVE ANY BLEEDING DISORDERS? :NO ANY NEW NUMBNESS OR WEAKNESS IN YOUR LEGS OR ARMS? :NO ANY PACEMAKER,DEFIBRILLATOR, OR DORSAL COLUMN STIMULATOR? :YES PATIENT HAS A DORSAL COLUMN STIMULATOR, STATES IT IS WORKING WELL FOR HER. DO YOU HAVE ANY RASHES OR OPEN SORES? :YES PSORIASIS ARE YOU ALLERGIC TO IV DYE? :NO ARE YOU DIABETIC? :NO ANY NEW PROBLEMS WITH YOUR MEDICATIONS? :NO HAVE YOU RECEIVED A VACCINE IN THE PAST 30 DAYS? :YES PATIENT GOT A FLU SHOT 01/24/2020 DO YOU PLAN TO RECEIVE A VACCINE IN THE NEXT 21 DAYS? :NO DO YOU NEED ANY PRESCRIPTION? :YES IBUPROFEN, PREGABALIN, DULOXETINE, FLECTOR PATCHES DO YOU TAKE ANY IMMUNOSUPPRESSIVE MEDICATIONS? :NO IS THERE A CHANCE YOU COULD BE ? :NO ARE YOU BREAST FEEDING? :NO CURRENT MEDICATIONS TAKING MULTIVITAMINS OTC TABLET 1 TAB(S) P.O. ONCE A DAY, NOTES: 10/10 2099 TAKING BENADRYL 25 MG CAPSULE 1 CAPSULE NEEDED ORALLY BEFORE BEDTIME, NOTES: 10/10 TAKING CLARITIN 10 MG TABLET 1 TABLET ORALLY ONCE A DAY, NOTES: 10/10 2099 TAKING IBUPROFEN 800 MG TABLET 1 TABLET WITH FOOD OR MILK NEEDED ORALLY NEEDED EVERY 8 HOURS NEEDED MDD3, NOTES: 10/10 1899 TAKING LIDODERM 5 % PATCH 3 PATCHES EXTERNALLY ONCE A DAY ON BACK, NOTES: 10/10 TAKING FLECTOR 1.3 % PATCH 1 PATCH TO SKIN EXTERNALLY TO LOW BACK ON 12 HRS OFF 12 HRS, NOTES: 10/10 PM TAKING CYMBALTA 30 MG CAPSULE DELAYED RELEASE PARTICLES 1 CAPSULE ORALLY ONCE A DAY, NOTES: 10/10 2099 TAKING LYRICA 150 MG CAPSULE 1 CAPSULE ORALLY AT BEDTIME, NOTES: 10/10 2099 NOT-TAKING VITAMIN B COMPLEX OTC TABLET 1 TAB(S) P.O. ONCE A DAY MEDICATION LIST REVIEWED AND RECONCILED WITH THE PATIENT PAST MEDICAL HISTORY BACK SURGERY X 9 HISTORY OF KIDNEY PROBLEMS CHILD...NOT SURE OF SPECIFICS PSORIASIS BACK PAIN ALLERGIES LATEX (FOR ALLERGY USE ONLY): RASH - ALLERGY SEASONAL: ITCHY EYES, RUNNY NOSE - ALLERGY ORANGES: RASH. LIPS SWELL - ALLERGY SURGICAL HISTORY BACK SURGERY X 9 DORSAL COLOMN STIMULATOR 05/2001 LUMPECTOMY, LEFT BREAST 2009 FAMILY HISTORY FATHER: ALIVE, DIAGNOSED WITH HYPERTENSION, UNSPECIFIED HEART DISEASE MOTHER: 71 YRS, OTHER MALIGNANT NEOPLASM OF UNSPECIFIED SITE 1 BROTHER(S) , 3 SISTER(S) - HEALTHY. 3 SON(S) , 1 DAUGHTER(S) - HEALTHY. MOM-LUNG CA\NBROTHER-CHRON\'S DISEASE AND ANKLYOSIS SPONDOLITIS. SOCIAL HISTORY GENERAL: TOBACCO USE ARE YOU A:NONSMOKER LATEX QUESTIONNAIRE LATEX ALLERGY : HAVE YOU EVER DEVELOPED ANY TYPE OF REACTION AFTER HANDLING LATEX PRODUCTS SUCH RUBBER GLOVES, CONDOMS, DIAPHRAGMS, BALLOONS, SOCKS, OR UNDERWEAR?YES - PLEASE INDICATE :RUBBER GLOVES, OTHER (DOCUMENT IN NOTES) LATEX ALLERGY : HAVE YOU EVER DEVELOPED ANY TYPE OF REACTION DURING OR AFTER DENTAL APPOINTMENT, VAGINAL/RECTAL EXAMINATION, SURGICAL PROCEDURE, OR ANY OTHER EXPOSURE?NO LATEX RISK : HAVE YOU EVER HAD ANY DIFFICULTY BREATHING OR HIVES AFTER EATING OR HANDLING ANY FRUITS, OR VEGETABLES; SUCH KIWI, BANANAS, STONE FRUITS, OR CHESTNUTSNO LATEX RISK : DO YOU HAVE A PREVIOUS PERSONAL HISTORY OF MORE THAN NINE SURGERIES, SPINA BIFIDA, OR REPEATED CATHERIZATIONS? YES - PLEASE INDICATE : > 9 SURGERIES LATEX RISK : ARE YOU FREQUENTLY EXPOSED TO LATEX PRODUCTS IN YOUR OCCUPATION?NO DATE ASKED : 03/03/2020 ALCOHOL SCREENING DID YOU HAVE A DRINK CONTAINING ALCOHOL IN THE PAST YEAR?NO POINTS0 INTERPRETATIONNEGATIVE RECREATIONAL DRUG USE DRUG USE?NO ROMAN CATHOLIC [id number] NONE LANGUAGE LANGUAGES SPOKEN:SYRI[place] EDUCATION LEVEL OF EDUCATION:FINISHED HIGH SCHOOL LEARNING BARRIERS / SPECIAL NEEDS BARRIERS TO LEARNING?NO HEARING IMPAIRED?NO VISION IMPAIRED?YES GLASSES FOR READING COGNITIVELY IMPAIRED?NO :CORRECTIVE LENSES READINESS TO LEARN?YES LEARNING PREFERENCES?NO LEARNING CAPABILITIES PRESENT?YES EMOTIONAL BARRIERS?NO SPECIAL DEVICES?NO GLUE LINE OPERATOR NEEDED?NO DOMESTIC VIOLENCE DO YOU FEEL SAFE IN YOUR ENVIRONMENT?YES NEW PATIENT PAIN DIARY TODAY'S VISIT 09/21/19, PATIENT DESCRIBES PAIN : ACHING, BURNING, HAVE IT ALL THE TIME, FROM 0-10, WHAT LEVEL IS YOUR PAIN TODAY? 7, PRECIPITATING FACTORS ANYTHING, ALLEVIATING FACTORS ANYTHING, IMPACT ON FUNCTION NO. PAIN CLINIC PFS, CLERGY, PUBLIC HEALTH REFERRALS PFS REFERRAL NEEDED?NO CLERGY REFERRAL NEEDED?NO PUBLIC HEALTH REFERRAL NEEDED?NO WAS THE PROVIDER NOTIFIED OF ANY PERTINENT INFO? N/A HAS THE PATIENT BEEN EDUCATED REGARDING HIS/HER PLAN OF CARE?YES HAS THE PATIENT BEEN EDUCATED REGARDING PAIN, THE RISK FOR PAIN, THE IMPORTANCE OF EFFECTIVE PAIN MANAGEMENT, AND THE PAIN ASSESSMENT PROCESS?YES ADVANCE DIRECTIVE ADVANCE DIRECTIVE DISCUSSED WITH PATIENT:YES HCP- ZANA ZIMMERMAN [phone] HOSPITALIZATION/MAJOR DIAGNOSTIC PROCEDURE CHILD, DUE TO KIDNEYS SURGERIES REVIEW OF SYSTEMS CONSTITUTIONAL: ANY RECENT FEVER NO . CHILLS NO . WEIGHT CHANGE OF UNKNOWN REASONS NO . GASTROENTEROLOGY: NEW UNEXPLAINABLE CHANGES IN BOWEL CONTROL NO . CONSTIPATION NO . GENITOURINARY: ANY NEW CHANGE IN BLADDER CONTROL? NO . NEUROLOGY: NEW ONSET DIZZINESS OR NEUROLOGICAL CHANGES NOT MENTIONED NO . NEW NUMBNESS OR PAIN PATTERNS NOT MENTIONED AND PERTINENT TO TODAY'S VISIT NO . CARDIOLOGY: NEW CHEST PRESSURE NO . NEW CHEST PAIN NO . RESPIRATORY: UNEXPLAINABLE COUGH NO . NEW SHORTNESS OF BREATH NO . VITAL SIGNS WT 184.0 LBS, HT 65 IN, BMI 30.62 INDEX, BP 125/73 MM HG, HR 85 /MIN, RR 18 /MIN, TEMP 96.9 F, OXYGEN SAT % 99%, SAFE IN ENV? (Y/N) YES, NA INITIALS AW 0929, REVIEWED BY: TERI. EXAMINATION GENERAL EXAMINATION: GENERALNO ACUTE DISTRESS, WELL NOURISHED AND HYDRATED. PSYCHAPPROPRIATE MOOD AND AFFECT . LUNGS:CLEAR TO AUSCULTATION BILATERALLY, NO WHEEZES, RHONCHI, RALES. HEART:NO MURMURS, REGULAR RATE AND RHYTHM. BACK:POINT TENDER RIGHT SACROILIAC JOINT, POSITIVE TIMA'S TEST RIGHT SIDE . ASSESSMENTS SACROILIITIS, NOT ELSEWHERE CLASSIFIED - M46.1 (PRIMARY) TREATMENT SACROILIITIS, NOT ELSEWHERE CLASSIFIED NOTES: RIGHT SIJ. CLINICAL NOTES: 54-YEAR-OLD FEMALE IN FOR CHRONIC PAIN FOLLOW-UP. GIVEN PRESENTING SYMPTOMS RECOMMEND RIGHT-SIDED SIJ WITH POST PROCEDURAL FOLLOW-UP. PATIENT HAS EXPRESSED UNDERSTANDING OF AND WAS IN AGREEMENT WITH TREATMENT PLAN. GIVEN TIME TO ASK QUESTIONS AND EXPRESS CONCERNS. PREVENTIVE MEDICINE PAIN CLINIC TEACHING: THE PATIENT HAS BEEN EDUCATED REGARDING PAIN, THE RISK FOR PAIN, THE IMPORTANCE OF EFFECTIVE PAIN MANAGEMENT, AND THE PAIN ASSESSMENT PROCESS. : DISCUSSED PRE PROCEDURE INSTRUCTIONS, PATIENT CARE PLAN, AND TEACHING FOR: RIGHT SACROILIAC JOINT BLOCK. PATIENT VERBALIZED UNDERSTANDING. PROCEDURE CODES FA211 ESTABILISHED PATIENT [facility] CHARGE DISPOSITION & COMMUNICATION FOLLOW UP POSTPROCEDURE (REASON: RIGHT SACROILIAC JOINT INJECTION) ELECTRONICALLY SIGNED BY EDWAR PITTMAN ON 03/04/2020 AT 03:05 PM EDT DISCLAIMER : THIS IS A VISIT SUMMARY EXTRACTED FROM THE [employer] CHART. IT IS NOT A COPY OF THE [employer] PROGRESS NOTE. JANE
== END ==
LOC: M PAIN 09:15
PROVIDERS: ATTEND Family Medicine
DX: M46.1 Sacroiliitis, not elsewhere classified (principal); L40.9 Psoriasis, unspecified; Z79.899 Other long term (current) drug therapy; J30.2 Other seasonal allergic rhinitis; Z91.040 Latex allergy status; Z91.018 Allergy to other foods

== ENCOUNTER → 2020-05-21 | Outpatient (CLI) | payer OTHER | LOC: M LABSMTC 09:50 | PROVIDERS: ATTEND Anesthesiology | DX: Z20.822 Contact with and (suspected) exposure to COVID-19 (principal) ==

== ENCOUNTER → 2020-05-26 | Outpatient (CLI) | payer OTHER ==
[~2020-05-26] MED LIST changes: +BUPIVACAINE HCL 0.25% 30ML VIAL As Ordered ONE; +LIDOCAINE 1% SDV 30ML VIAL As Ordered ONE; +TRIAMCINOLONE ACETONIDE SUSP 40 MG/ML VIAL (J3301) As Ordered ONE; +diazePAM 5MG TABLET As Ordered ONE; +oxyCODONE 5MG TAB As Ordered ONE
--- NOTE | 2020-05-26 12:33 | REP ---
INDICATION: BILATERAL SACROILLIAC JOINT INJECTION. COMPARISON: None. TECHNIQUE: Intraoperative fluoroscopic imaging using portable C-arm technique FINDINGS: Image consistent with right sacroiliac joint block. Total fluoroscopic time 14 seconds IMPRESSION: Status post right sacroiliac joint block. <Electronically signed by Juarez Nogueira > 05/26/20 [id number]
--- NOTE | 2020-05-29 05:27 | ECWPNPC ---
PATIENT NAME: EHCTOR ZIMMERMAN : 1965 GENDER: FEMALE VISIT DATE: 05/26/2020 DISCHARGE DATE: 05/26/20 1140 VISIT LOCKED DATE TIME: PHYSICIAN: ABBY PEÑA MD RESOURCE: ABBY PEÑA MD REASON FOR APPOINTMENT 1. RIGHT SACROILIAC JOINT BLOCK HISTORY OF PRESENT ILLNESS GENERAL: -. FALL RISK SCREENING: SCREENING :NO FALLS REPORTED IN THE LAST YEAR PAIN SCREENING: PATIENT HAS A COMPLAINT OF ACUTE OR CHRONIC PAIN :NO NURSING NOTE: -. PAIN CENTER INTAKE QUESTIONS: DO YOU HAVE A HISTORY OF MRSA? :NO DO YOU TAKE A BLOOD THINNERS? :NO DO YOU HAVE ANY BLEEDING DISORDERS? :NO ANY NEW NUMBNESS OR WEAKNESS IN YOUR LEGS OR ARMS? :NO ANY PACEMAKER,DEFIBRILLATOR, OR DORSAL COLUMN STIMULATOR? :NO DO YOU HAVE ANY RASHES OR OPEN SORES? :NO ARE YOU ALLERGIC TO IV DYE? :NO ARE YOU DIABETIC? :NO ANY NEW PROBLEMS WITH YOUR MEDICATIONS? :NO HAVE YOU RECEIVED A VACCINE IN THE PAST 30 DAYS? :NO DO YOU PLAN TO RECEIVE A VACCINE IN THE NEXT 21 DAYS? :NO DO YOU TAKE ANY IMMUNOSUPPRESSIVE MEDICATIONS? :NO ANY HISTORY OF SEIZURES? :NO ANY HISTORY OF CARDIAC ISSUES OR EVENTS? :NO DO YOU HAVE SLEEP APNEA? :NO ANY RECENT HEAD INJURY? :NO DO YOU HAVE ANY NEW INFECTIONS? :NO IS THERE A CHANCE YOU COULD BE ? :NO ARE YOU BREAST FEEDING? :NO WHEN DID YOU LAST EAT? : -LAST NIGHT 2100 WHEN DID YOU LAST DRINK? : -BLACK COFFEE AND WATER WHAT DID YOU LAST DRINK? : -BLACK COFFEE AND WATER NAME OF PERSON DRIVING YOU HOME? : - ZANA DO YOU HAVE ANY OTHER QUESTIONS OR CONCERNS? : - CURRENT MEDICATIONS TAKING MULTIVITAMINS OTC TABLET 1 TAB(S) P.O. ONCE A DAY TAKING BENADRYL 25 MG CAPSULE 1 CAPSULE NEEDED ORALLY BEFORE BEDTIME TAKING CLARITIN 10 MG TABLET 1 TABLET ORALLY ONCE A DAY TAKING LIDODERM 5 % PATCH 3 PATCHES EXTERNALLY ONCE A DAY ON BACK, NOTES: 10/10 TAKING FLECTOR 1.3 % PATCH 1 PATCH TO SKIN EXTERNALLY TO LOW BACK ON 12 HRS OFF 12 HRS TAKING IBUPROFEN 800 MG TABLET 1 TABLET WITH FOOD OR MILK NEEDED ORALLY NEEDED EVERY 8 HOURS NEEDED MDD3 TAKING LYRICA 150 MG CAPSULE 1 CAPSULE ORALLY AT BEDTIME TAKING CYMBALTA 30 MG CAPSULE DELAYED RELEASE PARTICLES 1 CAPSULE ORALLY ONCE A DAY NOT-TAKING VITAMIN B COMPLEX OTC TABLET 1 TAB(S) P.O. ONCE A DAY MEDICATION LIST REVIEWED AND RECONCILED WITH THE PATIENT PAST MEDICAL HISTORY BACK SURGERY X 9 HISTORY OF KIDNEY PROBLEMS CHILD...NOT SURE OF SPECIFICS PSORIASIS BACK PAIN ALLERGIES LATEX (FOR ALLERGY USE ONLY): RASH - ALLERGY SEASONAL: ITCHY EYES, RUNNY NOSE - ALLERGY ORANGES: RASH. LIPS SWELL - ALLERGY SURGICAL HISTORY BACK SURGERY X 9 DORSAL COLOMN STIMULATOR 05/2001 LUMPECTOMY, LEFT BREAST 2009 FAMILY HISTORY FATHER: ALIVE, DIAGNOSED WITH HYPERTENSION, UNSPECIFIED HEART DISEASE MOTHER: 71 YRS, OTHER MALIGNANT NEOPLASM OF UNSPECIFIED SITE 1 BROTHER(S) , 3 SISTER(S) - HEALTHY. 3 SON(S) , 1 DAUGHTER(S) - HEALTHY. MOM-LUNG CA\NBROTHER-CHRON\'S DISEASE AND ANKLYOSIS SPONDOLITIS. SOCIAL HISTORY GENERAL: TOBACCO USE ARE YOU A:NONSMOKER LATEX QUESTIONNAIRE LATEX ALLERGY : HAVE YOU EVER DEVELOPED ANY TYPE OF REACTION AFTER HANDLING LATEX PRODUCTS SUCH RUBBER GLOVES, CONDOMS, DIAPHRAGMS, BALLOONS, SOCKS, OR UNDERWEAR?YES LATEX ALLERGY : HAVE YOU EVER DEVELOPED ANY TYPE OF REACTION DURING OR AFTER DENTAL APPOINTMENT, VAGINAL/RECTAL EXAMINATION, SURGICAL PROCEDURE, OR ANY OTHER EXPOSURE?NO - PLEASE INDICATE :RUBBER GLOVES, OTHER (DOCUMENT IN NOTES) DATE ASKED : 03/03/2020 LATEX RISK : HAVE YOU EVER HAD ANY DIFFICULTY BREATHING OR HIVES AFTER EATING OR HANDLING ANY FRUITS, OR VEGETABLES; SUCH KIWI, BANANAS, STONE FRUITS, OR CHESTNUTSNO LATEX RISK : DO YOU HAVE A PREVIOUS PERSONAL HISTORY OF MORE THAN NINE SURGERIES, SPINA BIFIDA, OR REPEATED CATHERIZATIONS? YES - PLEASE INDICATE : > 9 SURGERIES LATEX RISK : ARE YOU FREQUENTLY EXPOSED TO LATEX PRODUCTS IN YOUR OCCUPATION?NO ALCOHOL SCREENING DID YOU HAVE A DRINK CONTAINING ALCOHOL IN THE PAST YEAR?NO POINTS0 INTERPRETATIONNEGATIVE RECREATIONAL DRUG USE DRUG USE?NO CHEONDOISM [id number] NONE LANGUAGE LANGUAGES SPOKEN:OCCITAN EDUCATION LEVEL OF EDUCATION:FINISHED HIGH SCHOOL LEARNING BARRIERS / SPECIAL NEEDS BARRIERS TO LEARNING?NO HEARING IMPAIRED?NO VISION IMPAIRED?YES GLASSES FOR READING COGNITIVELY IMPAIRED?NO :CORRECTIVE LENSES READINESS TO LEARN?YES LEARNING PREFERENCES?NO LEARNING CAPABILITIES PRESENT?YES EMOTIONAL BARRIERS?NO SPECIAL DEVICES?NO WAFER CUTTER NEEDED?NO DOMESTIC VIOLENCE DO YOU FEEL SAFE IN YOUR ENVIRONMENT?YES TODAY'S VISIT 09/21/19, PATIENT DESCRIBES PAIN : ACHING, BURNING, HAVE IT ALL THE TIME, FROM 0-10, WHAT LEVEL IS YOUR PAIN TODAY? 7, PRECIPITATING FACTORS ANYTHING, ALLEVIATING FACTORS ANYTHING, IMPACT ON FUNCTION NO. PAIN CLINIC PFS, CLERGY, PUBLIC HEALTH REFERRALS PFS REFERRAL NEEDED?NO CLERGY REFERRAL NEEDED?NO PUBLIC HEALTH REFERRAL NEEDED?NO WAS THE PROVIDER NOTIFIED OF ANY PERTINENT INFO? N/A HAS THE PATIENT BEEN EDUCATED REGARDING HIS/HER PLAN OF CARE?YES HAS THE PATIENT BEEN EDUCATED REGARDING PAIN, THE RISK FOR PAIN, THE IMPORTANCE OF EFFECTIVE PAIN MANAGEMENT, AND THE PAIN ASSESSMENT PROCESS?YES ADVANCE DIRECTIVE ADVANCE DIRECTIVE DISCUSSED WITH PATIENT:YES HCP- ZANA ZIMMERMAN [phone] HOSPITALIZATION/MAJOR DIAGNOSTIC PROCEDURE CHILD, DUE TO KIDNEYS SURGERIES VITAL SIGNS WT 188.6 LBS, HT 65 IN, BMI 31.38 INDEX, BP 132/78 MM HG, HR 97 /MIN, RR 18 /MIN, TEMP 98.3 F, OXYGEN SAT % 100%, NA INITIALS AW 0933. EXAMINATION GENERAL EXAMINATION: THE PATIENT IS ALERT, ORIENTED TIMES THREE AND COOPERATIVE. LUNGS ARE CLEAR TO AUSCULTATION. HEART SHOWS REGULAR RHYTHM, NO MURMURS AND NO GALLOPS. ASSESSMENTS SACROILIITIS, NOT ELSEWHERE CLASSIFIED - M46.1 (PRIMARY) TREATMENT SACROILIITIS, NOT ELSEWHERE CLASSIFIED [facility] FLUORO GUIDANCE (PAIN)[id number] MEDICATION: VALIUM TAB 10MG ORALLY (DIAZEPAM)AVE ALCALA 05/26/2020 10:16:13 AM > VERIFIED LOT # [id number] EXP 12/03 LETHA LI 05/26/2020 10:16:59 AM > GIVEN MEDICATION: OXYCODONE HCL TAB 10MG ORALLYMONICAAVE 05/26/2020 10:16:49 AM > VERIFIED LOT # [id number] EXP 06/2021 LETHA LI 05/26/2020 10:17:12 AM > GIVEN PROCEDURES PAIN NURSING RECORD PROCEDURE IN ROOM 1100, PHYSICIAN IN ROOM 1114, START 1118, FINISH 1122, PHYSICIAN OUT OF ROOM 1123, OUT OF ROOM 1125, ECG NORMAL SINUS, PATIENT SHIELDED YES, SAFETY STRAP YES, PREP CHLOROPREP MARVIN BAIN, DRESSING TEGADERM DR PEÑA LOC: 1. ALERT, ORIENTED, GUILLERMO,LETHA 05/26/2020 11:03:47 AM > RESP: 1. REGULAR, NO DYSPNEAGUILLERMO KAREN 05/26/2020 11:03:52 AM > COLOR: 1. PINKGUILLERMO KAREN 05/26/2020 11:03:59 AM > SKIN: 1. WARM, DRYGUILLERMO KAREN 05/26/2020 11:04:04 AM > POSITION: 1. PRONEGUILLERMO KAREN 05/26/2020 11:04:09 AM > VITALS: 1100 119/82 78 18 95% KGULLO RN PN WORKMANS' COMP OPINION IN YOUR OPINION, WAS THE INCIDENT THAT THE PATIENT DESCRIBED THE COMPETENT MEDICAL CAUSE OF THIS INJURY/ILLNESS? YES ARE THE PATIENT'S COMPLAINTS CONSISTENT WITH HIS/HER HISTORY OF THE INJURY/ILLNESS? YES IS THE PATIENT'S HISTORY OF THE INJURY/ILLNESS CONSISTENT WITH YOUR OBJECTIVE FINDING? YES WHAT IS THE PERCENTAGE OF TEMPORARY IMPAIRMENT? MODERATE TO MARKED = 66.7% . IS THE PATIENT WORKING? NO . DOCTOR ON SITE: ABBY BELTRAN MD PRE PROCEDURE DIAGNOSIS SACROILITIS, SACROILIAC JOINT DYSFUNCTION POST PROCEDURE DIAGNOSIS SACROILIITIS, SACROILIAC JOINT DYSFUNCTION PROCEDURE RIGHT SACROILIAC JOINT BLOCK SURGEON DR. ABBY PEÑA PHYSICAL THERAPY ASST NONE ANESTHESIA LOCAL PRE PROCEDURE NOTE THE PATIENT HAS A HISTORY OF CHRONIC LOW BACK PAIN. I EVALUATED THE PATIENT AND REVIEWED THE CHART. I WENT OVER THE RISKS, BENEFITS AND ALTERNATIVES ASSOCIATED WITH THIS PROCEDURE. I DISCUSSED THAT THE USE OF STEROIDS MAY CONTRIBUTE TO IMMUNOSUPPRESSION OF THE PATIENT'S BODY AGAINST INFECTIONS SUCH COVID-19. THE PATIENT IS AWARE OF THE POTENTIAL COMPLICATIONS ASSOCIATED WITH THIS VIRUS, INCLUDING, BUT NOT LIMITED, . THE PATIENT WOULD LIKE TO PROCEED AND GIVES CONSENT TO PERFORM THE PROCEDURE. THE PATIENT DENIES UNEXPLAINABLE WEIGHT LOSS, FEVER, CHILLS OR NEW CHANGES IN URINARY OR BOWEL CONTROL. THE PATIENT IS COVID-19 NEGATIVE. DESCRIPTION OF PROCEDURE THE PATIENT WAS BROUGHT TO THE PROCEDURE ROOM AND PLACED IN THE PRONE POSITION. THE LUMBOSACRAL AREA WAS CLEANED WITH CHLORAPREP SOLUTION AND DRAPED ASEPTICALLY. THE PROCEDURE WAS DONE UNDER STERILE CONDITIONS. A TIMEOUT WAS PERFORMED WHERE LATERALITY AND THE SITE OF THE PROCEDURE WERE CHECKED AND CONFIRMED WITH EVERYONE IN THE ROOM. UNDER FLUOROSCOPIC GUIDANCE, THE TARGET POINT WAS SELECTED AT THE LOWER BORDER OF THE RIGHT SACROILIAC JOINT. TARGET POINT WAS SELECTED AFTER MEDIAL ROTATION AND TILT OF THE MAGNIFIER OR THE C-ARM. I CONFIRMED AGAIN WITH EVERYONE IN THE ROOM THE LATERALITY AND SITE OF THE TARGET AT 1118. LIDOCAINE 0.5% WAS USED TO NUMB THE SKIN AND THE SUBCUTANEOUS TISSUE BELOW IT. SPINAL NEEDLE, 22-GAUGE, WAS ADVANCED UNDER FLUOROSCOPIC GUIDANCE AND FOLLOWING PATIENT FEEDBACK UNTIL THE TARGET WAS TOUCHED. THE POSITION OF THE NEEDLE WAS VERIFIED WITH AP AND OBLIQUE VIEWS. AFTER PROPER POSITION OF THE NEEDLE WAS ACHIEVED, ISOVUE-M DYE 30%, 0.1 ML, WAS INJECTED SHOWING ADEQUATE SPREAD OF THE DYE. KENALOG 40 MG WAS INJECTED. THEN, A SOLUTION OF 3.0 ML OF BUPIVACAINE 0.125% WAS USED TO FLUSH THE NEEDLE. THE MEDICATIONS WERE VERIFIED WITH THE NURSE. THERE WAS NO EVIDENCE OF BLOOD, PARESTHESIA OR CEREBROSPINAL FLUID DURING THE PROCEDURE. THE PATIENT WAS SENT TO THE RECOVERY ROOM. THE PATIENT WAS MOVING THE EXTREMITIES AND DOING WELL. THERE WERE NO COMPLICATIONS DURING THE PROCEDURE. ESTIMATED BLOOD LOSS WAS LESS THAN 5 ML. FLUOROSCOPIC TIME WAS 14 SECONDS. POST PROCEDURE NOTE DEPENDING ON THE RESULTS, WE SHOULD CONSIDER AN EPIDURAL. THE PATIENT WILL BE SEEN IN A FOLLOW UP IN THE NEXT FEW WEEKS. I AM LOOKING FOR LONG LASTING RELIEF FOR THE PATIENT WITH THIS INTERVENTION. INSTRUCTIONS WERE GIVEN, QUESTIONS WERE ANSWERED AND THE PATIENT EXPRESSED UNDERSTANDING AND AGREES WITH THE PAIN. I, TORI MAYS, DOCUMENTED THE ABOVE INFORMATION ACTING A SCRIBE FOR DR. PEÑA. I HAVE REVIEWED THE ABOVE DOCUMENT WRITTEN BY TORI MAYS, OTR DRIVER, AND I VERIFY THAT IT IS ACCURATE. PROCEDURE CODES 09347 INJECT SACROILIAC JOINT, MODIFIERS: RT DISPOSITION & COMMUNICATION FOLLOW UP FOLLOW UP WITH [employer]GAL SECRETARY (REASON: POST RIGHT SACROILIAC JOINT BLOCK) ELECTRONICALLY SIGNED BY ABBY PEÑA MD, MD ON 05/28/2020 AT 09:18 AM EST DISCLAIMER : THIS IS A VISIT SUMMARY EXTRACTED FROM THE [employer] CHART. IT IS NOT A COPY OF THE [employer] PROGRESS NOTE. JANE
--- NOTE | 2020-05-29 05:29 | ECWPNPC ---
PATIENT NAME: HECTOR ZIMMERMAN : 1965 GENDER: FEMALE VISIT DATE: 05/26/2020 DISCHARGE DATE: 05/26/20 1140 VISIT LOCKED DATE TIME: PHYSICIAN: ABBY PEÑA MD RESOURCE: ABBY PEÑA MD REASON FOR APPOINTMENT 1. RIGHT SACROILIAC JOINT BLOCK HISTORY OF PRESENT ILLNESS GENERAL: -. FALL RISK SCREENING: SCREENING :NO FALLS REPORTED IN THE LAST YEAR PAIN SCREENING: PATIENT HAS A COMPLAINT OF ACUTE OR CHRONIC PAIN :NO NURSING NOTE: -. PAIN CENTER INTAKE QUESTIONS: DO YOU HAVE A HISTORY OF MRSA? :NO DO YOU TAKE A BLOOD THINNERS? :NO DO YOU HAVE ANY BLEEDING DISORDERS? :NO ANY NEW NUMBNESS OR WEAKNESS IN YOUR LEGS OR ARMS? :NO ANY PACEMAKER,DEFIBRILLATOR, OR DORSAL COLUMN STIMULATOR? :NO DO YOU HAVE ANY RASHES OR OPEN SORES? :NO ARE YOU ALLERGIC TO IV DYE? :NO ARE YOU DIABETIC? :NO ANY NEW PROBLEMS WITH YOUR MEDICATIONS? :NO HAVE YOU RECEIVED A VACCINE IN THE PAST 30 DAYS? :NO DO YOU PLAN TO RECEIVE A VACCINE IN THE NEXT 21 DAYS? :NO DO YOU TAKE ANY IMMUNOSUPPRESSIVE MEDICATIONS? :NO ANY HISTORY OF SEIZURES? :NO ANY HISTORY OF CARDIAC ISSUES OR EVENTS? :NO DO YOU HAVE SLEEP APNEA? :NO ANY RECENT HEAD INJURY? :NO DO YOU HAVE ANY NEW INFECTIONS? :NO IS THERE A CHANCE YOU COULD BE ? :NO ARE YOU BREAST FEEDING? :NO WHEN DID YOU LAST EAT? : -LAST NIGHT 2100 WHEN DID YOU LAST DRINK? : -BLACK COFFEE AND WATER WHAT DID YOU LAST DRINK? : -BLACK COFFEE AND WATER NAME OF PERSON DRIVING YOU HOME? : - ZANA DO YOU HAVE ANY OTHER QUESTIONS OR CONCERNS? : - CURRENT MEDICATIONS TAKING MULTIVITAMINS OTC TABLET 1 TAB(S) P.O. ONCE A DAY TAKING BENADRYL 25 MG CAPSULE 1 CAPSULE NEEDED ORALLY BEFORE BEDTIME TAKING CLARITIN 10 MG TABLET 1 TABLET ORALLY ONCE A DAY TAKING LIDODERM 5 % PATCH 3 PATCHES EXTERNALLY ONCE A DAY ON BACK, NOTES: 10/10 TAKING FLECTOR 1.3 % PATCH 1 PATCH TO SKIN EXTERNALLY TO LOW BACK ON 12 HRS OFF 12 HRS TAKING IBUPROFEN 800 MG TABLET 1 TABLET WITH FOOD OR MILK NEEDED ORALLY NEEDED EVERY 8 HOURS NEEDED MDD3 TAKING LYRICA 150 MG CAPSULE 1 CAPSULE ORALLY AT BEDTIME TAKING CYMBALTA 30 MG CAPSULE DELAYED RELEASE PARTICLES 1 CAPSULE ORALLY ONCE A DAY NOT-TAKING VITAMIN B COMPLEX OTC TABLET 1 TAB(S) P.O. ONCE A DAY MEDICATION LIST REVIEWED AND RECONCILED WITH THE PATIENT PAST MEDICAL HISTORY BACK SURGERY X 9 HISTORY OF KIDNEY PROBLEMS CHILD...NOT SURE OF SPECIFICS PSORIASIS BACK PAIN ALLERGIES LATEX (FOR ALLERGY USE ONLY): RASH - ALLERGY SEASONAL: ITCHY EYES, RUNNY NOSE - ALLERGY ORANGES: RASH. LIPS SWELL - ALLERGY SURGICAL HISTORY BACK SURGERY X 9 DORSAL COLOMN STIMULATOR 05/2001 LUMPECTOMY, LEFT BREAST 2009 FAMILY HISTORY FATHER: ALIVE, DIAGNOSED WITH HYPERTENSION, UNSPECIFIED HEART DISEASE MOTHER: 71 YRS, OTHER MALIGNANT NEOPLASM OF UNSPECIFIED SITE 1 BROTHER(S) , 3 SISTER(S) - HEALTHY. 3 SON(S) , 1 DAUGHTER(S) - HEALTHY. MOM-LUNG CA\NBROTHER-CHRON\'S DISEASE AND ANKLYOSIS SPONDOLITIS. SOCIAL HISTORY GENERAL: TOBACCO USE ARE YOU A:NONSMOKER LATEX QUESTIONNAIRE LATEX ALLERGY : HAVE YOU EVER DEVELOPED ANY TYPE OF REACTION AFTER HANDLING LATEX PRODUCTS SUCH RUBBER GLOVES, CONDOMS, DIAPHRAGMS, BALLOONS, SOCKS, OR UNDERWEAR?YES LATEX ALLERGY : HAVE YOU EVER DEVELOPED ANY TYPE OF REACTION DURING OR AFTER DENTAL APPOINTMENT, VAGINAL/RECTAL EXAMINATION, SURGICAL PROCEDURE, OR ANY OTHER EXPOSURE?NO - PLEASE INDICATE :RUBBER GLOVES, OTHER (DOCUMENT IN NOTES) DATE ASKED : 03/03/2020 LATEX RISK : HAVE YOU EVER HAD ANY DIFFICULTY BREATHING OR HIVES AFTER EATING OR HANDLING ANY FRUITS, OR VEGETABLES; SUCH KIWI, BANANAS, STONE FRUITS, OR CHESTNUTSNO LATEX RISK : DO YOU HAVE A PREVIOUS PERSONAL HISTORY OF MORE THAN NINE SURGERIES, SPINA BIFIDA, OR REPEATED CATHERIZATIONS? YES - PLEASE INDICATE : > 9 SURGERIES LATEX RISK : ARE YOU FREQUENTLY EXPOSED TO LATEX PRODUCTS IN YOUR OCCUPATION?NO ALCOHOL SCREENING DID YOU HAVE A DRINK CONTAINING ALCOHOL IN THE PAST YEAR?NO POINTS0 INTERPRETATIONNEGATIVE RECREATIONAL DRUG USE DRUG USE?NO YAZIDISM [id number] NONE LANGUAGE LANGUAGES SPOKEN:UPPER SORBIAN EDUCATION LEVEL OF EDUCATION:FINISHED HIGH SCHOOL LEARNING BARRIERS / SPECIAL NEEDS BARRIERS TO LEARNING?NO HEARING IMPAIRED?NO VISION IMPAIRED?YES GLASSES FOR READING COGNITIVELY IMPAIRED?NO :CORRECTIVE LENSES READINESS TO LEARN?YES LEARNING PREFERENCES?NO LEARNING CAPABILITIES PRESENT?YES EMOTIONAL BARRIERS?NO SPECIAL DEVICES?NO MILITARY POLICE OFFICER NEEDED?NO DOMESTIC VIOLENCE DO YOU FEEL SAFE IN YOUR ENVIRONMENT?YES TODAY'S VISIT 09/21/19, PATIENT DESCRIBES PAIN : ACHING, BURNING, HAVE IT ALL THE TIME, FROM 0-10, WHAT LEVEL IS YOUR PAIN TODAY? 7, PRECIPITATING FACTORS ANYTHING, ALLEVIATING FACTORS ANYTHING, IMPACT ON FUNCTION NO. PAIN CLINIC PFS, CLERGY, PUBLIC HEALTH REFERRALS PFS REFERRAL NEEDED?NO CLERGY REFERRAL NEEDED?NO PUBLIC HEALTH REFERRAL NEEDED?NO WAS THE PROVIDER NOTIFIED OF ANY PERTINENT INFO? N/A HAS THE PATIENT BEEN EDUCATED REGARDING HIS/HER PLAN OF CARE?YES HAS THE PATIENT BEEN EDUCATED REGARDING PAIN, THE RISK FOR PAIN, THE IMPORTANCE OF EFFECTIVE PAIN MANAGEMENT, AND THE PAIN ASSESSMENT PROCESS?YES ADVANCE DIRECTIVE ADVANCE DIRECTIVE DISCUSSED WITH PATIENT:YES HCP- ZANA ZIMMERMAN [phone] HOSPITALIZATION/MAJOR DIAGNOSTIC PROCEDURE CHILD, DUE TO KIDNEYS SURGERIES VITAL SIGNS WT 188.6 LBS, HT 65 IN, BMI 31.38 INDEX, BP 132/78 MM HG, HR 97 /MIN, RR 18 /MIN, TEMP 98.3 F, OXYGEN SAT % 100%, NA INITIALS AW 0933. EXAMINATION GENERAL EXAMINATION: THE PATIENT IS ALERT, ORIENTED TIMES THREE AND COOPERATIVE. LUNGS ARE CLEAR TO AUSCULTATION. HEART SHOWS REGULAR RHYTHM, NO MURMURS AND NO GALLOPS. ASSESSMENTS SACROILIITIS, NOT ELSEWHERE CLASSIFIED - M46.1 (PRIMARY) TREATMENT SACROILIITIS, NOT ELSEWHERE CLASSIFIED [facility] FLUORO GUIDANCE (PAIN)[id number] MEDICATION: VALIUM TAB 10MG ORALLY (DIAZEPAM)AVE ALCALA 05/26/2020 10:16:13 AM > VERIFIED LOT # [id number] EXP 12/03 LETHA LI 05/26/2020 10:16:59 AM > GIVEN MEDICATION: OXYCODONE HCL TAB 10MG ORALLYMONICAAVE 05/26/2020 10:16:49 AM > VERIFIED LOT # [id number] EXP 06/2021 LETHA LI 05/26/2020 10:17:12 AM > GIVEN PROCEDURES PAIN NURSING RECORD PROCEDURE IN ROOM 1100, PHYSICIAN IN ROOM 1114, START 1118, FINISH 1122, PHYSICIAN OUT OF ROOM 1123, OUT OF ROOM 1125, ECG NORMAL SINUS, PATIENT SHIELDED YES, SAFETY STRAP YES, PREP CHLOROPREP MARVIN BAIN, DRESSING TEGADERM DR PEÑA LOC: 1. ALERT, ORIENTED, GUILLERMO,LETHA 05/26/2020 11:03:47 AM > RESP: 1. REGULAR, NO DYSPNEAGUILLERMO KAREN 05/26/2020 11:03:52 AM > COLOR: 1. PINKGUILLERMO KAREN 05/26/2020 11:03:59 AM > SKIN: 1. WARM, DRYGUILLERMO KAREN 05/26/2020 11:04:04 AM > POSITION: 1. PRONEGUILLERMO KAREN 05/26/2020 11:04:09 AM > VITALS: 1100 119/82 78 18 95% KGULLO RN PN WORKMANS' COMP OPINION IN YOUR OPINION, WAS THE INCIDENT THAT THE PATIENT DESCRIBED THE COMPETENT MEDICAL CAUSE OF THIS INJURY/ILLNESS? YES ARE THE PATIENT'S COMPLAINTS CONSISTENT WITH HIS/HER HISTORY OF THE INJURY/ILLNESS? YES IS THE PATIENT'S HISTORY OF THE INJURY/ILLNESS CONSISTENT WITH YOUR OBJECTIVE FINDING? YES WHAT IS THE PERCENTAGE OF TEMPORARY IMPAIRMENT? MODERATE TO MARKED = 66.7% . IS THE PATIENT WORKING? NO . DOCTOR ON SITE: ABBY BELTRAN MD PRE PROCEDURE DIAGNOSIS SACROILITIS, SACROILIAC JOINT DYSFUNCTION POST PROCEDURE DIAGNOSIS SACROILIITIS, SACROILIAC JOINT DYSFUNCTION PROCEDURE RIGHT SACROILIAC JOINT BLOCK SURGEON DR. ABBY PEÑA MENTAL HEALTH CONSULTANT NONE ANESTHESIA LOCAL PRE PROCEDURE NOTE THE PATIENT HAS A HISTORY OF CHRONIC LOW BACK PAIN. I EVALUATED THE PATIENT AND REVIEWED THE CHART. I WENT OVER THE RISKS, BENEFITS AND ALTERNATIVES ASSOCIATED WITH THIS PROCEDURE. I DISCUSSED THAT THE USE OF STEROIDS MAY CONTRIBUTE TO IMMUNOSUPPRESSION OF THE PATIENT'S BODY AGAINST INFECTIONS SUCH COVID-19. THE PATIENT IS AWARE OF THE POTENTIAL COMPLICATIONS ASSOCIATED WITH THIS VIRUS, INCLUDING, BUT NOT LIMITED, . THE PATIENT WOULD LIKE TO PROCEED AND GIVES CONSENT TO PERFORM THE PROCEDURE. THE PATIENT DENIES UNEXPLAINABLE WEIGHT LOSS, FEVER, CHILLS OR NEW CHANGES IN URINARY OR BOWEL CONTROL. THE PATIENT IS COVID-19 NEGATIVE. DESCRIPTION OF PROCEDURE THE PATIENT WAS BROUGHT TO THE PROCEDURE ROOM AND PLACED IN THE PRONE POSITION. THE LUMBOSACRAL AREA WAS CLEANED WITH CHLORAPREP SOLUTION AND DRAPED ASEPTICALLY. THE PROCEDURE WAS DONE UNDER STERILE CONDITIONS. A TIMEOUT WAS PERFORMED WHERE LATERALITY AND THE SITE OF THE PROCEDURE WERE CHECKED AND CONFIRMED WITH EVERYONE IN THE ROOM. UNDER FLUOROSCOPIC GUIDANCE, THE TARGET POINT WAS SELECTED AT THE LOWER BORDER OF THE RIGHT SACROILIAC JOINT. TARGET POINT WAS SELECTED AFTER MEDIAL ROTATION AND TILT OF THE MAGNIFIER OR THE C-ARM. I CONFIRMED AGAIN WITH EVERYONE IN THE ROOM THE LATERALITY AND SITE OF THE TARGET AT 1118. LIDOCAINE 0.5% WAS USED TO NUMB THE SKIN AND THE SUBCUTANEOUS TISSUE BELOW IT. SPINAL NEEDLE, 22-GAUGE, WAS ADVANCED UNDER FLUOROSCOPIC GUIDANCE AND FOLLOWING PATIENT FEEDBACK UNTIL THE TARGET WAS TOUCHED. THE POSITION OF THE NEEDLE WAS VERIFIED WITH AP AND OBLIQUE VIEWS. AFTER PROPER POSITION OF THE NEEDLE WAS ACHIEVED, ISOVUE-M DYE 30%, 0.1 ML, WAS INJECTED SHOWING ADEQUATE SPREAD OF THE DYE. KENALOG 40 MG WAS INJECTED. THEN, A SOLUTION OF 3.0 ML OF BUPIVACAINE 0.125% WAS USED TO FLUSH THE NEEDLE. THE MEDICATIONS WERE VERIFIED WITH THE NURSE. THERE WAS NO EVIDENCE OF BLOOD, PARESTHESIA OR CEREBROSPINAL FLUID DURING THE PROCEDURE. THE PATIENT WAS SENT TO THE RECOVERY ROOM. THE PATIENT WAS MOVING THE EXTREMITIES AND DOING WELL. THERE WERE NO COMPLICATIONS DURING THE PROCEDURE. ESTIMATED BLOOD LOSS WAS LESS THAN 5 ML. FLUOROSCOPIC TIME WAS 14 SECONDS. POST PROCEDURE NOTE DEPENDING ON THE RESULTS, WE SHOULD CONSIDER AN EPIDURAL. THE PATIENT WILL BE SEEN IN A FOLLOW UP IN THE NEXT FEW WEEKS. I AM LOOKING FOR LONG LASTING RELIEF FOR THE PATIENT WITH THIS INTERVENTION. INSTRUCTIONS WERE GIVEN, QUESTIONS WERE ANSWERED AND THE PATIENT EXPRESSED UNDERSTANDING AND AGREES WITH THE PAIN. I, TORI MAYS, DOCUMENTED THE ABOVE INFORMATION ACTING A SCRIBE FOR DR. PEÑA. I HAVE REVIEWED THE ABOVE DOCUMENT WRITTEN BY TORI MAYS, INSTRUCTIONAL INTERVENTIONIST, AND I VERIFY THAT IT IS ACCURATE. PROCEDURE CODES 32083 INJECT SACROILIAC JOINT, MODIFIERS: RT DISPOSITION & COMMUNICATION FOLLOW UP FOLLOW UP WITH [employer] BUSINESS DEVELOPER (REASON: POST RIGHT SACROILIAC JOINT BLOCK) ELECTRONICALLY SIGNED BY ABBY PEÑA MD, MD ON 05/28/2020 AT 09:18 AM EST DISCLAIMER : THIS IS A VISIT SUMMARY EXTRACTED FROM THE [employer] CHART. IT IS NOT A COPY OF THE [employer] PROGRESS NOTE. JANE
== END ==
LOC: M PAIN 09:30
PROVIDERS: ATTEND Anesthesiology
DX: M46.1 Sacroiliitis, not elsewhere classified (principal); Z91.018 Allergy to other foods; Z91.040 Latex allergy status; Z79.899 Other long term (current) drug therapy
CPT/HCPCS: G0260; J3301

== ENCOUNTER → 2020-06-11 | Outpatient (CLI) | payer OTHER ==
[~2020-06-11] MED LIST changes: -BUPIVACAINE HCL 0.25% 30ML VIAL As Ordered ONE; -LIDOCAINE 1% SDV 30ML VIAL As Ordered ONE; -TRIAMCINOLONE ACETONIDE SUSP 40 MG/ML VIAL (J3301) As Ordered ONE; -diazePAM 5MG TABLET As Ordered ONE; -oxyCODONE 5MG TAB As Ordered ONE
--- NOTE | 2020-06-13 02:58 | ECWPNPC ---
PATIENT NAME: HECTOR ZIMMERMAN : 1965 GENDER: FEMALE VISIT DATE: 06/11/2020 DISCHARGE DATE: 06/11/20915 VISIT LOCKED DATE TIME: PHYSICIAN: TEMI GLORIA RESOURCE: TEMI GLORIA REASON FOR APPOINTMENT 1. POST RIGHT SACROILIAC JOINT INJECTION HISTORY OF PRESENT ILLNESS DEPRESSION SCREENIN-YEAR-OLD FEMALE IN FOR POST RIGHT SACROILIAC JOINT INJECTION FOLLOW-UP. PATIENT FEELS THE PROCEDURE WAS VERY SUCCESSFUL OVERALL RATING HER PAIN PREPROCEDURE AT A 6-7 OUT OF 10 AND POSTPROCEDURE AT A 0-1 OUT OF 10. SHE FURTHER STATES THE PROCEDURE CONTINUES TO HELP HER TODAY RATING HER PAIN AT A 1 OUT OF 10. 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 THE PATIENT STATES HER PAIN BEGINS IN HER LOW BACK AND RADIATES DOWN MAINLY HER RIGHT LEG. THE PATIENT SAYS THE PAIN INCREASES WITH ACTIVITIES. GENERAL: -. FALL RISK SCREENING: SCREENING :NO FALLS REPORTED IN THE LAST YEAR PAIN SCREENING: PATIENT HAS A COMPLAINT OF ACUTE OR CHRONIC PAIN :YES LOCATION OF PAIN:LEG(S) RIGHTLEG INTENSITY OF PAIN (SCALE OF 1 TO 10):1 WHAT DOES YOUR PAIN FEEL LIKE:ACHING, BURNING, STABBING, THROBBING, SHOOTING DURATION:CONTINOUS, CONSTANT, ALL DAY PAIN IS INCREASED BY:ACTIVITIES, PROLONGED STANDING PAIN IS DECREASED BY:OTHERS NOTHING NURSING NOTE: -. PAIN CENTER INTAKE QUESTIONS: DO YOU HAVE A HISTORY OF MRSA? :NO DO YOU TAKE A BLOOD THINNERS? :NO DO YOU HAVE ANY BLEEDING DISORDERS? :NO ANY NEW NUMBNESS OR WEAKNESS IN YOUR LEGS OR ARMS? :NO ANY PACEMAKER,DEFIBRILLATOR, OR DORSAL COLUMN STIMULATOR? :YES PATIENT HAS A DORSAL COLUMN STIMULATOR, STATES IT IS WORKING WELL FOR HER. DO YOU HAVE ANY RASHES OR OPEN SORES? :YES PSORIASIS ARE YOU ALLERGIC TO IV DYE? :NO ARE YOU DIABETIC? :NO ANY NEW PROBLEMS WITH YOUR MEDICATIONS? :NO HAVE YOU RECEIVED A VACCINE IN THE PAST 30 DAYS? :NO DO YOU PLAN TO RECEIVE A VACCINE IN THE NEXT 21 DAYS? :NO DO YOU NEED ANY PRESCRIPTION? :YES LHYRICA AND CYMBALTA DO YOU TAKE ANY IMMUNOSUPPRESSIVE MEDICATIONS? :NO IS THERE A CHANCE YOU COULD BE ? :NO ARE YOU BREAST FEEDING? :NO CURRENT MEDICATIONS TAKING MULTIVITAMINS OTC TABLET 1 TAB(S) P.O. ONCE A DAY TAKING BENADRYL 25 MG CAPSULE 1 CAPSULE NEEDED ORALLY BEFORE BEDTIME TAKING CLARITIN 10 MG TABLET 1 TABLET ORALLY ONCE A DAY TAKING LIDODERM 5 % PATCH 3 PATCHES EXTERNALLY ONCE A DAY ON BACK TAKING FLECTOR 1.3 % PATCH 1 PATCH TO SKIN EXTERNALLY TO LOW BACK ON 12 HRS OFF 12 HRS TAKING IBUPROFEN 800 MG TABLET 1 TABLET WITH FOOD OR MILK NEEDED ORALLY NEEDED EVERY 8 HOURS NEEDED MDD3 TAKING LYRICA 150 MG CAPSULE 1 CAPSULE ORALLY AT BEDTIME TAKING CYMBALTA 30 MG CAPSULE DELAYED RELEASE PARTICLES 1 CAPSULE ORALLY ONCE A DAY NOT-TAKING VITAMIN B COMPLEX OTC TABLET 1 TAB(S) P.O. ONCE A DAY MEDICATION LIST REVIEWED AND RECONCILED WITH THE PATIENT PAST MEDICAL HISTORY BACK SURGERY X 9 HISTORY OF KIDNEY PROBLEMS CHILD...NOT SURE OF SPECIFICS PSORIASIS BACK PAIN ALLERGIES LATEX (FOR ALLERGY USE ONLY): RASH - ALLERGY SEASONAL: ITCHY EYES, RUNNY NOSE - ALLERGY ORANGES: RASH. LIPS SWELL - ALLERGY SOCIAL HISTORY GENERAL: TOBACCO USE ARE YOU A:NONSMOKER LATEX QUESTIONNAIRE LATEX ALLERGY : HAVE YOU EVER DEVELOPED ANY TYPE OF REACTION AFTER HANDLING LATEX PRODUCTS SUCH RUBBER GLOVES, CONDOMS, DIAPHRAGMS, BALLOONS, SOCKS, OR UNDERWEAR?YES - PLEASE INDICATE :RUBBER GLOVES, OTHER (DOCUMENT IN NOTES) LATEX ALLERGY : HAVE YOU EVER DEVELOPED ANY TYPE OF REACTION DURING OR AFTER DENTAL APPOINTMENT, VAGINAL/RECTAL EXAMINATION, SURGICAL PROCEDURE, OR ANY OTHER EXPOSURE?NO LATEX RISK : HAVE YOU EVER HAD ANY DIFFICULTY BREATHING OR HIVES AFTER EATING OR HANDLING ANY FRUITS, OR VEGETABLES; SUCH KIWI, BANANAS, STONE FRUITS, OR CHESTNUTSNO LATEX RISK : DO YOU HAVE A PREVIOUS PERSONAL HISTORY OF MORE THAN NINE SURGERIES, SPINA BIFIDA, OR REPEATED CATHERIZATIONS? YES - PLEASE INDICATE : > 9 SURGERIES LATEX RISK : ARE YOU FREQUENTLY EXPOSED TO LATEX PRODUCTS IN YOUR OCCUPATION?NO DATE ASKED : 06/11/2020 ALCOHOL USE: NO. ALCOHOL SCREENING DID YOU HAVE A DRINK CONTAINING ALCOHOL IN THE PAST YEAR?NO POINTS0 INTERPRETATIONNEGATIVE RECREATIONAL DRUG USE DRUG USE?NO SPIRITISM [id number] NONE LANGUAGE LANGUAGES SPOKEN:LAO EDUCATION LEVEL OF EDUCATION:FINISHED HIGH SCHOOL LEARNING BARRIERS / SPECIAL NEEDS CHANGE FROM LAST VISIT?YES BARRIERS TO LEARNING?NO HEARING IMPAIRED?NO VISION IMPAIRED?YES GLASSES FOR READING :CORRECTIVE LENSES COGNITIVELY IMPAIRED?NO READINESS TO LEARN?YES LEARNING PREFERENCES?NO LEARNING CAPABILITIES PRESENT?YES EMOTIONAL BARRIERS?NO SPECIAL DEVICES?NO MANAGER SUPPLY NEEDED?NO DOMESTIC VIOLENCE DO YOU FEEL SAFE IN YOUR ENVIRONMENT?YES TODAY'S VISIT 09/21/19, PATIENT DESCRIBES PAIN : ACHING, BURNING, HAVE IT ALL THE TIME, FROM 0-10, WHAT LEVEL IS YOUR PAIN TODAY? 7, PRECIPITATING FACTORS ANYTHING, ALLEVIATING FACTORS ANYTHING, IMPACT ON FUNCTION NO. - PFS REFERRAL NEEDED?NO CLERGY REFERRAL NEEDED?NO PUBLIC HEALTH REFERRAL NEEDED?NO WAS THE PROVIDER NOTIFIED OF ANY PERTINENT INFO? N/A HAS THE PATIENT BEEN EDUCATED REGARDING HIS/HER PLAN OF CARE?YES HAS THE PATIENT BEEN EDUCATED REGARDING PAIN, THE RISK FOR PAIN, THE IMPORTANCE OF EFFECTIVE PAIN MANAGEMENT, AND THE PAIN ASSESSMENT PROCESS?YES ADVANCE DIRECTIVE ADVANCE DIRECTIVE DISCUSSED WITH PATIENT:YES HCP- ZANA ZIMMERMAN [phone] REVIEW OF SYSTEMS CONSTITUTIONAL: ANY RECENT FEVER NO . CHILLS NO . WEIGHT CHANGE OF UNKNOWN REASONS NO . GASTROENTEROLOGY: NEW UNEXPLAINABLE CHANGES IN BOWEL CONTROL NO . CONSTIPATION NO . GENITOURINARY: ANY NEW CHANGE IN BLADDER CONTROL? NO . NEUROLOGY: NEW ONSET DIZZINESS OR NEUROLOGICAL CHANGES NOT MENTIONED NO . NEW NUMBNESS OR PAIN PATTERNS NOT MENTIONED AND PERTINENT TO TODAY'S VISIT NO . CARDIOLOGY: NEW CHEST PRESSURE NO . NEW CHEST PAIN NO . RESPIRATORY: UNEXPLAINABLE COUGH NO . NEW SHORTNESS OF BREATH NO . VITAL SIGNS WT 189 LBS, HT 65 IN, BMI 31.45 INDEX, BP 129/63 MM HG, HR 84 /MIN, RR 18 /MIN, TEMP 96.7 F, OXYGEN SAT % 99%, SAFE IN ENV? (Y/N) YEST.BETO EDUARDO. EXAMINATION GENERAL EXAMINATION: GENERALNO ACUTE DISTRESS, WELL NOURISHED AND HYDRATED. PSYCHAPPROPRIATE MOOD AND AFFECT . LUNGS:CLEAR TO AUSCULTATION BILATERALLY, NO WHEEZES, RHONCHI, RALES. HEART:NO MURMURS, REGULAR RATE AND RHYTHM. ASSESSMENTS OTHER CHRONIC PAIN - G89.29 (PRIMARY) SACROILIITIS, NOT ELSEWHERE CLASSIFIED - M46.1 TREATMENT OTHER CHRONIC PAIN PAIN PROCEDURE LOGDATE OF PROCEDURE05/26/20PROCEDURE:RIGHT SACROILIAC JOINT BLOCKAMOUNT OF PRE SEDATEVALIUM 10MG, OXYCODONE 10MGRESULT:PRE 6-11/22 POST 0-05/25 CONTINUES TO HELP TODAY NOTES: 55-YEAR-OLD FEMALE IN FOR POST RIGHT SACROILIAC JOINT BLOCK FOLLOW-UP. GIVEN PRESENTING SYMPTOMS RECOMMEND FOLLOW-UP IN 3 MONTHS. PATIENT HAS EXPRESSED UNDERSTANDING OF AND WAS IN AGREEMENT WITH TREATMENT PLAN. GIVEN TIME TO ASK QUESTIONS AND EXPRESS CONCERNS. , ISTOP REGISTRY REVIEWED AND DEMONSTRATES COMPLLIANCE. (REF # [id number] ). SACROILIITIS, NOT ELSEWHERE CLASSIFIED REFILL LYRICA CAPSULE, 150 MG, 1 CAPSULE, ORALLY, AT BEDTIME, 90 DAYS, 90, REFILLS 1 PROCEDURES PN WORKMANS' COMP OPINION IN YOUR OPINION, WAS THE INCIDENT THAT THE PATIENT DESCRIBED THE COMPETENT MEDICAL CAUSE OF THIS INJURY/ILLNESS? YES ARE THE PATIENT'S COMPLAINTS CONSISTENT WITH HIS/HER HISTORY OF THE INJURY/ILLNESS? YES IS THE PATIENT'S HISTORY OF THE INJURY/ILLNESS CONSISTENT WITH YOUR OBJECTIVE FINDING? YES WHAT IS THE PERCENTAGE OF TEMPORARY IMPAIRMENT? MODERATE TO MARKED = 66.7% IS THE PATIENT WORKING? NO DOCTOR ON SITE: ABBY BELTRAN MD PROCEDURE CODES FA211 ESTABILISHED PATIENT [facility] CHARGE DISPOSITION & COMMUNICATION FOLLOW UP 3 MONTHS (REASON: SACROILIITIS/WORKER'S COMP.) ELECTRONICALLY SIGNED BY EDWAR PITTMAN ON 06/12/2020 AT 09:11 AM EST DISCLAIMER : THIS IS A VISIT SUMMARY EXTRACTED FROM THE [employer] CHART. IT IS NOT A COPY OF THE [employer] PROGRESS NOTE. JANE
== END ==
LOC: M PAIN 08:45
PROVIDERS: ATTEND Family Medicine
DX: G89.29 Other chronic pain (principal); M46.1 Sacroiliitis, not elsewhere classified; L40.9 Psoriasis, unspecified; J30.2 Other seasonal allergic rhinitis; Z79.899 Other long term (current) drug therapy; Z91.040 Latex allergy status; Z91.018 Allergy to other foods

== ENCOUNTER → 2020-07-14 | Outpatient (CLI) | payer OTHER ==
[2020-07-14 09:04] LABS: BASO % 0.8 % (0.0-1.0); EOS # 0.1 10^3/uL (0.0-0.5); EOS % 1.2 % (0.0-3.0); HEMOGLOBIN 13.5 g/dl (12.0-15.5); LYMPH # 1.3 10^3/uL (1.5-5.0); LYMPH % 26.5 % (24.0-44.0); MEAN CORPUSCULAR HEMOGLOBIN 30.8 pg (27.0-33.0); MEAN CORPUSCULAR HGB CONC 32.9 g/dl (32.0-36.5); MEAN CORPUSCULAR VOLUME 93.4 fl (80.0-96.0); MONO # 0.4 10^3/uL (0.0-0.8); MONO % 7.2 % (2.0-8.0); NEUTROPHILS # 3.2 10^3/uL (1.5-8.5); NEUTROPHILS % 63.9 % (36.0-66.0); PLATELET COUNT, AUTOMATED 167 10^3/uL (150-450); RED BLOOD COUNT 4.39 10^6/uL (4.00-5.40)
[2020-07-14 09:30] LABS: HCG, SERUM QUALITATIVE NEGATIVE (NEGATIVE)
[2020-07-14 09:33] LABS: BLOOD UREA NITROGEN 12 MG/DL (7-18); CALCIUM LEVEL 9.1 MG/DL (8.5-10.1); CARBON DIOXIDE LEVEL 28 MEQ/L (21-32); CHLORIDE LEVEL 104 MEQ/L (98-107); GLOMERULAR FILTRATION RATE > 60.0 (>51); GLUCOSE, FASTING 81 MG/DL (70-100); POTASSIUM SERUM 4.2 MEQ/L (3.5-5.1); SODIUM LEVEL 139 MEQ/L (136-145)
== END ==
LOC: M LAB 07:52
PROVIDERS: ATTEND Neurological Surgery
DX: G89.4 Chronic pain syndrome (principal)

== ENCOUNTER → 2020-09-09 | Outpatient (CLI) | payer OTHER ==
--- NOTE | 2020-09-11 05:51 | ECWPNPC ---
PATIENT NAME: HECTOR ZIMMERMAN : 1965 GENDER: FEMALE VISIT DATE: 09/09/2020 DISCHARGE DATE: 09/09/20 0935 VISIT LOCKED DATE TIME: PHYSICIAN: TEMI GLORIA RESOURCE: TEMI GLORIA REASON FOR APPOINTMENT 1. SACROILIITIS/WORKER'S COMP. HISTORY OF PRESENT ILLNESS GENERAL: -55-YEAR-OLD FEMALE IN FOR WORKER'S COMP. CHRONIC PAIN FOLLOW-UP. SHE RATES HER PAIN CURRENTLY AT A 7 OUT OF 10 AND DESCRIBES IT ACHING, AND SHOOTING. PATIENT FEELS HER MEDICATIONS ARE HELPFUL AND DENIES MED SIDE EFFECTS AT THIS TIME. 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 THE PATIENT STATES HER PAIN BEGINS IN HER LOW BACK AND RADIATES DOWN MAINLY HER RIGHT LEG. THE PATIENT SAYS THE PAIN INCREASES WITH ACTIVITIES. FALL RISK SCREENING: SCREENING A FEW FALLS REPORTED IN THE LAST YEAR WITHOUT INJURY.. PAIN SCREENING: PATIENT HAS A COMPLAINT OF ACUTE OR CHRONIC PAIN :YES LOCATION OF PAIN:LOW BACK, RIGHT HIP INTENSITY OF PAIN (SCALE OF 1 TO 10):7 WHAT DOES YOUR PAIN FEEL LIKE:ACHING, SHOOTING ACHING IN BACK, SHOOTING IN KNEE DURATION:CONTINOUS, CONSTANT, AWAKENS FROM SLEEP PAIN IS INCREASED BY:ACTIVITIES, PROLONGED STANDING PAIN IS DECREASED BY:USE OF PAIN MEDICATIONS PAIN MEDS TAKE THE EDGE OFF, POSITIONAL CHANGES NURSING NOTE: -. PAIN CENTER INTAKE QUESTIONS: DO YOU HAVE A HISTORY OF MRSA? :NO DO YOU TAKE A BLOOD THINNERS? :NO DO YOU HAVE ANY BLEEDING DISORDERS? :NO ANY NEW NUMBNESS OR WEAKNESS IN YOUR LEGS OR ARMS? :NO ANY PACEMAKER,DEFIBRILLATOR, OR DORSAL COLUMN STIMULATOR? :YES PATIENT HAS A DORSAL COLUMN STIMULATOR, STATES IT IS WORKING WELL FOR HER. DO YOU HAVE ANY RASHES OR OPEN SORES? :YES PSORIASIS ARE YOU ALLERGIC TO IV DYE? :NO ARE YOU DIABETIC? :NO ANY NEW PROBLEMS WITH YOUR MEDICATIONS? :NO HAVE YOU RECEIVED A VACCINE IN THE PAST 30 DAYS? :NO DO YOU PLAN TO RECEIVE A VACCINE IN THE NEXT 21 DAYS? :NO DO YOU NEED ANY PRESCRIPTION? :YES FLECTOR PATCHES AND LYRICA AND CYMBALTA DO YOU TAKE ANY IMMUNOSUPPRESSIVE MEDICATIONS? :NO IS THERE A CHANCE YOU COULD BE ? :NO ARE YOU BREAST FEEDING? :NO CURRENT MEDICATIONS TAKING MULTIVITAMINS OTC TABLET 1 TAB(S) P.O. ONCE A DAY TAKING BENADRYL 25 MG CAPSULE 1 CAPSULE NEEDED ORALLY BEFORE BEDTIME TAKING CLARITIN 10 MG TABLET 1 TABLET ORALLY ONCE A DAY TAKING IBUPROFEN 800 MG TABLET 1 TABLET WITH FOOD OR MILK NEEDED ORALLY NEEDED EVERY 8 HOURS NEEDED MDD3 TAKING LYRICA 150 MG CAPSULE 1 CAPSULE ORALLY AT BEDTIME TAKING CYMBALTA 30 MG CAPSULE DELAYED RELEASE PARTICLES 1 CAPSULE ORALLY ONCE A DAY TAKING LIDODERM 5 % PATCH 3 PATCHES EXTERNALLY ONCE A DAY ON BACK TAKING FLECTOR 1.3 % PATCH 1 PATCH TO SKIN EXTERNALLY TO LOW BACK ON 12 HRS OFF 12 HRS NOT-TAKING VITAMIN B COMPLEX OTC TABLET 1 TAB(S) P.O. ONCE A DAY MEDICATION LIST REVIEWED AND RECONCILED WITH THE PATIENT PAST MEDICAL HISTORY BACK SURGERY X 9 HISTORY OF KIDNEY PROBLEMS CHILD...NOT SURE OF SPECIFICS PSORIASIS BACK PAIN ALLERGIES LATEX (FOR ALLERGY USE ONLY): RASH - ALLERGY SEASONAL: ITCHY EYES, RUNNY NOSE - ALLERGY ORANGES: RASH. LIPS SWELL - ALLERGY SOCIAL HISTORY GENERAL: TOBACCO USE ARE YOU A:NONSMOKER LATEX QUESTIONNAIRE LATEX ALLERGY : HAVE YOU EVER DEVELOPED ANY TYPE OF REACTION AFTER HANDLING LATEX PRODUCTS SUCH RUBBER GLOVES, CONDOMS, DIAPHRAGMS, BALLOONS, SOCKS, OR UNDERWEAR?YES - PLEASE INDICATE :RUBBER GLOVES, OTHER (DOCUMENT IN NOTES) LATEX ALLERGY : HAVE YOU EVER DEVELOPED ANY TYPE OF REACTION DURING OR AFTER DENTAL APPOINTMENT, VAGINAL/RECTAL EXAMINATION, SURGICAL PROCEDURE, OR ANY OTHER EXPOSURE?NO LATEX RISK : HAVE YOU EVER HAD ANY DIFFICULTY BREATHING OR HIVES AFTER EATING OR HANDLING ANY FRUITS, OR VEGETABLES; SUCH KIWI, BANANAS, STONE FRUITS, OR CHESTNUTSNO LATEX RISK : DO YOU HAVE A PREVIOUS PERSONAL HISTORY OF MORE THAN NINE SURGERIES, SPINA BIFIDA, OR REPEATED CATHERIZATIONS? YES - PLEASE INDICATE : > 9 SURGERIES LATEX RISK : ARE YOU FREQUENTLY EXPOSED TO LATEX PRODUCTS IN YOUR OCCUPATION?NO DATE ASKED : 09/09/2020 ALCOHOL USE: NO. ALCOHOL SCREENING DID YOU HAVE A DRINK CONTAINING ALCOHOL IN THE PAST YEAR?NO POINTS0 INTERPRETATIONNEGATIVE RECREATIONAL DRUG USE DRUG USE?NO DRUZE [id number] NONE LANGUAGE LANGUAGES SPOKEN:KITTITIAN EDUCATION LEVEL OF EDUCATION:FINISHED HIGH SCHOOL LEARNING BARRIERS / SPECIAL NEEDS CHANGE FROM LAST VISIT?YES BARRIERS TO LEARNING?NO HEARING IMPAIRED?NO VISION IMPAIRED?YES GLASSES FOR READING :CORRECTIVE LENSES COGNITIVELY IMPAIRED?NO READINESS TO LEARN?YES LEARNING PREFERENCES?NO LEARNING CAPABILITIES PRESENT?YES EMOTIONAL BARRIERS?NO SPECIAL DEVICES?NO IN STORE MARKETING ASSOCIATE NEEDED?NO DOMESTIC VIOLENCE DO YOU FEEL SAFE IN YOUR ENVIRONMENT?YES TODAY'S VISIT 09/21/19, PATIENT DESCRIBES PAIN : ACHING, BURNING, HAVE IT ALL THE TIME, FROM 0-10, WHAT LEVEL IS YOUR PAIN TODAY? 7, PRECIPITATING FACTORS ANYTHING, ALLEVIATING FACTORS ANYTHING, IMPACT ON FUNCTION NO. - PFS REFERRAL NEEDED?NO CLERGY REFERRAL NEEDED?NO PUBLIC HEALTH REFERRAL NEEDED?NO WAS THE PROVIDER NOTIFIED OF ANY PERTINENT INFO? N/A HAS THE PATIENT BEEN EDUCATED REGARDING HIS/HER PLAN OF CARE?YES HAS THE PATIENT BEEN EDUCATED REGARDING PAIN, THE RISK FOR PAIN, THE IMPORTANCE OF EFFECTIVE PAIN MANAGEMENT, AND THE PAIN ASSESSMENT PROCESS?YES ADVANCE DIRECTIVE ADVANCE DIRECTIVE DISCUSSED WITH PATIENT:YES HCP- ZANA ZIMMERMAN [phone] REVIEW OF SYSTEMS CONSTITUTIONAL: ANY RECENT FEVER NO . CHILLS NO . WEIGHT CHANGE OF UNKNOWN REASONS NO . GASTROENTEROLOGY: NEW UNEXPLAINABLE CHANGES IN BOWEL CONTROL NO . CONSTIPATION NO . GENITOURINARY: ANY NEW CHANGE IN BLADDER CONTROL? NO . NEUROLOGY: NEW ONSET DIZZINESS OR NEUROLOGICAL CHANGES NOT MENTIONED NO . NEW NUMBNESS OR PAIN PATTERNS NOT MENTIONED AND PERTINENT TO TODAY'S VISIT NO . CARDIOLOGY: NEW CHEST PRESSURE NO . PATIENT DENIES NO . RESPIRATORY: UNEXPLAINABLE COUGH NO . NEW SHORTNESS OF BREATH NO . VITAL SIGNS WT 194 LBS, HT 65 IN, BMI 32.28 INDEX, BP 123/78 MM HG, RR 18 /MIN, TEMP 98.2 F, OXYGEN SAT % 100%, SAFE IN ENV? (Y/N) YES, REVIEWED BY: KARYN RICHARDS MA. EXAMINATION GENERAL EXAMINATION: GENERALNO ACUTE DISTRESS, WELL NOURISHED AND HYDRATED. PSYCHAPPROPRIATE MOOD AND AFFECT . LUNGS:CLEAR TO AUSCULTATION BILATERALLY, NO WHEEZES, RHONCHI, RALES. HEART:NO MURMURS, REGULAR RATE AND RHYTHM. ASSESSMENTS SACROILIITIS, NOT ELSEWHERE CLASSIFIED - M46.1 (PRIMARY), RISK: (NULL) TREATMENT SACROILIITIS, NOT ELSEWHERE CLASSIFIED START TIZANIDINE HCL CAPSULE, 2 MG, 1 CAPSULE NEEDED, ORALLY, DAILY, 90 DAY(S), 90 CAPSULE(S) CONTINUE LYRICA CAPSULE, 150 MG, 1 CAPSULE, ORALLY, AT BEDTIME, 90 DAYS, 90, REFILLS 1 REFILL CYMBALTA CAPSULE DELAYED RELEASE PARTICLES, 30 MG, 1 CAPSULE, ORALLY, ONCE A DAY, 90 DAY(S), 90 CAPSULE(S), REFILLS 2 CONTINUE FLECTOR PATCH, 1.3 %, 1 PATCH TO SKIN, EXTERNALLY, TO LOW BACK ON 12 HRS OFF 12 HRS, 30 DAY(S), 30, REFILLS 2 NOTES: 55-YEAR-OLD FEMALE IN FOR CHRONIC PAIN FOLLOW-UP. GIVEN PRESENTING SYMPTOMS RECOMMENDED STARTING TIZANIDINE 2 MG 1 CAPSULE ORALLY AT BEDTIME WITH FOLLOW-UP IN 3 MONTHS. PATIENT HAS EXPRESSED UNDERSTANDING OF WAS IN AGREEMENT WITH TREATMENT PLAN. GIVEN TIME TO ASK QUESTIONS AND EXPRESS CONCERNS. , ISTOP REGISTRY REVIEWED AND DEMONSTRATES COMPLLIANCE. (REF # [id number] ) BRINGS IN MEDICATIONS WHICH IS APPROPRIATE FOR WHAT WAS DISPENSED. PROCEDURES PN WORKMANS' COMP OPINION IN YOUR OPINION, WAS THE INCIDENT THAT THE PATIENT DESCRIBED THE COMPETENT MEDICAL CAUSE OF THIS INJURY/ILLNESS? YES ARE THE PATIENT'S COMPLAINTS CONSISTENT WITH HIS/HER HISTORY OF THE INJURY/ILLNESS? YES IS THE PATIENT'S HISTORY OF THE INJURY/ILLNESS CONSISTENT WITH YOUR OBJECTIVE FINDING? YES WHAT IS THE PERCENTAGE OF TEMPORARY IMPAIRMENT? MODERATE TO MARKED = 66.7% IS THE PATIENT WORKING? NO DOCTOR ON SITE: ABBY BELTRAN MD PROCEDURE CODES FA211 ESTABILISHED PATIENT [facility] CHARGE DISPOSITION & COMMUNICATION FOLLOW UP 3 MONTHS (REASON: SACROILLITIS ) ELECTRONICALLY SIGNED BY EDWAR PITTMAN ON 09/10/2020 AT 08:42 AM EDT DISCLAIMER : THIS IS A VISIT SUMMARY EXTRACTED FROM THE [employer] CHART. IT IS NOT A COPY OF THE [employer] PROGRESS NOTE. JANE
== END ==
LOC: M PAIN 09:00
PROVIDERS: ATTEND Family Medicine
DX: M46.1 Sacroiliitis, not elsewhere classified (principal); G89.29 Other chronic pain; Z91.018 Allergy to other foods; Z91.040 Latex allergy status; Z79.899 Other long term (current) drug therapy

== ENCOUNTER → 2020-09-30 | Outpatient (CLI) | payer MEDICARE ==
--- NOTE | 2020-09-30 10:35 | REP ---
INDICATION: PAIN IN RIGHT FOOT. COMPARISON: None. TECHNIQUE: Four views FINDINGS: The joint spaces are symmetric and relatively well maintained. There is no evidence of acute fracture or destructive osseous lesion. IMPRESSION: Negative. <Electronically signed by Adin Silvestre > 09/30/20 1036
== END ==
LOC: M RAD 07:58
PROVIDERS: ATTEND Family Medicine
DX: M79.671 Pain in right foot (principal)

== ENCOUNTER → 2020-09-30 | Outpatient (CLI) | payer MEDICARE, OTHER ==
[2020-09-30 08:51] LABS: APPEARANCE, URINE CLEAR (CLEAR); BACTERIA, URINE AUTO NEGATIVE (NEGATIVE); BILIRUBIN, URINE AUTO NEGATIVE (NEGATIVE); BLOOD, URINE BLOOD NEGATIVE (NEGATIVE); COLOR, URINE STRAW (YELLOW); GLUCOSE, URINE (UA) AUTO NEGATIVE (NEGATIVE); KETONE, URINE AUTO NEGATIVE (NEGATIVE); LEUKOCYTE ESTERASE, URINE AUTO NEGATIVE (NEGATIVE); NITRITE, URINE AUTO NEGATIVE (NEGATIVE); PROTEIN, URINE AUTO NEGATIVE (NEGATIVE); RBC, URINE AUTO 2 /HPF (0-3); SPECIFIC GRAVITY URINE AUTO 1.002 (1.002-1.035); SQUAMOUS EPITHELIAL CELL UR AU 1 /HPF (0-6); UROBILINOGEN, URINE AUTO 0.2 mg/dL (0.0-2.0); WBC, URINE AUTO 0 /HPF (0-3)
[2020-09-30 08:52] LABS: BASO # 0.1 10^3/uL (0.0-0.2); BASO % 1.4 % (0.0-1.0); EOS # 0.1 10^3/uL (0.0-0.5); EOS % 1.6 % (0.0-3.0); HEMATOCRIT 43.4 % (36.0-47.0); HEMOGLOBIN 14.4 g/dl (12.0-15.5); LYMPH # 1.2 10^3/uL (1.5-5.0); LYMPH % 33.3 % (24.0-44.0); MEAN CORPUSCULAR HEMOGLOBIN 30.6 pg (27.0-33.0); MEAN CORPUSCULAR HGB CONC 33.2 g/dl (32.0-36.5); MEAN CORPUSCULAR VOLUME 92.1 fl (80.0-96.0); MONO # 0.4 10^3/uL (0.0-0.8); MONO % 10.8 % (2.0-8.0); NEUTROPHILS # 1.9 10^3/uL (1.5-8.5); NEUTROPHILS % 52.4 % (36.0-66.0); PLATELET COUNT, AUTOMATED 147 10^3/uL (150-450); RED BLOOD COUNT 4.71 10^6/uL (4.00-5.40); WHITE BLOOD COUNT 3.7 10^3/uL (4.0-10.0)
[2020-09-30 09:17] LABS: INR 0.9; PROTHROMBIN TIME 12.3 SECONDS (12.5-14.3)
[2020-09-30 09:18] LABS: PARTIAL THROMBOPLASTIN TIME 26.7 SECONDS (24.2-38.5)
[2020-09-30 09:20] LABS: BLOOD UREA NITROGEN 12 MG/DL (7-18); CALCIUM LEVEL 9.2 MG/DL (8.5-10.1); CARBON DIOXIDE LEVEL 30 MEQ/L (21-32); CHLORIDE LEVEL 107 MEQ/L (98-107); CREATININE FOR GFR 0.81 MG/DL (0.55-1.30); GLOMERULAR FILTRATION RATE > 60.0 (>51); GLUCOSE, FASTING 71 MG/DL (70-100); POTASSIUM SERUM 4.2 MEQ/L (3.5-5.1); SODIUM LEVEL 140 MEQ/L (136-145)
[2020-09-30 09:29] LABS: HCG, SERUM QUALITATIVE NEGATIVE (NEGATIVE)
--- NOTE | 2020-09-30 18:20 | ECGEPIP ---
[facility] Test Date: 2020-09-30 Pat Name: HECTOR ZIMMERMAN Department: Room: - Gender: Female Pharmaceutical Botanist: HAYDEE : 1965 Requested By: ESTEFANIA LAYTON Order Number: [id number] Reading MD: Kasi Zhang Measurements Intervals [place] Rate: 70 P: 14 AK: 136 QRS: 39 QRSD: 98 T: 50 QT: 414 QTc: 447 Interpretive Statements Normal sinus rhythm extensive baseline artifact Comparison tracing not on file Electronically Signed on 09-30-2020 18:20:34 EDT by Kasi Zhang
== END ==
LOC: M LAB 07:51
PROVIDERS: ATTEND Family Medicine
DX: Z01.818 Encounter for other preprocedural examination (principal); G89.4 Chronic pain syndrome; M79.671 Pain in right foot

== ENCOUNTER → 2020-09-30 | Outpatient (CLI) | payer OTHER ==
[2020-09-30 08:54] LABS: BASO % 1.1 % (0.0-1.0); EOS # 0.1 10^3/uL (0.0-0.5); HEMATOCRIT 43.9 % (36.0-47.0); HEMOGLOBIN 14.5 g/dl (12.0-15.5); LYMPH # 1.2 10^3/uL (1.5-5.0); LYMPH % 33.1 % (24.0-44.0); MEAN CORPUSCULAR HEMOGLOBIN 30.4 pg (27.0-33.0); MONO # 0.4 10^3/uL (0.0-0.8); MONO % 10.1 % (2.0-8.0); NEUTROPHILS # 1.9 10^3/uL (1.5-8.5); NEUTROPHILS % 53.1 % (36.0-66.0); PLATELET COUNT, AUTOMATED 138 10^3/uL (150-450); RED BLOOD COUNT 4.77 10^6/uL (4.00-5.40); WHITE BLOOD COUNT 3.6 10^3/uL (4.0-10.0)
[2020-09-30 09:20] LABS: BLOOD UREA NITROGEN 11 MG/DL (7-18); CALCIUM LEVEL 9.4 MG/DL (8.5-10.1); CARBON DIOXIDE LEVEL 30 MEQ/L (21-32); CHLORIDE LEVEL 106 MEQ/L (98-107); CREATININE FOR GFR 0.82 MG/DL (0.55-1.30); GLOMERULAR FILTRATION RATE > 60.0 (>51); GLUCOSE, FASTING 72 MG/DL (70-100); POTASSIUM SERUM 4.3 MEQ/L (3.5-5.1); SODIUM LEVEL 139 MEQ/L (136-145)
== END ==
LOC: M LAB 07:54
PROVIDERS: ATTEND Neurological Surgery
DX: Z01.818 Encounter for other preprocedural examination (principal); G89.4 Chronic pain syndrome

== ENCOUNTER → 2020-10-01 | Outpatient (CLI) | payer OTHER | LOC: M LABSMTC 10:45 | PROVIDERS: ATTEND Nurse Practitioner Family | DX: Z11.52 Encounter for screening for COVID-19 (principal) ==

== ENCOUNTER → 2020-11-25 | Outpatient (CLI) | payer OTHER ==
--- NOTE | 2020-11-27 00:51 | ECWPNPC ---
PATIENT NAME: HECTOR ZIMMERMAN : 1965 GENDER: FEMALE VISIT DATE: 11/25/2020 DISCHARGE DATE: 11/25/20 1005 VISIT LOCKED DATE TIME: PHYSICIAN: TEMI GLORIA RESOURCE: TEMI GLORIA REASON FOR APPOINTMENT 1. 3 MONTH SACROILLITIS HISTORY OF PRESENT ILLNESS DEPRESSION SCREENING: PHQ-2 (2015 EDITION) LITTLE INTEREST OR PLEASURE IN DOING THINGS?NOT AT ALL FEELING DOWN, DEPRESSED, OR HOPELESS?NOT AT ALL TOTAL SCORE0 GENERAL: HPI 55-YEAR-OLD FEMALE IN FOR WORKER'S COMP. CHRONIC PAIN FOLLOW-UP. SHE RATES HER PAIN CURRENTLY A 7 OUT OF 10 AND DESCRIBES IT ACHING AND CONTINUOUS. PATIENT HAS HAD RIGHT SACROILIAC JOINT BLOCKS IN THE PAST WITH GOOD RELIEF EVIDENCED BY DECREASED PAIN AND INCREASED FUNCTIONALITY. WE WILL DISCUSS REPEAT PROCEDURES TODAY. DOI 05/03/1998. -. FALL RISK SCREENING: SCREENING A FEW FALLS REPORTED IN THE LAST YEAR WITHOUT INJURY.. PAIN SCREENING: PATIENT HAS A COMPLAINT OF ACUTE OR CHRONIC PAIN :YES LOCATION OF PAIN:LOW BACK INTENSITY OF PAIN (SCALE OF 1 TO 10):7 WHAT DOES YOUR PAIN FEEL LIKE:ACHING, CONTINOUS DURATION:CONTINOUS, CONSTANT, AWAKENS FROM SLEEP PAIN IS INCREASED BY:ACTIVITIES, PROLONGED STANDING PAIN IS DECREASED BY:OTHERS REPOSITIONING NURSING NOTE: -. PAIN CENTER INTAKE QUESTIONS: DO YOU HAVE A HISTORY OF MRSA? :NO DO YOU TAKE A BLOOD THINNERS? :NO DO YOU HAVE ANY BLEEDING DISORDERS? :NO ANY NEW NUMBNESS OR WEAKNESS IN YOUR LEGS OR ARMS? :NO ANY PACEMAKER,DEFIBRILLATOR, OR DORSAL COLUMN STIMULATOR? :YES PATIENT HAS A DORSAL COLUMN STIMULATOR, STATES IT IS WORKING WELL FOR HER. DO YOU HAVE ANY RASHES OR OPEN SORES? :YES PSORIASIS ARE YOU ALLERGIC TO IV DYE? :NO ARE YOU DIABETIC? :NO ANY NEW PROBLEMS WITH YOUR MEDICATIONS? :NO HAVE YOU RECEIVED A VACCINE IN THE PAST 30 DAYS? :NO DO YOU PLAN TO RECEIVE A VACCINE IN THE NEXT 21 DAYS? :NO DO YOU NEED ANY PRESCRIPTION? :YES IBUPROFEN, LYRICA, CYMBALTA DO YOU TAKE ANY IMMUNOSUPPRESSIVE MEDICATIONS? :NO IS THERE A CHANCE YOU COULD BE ? :NO ARE YOU BREAST FEEDING? :NO CURRENT MEDICATIONS TAKING MULTIVITAMINS OTC TABLET 1 TAB(S) P.O. ONCE A DAY TAKING BENADRYL 25 MG CAPSULE 1 CAPSULE NEEDED ORALLY BEFORE BEDTIME TAKING CLARITIN 10 MG TABLET 1 TABLET ORALLY ONCE A DAY TAKING IBUPROFEN 800 MG TABLET 1 TABLET WITH FOOD OR MILK NEEDED ORALLY NEEDED EVERY 8 HOURS NEEDED MDD3 TAKING LIDODERM 5 % PATCH 3 PATCHES EXTERNALLY ONCE A DAY ON BACK TAKING TIZANIDINE HCL 2 MG CAPSULE 1 CAPSULE NEEDED ORALLY DAILY TAKING LYRICA 150 MG CAPSULE 1 CAPSULE ORALLY AT BEDTIME TAKING CYMBALTA 30 MG CAPSULE DELAYED RELEASE PARTICLES 1 CAPSULE ORALLY ONCE A DAY TAKING FLECTOR 1.3 % PATCH 1 PATCH TO SKIN EXTERNALLY TO LOW BACK ON 12 HRS OFF 12 HRS NOT-TAKING VITAMIN B COMPLEX OTC TABLET 1 TAB(S) P.O. ONCE A DAY MEDICATION LIST REVIEWED AND RECONCILED WITH THE PATIENT PAST MEDICAL HISTORY BACK SURGERY X 9 HISTORY OF KIDNEY PROBLEMS CHILD...NOT SURE OF SPECIFICS PSORIASIS BACK PAIN ALLERGIES LATEX (FOR ALLERGY USE ONLY): RASH - ALLERGY SEASONAL: ITCHY EYES, RUNNY NOSE - ALLERGY ORANGES: RASH. LIPS SWELL - ALLERGY SURGICAL HISTORY BACK SURGERY X 9 DORSAL COLOMN STIMULATOR 05/2001 LUMPECTOMY, LEFT BREAST 2008 DCS BATTERY REPLACED 2020 FAMILY HISTORY FATHER: , DIAGNOSED WITH HYPERTENSION, UNSPECIFIED HEART DISEASE MOTHER: 71 YRS, OTHER MALIGNANT NEOPLASM OF UNSPECIFIED SITE 1 BROTHER(S) , 3 SISTER(S) - HEALTHY. 3 SON(S) , 1 DAUGHTER(S) - HEALTHY. MOM-LUNG CA\NBROTHER-CHRON\'S DISEASE AND ANKLYOSIS SPONDOLITIS. SOCIAL HISTORY GENERAL: TOBACCO USE ARE YOU A:NONSMOKER LATEX QUESTIONNAIRE LATEX ALLERGY : HAVE YOU EVER DEVELOPED ANY TYPE OF REACTION AFTER HANDLING LATEX PRODUCTS SUCH RUBBER GLOVES, CONDOMS, DIAPHRAGMS, BALLOONS, SOCKS, OR UNDERWEAR?YES - PLEASE INDICATE :RUBBER GLOVES, OTHER (DOCUMENT IN NOTES) LATEX ALLERGY : HAVE YOU EVER DEVELOPED ANY TYPE OF REACTION DURING OR AFTER DENTAL APPOINTMENT, VAGINAL/RECTAL EXAMINATION, SURGICAL PROCEDURE, OR ANY OTHER EXPOSURE?NO LATEX RISK : HAVE YOU EVER HAD ANY DIFFICULTY BREATHING OR HIVES AFTER EATING OR HANDLING ANY FRUITS, OR VEGETABLES; SUCH KIWI, BANANAS, STONE FRUITS, OR CHESTNUTSNO LATEX RISK : DO YOU HAVE A PREVIOUS PERSONAL HISTORY OF MORE THAN NINE SURGERIES, SPINA BIFIDA, OR REPEATED CATHERIZATIONS? YES - PLEASE INDICATE : > 9 SURGERIES LATEX RISK : ARE YOU FREQUENTLY EXPOSED TO LATEX PRODUCTS IN YOUR OCCUPATION?NO DATE ASKED : 11/25/2020 ALCOHOL USE: NO. ALCOHOL SCREENING DID YOU HAVE A DRINK CONTAINING ALCOHOL IN THE PAST YEAR?NO POINTS0 INTERPRETATIONNEGATIVE RECREATIONAL DRUG USE DRUG USE?NO JUDAISM [id number] NONE LANGUAGE LANGUAGES SPOKEN:ETHIOPIAN EDUCATION LEVEL OF EDUCATION:FINISHED HIGH SCHOOL LEARNING BARRIERS / SPECIAL NEEDS CHANGE FROM LAST VISIT?YES BARRIERS TO LEARNING?NO HEARING IMPAIRED?NO VISION IMPAIRED?YES GLASSES FOR READING :CORRECTIVE LENSES COGNITIVELY IMPAIRED?NO READINESS TO LEARN?YES LEARNING PREFERENCES?NO LEARNING CAPABILITIES PRESENT?YES EMOTIONAL BARRIERS?NO SPECIAL DEVICES?NO HAND BANDER NEEDED?NO DOMESTIC VIOLENCE DO YOU FEEL SAFE IN YOUR ENVIRONMENT?YES TODAY'S VISIT 09/21/19, PATIENT DESCRIBES PAIN : ACHING, BURNING, HAVE IT ALL THE TIME, FROM 0-10, WHAT LEVEL IS YOUR PAIN TODAY? 7, PRECIPITATING FACTORS ANYTHING, ALLEVIATING FACTORS ANYTHING, IMPACT ON FUNCTION NO. - PFS REFERRAL NEEDED?NO CLERGY REFERRAL NEEDED?NO PUBLIC HEALTH REFERRAL NEEDED?NO WAS THE PROVIDER NOTIFIED OF ANY PERTINENT INFO? N/A HAS THE PATIENT BEEN EDUCATED REGARDING HIS/HER PLAN OF CARE?YES HAS THE PATIENT BEEN EDUCATED REGARDING PAIN, THE RISK FOR PAIN, THE IMPORTANCE OF EFFECTIVE PAIN MANAGEMENT, AND THE PAIN ASSESSMENT PROCESS?YES ADVANCE DIRECTIVE ADVANCE DIRECTIVE DISCUSSED WITH PATIENT:YES HCP- ZANA ZIMMERMAN [phone] HOSPITALIZATION/MAJOR DIAGNOSTIC PROCEDURE CHILD, DUE TO KIDNEYS SURGERIES REVIEW OF SYSTEMS CONSTITUTIONAL: ANY RECENT FEVER NO . CHILLS NO . WEIGHT CHANGE OF UNKNOWN REASONS NO . GASTROENTEROLOGY: NEW UNEXPLAINABLE CHANGES IN BOWEL CONTROL NO . CONSTIPATION NO . GENITOURINARY: ANY NEW CHANGE IN BLADDER CONTROL? NO . NEUROLOGY: NEW ONSET DIZZINESS OR NEUROLOGICAL CHANGES NOT MENTIONED NO . NEW NUMBNESS OR PAIN PATTERNS NOT MENTIONED AND PERTINENT TO TODAY'S VISIT NO . CARDIOLOGY: NEW CHEST PRESSURE NO . PATIENT DENIES NO . RESPIRATORY: UNEXPLAINABLE COUGH NO . NEW SHORTNESS OF BREATH NO . VITAL SIGNS WT 186.4 LBS, HT 65 IN, BMI 31.02 INDEX, BP 133/83 MM HG, HR 81 /MIN, RR 18 /MIN, TEMP 96.9 F, OXYGEN SAT % 98%, SAFE IN ENV? (Y/N) YES, NA INITIALS MI 09:36, REVIEWED BY: KARYN RICHARDS MA. EXAMINATION GENERAL EXAMINATION: GENERALNO ACUTE DISTRESS, WELL NOURISHED AND HYDRATED. PSYCHAPPROPRIATE MOOD AND AFFECT . LUNGS:CLEAR TO AUSCULTATION BILATERALLY, NO WHEEZES, RHONCHI, RALES. HEART:NO MURMURS, REGULAR RATE AND RHYTHM. BACK:POINT TENDER RIGHT SIJ POSITIVE TIMA'S TEST RIGHT SIDE. ASSESSMENTS SACROILIITIS, NOT ELSEWHERE CLASSIFIED - M46.1 (PRIMARY), RISK: (NULL) TREATMENT SACROILIITIS, NOT ELSEWHERE CLASSIFIED REFILL LYRICA CAPSULE, 150 MG, 1 CAPSULE, ORALLY, AT BEDTIME, 90 DAYS, 90, REFILLS 1 REFILL CYMBALTA CAPSULE DELAYED RELEASE PARTICLES, 30 MG, 1 CAPSULE, ORALLY, ONCE A DAY, 90 DAY(S), 90 CAPSULE(S), REFILLS 2 MEDICATION: PAIN VALIUM TAB 10MG ORALLY (DIAZEPAM) (ORDERED FOR 12/03/2020) MEDICATION: PAIN OXYCODONE HCL TAB 10MG ORALLY (ORDERED FOR 12/03/2020) NOTES: 55-YEAR-OLD FEMALE IN FOR CHRONIC PAIN FOLLOW-UP. GIVEN PRESENTING SYMPTOMS AND RESULTS OF PHYSICAL EXAMINATION RECOMMEND PT AND A RIGHT SACROILIAC JOINT BLOCK WITH POSTPROCEDURAL FOLLOW-UP. PATIENT HAS EXPRESSED UNDERSTANDING OF AND WAS IN AGREEMENT WITH TREATMENT PLAN. GIVEN TIME TO ASK QUESTIONS AND EXPRESS CONCERNS. [employer] REGISTRY REVIEWED AND DEMONSTRATES COMPLLIANCE. (REF # [id number] ). CLINICAL NOTES: PREPROCEDURE AND PROCEDURE INFORMATION PRINTED AND PROVIDED TO PATIENT. PATIENT VERBALIZED AN UNDERSTANDING. AVERY RICHARDS MA. REFERRAL TO:[facility]:STRENGTH AND STRETCH OTHERS REFILL IBUPROFEN TABLET, 800 MG, 1 TABLET WITH FOOD OR MILK NEEDED, ORALLY NEEDED, EVERY 8 HOURS NEEDED MDD3, 30 DAYS, 70, REFILLS 2 PROCEDURES PN WORKMANS' COMP OPINION IN YOUR OPINION, WAS THE INCIDENT THAT THE PATIENT DESCRIBED THE COMPETENT MEDICAL CAUSE OF THIS INJURY/ILLNESS? YES ARE THE PATIENT'S COMPLAINTS CONSISTENT WITH HIS/HER HISTORY OF THE INJURY/ILLNESS? YES IS THE PATIENT'S HISTORY OF THE INJURY/ILLNESS CONSISTENT WITH YOUR OBJECTIVE FINDING? YES WHAT IS THE PERCENTAGE OF TEMPORARY IMPAIRMENT? MODERATE TO MARKED = 66.7% IS THE PATIENT WORKING? NO DOCTOR ON SITE: ABBY BELTRAN MD PROCEDURE CODES FA211 ESTABILISHED PATIENT [facility] CHARGE DISPOSITION & COMMUNICATION FOLLOW UP POST PROCEDURE (REASON: RIGHT SACROILIAC JOINT BLOCK ) ELECTRONICALLY SIGNED BY EDWAR PITTMAN ON 11/26/2020 AT 09:25 AM EDT DISCLAIMER : THIS IS A VISIT SUMMARY EXTRACTED FROM THE [employer] CHART. IT IS NOT A COPY OF THE [employer] PROGRESS NOTE. JANE
== END ==
LOC: M PAIN 09:45
PROVIDERS: ATTEND Family Medicine
DX: M46.1 Sacroiliitis, not elsewhere classified (principal); G89.29 Other chronic pain; Z96.89 Presence of other specified functional implants; Z91.018 Allergy to other foods; Z91.040 Latex allergy status; Z79.899 Other long term (current) drug therapy

== ENCOUNTER → 2021-01-01 | Outpatient (CLI) | payer OTHER | LOC: M LABSMTC 09:51 | PROVIDERS: ATTEND Anesthesiology | DX: Z20.822 Contact with and (suspected) exposure to COVID-19 (principal) ==

== ENCOUNTER → 2021-01-06 | Outpatient (CLI) | payer OTHER ==
[~2021-01-06] MED LIST changes: +BUPIVACAINE HCL 0.25% 30ML VIAL As Ordered ONE; +ISOVUE-M 300 61% 15ML VIAL As Ordered ONE; +LIDOCAINE 1% SDV 30ML VIAL As Ordered ONE; +TRIAMCINOLONE ACETONIDE SUSP 40 MG/ML VIAL (J3301) As Ordered ONE; +diazePAM 5MG TABLET As Ordered ONE; +oxyCODONE 5MG TAB As Ordered ONE
--- NOTE | 2021-01-06 12:25 | REP ---
INDICATION: RIGHT SACROILIAC JOINT BLOCK. COMPARISON: None. TECHNIQUE: Three views. Thirteen seconds of fluoroscopy time is reported. FINDINGS: A sequence of 3 last image hold fluoroscopically obtained spot radiograph(s) of the right SI joint document(s) needle position(s) and contrast injection associated with injection procedure. IMPRESSION: Procedural imaging. <Electronically signed by Brown Jack > 01/06/21 [id number]
--- NOTE | 2021-01-11 23:11 | ECWPNPC ---
PATIENT NAME: HECTOR ZIMMERMAN : 1965 GENDER: FEMALE VISIT DATE: 01/06/2021 DISCHARGE DATE: 01/06/21 1113 VISIT LOCKED DATE TIME: PHYSICIAN: ABBY PEÑA MD RESOURCE: ABBY PEÑA MD REASON FOR APPOINTMENT 1. RIGHT SACROILIAC JOINT BLOCK HISTORY OF PRESENT ILLNESS GENERAL: -. FALL RISK SCREENING: SCREENING 2 + FALLS IN THE PAST YEARS WITH NO INJURY. PAIN SCREENING: PATIENT HAS A COMPLAINT OF ACUTE OR CHRONIC PAIN :YES LOCATION OF PAIN:LOW BACK GOES DOWN RIGHT LEG INTENSITY OF PAIN (SCALE OF 1 TO 10):6 WHAT DOES YOUR PAIN FEEL LIKE:ACHING, BURNING, SHOOTING DURATION:CONSTANT, INTERMITTENT PAIN IS INCREASED BY:PROLONGED STANDING PROLONGED SITTING, ACTIVITY PAIN IS DECREASED BY:USE OF PAIN MEDICATIONS CHANGING POSITION NURSING NOTE: -. PAIN CENTER INTAKE QUESTIONS: DO YOU HAVE A HISTORY OF MRSA? :NO DO YOU TAKE A BLOOD THINNERS? :NO DO YOU HAVE ANY BLEEDING DISORDERS? :NO ANY NEW NUMBNESS OR WEAKNESS IN YOUR LEGS OR ARMS? :YES RIGHT LEG WEAKNESS ANY PACEMAKER,DEFIBRILLATOR, OR DORSAL COLUMN STIMULATOR? :YES DCS- REVISED 10/2020 DO YOU HAVE ANY RASHES OR OPEN SORES? :NO ARE YOU ALLERGIC TO IV DYE? :NO ARE YOU DIABETIC? :NO ANY NEW PROBLEMS WITH YOUR MEDICATIONS? :NO HAVE YOU RECEIVED A VACCINE IN THE PAST 30 DAYS? :NO DO YOU PLAN TO RECEIVE A VACCINE IN THE NEXT 21 DAYS? :NO DO YOU TAKE ANY IMMUNOSUPPRESSIVE MEDICATIONS? :NO ANY HISTORY OF SEIZURES? :NO ANY HISTORY OF CARDIAC ISSUES OR EVENTS? :NO DO YOU HAVE ANY KIDNEY OR LIVER DISEASE? :NO DO YOU HAVE SLEEP APNEA? :NO ANY RECENT HEAD INJURY? :NO DO YOU HAVE ANY NEW INFECTIONS? :NO IS THERE A CHANCE YOU COULD BE ? :NO ARE YOU BREAST FEEDING? :NO WHEN DID YOU LAST EAT? : -LAST NIGHT AT 9 PM ICE CREAM WHEN DID YOU LAST DRINK? : -THIS MORNING AT 0730 WHAT DID YOU LAST DRINK? : BLACK COFFEE NAME OF PERSON DRIVING YOU HOME? : ZANA DO YOU HAVE ANY OTHER QUESTIONS OR CONCERNS? : - CURRENT MEDICATIONS TAKING MULTIVITAMINS OTC TABLET 1 TAB(S) P.O. ONCE A DAY TAKING BENADRYL 25 MG CAPSULE 1 CAPSULE NEEDED ORALLY BEFORE BEDTIME TAKING CLARITIN 10 MG TABLET 1 TABLET ORALLY ONCE A DAY TAKING LIDODERM 5 % PATCH 3 PATCHES EXTERNALLY ONCE A DAY ON BACK TAKING TIZANIDINE HCL 2 MG CAPSULE 1 CAPSULE NEEDED ORALLY DAILY TAKING FLECTOR 1.3 % PATCH 1 PATCH TO SKIN EXTERNALLY TO LOW BACK ON 12 HRS OFF 12 HRS TAKING IBUPROFEN 800 MG TABLET 1 TABLET WITH FOOD OR MILK NEEDED ORALLY NEEDED EVERY 8 HOURS NEEDED MDD3 TAKING LYRICA 150 MG CAPSULE 1 CAPSULE ORALLY AT BEDTIME TAKING CYMBALTA 30 MG CAPSULE DELAYED RELEASE PARTICLES 1 CAPSULE ORALLY ONCE A DAY NOT-TAKING VITAMIN B COMPLEX OTC TABLET 1 TAB(S) P.O. ONCE A DAY MEDICATION LIST REVIEWED AND RECONCILED WITH THE PATIENT PAST MEDICAL HISTORY BACK SURGERY X 9 HISTORY OF KIDNEY PROBLEMS CHILD...NOT SURE OF SPECIFICS PSORIASIS BACK PAIN ALLERGIES LATEX (FOR ALLERGY USE ONLY): RASH - ALLERGY SEASONAL: ITCHY EYES, RUNNY NOSE - ALLERGY ORANGES: RASH. LIPS SWELL - ALLERGY SURGICAL HISTORY BACK SURGERY X 9 DORSAL COLOMN STIMULATOR 05/2001 LUMPECTOMY, LEFT BREAST 2008 DCS BATTERY REPLACED 2020 SOCIAL HISTORY GENERAL: TOBACCO USE ARE YOU A:NONSMOKER LATEX QUESTIONNAIRE LATEX ALLERGY : HAVE YOU EVER DEVELOPED ANY TYPE OF REACTION AFTER HANDLING LATEX PRODUCTS SUCH RUBBER GLOVES, CONDOMS, DIAPHRAGMS, BALLOONS, SOCKS, OR UNDERWEAR?YES - PLEASE INDICATE :RUBBER GLOVES, OTHER (DOCUMENT IN NOTES) LATEX ALLERGY : HAVE YOU EVER DEVELOPED ANY TYPE OF REACTION DURING OR AFTER DENTAL APPOINTMENT, VAGINAL/RECTAL EXAMINATION, SURGICAL PROCEDURE, OR ANY OTHER EXPOSURE?NO LATEX RISK : HAVE YOU EVER HAD ANY DIFFICULTY BREATHING OR HIVES AFTER EATING OR HANDLING ANY FRUITS, OR VEGETABLES; SUCH KIWI, BANANAS, STONE FRUITS, OR CHESTNUTSNO LATEX RISK : DO YOU HAVE A PREVIOUS PERSONAL HISTORY OF MORE THAN NINE SURGERIES, SPINA BIFIDA, OR REPEATED CATHERIZATIONS? YES - PLEASE INDICATE : > 9 SURGERIES LATEX RISK : ARE YOU FREQUENTLY EXPOSED TO LATEX PRODUCTS IN YOUR OCCUPATION?NO DATE ASKED : 01/02/2021 ALCOHOL USE: NO. ALCOHOL SCREENING DID YOU HAVE A DRINK CONTAINING ALCOHOL IN THE PAST YEAR?NO POINTS0 INTERPRETATIONNEGATIVE RECREATIONAL DRUG USE DRUG USE?NO ZOROASTRIANISM [id number] NONE LANGUAGE LANGUAGES SPOKEN:LITHUANIAN EDUCATION LEVEL OF EDUCATION:FINISHED HIGH SCHOOL LEARNING BARRIERS / SPECIAL NEEDS CHANGE FROM LAST VISIT?NO BARRIERS TO LEARNING?NO HEARING IMPAIRED?NO VISION IMPAIRED?YES GLASSES FOR READING :CORRECTIVE LENSES COGNITIVELY IMPAIRED?NO READINESS TO LEARN?YES LEARNING PREFERENCES?NO LEARNING CAPABILITIES PRESENT?YES EMOTIONAL BARRIERS?NO SPECIAL DEVICES?NO SEAMER ELASTIC BAND NEEDED?NO DOMESTIC VIOLENCE DO YOU FEEL SAFE IN YOUR ENVIRONMENT?YES TODAY'S VISIT 09/21/19, PATIENT DESCRIBES PAIN : ACHING, BURNING, HAVE IT ALL THE TIME, FROM 0-10, WHAT LEVEL IS YOUR PAIN TODAY? 7, PRECIPITATING FACTORS ANYTHING, ALLEVIATING FACTORS ANYTHING, IMPACT ON FUNCTION NO. - PFS REFERRAL NEEDED?NO CLERGY REFERRAL NEEDED?NO PUBLIC HEALTH REFERRAL NEEDED?NO WAS THE PROVIDER NOTIFIED OF ANY PERTINENT INFO? N/A HAS THE PATIENT BEEN EDUCATED REGARDING HIS/HER PLAN OF CARE?YES HAS THE PATIENT BEEN EDUCATED REGARDING PAIN, THE RISK FOR PAIN, THE IMPORTANCE OF EFFECTIVE PAIN MANAGEMENT, AND THE PAIN ASSESSMENT PROCESS?YES ADVANCE DIRECTIVE ADVANCE DIRECTIVE DISCUSSED WITH PATIENT:YES HCP- ZANA ZIMMERMAN [phone] HOSPITALIZATION/MAJOR DIAGNOSTIC PROCEDURE CHILD, DUE TO KIDNEYS SURGERIES VITAL SIGNS WT 181.2 LBS, WT-KG 82.19 KG, HT 65 IN, BMI 30.15 INDEX, BP 119/89 MM HG, HR 79 /MIN, RR 18 /MIN, TEMP 96.6 F, OXYGEN SAT % 98%, NA INITIALS AW 1011. EXAMINATION GENERAL EXAMINATION: THE PATIENT IS ALERT, ORIENTED TIMES THREE AND COOPERATIVE. LUNGS ARE CLEAR TO AUSCULTATION. HEART SHOWS REGULAR RHYTHM, NO MURMURS AND NO GALLOPS. ASSESSMENTS SACROILIITIS, NOT ELSEWHERE CLASSIFIED - M46.1 TREATMENT SACROILIITIS, NOT ELSEWHERE CLASSIFIED [facility] FLUORO GUIDE SPINE INJECTION (PAIN)[id number] COMPLETION OF PROCEDURAL VISIT WHEN MEETS [id number] 01/06/2021 11:08:38 AM > CRITIERIA MET MEDICATION: PAIN VALIUM TAB 10MG ORALLY (DIAZEPAM)[id number],AUGUST R 01/06/2021 10:17:48 AM > VERIFIED LETHA LI 01/06/2021 10:21:20 AM > GIVEN MEDICATION: PAIN OXYCODONE HCL TAB 10MG [id number],AUGUST R 01/06/2021 10:18:01 AM > VERIFIED LETHA LI 01/06/2021 10:21:41 AM > GIVEN OTHERS CLINICAL NOTES: PAT COMPLETED 01/02/21 @ 1700 BY Munira DICKINSON RN. PROCEDURES PAIN NURSING RECORD PROCEDURE IN ROOM 1035, PHYSICIAN IN ROOM 1045, START 1048, FINISH 1050, PHYSICIAN OUT OF ROOM 1052, OUT OF ROOM 1100, ECG NORMAL SINUS, PATIENT SHIELDED YES, SAFETY STRAP YES, PREP CHLOROPREP, DRESSING TEGADERM LOC: 1. ALERT, ORIENTED LETHA LI 01/06/2021 10:57:16 AM > RESP: 1. REGULAR, NO DYSPNEA LETHA LI 01/06/2021 10:57:22 AM > COLOR: 1. PINK LETHA LI 01/06/2021 10:57:29 AM > SKIN: 1. WARM, DRY LETHA LI 01/06/2021 10:57:44 AM > POSITION: 1. PRONE LETHA LI 01/06/2021 10:57:49 AM > VITALS: EDU PÉREZ 01/06/2021 10:42:40 AM > BP:137/80 02:70 HR: 97 EDU PÉREZ 01/06/2021 11:21:27 AM > BP: 123/70 O2:70 HR: 98 NOTES Brayden LI RN COMPLETION OF PROCEDURE APPOINTMENT: DRESSING SITE DRY AND INTACT, IV N/A, GAIT STEADY, TEACHING COMPLETED, PATIENT ACKNOWLEDGES UNDERSTANDING YES, PROCEDURE APPOINTMENT COMPLETED AT 1110 PN WORKMANS' COMP OPINION IN YOUR OPINION, WAS THE INCIDENT THAT THE PATIENT DESCRIBED THE COMPETENT MEDICAL CAUSE OF THIS INJURY/ILLNESS? YES ARE THE PATIENT'S COMPLAINTS CONSISTENT WITH HIS/HER HISTORY OF THE INJURY/ILLNESS? YES IS THE PATIENT'S HISTORY OF THE INJURY/ILLNESS CONSISTENT WITH YOUR OBJECTIVE FINDING? YES WHAT IS THE PERCENTAGE OF TEMPORARY IMPAIRMENT? MODERATE TO MARKED = 66.7% . IS THE PATIENT WORKING? NO. DOCTOR ON SITE: ABBY BELTRAN MD PRE PROCEDURE DIAGNOSIS SACROILITIS, SACROILIAC JOINT DYSFUNCTION POST PROCEDURE DIAGNOSIS SACROILIITIS, SACROILIAC JOINT DYSFUNCTION PROCEDURE RIGHT SACROILIAC JOINT BLOCK SURGEON DR. ABBY PEÑA PARTS CHASER NONE ANESTHESIA LOCAL PRE PROCEDURE NOTE THE PATIENT HAS A HISTORY OF CHRONIC LOW BACK PAIN. I EVALUATED THE PATIENT AND REVIEWED THE CHART. I WENT OVER THE RISKS, BENEFITS AND ALTERNATIVES ASSOCIATED WITH THIS PROCEDURE. THE PATIENT WOULD LIKE TO PROCEED AND GIVES CONSENT TO PERFORM THE PROCEDURE. THE PATIENT DENIES UNEXPLAINABLE WEIGHT LOSS, FEVER, CHILLS OR NEW CHANGES IN URINARY OR BOWEL CONTROL. THE PATIENT IS COVID-19 NEGATIVE. DESCRIPTION OF PROCEDURE THE PATIENT WAS BROUGHT TO THE PROCEDURE ROOM AND PLACED IN THE PRONE POSITION. THE LUMBOSACRAL AREA WAS CLEANED WITH CHLORAPREP SOLUTION AND DRAPED ASEPTICALLY. THE PROCEDURE WAS DONE UNDER STERILE CONDITIONS. A TIMEOUT WAS PERFORMED WHERE THE CONSENTED SITE WAS VERIFIED WITH EVERYONE IN THE ROOM UNDER FLUOROSCOPIC GUIDANCE, THE TARGET POINT WAS SELECTED AT THE LOWER BORDER OF THE RIGHT SACROILIAC JOINT. TARGET POINT WAS SELECTED AFTER MEDIAL ROTATION AND TILT OF THE MAGNIFIER OR THE C-ARM. I CONFIRMED AGAIN THE SITE OF TARGET. LIDOCAINE 0.5% WAS USED TO NUMB THE SKIN AND THE SUBCUTANEOUS TISSUE BELOW IT. SPINAL NEEDLE, 22-GAUGE, WAS ADVANCED UNDER FLUOROSCOPIC GUIDANCE AND FOLLOWING PATIENT FEEDBACK UNTIL THE TARGET WAS TOUCHED. THE POSITION OF THE NEEDLE WAS VERIFIED WITH AP AND OBLIQUE VIEWS. AFTER PROPER POSITION OF THE NEEDLE WAS ACHIEVED, ISOVUE-M DYE 30%, 0.1 ML, WAS INJECTED SHOWING ADEQUATE SPREAD OF THE DYE. KENALOG 40 MG WAS INJECTED. THEN, A SOLUTION OF 3.0 ML OF BUPIVACAINE 0.125% WAS USED TO FLUSH THE NEEDLE. THE MEDICATIONS WERE VERIFIED WITH THE NURSE. THERE WAS NO EVIDENCE OF BLOOD, PARESTHESIA OR CEREBROSPINAL FLUID DURING THE PROCEDURE. THE PATIENT WAS SENT TO THE RECOVERY ROOM. THE PATIENT WAS MOVING THE EXTREMITIES AND DOING WELL. THERE WERE NO COMPLICATIONS DURING THE PROCEDURE. ESTIMATED BLOOD LOSS WAS LESS THAN 5 ML. FLUOROSCOPIC TIME WAS 13 SECONDS. POST PROCEDURE NOTE THE PATIENT WAS INSTRUCTED TO CONTACT CHUCK HANKS. THE PATIENT WILL BE SEEN IN A FOLLOW UP IN THE NEXT FEW WEEKS. I AM LOOKING FOR LONG LASTING RELIEF FOR THE PATIENT WITH THIS INTERVENTION. INSTRUCTIONS WERE GIVEN, QUESTIONS WERE ANSWERED AND THE PATIENT EXPRESSED UNDERSTANDING AND AGREES WITH THE PAIN. I, AVE CANDELARIO RN, DOCUMENTED THE ABOVE INFORMATION ACTING A SCRIBE FOR DR. PEÑA. I HAVE REVIEWED THE ABOVE DOCUMENT, WRITTEN BY AVE CANDELARIO RN, AND I VERIFY THAT IT IS ACCURATE. VISIT CODES PROCEDURE CODES 93035 INJECT SACROILIAC JOINT, MODIFIERS: RT DISPOSITION & COMMUNICATION FOLLOW UP POST PROCEDURE (REASON: POST RIGHT SACROILIAC JOINT BLOCK ) ELECTRONICALLY SIGNED BY ABBY PEÑA MD, MD ON 01/11/2021 AT 09:25 PM EDT DISCLAIMER : THIS IS A VISIT SUMMARY EXTRACTED FROM THE [employer] CHART. IT IS NOT A COPY OF THE [employer] PROGRESS NOTE. JANE
== END ==
LOC: M PAIN 10:00
PROVIDERS: ATTEND Anesthesiology
DX: M46.1 Sacroiliitis, not elsewhere classified (principal); Z96.89 Presence of other specified functional implants; Z91.018 Allergy to other foods; Z91.040 Latex allergy status; Z79.899 Other long term (current) drug therapy
CPT/HCPCS: G0260; J3301; Q9967

== ENCOUNTER → 2021-02-05 | Outpatient (CLI) | payer OTHER ==
[~2021-02-05] MED LIST changes: -BUPIVACAINE HCL 0.25% 30ML VIAL As Ordered ONE; -ISOVUE-M 300 61% 15ML VIAL As Ordered ONE; -LIDOCAINE 1% SDV 30ML VIAL As Ordered ONE; -TRIAMCINOLONE ACETONIDE SUSP 40 MG/ML VIAL (J3301) As Ordered ONE; -diazePAM 5MG TABLET As Ordered ONE; -oxyCODONE 5MG TAB As Ordered ONE
== END ==
LOC: M PAIN 10:15
PROVIDERS: ATTEND Anesthesiology
DX: M96.1 Postlaminectomy syndrome, not elsewhere classified (principal); Z96.89 Presence of other specified functional implants; Z91.018 Allergy to other foods; Z91.040 Latex allergy status; Z79.899 Other long term (current) drug therapy

== ENCOUNTER → 2021-04-01 | Outpatient (CLI) | payer OTHER | LOC: M PAIN 10:30 | PROVIDERS: ATTEND Anesthesiology | DX: G89.29 Other chronic pain (principal); M96.1 Postlaminectomy syndrome, not elsewhere classified; Z96.89 Presence of other specified functional implants; Z91.018 Allergy to other foods; Z91.040 Latex allergy status; Z79.899 Other long term (current) drug therapy ==

== ENCOUNTER → 2021-04-13 | Outpatient (CLI) | payer MEDICARE ==
[~2021-04-13] MED LIST changes: +BIOT5TAB3 PO; +CARI1TAB7 PO; +CATAPLEX PO; +DULO1CAP5 PO; +FISH1000 PO; +IBUP200C34 PO; +LIDO1PAD TOP; +LYRI150C PO; +TURM500C PO; +VITMTA PO; +flector patch TOP
[2021-04-13 08:44] LABS: HEMATOCRIT 41.1 % (36.0-47.0); HEMOGLOBIN 13.5 g/dl (12.0-15.5); MEAN CORPUSCULAR HEMOGLOBIN 30.3 pg (27.0-33.0); MEAN CORPUSCULAR HGB CONC 32.8 g/dl (32.0-36.5); MEAN CORPUSCULAR VOLUME 92.4 fl (80.0-96.0); PLATELET COUNT, AUTOMATED 160 10^3/uL (150-450); RED BLOOD COUNT 4.45 10^6/uL (4.00-5.40); WHITE BLOOD COUNT 3.9 10^3/uL (4.0-10.0)
[2021-04-13 10:47] LABS: ALBUMIN 3.7 GM/DL (3.2-5.2); ALT/SGPT 16 U/L (12-78); BILIRUBIN,TOTAL 0.6 MG/DL (0.2-1.0); BLOOD UREA NITROGEN 11 MG/DL (7-18); CALCIUM LEVEL 8.8 MG/DL (8.5-10.1); CARBON DIOXIDE LEVEL 28 MEQ/L (21-32); CHLORIDE LEVEL 106 MEQ/L (98-107); CHOLESTEROL LEVEL 170 MG/DL (<200); CHOLESTEROL RISK RATIO 2.881 (<5); CREATININE FOR GFR 0.76 MG/DL (0.55-1.30); GLOMERULAR FILTRATION RATE > 60.0 (>51); GLUCOSE, FASTING 87 MG/DL (70-100); HDL CHOLESTEROL 59 MG/DL (>40); LDL CHOLESTEROL 88 MG/DL (<100); NON-HDL-C 111 MG/DL; POTASSIUM SERUM 4.2 MEQ/L (3.5-5.1); SODIUM LEVEL 141 MEQ/L (136-145); TRIGLYCERIDES LEVEL 113 MG/DL (<150)
== END ==
LOC: M LAB 07:39
PROVIDERS: ATTEND Family Medicine
DX: Z00.00 Encounter for general adult medical examination without abnormal findings (principal); Z79.899 Other long term (current) drug therapy

== ENCOUNTER → 2021-05-12 | Outpatient (CLI) | payer MEDICARE, OTHER | LOC: M SOG 08:41 | PROVIDERS: ATTEND Orthopaedic Surgery | DX: M96.1 Postlaminectomy syndrome, not elsewhere classified (principal) ==

== ENCOUNTER → 2021-05-26 | Outpatient (CLI) | payer MEDICARE, OTHER ==
[~2021-05-26] MED LIST changes: -BIOT5TAB3 PO; -CARI1TAB7 PO; -CATAPLEX PO; -DULO1CAP5 PO; -FISH1000 PO; -IBUP200C34 PO; -LIDO1PAD TOP; -LYRI150C PO; -TURM500C PO; -VITMTA PO; -flector patch TOP
== END ==
LOC: M WHC 07:16
PROVIDERS: ATTEND Nurse Practitioner Women's Health
DX: Z12.4 Encounter for screening for malignant neoplasm of cervix (principal)

== ENCOUNTER → 2021-05-26 | Outpatient (REF) | payer MEDICARE ==
[~2021-05-26] MED LIST changes: +BIOT5TAB3 PO; +CARI1TAB7 PO; +CATAPLEX PO; +DULO1CAP5 PO; +FISH1000 PO; +IBUP200C34 PO; +LIDO1PAD TOP; +LYRI150C PO; +TURM500C PO; +VITMTA PO; +flector patch TOP
== END ==
LOC: M SFHCWAGY 13:06
PROVIDERS: ATTEND Nurse Practitioner Women's Health
DX: Z12.4 Encounter for screening for malignant neoplasm of cervix (principal); R87.610 Atypical squamous cells of undetermined significance on cytologic smear of cervix (ASC-US)

== ENCOUNTER → 2021-05-26 | Outpatient (CLI) | payer MEDICARE, OTHER | LOC: M WHC 07:39 | PROVIDERS: ATTEND Nurse Practitioner Women's Health | DX: R92.2 Inconclusive mammogram (principal); Z12.4 Encounter for screening for malignant neoplasm of cervix; R87.610 Atypical squamous cells of undetermined significance on cytologic smear of cervix (ASC-US) | CPT/HCPCS: 77063; 77067; 87624; G0101; G0123 ==

== ENCOUNTER → 2021-06-11 | Outpatient (CLI) | payer MEDICARE ==
[~2021-06-11] MED LIST changes: -BIOT5TAB3 PO; -CARI1TAB7 PO; -CATAPLEX PO; -DULO1CAP5 PO; -FISH1000 PO; -IBUP200C34 PO; -LIDO1PAD TOP; -LYRI150C PO; -TURM500C PO; -VITMTA PO; -flector patch TOP
== END ==
LOC: M WHC 13:49
PROVIDERS: ATTEND Nurse Practitioner Women's Health
DX: R92.2 Inconclusive mammogram (principal)
CPT/HCPCS: 77065; G0279

== ENCOUNTER → 2021-06-15 | Outpatient (REF) | payer MEDICARE, OTHER | LOC: M LAB REF 14:28 | PROVIDERS: ATTEND Otolaryngology | DX: R22.1 Localized swelling, mass and lump, neck (principal) ==

== ENCOUNTER → 2021-06-19 | Outpatient (CLI) | payer MEDICARE, OTHER ==
[~2021-06-19] MED LIST changes: +ISOVUE-370 76% 100ML VIAL As Ordered ONE
== END ==
LOC: M RAD 07:07
PROVIDERS: ATTEND Otolaryngology
DX: R22.1 Localized swelling, mass and lump, neck (principal)
CPT/HCPCS: 70491; Q9967

== ENCOUNTER → 2021-06-24 | Outpatient (CLI) | payer MEDICARE, OTHER ==
[~2021-06-24] MED LIST changes: +BIOT5TAB3 PO; +CARI1TAB7 PO; +CATAPLEX PO; +DULO1CAP5 PO; +FISH1000 PO; +IBUP200C34 PO; -ISOVUE-370 76% 100ML VIAL As Ordered ONE; +LIDO1PAD TOP; +LYRI150C PO; +TURM500C PO; +VITMTA PO; +flector patch TOP
[2021-06-24 09:06] LABS: BLOOD UREA NITROGEN 12 MG/DL (7-18); CREATININE FOR GFR 0.78 MG/DL (0.55-1.30); GLOMERULAR FILTRATION RATE > 60.0 (>51)
== END ==
LOC: M LAB 07:53
PROVIDERS: ATTEND Orthopaedic Surgery
DX: M96.1 Postlaminectomy syndrome, not elsewhere classified (principal)

== ENCOUNTER → 2021-06-26 | Outpatient (CLI) | payer MEDICARE ==
[2021-06-26 09:23] LABS: FREE T4 0.94 NG/DL (0.76-1.46); THYROID STIMULATING HORMONE 1.1 uIU/ML (0.358-3.740)
[2021-06-26 09:50] LABS: PTH INTACT 86.1 PG/ML (18.5-88.0)
== END ==
LOC: M LAB 07:49
PROVIDERS: ATTEND Otolaryngology
DX: R22.1 Localized swelling, mass and lump, neck (principal); Z79.899 Other long term (current) drug therapy

== ENCOUNTER → 2021-07-02 | Outpatient (CLI) | payer MEDICARE, OTHER | LOC: M LABSMTC 13:34 | PROVIDERS: ATTEND Anesthesiology | DX: Z01.812 Encounter for preprocedural laboratory examination (principal); Z20.822 Contact with and (suspected) exposure to COVID-19 ==

== ENCOUNTER 2021-07-07 09:53 | Day surgery (SDC) | payer MEDICARE, OTHER ==
[~2021-07-07] VITALS: Ht 162.6 cm; Wt 82.1 kg
[~2021-07-07 09:53] MED LIST changes: +LR 1,000 ML IV ONE
[2021-07-07 10:25] LABS: HEMATOCRIT 43.3 % (36.0-47.0); HEMOGLOBIN 14.4 g/dl (12.0-15.5); MEAN CORPUSCULAR HEMOGLOBIN 30.3 pg (27.0-33.0); MEAN CORPUSCULAR HGB CONC 33.3 g/dl (32.0-36.5); MEAN CORPUSCULAR VOLUME 91.2 fl (80.0-96.0); PLATELET COUNT, AUTOMATED 163 10^3/uL (150-450); RED BLOOD COUNT 4.75 10^6/uL (4.00-5.40); WHITE BLOOD COUNT 4.4 10^3/uL (4.0-10.0)
[2021-07-07 10:52] LABS: BLOOD UREA NITROGEN 13 MG/DL (7-18); CALCIUM LEVEL 9.3 MG/DL (8.5-10.1); CARBON DIOXIDE LEVEL 29 MEQ/L (21-32); CHLORIDE LEVEL 104 MEQ/L (98-107); CREATININE FOR GFR 0.78 MG/DL (0.55-1.30); GLOMERULAR FILTRATION RATE > 60.0 (>51); GLUCOSE, FASTING 88 MG/DL (70-100); POTASSIUM SERUM 3.9 MEQ/L (3.5-5.1); SODIUM LEVEL 138 MEQ/L (136-145)
[2021-07-07] MEDS ORDERED: LIDOCAINE W/EPINEPHRINE 1% 20ML VIAL As Ordered ONE (11:11)
[2021-07-07] MEDS ORDERED: BACITRACIN OINTMENT 30GM TUBE As Ordered ONE (11:11)
[2021-07-07] MEDS ORDERED: propofoL 200 MG/20 ML VIAL As Ordered ONE (12:08)
[2021-07-07] MEDS ORDERED: dexameTHASONE 4 MG/ML 1ML VIAL (J1100 PER 1MG) As Ordered ONE (12:08)
[2021-07-07] MEDS ORDERED: fentaNYL 250 MCG/5 ML INJECTION As Ordered ONE (12:08)
[2021-07-07] MEDS ORDERED: ONDANSETRON 4MG/2ML VIAL As Ordered ONE (12:08)
[2021-07-07] MEDS ORDERED: ROCURONIUM BROMIDE 50 MG/5 ML VIAL As Ordered ONE (12:08)
[2021-07-07] MEDS ORDERED: SUCCINYLCHOLINE 100 MG/5 ML SYRINGE (J0330) As Ordered ONE (12:08)
[2021-07-07] MEDS ORDERED: MIDAZOLAM INJ 2MG/2ML VIAL (J2250 PER 1MG) As Ordered ONE (12:08)
[2021-07-07] MEDS ORDERED: LIDOCAINE 2% 100MG/5ML SDV (FOR ANES.) As Ordered ONE (12:08)
[2021-07-07] MEDS ORDERED: ePHEDrine SULFATE 25 MG/5 ML(5MG/ML) SYRINGE As Ordered ONE ×2 (12:10→12:35)
[2021-07-07] MEDS ORDERED: ACETAMINOPHEN 1000MG 100ML IV BTL (OFIRMEV) (J0131 PER 10MG) As Ordered ONE (12:14)
[2021-07-07] MEDS ORDERED: DESFLURANE 240 ML INHALANT As Ordered ONE (12:20)
[2021-07-07] MEDS ORDERED: HYDROMORPHONE HCL 0.5 MG/ 0.5 ML SYRINGE (J1170 PER 1) IV PRN (14:25)
[2021-07-07] MEDS ORDERED: oxyCODONE 5MG TAB PO PRN (14:25)
[2021-07-07] MEDS ORDERED: LR 1,000 ML IV SCH ×2 (14:25→14:30)
[2021-07-07] MEDS ORDERED: METOCLOPRAMIDE INJ 10MG/2ML VIAL (J2765 PER 1) IV PRN (14:25)
[2021-07-07] MEDS ORDERED: ONDANSETRON 4MG/2ML VIAL IV PRN (14:25)
[2021-07-07] MEDS ORDERED: ACETAMINOPH W/CODEINE #3 TAB UD PO PRN (14:25)
[2021-07-07] MEDS ORDERED: fentaNYL 100 MCG/2 ML INJECTION IV PRN (14:25)
[2021-07-07 14:59] VITALS: BP 140/74
== END 2021-07-07 15:30 | disposition home or self-care (01) ==
LOC: M SDC 09:53
PROVIDERS: ATTEND Otolaryngology
DX: R22.1 Localized swelling, mass and lump, neck (principal); F41.9 Anxiety disorder, unspecified; L40.9 Psoriasis, unspecified; Z79.899 Other long term (current) drug therapy; Z91.040 Latex allergy status; Z91.018 Allergy to other foods
CPT/HCPCS: 36415; 38724; 80048; 85027; 88305; 93005; J0131; J0330; J1100; J2250; J2405; J3010

== ENCOUNTER → 2021-07-14 | Outpatient (CLI) | payer OTHER ==
[~2021-07-14] MED LIST changes: -LR 1,000 ML IV ONE
== END ==
LOC: M PAIN 08:30
PROVIDERS: ATTEND Nurse Practitioner Family
DX: M96.1 Postlaminectomy syndrome, not elsewhere classified (principal); M51.16 Intervertebral disc disorders with radiculopathy, lumbar region; Z91.018 Allergy to other foods; Z91.040 Latex allergy status; Z79.899 Other long term (current) drug therapy

== ENCOUNTER → 2021-07-16 | Outpatient (CLI) | payer OTHER | LOC: M SOG 10:51 | PROVIDERS: ATTEND Orthopaedic Surgery | DX: M25.551 Pain in right hip (principal) ==

== ENCOUNTER → 2021-07-21 | Outpatient (CLI) | payer OTHER | LOC: M PAIN 08:45 | PROVIDERS: ATTEND Nurse Practitioner Family | DX: M96.1 Postlaminectomy syndrome, not elsewhere classified (principal); M51.16 Intervertebral disc disorders with radiculopathy, lumbar region; Z96.89 Presence of other specified functional implants; Z91.018 Allergy to other foods; Z91.040 Latex allergy status; Z79.899 Other long term (current) drug therapy ==

== ENCOUNTER → 2021-07-27 | Outpatient (CLI) | payer MEDICARE, OTHER ==
[~2021-07-27] MED LIST changes: +BUPIVACAINE HCL 0.5% 30 ML VIAL As Ordered ONE; +ISOVUE-300 61% 50ML VIAL As Ordered ONE; +LIDOCAINE 1% MDV 20ML VIAL As Ordered ONE; +methylPREDNISolone 80MG/ML SUSP 1ML VIAL (J1040) As Ordered ONE
== END ==
LOC: M RADPRO 12:28
PROVIDERS: ATTEND Orthopaedic Surgery
DX: M25.551 Pain in right hip (principal); M16.11 Unilateral primary osteoarthritis, right hip
CPT/HCPCS: 20610; 77002; J1040; Q9967

== ENCOUNTER → 2021-11-30 | Outpatient (CLI) | payer OTHER ==
[~2021-11-30] MED LIST changes: -BUPIVACAINE HCL 0.5% 30 ML VIAL As Ordered ONE; -ISOVUE-300 61% 50ML VIAL As Ordered ONE; -LIDOCAINE 1% MDV 20ML VIAL As Ordered ONE; -methylPREDNISolone 80MG/ML SUSP 1ML VIAL (J1040) As Ordered ONE
== END ==
LOC: M PAIN 10:30
PROVIDERS: ATTEND Anesthesiology
DX: M96.1 Postlaminectomy syndrome, not elsewhere classified (principal); M51.16 Intervertebral disc disorders with radiculopathy, lumbar region; G89.29 Other chronic pain; Z96.89 Presence of other specified functional implants; Z91.018 Allergy to other foods; Z91.040 Latex allergy status; Z79.899 Other long term (current) drug therapy

== ENCOUNTER → 2021-12-11 | Outpatient (CLI) | payer OTHER | LOC: M PAIN 09:00 | PROVIDERS: ATTEND Anesthesiology | DX: M96.1 Postlaminectomy syndrome, not elsewhere classified (principal); G89.29 Other chronic pain; Z96.89 Presence of other specified functional implants; Z91.018 Allergy to other foods; Z91.040 Latex allergy status; Z79.899 Other long term (current) drug therapy ==

== ENCOUNTER → 2021-12-13 | Outpatient (CLI) | payer OTHER | LOC: M LABSMTC 09:16 | PROVIDERS: ATTEND Anesthesiology | DX: Z01.812 Encounter for preprocedural laboratory examination (principal); Z20.822 Contact with and (suspected) exposure to COVID-19 ==

== ENCOUNTER → 2021-12-15 | Outpatient (CLI) | payer OTHER ==
[~2021-12-15] MED LIST changes: +ISOVUE-M 300 61% 15ML VIAL As Ordered ONE; +LIDOCAINE 1% SDV 30ML VIAL As Ordered ONE; +diazePAM 5MG TABLET As Ordered ONE; +methylPREDNISolone SUSP 40MG/ML 1ML VIAL (DEPO MEDROL) As Ordered ONE; +oxyCODONE 5MG TAB As Ordered ONE
== END ==
LOC: M PAIN 08:30
PROVIDERS: ATTEND Anesthesiology
DX: M96.1 Postlaminectomy syndrome, not elsewhere classified (principal); G89.29 Other chronic pain; Z96.89 Presence of other specified functional implants; Z91.018 Allergy to other foods; Z91.040 Latex allergy status; Z79.899 Other long term (current) drug therapy
CPT/HCPCS: 62323; J1030; Q9967

== ENCOUNTER → 2022-01-04 | Outpatient (CLI) | payer OTHER ==
[~2022-01-04] MED LIST changes: -ISOVUE-M 300 61% 15ML VIAL As Ordered ONE; -LIDOCAINE 1% SDV 30ML VIAL As Ordered ONE; -diazePAM 5MG TABLET As Ordered ONE; -methylPREDNISolone SUSP 40MG/ML 1ML VIAL (DEPO MEDROL) As Ordered ONE; -oxyCODONE 5MG TAB As Ordered ONE
== END ==
LOC: M PAIN 09:15
PROVIDERS: ATTEND Anesthesiology
DX: M51.16 Intervertebral disc disorders with radiculopathy, lumbar region (principal); L40.9 Psoriasis, unspecified; J30.1 Allergic rhinitis due to pollen; Z79.899 Other long term (current) drug therapy; Z91.040 Latex allergy status; Z91.018 Allergy to other foods

== ENCOUNTER → 2022-02-24 | Outpatient (CLI) | payer OTHER | LOC: M PAIN 12:00 | PROVIDERS: ATTEND Anesthesiology | DX: M96.1 Postlaminectomy syndrome, not elsewhere classified (principal); G89.29 Other chronic pain; Z96.89 Presence of other specified functional implants; Z91.018 Allergy to other foods; Z91.040 Latex allergy status; Z79.899 Other long term (current) drug therapy ==

== ENCOUNTER → 2022-04-06 | Outpatient (CLI) | payer OTHER | LOC: M PAIN 09:00 | PROVIDERS: ATTEND Nurse Practitioner Family | DX: M96.1 Postlaminectomy syndrome, not elsewhere classified (principal); G89.29 Other chronic pain; Z96.89 Presence of other specified functional implants; Z91.018 Allergy to other foods; Z91.040 Latex allergy status; Z79.899 Other long term (current) drug therapy ==

== ENCOUNTER → 2022-04-29 | Outpatient (CLI) | payer OTHER | LOC: M PAIN 09:00 | PROVIDERS: ATTEND Nurse Practitioner Family | DX: M96.1 Postlaminectomy syndrome, not elsewhere classified (principal); M51.16 Intervertebral disc disorders with radiculopathy, lumbar region; M48.061 Spinal stenosis, lumbar region without neurogenic claudication; G89.29 Other chronic pain; Z96.89 Presence of other specified functional implants; Z91.018 Allergy to other foods; Z91.040 Latex allergy status; Z79.899 Other long term (current) drug therapy ==

== ENCOUNTER → 2022-05-05 | Outpatient (CLI) | payer OTHER | LOC: M SOG 08:10 | PROVIDERS: ATTEND Orthopaedic Surgery | DX: M54.50 Low back pain, unspecified (principal); Z53.9 Procedure and treatment not carried out, unspecified reason ==

== ENCOUNTER → 2022-05-19 | Outpatient (CLI) | payer OTHER ==
[~2022-05-19] MED LIST changes: +BUPIVACAINE HCL 0.5% 10ML VIAL ONE; +DICL1GEL3 TOP; +ISOVUE-300 61% 50ML VIAL ONE; +LIDOCAINE 1% MDV 20ML VIAL ONE; +LORA-243 PO; +OMEG10002 PO; +PANT20TA6 PO; +methylPREDNISolone 80MG/ML SUSP 1ML VIAL ONE
== END ==
LOC: M PLAIMG 13:18
PROVIDERS: ATTEND Orthopaedic Surgery
DX: M16.11 Unilateral primary osteoarthritis, right hip (principal)

== ENCOUNTER → 2022-05-21 | Outpatient (CLI) | payer MEDICARE, OTHER ==
[~2022-05-21] MED LIST changes: -BUPIVACAINE HCL 0.5% 10ML VIAL ONE; -ISOVUE-300 61% 50ML VIAL ONE; -LIDOCAINE 1% MDV 20ML VIAL ONE; -methylPREDNISolone 80MG/ML SUSP 1ML VIAL ONE
[2022-05-21 14:43] LABS: BASO % 0.5 % (0.0-1.0); EOS % 0.4 % (0.0-3.0); HEMATOCRIT 41.6 % (36.0-47.0); HEMOGLOBIN 13.7 g/dl (12.0-15.5); LYMPH # 1.6 10^3/uL (1.5-5.0); LYMPH % 27.9 % (24.0-44.0); MEAN CORPUSCULAR HEMOGLOBIN 30.2 pg (27.0-33.0); MEAN CORPUSCULAR HGB CONC 32.9 g/dl (32.0-36.5); MEAN CORPUSCULAR VOLUME 91.8 fl (80.0-96.0); MONO # 0.4 10^3/uL (0.0-0.8); MONO % 6.3 % (2.0-8.0); NEUTROPHILS # 3.6 10^3/uL (1.5-8.5); NEUTROPHILS % 64.5 % (36.0-66.0); PLATELET COUNT, AUTOMATED 163 10^3/uL (150-450); RED BLOOD COUNT 4.53 10^6/uL (4.00-5.40); WHITE BLOOD COUNT 5.6 10^3/uL (4.0-10.0)
[2022-05-21 15:07] LABS: BLOOD UREA NITROGEN 17 MG/DL (9-23); CALCIUM LEVEL 9.3 MG/DL (8.5-10.1); CARBON DIOXIDE LEVEL 30 MMOL/L (20-31); CHLORIDE LEVEL 101 MMOL/L (98-107); CREATININE FOR GFR 0.82 MG/DL (0.55-1.30); GLOMERULAR FILTRATION RATE > 60.0 (>51); GLUCOSE, FASTING 97 MG/DL (60-100); SODIUM LEVEL 140 MMOL/L (136-145)
== END ==
LOC: M EKG 14:07
PROVIDERS: ATTEND Podiatrist
DX: M20.41 Other hammer toe(s) (acquired), right foot (principal); M79.671 Pain in right foot

== ENCOUNTER → 2022-05-31 | Outpatient (CLI) | payer MEDICARE, OTHER | LOC: M LABSMTC 10:12 | PROVIDERS: ATTEND Anesthesiology | DX: Z01.812 Encounter for preprocedural laboratory examination (principal); Z11.52 Encounter for screening for COVID-19 ==

== ENCOUNTER 2022-06-04 08:41 | Day surgery (SDC) | payer MEDICARE, OTHER ==
[~2022-06-04] VITALS: Ht 162.6 cm; Wt 83.0 kg
[2022-06-04] MEDS ORDERED: LR 1,000 ML IV SCH (09:50)
[2022-06-04] MEDS ORDERED: LIDOCAINE 2% MDV 20ML VIAL As Ordered ONE (10:06)
[2022-06-04] MEDS ORDERED: BUPIVACAINE HCL 0.5% 30ML VIAL As Ordered ONE (10:06)
[2022-06-04] MEDS ORDERED: GENTAMICIN SULF 80MG/2ML VIAL As Ordered ONE (10:06)
[2022-06-04] MEDS ORDERED: ONDANSETRON 4MG 2ML VIAL As Ordered ONE (10:13)
[2022-06-04] MEDS ORDERED: propofoL 200 MG/20 ML VIAL As Ordered ONE ×2 (10:13→11:00)
[2022-06-04] MEDS ORDERED: MIDAZOLAM INJ 2MG/2ML VIAL As Ordered ONE (10:13)
[2022-06-04] MEDS ORDERED: LIDOCAINE 2% 100MG/5ML SDV (FOR ANES.) As Ordered ONE (10:13)
[2022-06-04] MEDS ORDERED: KETOROLAC 60MG 2ML VIAL As Ordered ONE (10:13)
[2022-06-04] MEDS ORDERED: fentaNYL 100 MCG/2 ML INJECTION As Ordered ONE (10:13)
[2022-06-04] MEDS ORDERED: ceFAZolin 2 GM/D5W 50 ML IV BAG As Ordered ONE (10:42)
[2022-06-04 12:45] VITALS: BP 125/69
== END 2022-06-04 12:45 | disposition home or self-care (01) ==
LOC: M SDC 08:41
PROVIDERS: ATTEND Podiatrist
DX: M20.41 Other hammer toe(s) (acquired), right foot (principal); L40.9 Psoriasis, unspecified; F41.9 Anxiety disorder, unspecified; Z79.899 Other long term (current) drug therapy; K21.9 Gastro-esophageal reflux disease without esophagitis; Z91.040 Latex allergy status; Z91.018 Allergy to other foods
CPT/HCPCS: 28285; 73630; 76000; 88300; 97116; J1100; J2405

== ENCOUNTER → 2022-07-23 | Outpatient (CLI) | payer OTHER | LOC: M PAIN 09:00 | PROVIDERS: ATTEND Nurse Practitioner Family | DX: M96.1 Postlaminectomy syndrome, not elsewhere classified (principal); M51.16 Intervertebral disc disorders with radiculopathy, lumbar region; G89.29 Other chronic pain; Z96.89 Presence of other specified functional implants; Z91.018 Allergy to other foods; Z91.040 Latex allergy status; Z79.899 Other long term (current) drug therapy ==

== ENCOUNTER → 2022-08-03 | Outpatient (CLI) | payer MEDICARE | LOC: M WHC 06:56 | PROVIDERS: ATTEND Family Medicine | DX: Z12.31 Encounter for screening mammogram for malignant neoplasm of breast (principal) ==

== ENCOUNTER → 2022-09-06 | Outpatient (CLI) | payer MEDICARE ==
[2022-09-06 06:47] LABS: BASO % 0.8 % (0.0-1.0); EOS # 0.1 10^3/uL (0.0-0.5); HEMATOCRIT 42.9 % (36.0-47.0); HEMOGLOBIN 14.1 g/dl (12.0-15.5); LYMPH # 1.2 10^3/uL (1.5-5.0); LYMPH % 29.8 % (24.0-44.0); MEAN CORPUSCULAR HEMOGLOBIN 30.3 pg (27.0-33.0); MEAN CORPUSCULAR HGB CONC 32.9 g/dl (32.0-36.5); MEAN CORPUSCULAR VOLUME 92.1 fl (80.0-96.0); MONO # 0.4 10^3/uL (0.0-0.8); MONO % 9.3 % (2.0-8.0); NEUTROPHILS # 2.3 10^3/uL (1.5-8.5); NEUTROPHILS % 57.8 % (36.0-66.0); PLATELET COUNT, AUTOMATED 155 10^3/uL (150-450); RED BLOOD COUNT 4.66 10^6/uL (4.00-5.40)
[2022-09-06 07:16] LABS: ALKALINE PHOSPHATASE 61 U/L (46-116); ALT/SGPT 15 U/L (7.0-40); AST/SGOT 18 U/L (<34); BILIRUBIN,TOTAL 0.5 MG/DL (0.3-1.2); BLOOD UREA NITROGEN 15 MG/DL (9-23); CALCIUM LEVEL 9.5 MG/DL (8.5-10.1); CARBON DIOXIDE LEVEL 29 MMOL/L (20-31); CHLORIDE LEVEL 104 MMOL/L (98-107); CHOLESTEROL LEVEL 210 MG/DL (<200); CHOLESTEROL RISK RATIO 3.17 (<5); CREATININE FOR GFR 0.85 MG/DL (0.55-1.30); GLOMERULAR FILTRATION RATE > 60.0 (>51); GLUCOSE, FASTING 87 MG/DL (60-100); HDL CHOLESTEROL 66.2 MG/DL (>40); NON-HDL-C 143.8 MG/DL; POTASSIUM SERUM 4.2 MMOL/L (3.5-5.1); SODIUM LEVEL 139 MMOL/L (136-145); TOTAL 25(OH) VITAMIN D 37.5 NG/ML (20.0-100.0); TOTAL PROTEIN 7.1 G/DL (5.7-8.2); TRIGLYCERIDES LEVEL 109 MG/DL (<150)
== END ==
LOC: M LAB 06:09
PROVIDERS: ATTEND Family Medicine
DX: Z79.899 Other long term (current) drug therapy (principal); Z00.00 Encounter for general adult medical examination without abnormal findings

== ENCOUNTER → 2022-09-09 | Outpatient (CLI) | payer OTHER ==
[~2022-09-09] MED LIST changes: +ISOVUE-M 300 61% 15ML VIAL As Ordered ONE; +LIDOCAINE 1% SDV 30ML VIAL As Ordered ONE; +diazePAM 5MG TABLET As Ordered ONE; +methylPREDNISolone SUSP 40MG/ML 1ML VIAL (DEPO MEDROL) As Ordered ONE; +oxyCODONE 5MG TAB As Ordered ONE
== END ==
LOC: M PAIN 10:30
PROVIDERS: ATTEND Anesthesiology
DX: M51.16 Intervertebral disc disorders with radiculopathy, lumbar region (principal); G89.29 Other chronic pain; Z96.89 Presence of other specified functional implants; Z91.018 Allergy to other foods; Z91.040 Latex allergy status; Z79.899 Other long term (current) drug therapy
CPT/HCPCS: 62323; J1030; Q9967

== ENCOUNTER → 2022-09-22 | Outpatient (CLI) | payer OTHER ==
[~2022-09-22] MED LIST changes: -ISOVUE-M 300 61% 15ML VIAL As Ordered ONE; -LIDOCAINE 1% SDV 30ML VIAL As Ordered ONE; -diazePAM 5MG TABLET As Ordered ONE; -methylPREDNISolone SUSP 40MG/ML 1ML VIAL (DEPO MEDROL) As Ordered ONE; -oxyCODONE 5MG TAB As Ordered ONE
== END ==
LOC: M SOG 07:51
PROVIDERS: ATTEND Orthopaedic Surgery
DX: M16.11 Unilateral primary osteoarthritis, right hip (principal)

== ENCOUNTER → 2022-09-30 | Outpatient (CLI) | payer MEDICARE, OTHER ==
[~2022-09-30] MED LIST changes: +BUPIVACAINE HCL 0.5% 30ML VIAL As Ordered ONE; +ISOVUE-300 61% 100ML VIAL As Ordered ONE; +LIDOCAINE 1% MDV 20ML VIAL As Ordered ONE; +methylPREDNISolone 80MG/ML SUSP 1ML VIAL As Ordered ONE
== END ==
LOC: M RAD 15:19
PROVIDERS: ATTEND Orthopaedic Surgery
DX: M16.11 Unilateral primary osteoarthritis, right hip (principal)
CPT/HCPCS: 20610; 76000; J1040; Q9967

== ENCOUNTER → 2022-11-09 | Outpatient (CLI) | payer OTHER ==
[~2022-11-09] MED LIST changes: -BUPIVACAINE HCL 0.5% 30ML VIAL As Ordered ONE; -ISOVUE-300 61% 100ML VIAL As Ordered ONE; -LIDOCAINE 1% MDV 20ML VIAL As Ordered ONE; -methylPREDNISolone 80MG/ML SUSP 1ML VIAL As Ordered ONE
== END ==
LOC: M PAIN 09:00
PROVIDERS: ATTEND Nurse Practitioner Family
DX: M51.16 Intervertebral disc disorders with radiculopathy, lumbar region (principal); G89.29 Other chronic pain; Z96.89 Presence of other specified functional implants; Z91.018 Allergy to other foods; Z91.040 Latex allergy status; Z79.899 Other long term (current) drug therapy

== ENCOUNTER → 2022-12-16 | Outpatient (CLI) | payer OTHER ==
[~2022-12-16] MED LIST changes: +DICL100G10 TOP; -DICL1GEL3 TOP
== END ==
LOC: M PAIN 09:45
PROVIDERS: ATTEND Nurse Practitioner Family
DX: M51.16 Intervertebral disc disorders with radiculopathy, lumbar region (principal); M96.1 Postlaminectomy syndrome, not elsewhere classified; G89.29 Other chronic pain; Z91.040 Latex allergy status; Z79.899 Other long term (current) drug therapy

== ENCOUNTER → 2022-12-31 | Outpatient (REF) | payer OTHER | LOC: M SFHCWAGY 16:52 | PROVIDERS: ATTEND Nurse Practitioner Family | DX: R39.15 Urgency of urination (principal) ==

== ENCOUNTER → 2023-01-07 | Outpatient (CLI) | payer MEDICARE, OTHER ==
[~2023-01-07] MED LIST changes: +DULO1CAP6 PO; +IBUP80TA; +LIDO5DIS41 TOP
== END ==
LOC: M EKG 08:28
PROVIDERS: ATTEND Family Medicine
DX: Z01.818 Encounter for other preprocedural examination (principal)

== ENCOUNTER → 2023-01-07 | Outpatient (CLI) | payer MEDICARE, OTHER ==
[2023-01-07 09:15] LABS: HEMOGLOBIN A1c 5.1 % (4.0-6.0)
== END ==
LOC: M LAB 08:22
PROVIDERS: ATTEND Orthopaedic Surgery
DX: M16.11 Unilateral primary osteoarthritis, right hip (principal)

== ENCOUNTER → 2023-01-07 | Outpatient (CLI) | payer MEDICARE | LOC: M WHC 06:40 | PROVIDERS: ATTEND Nurse Practitioner Family | DX: N95.0 Postmenopausal bleeding (principal); M16.11 Unilateral primary osteoarthritis, right hip; Z01.818 Encounter for other preprocedural examination ==

== ENCOUNTER → 2023-01-13 | Outpatient (CLI) | payer MEDICARE, OTHER ==
[2023-01-13 11:50] LABS: BASO # 0.1 10^3/uL (0.0-0.2); BASO % 1.3 % (0.0-1.0); HEMATOCRIT 39.3 % (36.0-47.0); LYMPH # 1.5 10^3/uL (1.5-5.0); LYMPH % 38.3 % (24.0-44.0); MEAN CORPUSCULAR HEMOGLOBIN 30.4 pg (27.0-33.0); MEAN CORPUSCULAR HGB CONC 33.1 g/dl (32.0-36.5); MONO # 0.3 10^3/uL (0.0-0.8); MONO % 7.9 % (2.0-8.0); NEUTROPHILS % 51.2 % (36.0-66.0); PLATELET COUNT, AUTOMATED 141 10^3/uL (150-450); RED BLOOD COUNT 4.27 10^6/uL (4.00-5.40); WHITE BLOOD COUNT 3.9 10^3/uL (4.0-10.0)
[2023-01-13 12:22] LABS: ALBUMIN 3.8 G/DL (3.2-5.2); ALKALINE PHOSPHATASE 62 U/L (46-116); ALT/SGPT 14 U/L (7.0-40); AST/SGOT 13 U/L (<34); BILIRUBIN,TOTAL 0.4 MG/DL (0.3-1.2); BLOOD UREA NITROGEN 10 MG/DL (9-23); CALCIUM LEVEL 9.2 MG/DL (8.5-10.1); CARBON DIOXIDE LEVEL 30 MMOL/L (20-31); CHLORIDE LEVEL 104 MMOL/L (98-107); CREATININE FOR GFR 0.75 MG/DL (0.55-1.30); GLOMERULAR FILTRATION RATE > 60.0 (>51); GLUCOSE, FASTING 82 MG/DL (60-100); POTASSIUM SERUM 4.1 MMOL/L (3.5-5.1); SODIUM LEVEL 141 MMOL/L (136-145); TOTAL PROTEIN 6.5 G/DL (5.7-8.2)
== END ==
LOC: M LAB 11:26
PROVIDERS: ATTEND Orthopaedic Surgery
DX: M25.551 Pain in right hip (principal)

== ENCOUNTER 2023-01-25 06:57 | Observation (INO) | payer MEDICARE ==
[~2023-01-25] VITALS: Ht 162.6 cm; Wt 76.6 kg
[~2023-01-25 06:57] MED LIST changes: -IBUP80TA; +IBUP80TA PO; +ROPIVA 100MG/KETOR 15MG/EPINEPHRINE 0.3MG IN NS 50ML SYRINGE PA ONE
[2023-01-25] MEDS ORDERED: LR 1,000 ML IV SCH ×2 (07:40→11:00)
[2023-01-25] MEDS ORDERED: DICL1PAT6 TOP (07:45)
[2023-01-25] MEDS ORDERED: BIOT1CAP3 PO (07:45)
[2023-01-25] MEDS ORDERED: PRIL20TA2 PO (07:45)
[2023-01-25] MEDS ORDERED: HOME MED LIST COMPLETE! XX SCH (07:50)
[2023-01-25] MEDS ORDERED: ceFAZolin SOD 2 GM in IV 1 EA IV ONE (07:55)
[2023-01-25] MEDS ORDERED: oxyCODONE 5MG TAB PO ONE (07:55)
[2023-01-25] MEDS ORDERED: TRANEXAMIC ACID 100 MG/ML 10ML VIAL IV ONE (08:00)
[2023-01-25] MEDS ORDERED: fentaNYL 100 MCG/2 ML INJECTION As Ordered ONE (08:03)
[2023-01-25] MEDS ORDERED: MIDAZOLAM INJ 2MG/2ML VIAL As Ordered ONE (08:03)
[2023-01-25] MEDS ORDERED: HYDROmorphone HCL 2MG/ML 1ML VIAL As Ordered ONE (08:03)
[2023-01-25] MEDS ORDERED: propofoL 200 MG/20 ML VIAL As Ordered ONE (08:05)
[2023-01-25] MEDS ORDERED: ONDANSETRON 4MG 2ML VIAL As Ordered ONE (08:06)
[2023-01-25] MEDS ORDERED: ROCURONIUM BROMIDE 50MG/5ML VIAL As Ordered ONE ×2 (08:06→10:18)
[2023-01-25] MEDS ORDERED: LIDOCAINE 2% 100MG/5ML SDV (FOR ANES.) As Ordered ONE (08:06)
[2023-01-25] MEDS ORDERED: TRANEXAMIC ACID 100 MG/ML 10ML VIAL As Ordered ONE (08:13)
[2023-01-25] MEDS ORDERED: SCOPOLAMINE 1MG TRANSDERMAL PATCH TOP ONE (08:30)
[2023-01-25] MEDS ORDERED: GLYCOPYRROLATE INJ 0.2 MG/ML 2 ML VIAL As Ordered ONE (09:17)
[2023-01-25] MEDS ORDERED: ePHEDrine SULFATE 25 MG/5 ML(5MG/ML) SYRINGE As Ordered ONE (09:32)
[2023-01-25] MEDS ORDERED: ACETAMINOPHEN 1000MG 100ML IV BAG As Ordered ONE (09:38)
[2023-01-25] MEDS ORDERED: dexmedeTOMIDine (4MCG/ML)200MCG/50ML BTL (PRECEDEX) As Ordered ONE (09:41)
[2023-01-25] MEDS ORDERED: LABETALOL 100MG/20ML VIAL As Ordered ONE (10:21)
[2023-01-25] MEDS ORDERED: SUGAMMADEX SODIUM 500 MG/5 ML VIAL (BRIDION) As Ordered ONE (10:44)
[2023-01-25] MEDS ORDERED: ONDANSETRON 4MG 2ML VIAL IV PRN ×2 (11:00→11:25)
[2023-01-25] MEDS ORDERED: HYDROMORPHONE HCL 0.5 MG/ 0.5 ML SYRINGE IV PRN (11:00)
[2023-01-25] MEDS: LR 1,000 ML IV SCH ×2 (11:25→21:25)
[2023-01-25] MEDS ORDERED: SENNA 8.6 MG TAB (SENOKOT) PO PRN (11:25)
[2023-01-25] MEDS: oxyCODONE 5MG TAB PO PRN ×4 (11:50→21:58)
[2023-01-25] MEDS: fentaNYL 100 MCG/2 ML INJECTION IV PRN ×2 (11:56→13:02)
[2023-01-25 15:30] VITALS: BP 114/70; TEMP 97.9; O2SAT 94
[2023-01-25] MEDS: LIDOCAINE 5% (LIDODERM) PATCH TOP SCH (15:32)
[2023-01-25 16:00] VITALS: BP 112/68; TEMP 98.2; O2SAT 95
[2023-01-25 17:00] VITALS: BP 111/70; TEMP 98.4; O2SAT 95
[2023-01-25] MEDS: ACETAMINOPHEN TAB 650MG DOSE (2X325MG) PO SCH (17:18)
[2023-01-25] MEDS: ceFAZolin SOD 2 GM in IV 1 EA IV SCH (17:21)
[2023-01-25 18:00] VITALS: BP 112/70; TEMP 98.2; O2SAT 95
[2023-01-25 19:00] VITALS: BP 108/70; TEMP 98.4; O2SAT 95
[2023-01-25 20:04] VITALS: BP 114/60; TEMP 97.2; O2SAT 93
[2023-01-25] MEDS ORDERED: DULoxetine 30MG CAPSULE (CYMBALTA) PO SCH (21:00)
[2023-01-25] MEDS ORDERED: LORATADINE 10 MG TAB PO SCH (21:00)
[2023-01-25] MEDS ORDERED: PREGABALIN 75 MG CAP(LYRICA) PO SCH (21:00)
[2023-01-25] MEDS ORDERED: OMEPRAZOLE 20MG CAP PO SCH (21:00)
[2023-01-25] MEDS ORDERED: OMEGA-3 1000MG CAPSULE PO SCH (21:00)
[2023-01-25] MEDS ORDERED: MULTIVITAMINS/MINERALS THERAP 1 TAB PO SCH (21:00)
[2023-01-25] MEDS: ASPIRIN 81MG ENTERIC TABLET PO SCH (21:56)
[2023-01-25] MEDS: NAPROXEN 250 MG TAB PO SCH (21:57)
[2023-01-25] MEDS: DOCUSATE SODIUM 100MG CAPSULE PO SCH (21:57)
[2023-01-26 00:03] VITALS: BP 115/56; TEMP 97.7; O2SAT 98
[2023-01-26] MEDS: ACETAMINOPHEN TAB 650MG DOSE (2X325MG) PO SCH ×3 (00:55→12:00)
[2023-01-26] MEDS: ceFAZolin SOD 2 GM in IV 1 EA IV SCH (00:55)
[2023-01-26] MEDS: oxyCODONE 5MG TAB PO PRN ×3 (01:57→12:22)
[2023-01-26 04:12] VITALS: BP 112/57; TEMP 98.1; O2SAT 95
[2023-01-26 05:17] VITALS: BP 159/95; TEMP 98.4; O2SAT 96
[2023-01-26 06:59] LABS: HEMATOCRIT 28.9 % (36.0-47.0); HEMOGLOBIN 9.7 g/dl (12.0-15.5); MEAN CORPUSCULAR HEMOGLOBIN 30.8 pg (27.0-33.0); MEAN CORPUSCULAR HGB CONC 33.6 g/dl (32.0-36.5); MEAN CORPUSCULAR VOLUME 91.7 fl (80.0-96.0); PLATELET COUNT, AUTOMATED 116 10^3/uL (150-450); RED BLOOD COUNT 3.15 10^6/uL (4.00-5.40); WHITE BLOOD COUNT 9.1 10^3/uL (4.0-10.0)
[2023-01-26 07:20] LABS: ALBUMIN 3.1 G/DL (3.2-5.2); ALKALINE PHOSPHATASE 39 U/L (46-116); ALT/SGPT 18 U/L (7.0-40); AST/SGOT 21 U/L (<34); BILIRUBIN,TOTAL 0.5 MG/DL (0.3-1.2); BLOOD UREA NITROGEN 14 MG/DL (9-23); CALCIUM LEVEL 8.3 MG/DL (8.5-10.1); CARBON DIOXIDE LEVEL 27 MMOL/L (20-31); CHLORIDE LEVEL 102 MMOL/L (98-107); CREATININE FOR GFR 0.69 MG/DL (0.55-1.30); GLOMERULAR FILTRATION RATE > 60.0 (>51); GLUCOSE, FASTING 103 MG/DL (60-100); POTASSIUM SERUM 3.8 MMOL/L (3.5-5.1); SODIUM LEVEL 136 MMOL/L (136-145); TOTAL PROTEIN 5.1 G/DL (5.7-8.2)
[2023-01-26] MEDS: LR 1,000 ML IV SCH (07:25)
[2023-01-26] MEDS: ASPIRIN 81MG ENTERIC TABLET PO SCH (07:27)
[2023-01-26] MEDS: DOCUSATE SODIUM 100MG CAPSULE PO SCH (07:27)
[2023-01-26] MEDS: NAPROXEN 250 MG TAB PO SCH (07:27)
[2023-01-26] MEDS: LIDOCAINE 5% (LIDODERM) PATCH TOP SCH (07:28)
[2023-01-26] MEDS ORDERED: SENN-188 PO (08:49)
[2023-01-26] MEDS ORDERED: COLA100C5 PO (08:49)
[2023-01-26] MEDS ORDERED: OXYC-517 PO (08:49)
[2023-01-26] MEDS ORDERED: ACET1TAB55 PO (08:49)
[2023-01-26 10:00] VITALS: BP 107/56; TEMP 98.6; O2SAT 97
== END 2023-01-26 12:45 | disposition home or self-care (01) ==
LOC: M SDC 06:57 → M MS5PR 06:58
PROVIDERS: ADMIT Orthopaedic Surgery; ATTEND Orthopaedic Surgery
DX: M16.11 Unilateral primary osteoarthritis, right hip (principal); K21.9 Gastro-esophageal reflux disease without esophagitis; L40.9 Psoriasis, unspecified; R51.9 Headache, unspecified; Z79.899 Other long term (current) drug therapy; M54.9 Dorsalgia, unspecified; Z91.040 Latex allergy status; Z91.018 Allergy to other foods
CPT/HCPCS: 27130; 36415; 72170; 76000; 80053; 82306; 85027; 87635; 88300; 96365; 96366; 97116; 97161; 97165; 97530; 97535; C1776; G0378; J0131; J0690; J1100; J1170; J1920; J2250; J2405; J3010

== ENCOUNTER → 2023-03-09 | Outpatient (CLI) | payer MEDICARE, OTHER ==
[~2023-03-09] MED LIST changes: +ACET1TAB55 PO; +BIOT1CAP3 PO; +COLA100C5 PO; +DICL1PAT6 TOP; +OXYC-517 PO; +PRIL20TA2 PO; -ROPIVA 100MG/KETOR 15MG/EPINEPHRINE 0.3MG IN NS 50ML SYRINGE PA ONE; +SENN-188 PO
[2023-03-09 15:44] LABS: BASO # 0.1 10^3/uL (0.0-0.2); BASO % 1.1 % (0.0-1.0); EOS # 0.1 10^3/uL (0.0-0.5); EOS % 1.3 % (0.0-3.0); HEMATOCRIT 37.8 % (36.0-47.0); HEMOGLOBIN 12.7 g/dl (12.0-15.5); LYMPH # 1.8 10^3/uL (1.5-5.0); LYMPH % 37.8 % (24.0-44.0); MEAN CORPUSCULAR HGB CONC 33.6 g/dl (32.0-36.5); MEAN CORPUSCULAR VOLUME 92.2 fl (80.0-96.0); MONO # 0.3 10^3/uL (0.0-0.8); NEUTROPHILS # 2.5 10^3/uL (1.5-8.5); NEUTROPHILS % 52.4 % (36.0-66.0); PLATELET COUNT, AUTOMATED 206 10^3/uL (150-450); WHITE BLOOD COUNT 4.7 10^3/uL (4.0-10.0)
== END ==
LOC: M PLALAB 13:47
PROVIDERS: ATTEND Orthopaedic Surgery
DX: Z96.641 Presence of right artificial hip joint (principal)

== ENCOUNTER → 2023-03-09 | Outpatient (CLI) | payer MEDICARE | LOC: M SOG 13:01 | PROVIDERS: ATTEND Orthopaedic Surgery | DX: Z96.641 Presence of right artificial hip joint (principal) ==

== ENCOUNTER → 2023-03-18 | Outpatient (CLI) | payer OTHER | LOC: M PAIN 09:00 | PROVIDERS: ATTEND Nurse Practitioner Family | DX: M51.16 Intervertebral disc disorders with radiculopathy, lumbar region (principal); M96.1 Postlaminectomy syndrome, not elsewhere classified; G89.29 Other chronic pain; Z96.89 Presence of other specified functional implants; Z80.1 Family history of malignant neoplasm of trachea, bronchus and lung; Z91.018 Allergy to other foods; Z91.040 Latex allergy status; Z79.899 Other long term (current) drug therapy ==

== ENCOUNTER → 2023-05-19 | Outpatient (CLI) | payer OTHER | LOC: M PAIN 09:00 | PROVIDERS: ATTEND Nurse Practitioner Family | DX: M51.16 Intervertebral disc disorders with radiculopathy, lumbar region (principal); M96.1 Postlaminectomy syndrome, not elsewhere classified; G89.29 Other chronic pain; Z96.89 Presence of other specified functional implants; Z80.8 Family history of malignant neoplasm of other organs or systems; Z91.018 Allergy to other foods; Z91.040 Latex allergy status; Z79.899 Other long term (current) drug therapy ==

== ENCOUNTER → 2023-05-23 | Outpatient (CLI) | payer OTHER | LOC: M SOG 07:51 | PROVIDERS: ATTEND Physician Assistant | DX: M25.512 Pain in left shoulder (principal) ==

== ENCOUNTER → 2023-06-21 | Outpatient (CLI) | payer OTHER | LOC: M SOG 08:49 | PROVIDERS: ATTEND Physician Assistant | DX: M25.522 Pain in left elbow (principal) ==

== ENCOUNTER → 2023-07-06 | Outpatient (CLI) | payer OTHER | LOC: M SOG 07:52 | PROVIDERS: ATTEND Orthopaedic Surgery | DX: Z96.641 Presence of right artificial hip joint (principal) ==

== ENCOUNTER → 2023-08-18 | Outpatient (CLI) | payer OTHER | LOC: M PAIN 09:15 | PROVIDERS: ATTEND Nurse Practitioner Family | DX: M96.1 Postlaminectomy syndrome, not elsewhere classified (principal); M51.16 Intervertebral disc disorders with radiculopathy, lumbar region; G89.29 Other chronic pain; L40.9 Psoriasis, unspecified; Z79.899 Other long term (current) drug therapy; Z91.040 Latex allergy status; Z91.018 Allergy to other foods ==

== ENCOUNTER → 2023-09-19 | Outpatient (CLI) | payer OTHER, MEDICARE | LOC: M SOG 09:10 | PROVIDERS: ATTEND Physician Assistant | DX: M25.511 Pain in right shoulder (principal) ==

== ENCOUNTER → 2023-09-29 | Outpatient (CLI) | payer OTHER ==
[~2023-09-29] MED LIST changes: +MV-M1TAB40 PO; +SUPPORT PO; +THERTAB52 PO
== END ==
LOC: M PAIN 09:45
PROVIDERS: ATTEND Nurse Practitioner Family
DX: M96.1 Postlaminectomy syndrome, not elsewhere classified (principal); M51.16 Intervertebral disc disorders with radiculopathy, lumbar region; G89.29 Other chronic pain; L40.9 Psoriasis, unspecified; Z79.899 Other long term (current) drug therapy; Z91.018 Allergy to other foods; Z91.040 Latex allergy status

== ENCOUNTER → 2023-10-04 | Outpatient (CLI) | payer OTHER ==
[~2023-10-04] MED LIST changes: -MV-M1TAB40 PO; -SUPPORT PO; -THERTAB52 PO
== END ==
LOC: M SOG 07:53
PROVIDERS: ATTEND Physician Assistant
DX: M25.512 Pain in left shoulder (principal)

== ENCOUNTER 2023-10-20 09:41 | Day surgery (SDC) | payer MEDICARE, OTHER ==
[~2023-10-20] VITALS: Ht 162.6 cm; Wt 74.5 kg
[~2023-10-20 09:41] MED LIST changes: +MV-M1TAB40 PO; +SUPPORT PO; +THERTAB52 PO
[2023-10-20] MEDS ORDERED: LR 1,000 ML IV SCH ×2 (10:25→12:05)
[2023-10-20] MEDS ORDERED: MIDAZOLAM INJ 2MG/2ML VIAL As Ordered ONE (11:40)
[2023-10-20] MEDS ORDERED: fentaNYL 100 MCG/2 ML INJECTION As Ordered ONE (11:40)
[2023-10-20] MEDS ORDERED: ONDANSETRON 4MG 2ML VIAL As Ordered ONE (11:40)
[2023-10-20] MEDS ORDERED: LIDOCAINE 2% 100MG/5ML SDV (FOR ANES.) As Ordered ONE (11:40)
[2023-10-20] MEDS ORDERED: propofoL 200 MG/20 ML VIAL As Ordered ONE (11:40)
[2023-10-20] MEDS ORDERED: ACETAMINOPHEN 1000MG 100ML IV BAG As Ordered ONE (11:42)
[2023-10-20] MEDS ORDERED: ONDANSETRON 4MG 2ML VIAL IV PRN (12:05)
[2023-10-20] MEDS ORDERED: fentaNYL 100 MCG/2 ML INJECTION IV PRN (12:05)
[2023-10-20] MEDS ORDERED: HYDROMORPHONE HCL 0.5 MG/ 0.5 ML SYRINGE IV PRN (12:05)
[2023-10-20] MEDS: oxyCODONE 5MG TAB PO PRN (12:25)
[2023-10-20 13:22] VITALS: BP 146/80; TEMP 97.1; O2SAT 98
== END 2023-10-20 13:28 | disposition home or self-care (01) ==
LOC: M SDC 09:41
PROVIDERS: ATTEND Orthopaedic Surgery Hand Surgery
DX: G56.02 Carpal tunnel syndrome, left upper limb (principal); K21.9 Gastro-esophageal reflux disease without esophagitis; Z79.899 Other long term (current) drug therapy
CPT/HCPCS: 29848; J0131; J0665; J1100; J2250; J2405; J3010

== ENCOUNTER → 2024-01-03 | Outpatient (CLI) | payer OTHER | LOC: M PAIN 09:00 | PROVIDERS: ATTEND Nurse Practitioner Family | DX: M51.16 Intervertebral disc disorders with radiculopathy, lumbar region (principal); M96.1 Postlaminectomy syndrome, not elsewhere classified; G89.29 Other chronic pain; M54.50 Low back pain, unspecified; Z79.899 Other long term (current) drug therapy; Z91.040 Latex allergy status; Z91.018 Allergy to other foods ==

== ENCOUNTER → 2024-01-04 | Outpatient (CLI) | payer OTHER | LOC: M SOG 07:50 | PROVIDERS: ATTEND Orthopaedic Surgery | DX: Z96.641 Presence of right artificial hip joint (principal) ==

== ENCOUNTER → 2024-02-17 | Outpatient (CLI) | payer OTHER | LOC: M PAIN 09:15 | PROVIDERS: ATTEND Nurse Practitioner Family | DX: M96.1 Postlaminectomy syndrome, not elsewhere classified (principal); Z79.891 Long term (current) use of opiate analgesic; G89.29 Other chronic pain; L40.9 Psoriasis, unspecified; Z79.899 Other long term (current) drug therapy; Z91.040 Latex allergy status; Z91.018 Allergy to other foods ==

== ENCOUNTER 2024-03-23 06:08 | Day surgery (SDC) | payer MEDICARE, OTHER ==
[~2024-03-23] VITALS: Ht 162.6 cm; Wt 74.9 kg
[~2024-03-23 06:08] MED LIST changes: +MONT10TA97 PO; +RHUB4TAB PO
[2024-03-23] MEDS ORDERED: MIDAZOLAM INJ 2MG/2ML VIAL As Ordered ONE (07:11)
[2024-03-23] MEDS ORDERED: fentaNYL 100 MCG/2 ML INJECTION As Ordered ONE (07:11)
[2024-03-23] MEDS ORDERED: ONDANSETRON 4MG 2ML VIAL As Ordered ONE (07:12)
[2024-03-23] MEDS ORDERED: LIDOCAINE 2% 100MG/5ML SDV (FOR ANES.) As Ordered ONE (07:12)
[2024-03-23] MEDS ORDERED: propofoL 200 MG/20 ML VIAL As Ordered ONE (07:12)
[2024-03-23] MEDS ORDERED: KETOROLAC 60MG 2ML VIAL As Ordered ONE (07:12)
[2024-03-23] MEDS ORDERED: ACETAMINOPHEN 1000MG 100ML IV BAG As Ordered ONE (07:16)
[2024-03-23] MEDS: NS 1,000 ML IV SCH (07:50)
[2024-03-23] MEDS: TRIAMCINOLONE ACETONIDE SUSP 40MG/ML 1ML VIAL As Ordered ONE (07:56)
[2024-03-23] MEDS: LIDOCAINE 1% SDV 30ML VIAL As Ordered ONE (07:56)
[2024-03-23] MEDS ORDERED: LACRILUBE (AKWA TEARS) OPHTH OINT 3.5GM As Ordered ONE (08:02)
[2024-03-23] MEDS ORDERED: METOCLOPRAMIDE INJ 10MG/2ML VIAL IV PRN (08:25)
[2024-03-23] MEDS ORDERED: diphenhydrAMINE 50MG/ML VIAL IV PRN (08:25)
[2024-03-23] MEDS ORDERED: fentaNYL 100 MCG/2 ML INJECTION IV PRN (08:25)
[2024-03-23] MEDS ORDERED: ONDANSETRON 4MG 2ML VIAL IV PRN (08:25)
[2024-03-23] MEDS ORDERED: MEPERIDINE 25 MG/ML 1ML VIAL IV PRN (08:25)
[2024-03-23] MEDS ORDERED: oxyCODONE 5MG TAB PO PRN (08:25)
[2024-03-23 09:47] VITALS: BP 120/95; TEMP 96.9; O2SAT 97
== END 2024-03-23 09:50 | disposition home or self-care (01) ==
LOC: M SDC 06:08
PROVIDERS: ATTEND Orthopaedic Surgery Hand Surgery
DX: G56.01 Carpal tunnel syndrome, right upper limb (principal); M25.512 Pain in left shoulder; K21.9 Gastro-esophageal reflux disease without esophagitis; L40.9 Psoriasis, unspecified; F41.9 Anxiety disorder, unspecified; Z79.899 Other long term (current) drug therapy; Z96.82 Presence of neurostimulator; Z91.018 Allergy to other foods; Z91.040 Latex allergy status
CPT/HCPCS: 20610; 29848; J0131; J0665; J1100; J1885; J2250; J2405; J3010; J3301

== ENCOUNTER → 2024-05-18 | Outpatient (CLI) | payer OTHER | LOC: M PAIN 09:15 | PROVIDERS: ATTEND Nurse Practitioner Family | DX: M96.1 Postlaminectomy syndrome, not elsewhere classified (principal); G89.29 Other chronic pain; M54.50 Low back pain, unspecified; L40.9 Psoriasis, unspecified; Z79.899 Other long term (current) drug therapy; Z91.040 Latex allergy status; Z91.018 Allergy to other foods ==

== ENCOUNTER → 2024-06-18 | Outpatient (CLI) | payer OTHER ==
[~2024-06-18] MED LIST changes: +CARI-555 PO; -CARI1TAB7 PO
== END ==
LOC: M PAIN 09:00
PROVIDERS: ATTEND Nurse Practitioner Family
DX: M51.16 Intervertebral disc disorders with radiculopathy, lumbar region (principal); G89.29 Other chronic pain; Z79.899 Other long term (current) drug therapy; Z91.040 Latex allergy status; Z91.018 Allergy to other foods

== ENCOUNTER → 2024-12-18 | Outpatient (CLI) | payer OTHER ==
[~2024-12-18] MED LIST changes: +LIDO1ADH93 TOP; -LIDO5DIS41 TOP
== END ==
LOC: M SOG 06:56
PROVIDERS: ATTEND Orthopaedic Surgery
DX: Z47.1 Aftercare following joint replacement surgery (principal); Z96.641 Presence of right artificial hip joint

== ENCOUNTER → 2025-02-11 | Outpatient (CLI) | payer MEDICARE ==
[2025-02-11 07:16] LABS: BASO # 0.0 10^3/uL (0.0-0.2); BASO % 1.1 % (0.0-1.0); EOS # 0.1 10^3/uL (0.0-0.5); EOS % 1.9 % (0.0-3.0); LYMPH # 1.5 10^3/uL (1.5-5.0); LYMPH % 41.9 % (24.0-44.0); MONO # 0.3 10^3/uL (0.0-0.8); MONO % 8.8 % (2.0-8.0); NEUTROPHILS # 1.7 10^3/uL (1.5-8.5); NEUTROPHILS % 46.0 % (36.0-66.0); PLATELET COUNT, AUTOMATED 126 10^3/uL (150-450)
[2025-02-11 07:47] LABS: ALT/SGPT 15 U/L (7.0-40); AST/SGOT 23 U/L (<34); CALCIUM LEVEL 9.2 MG/DL (8.5-10.1); CARBON DIOXIDE LEVEL 32 MMOL/L (20-31); CHLORIDE LEVEL 103 MMOL/L (98-107); CHOLESTEROL LEVEL 194 MG/DL (<200); CHOLESTEROL RISK RATIO 3.03 (<5); CREATININE FOR GFR 0.76 MG/DL (0.55-1.30); GLOMERULAR FILTRATION RATE > 90.0 (>51); LDL CHOLESTEROL 109.9 MG/DL (<100); NON-HDL-C 130.1 MG/DL; POTASSIUM SERUM 4.2 MMOL/L (3.5-5.1); SODIUM LEVEL 141 MMOL/L (136-145); TRIGLYCERIDES LEVEL 101 MG/DL (<150)
[2025-02-11 07:49] LABS: TOTAL 25(OH) VITAMIN D 54.2 NG/ML (20.0-100.0)
== END ==
LOC: M LAB 06:14
PROVIDERS: ATTEND Family Medicine
DX: Z79.899 Other long term (current) drug therapy (principal)

== ENCOUNTER → 2025-04-16 | Outpatient (CLI) | payer MEDICARE | LOC: M SOG 07:44 | PROVIDERS: ATTEND Physician Assistant | DX: M25.511 Pain in right shoulder (principal); M19.011 Primary osteoarthritis, right shoulder ==

== ENCOUNTER → 2025-04-22 | Outpatient (CLI) | payer MEDICARE, OTHER | LOC: M WHC 10:01 | PROVIDERS: ATTEND Family Medicine | DX: Z12.31 Encounter for screening mammogram for malignant neoplasm of breast (principal) ==